=== PATIENT | female | born 1935 | race Caucasian/White ===

== ENCOUNTER → 2017-10-15 10:19 | Outpatient (CLI) | payer MEDICARE, SELFPAY | PROVIDERS: Family Provider Family Medicine; PCP Family Medicine; Visit Provider Family Medicine | DX: Z12.31 Encounter for screening mammogram for malignant neoplasm of breast (principal); Z78.0 Asymptomatic menopausal state | CPT/HCPCS: 77063; 77067 ==

== ENCOUNTER → 2017-10-21 09:37 | Outpatient (CLI) | payer MEDICARE, SELFPAY ==
--- NOTE | 2017-10-21 09:46 | BD_ITS ---
STUDY: DUAL ENERGY X-RAY ABSORPTIOMETRY / DXA REASON FOR EXAM: Female, 81 years old. The patient is postmenopausal. No loss of height. TECHNIQUE: Bone Mineral Density (BMD) measurements of lumbar spine and bilateral hips were obtained. COMPARISON: Comparison is made with prior study dated March 02, 2014. FINDINGS: Lumbar Spine (L1-L4): g/cm2 (1.169) / T-score (-0.1) / Z-score (1.8) Findings are suggestive of normal bone density with a low fracture risk. Left Femur Total: g/cm2 (1.052) / T-score (0.3) / Z-score (2.4) Left Femoral Neck: g/cm2 (0.891) / T-score (-1.1) / Z-score (1.2) Right Femur Total: g/cm2 (1.024) / T-score (0.1) / Z-score (2.2) Right Femoral Neck: g/cm2 (0.903) / T-score (-1.0) / Z-score (1.3) The T-Scores on the most recent prior examination were: Lumbar Spine (L1-L4): There has been improvement of bone density since the previous examination. Left Femur Total: which represents an improvement of 2.4%. Right Femur Total: which represents a worsening of 3.8%. BD/Dexa Bone Density Study IMPRESSION: The patient is considered osteopenic as outlined below according to World Jim Organization (WHO) criteria with a low fracture risk. There has been improvement of bone density since the previous examination. Reference Information: The T-score is the number of standard deviations above or below the standard which is normal for young adults at their peak bone mineral density. The World Health Organization (WHO) interprets the T-scores as follows: Above -1 Normal bone density Between -1 and -2.5 Osteopenia Equal to / or below -2.5 Osteoporosis As a practical clinical guideline, osteopenia may be graded as follows: Mild -1 through -1.5 Moderate -1.6 through -2.0 Severe -2.1 through -2.4 The Z-score is the number of standard deviations above or below age-matched controls. A Z-score of less than -1.5 would be considered abnormal. References: 1. NIH Osteoporosis and Related Bone Diseases http://www.osteo.org 2. International Society for Clinical Densitometry http://www.iscd.org 3. National Osteoporosis Foundation http://www.nof.org Electronically Signed: Alexsander Garcia MD at 13:52 EDT Tel [phone], Service support ,
== END ==
PROVIDERS: Family Provider Family Medicine; PCP Family Medicine; Visit Provider Family Medicine
DX: Z78.0 Asymptomatic menopausal state (principal); Z12.31 Encounter for screening mammogram for malignant neoplasm of breast
CPT/HCPCS: 77080

== ENCOUNTER → 2018-03-05 08:36 | Outpatient (CLI) | payer MEDICARE, SELFPAY ==
[2018-03-05 10:28] LABS: AST(SGOT) 24 U/L (15-37); Alanine Aminotransfer ALT/SGPT 27 U/L (13-56); Albumin, Serum 3.5 g/dL (3.2-5.0); Alkaline Phosphatase 126 U/L (45-117); Anion Gap 9 (5-15); BUN 13 mg/dL (7-18); BUN/Creat Ratio 14.6 RATIO (10-20); Bilirubin, Direct 0.26 mg/dL (0.00-0.30); Calcium,Total 8.6 mg/dL (8.5-10.1); Chloride 107 mmol/L (98-107); Cholesterol 179 mg/dL (200); Creatinine, Serum 0.89 mg/dL (0.55-1.02); EST Glomerular Filtration Rate 64 mL/min (>60); Est Glom Filt Rate - Afr Amer 78 mL/min (>60); Globulin 3.5 g/dL (2.2-4.2); Glucose 104 mg/dL (74-106); High Density Lipoprotein 35 mg/dL; Potassium 3.7 mmol/L (3.5-5.1); Sodium Level 143 mmol/L (136-145); Triglycerides 256 mg/dL; Very Low Density Lipoprotein 51 mg/dL (5-40)
== END ==
PROVIDERS: Family Provider Family Medicine; PCP Family Medicine; Referring Provider Family Medicine; Visit Provider Family Medicine
DX: I10 Essential (primary) hypertension (principal); R94.5 Abnormal results of liver function studies
CPT/HCPCS: 36415; 80048; 80061; 80076

== ENCOUNTER → 2019-07-11 11:01 | Outpatient (CLI) | payer MEDICARE, SELFPAY ==
[2019-07-11 13:09] LABS: Anion Gap 9 (5-15); BUN 14 mg/dL (7-18); BUN/Creat Ratio 14.8 RATIO (10-20); Calcium,Total 9.5 mg/dL (8.5-10.1); Chloride 103 mmol/L (98-107); Cholesterol 187 mg/dL (200); Creatinine, Serum 0.95 mg/dL (0.55-1.02); EST Glomerular Filtration Rate 60 mL/min (>60); Est Glom Filt Rate - Afr Amer 72 mL/min (>60); Glucose 91 mg/dL (74-106); High Density Lipoprotein 35 mg/dL; Potassium 3.7 mmol/L (3.5-5.1); Sodium Level 141 mmol/L (136-145); Triglycerides 332 mg/dL; Uric Acid 8.5 mg/dL (2.6-6.0); Very Low Density Lipoprotein 66 mg/dL (5-40)
== END ==
PROVIDERS: PCP Family Medicine; Referring Provider Family Medicine; Visit Provider Family Medicine
DX: I10 Essential (primary) hypertension (principal); M10.9 Gout, unspecified
CPT/HCPCS: 36415; 80048; 80061; 84550

== ENCOUNTER → 2019-12-07 08:15 | Outpatient (CLI) | payer MEDICARE, SELFPAY ==
--- NOTE | 2019-12-07 08:17 | BI_ITS ---
MAMMOGRAPHY - BILATERAL SCREENING REASON FOR EXAM: Female, 84 years old. Routine annual screening examination. PERTINENT HISTORY: Sister with breast cancer. Remote right excisional breast biopsy. TECHNIQUE: Digital bilateral breast ada (3D mammographic acquisition) in the CC and MLO projections. 2-D mediolateral oblique (MLO) and craniocaudad (CC) views of both breasts were obtained. CAD: Full Field Digital Mammography with Computer Added Detection was performed. COMPARISON: Comparison is made with prior study dated 10/15/2017 and 09/14/2015. FINDINGS: Breast Composition: There are scattered areas of fibroglandular density. There are no dominant masses or suspicious calcifications. Stable benign appearing bilateral axillary lymph nodes. No other significant abnormalities are identified. There has been no significant change since the prior study. BI/SCREEN MAMM (CAD) W/ADA BILAT IMPRESSION: Stable bilateral screening mammogram. Yearly follow-up mammogram recommended. (A) ASSESSMENT CATEGORY: BIRADS Category 2: Benign. A letter regarding these results will be sent to the patient by the facility within 30 days. Approximately 10% of breast cancers are not detected by mammography. A normal mammogram should not delay biopsy of a clinically suspicious abnormality. [id number] Electronically Signed: Alexsander Garcia, at 9:36 EDT , Service support ,
--- NOTE | 2019-12-07 08:47 | BD_ITS ---
STUDY: DUAL ENERGY X-RAY ABSORPTIOMETRY / DXA REASON FOR EXAM: Female, 84 years old. RESIDENT ATHLETIC TRAINER -- TAKES DIURETIC IN [facility] -- TAKES 1200MG CALCIUM AND MULTIVITAMIN -- DOES LITTLE EXERCISE -- HX OF ANKLE AND WRIST FX''S -- NO ALONDRA TECHNIQUE: Bone Mineral Density (BMD) measurements of lumbar spine and bilateral hips were obtained. COMPARISON: Comparison is made with prior study dated 10/21/2017 FINDINGS: Lumbar Spine (L1-L4): g/cm2 (1.164) / T-score (-0.1) / Z-score (1.8) Findings are suggestive of normal bone density with a low fracture risk. Left Femur Total: g/cm2 (1.004) / T-score (0.0) / Z-score (2.2) Left Femoral Neck: g/cm2 (0.800) / T-score (-1.7) / Z-score (0.6) Right Femur Total: g/cm2 (1.026) / T-score (0.1) / Z-score (2.4) Right Femoral Neck: g/cm2 (0.869) / T-score (-1.2) / Z-score (1.1) The T-Scores on the most recent prior examination were: Lumbar Spine (L1-L4): There has been worsening of bone density since the previous examination. Left Femur Total: which represents a worsening of 4.6%. Right Femur Total: which represents an improvement of 0.2%. BD/Dexa Bone Density Study IMPRESSION: The patient is considered osteopenic as outlined below according to World Jim Organization (WHO) criteria with a moderate fracture risk. There has been worsening of bone density since the previous examination. Reference Information: The T-score is the number of standard deviations above or below the standard which is normal for young adults at their peak bone mineral density. The World Health Organization (WHO) interprets the T-scores as follows: Above -1 Normal bone density Between -1 and -2.5 Osteopenia Equal to / or below -2.5 Osteoporosis As a practical clinical guideline, osteopenia may be graded as follows: Mild -1 through -1.5 Moderate -1.6 through -2.0 Severe -2.1 through -2.4 The Z-score is the number of standard deviations above or below age-matched controls. A Z-score of less than -1.5 would be considered abnormal. References: 1. NIH Osteoporosis and Related Bone Diseases www osteo.org 2. International Society for Clinical Densitometry www iscd.org 3. National Osteoporosis Foundation www nof.org Electronically Signed: Alexsander Garcia, at 15:29 EDT , Service support ,
== END ==
PROVIDERS: PCP Family Medicine; Referring Provider Family Medicine; Visit Provider Family Medicine
DX: Z13.820 Encounter for screening for osteoporosis (principal); Z78.0 Asymptomatic menopausal state; Z12.31 Encounter for screening mammogram for malignant neoplasm of breast; Z80.3 Family history of malignant neoplasm of breast
CPT/HCPCS: 77063; 77067; 77080

== ENCOUNTER → 2019-12-16 | Outpatient (CLI) | payer MEDICARE, SELFPAY | END | disposition home or self-care (01) | LOC: LABSPEC 12:10 | PROVIDERS: PCP Family Medicine; Referring Provider Family Medicine; Visit Provider Family Medicine | DX: U07.1 COVID-19 (principal) | CPT/HCPCS: 87635; U0003 ==

== ENCOUNTER 2019-12-20 15:58 | Inpatient (IN) | payer MEDICARE, SELFPAY ==
[2019-12-20] VITALS (16 sets, daily range): BP systolic 91–121; BP diastolic 52–92; PULSE 76–90; RESP 20–28; TEMP 35.6–37.3; O2SAT 85–93; BMI 36.1; BMI 35.2; BMI 35.3
--- NOTE | 2019-12-20 16:24 | EKG12_ITS ---
Test Reason : Blood Pressure : / mmHG Vent. Rate : 088 BPM Atrial Rate : 088 BPM P-R Int : 142 ms QRS Dur : 136 ms QT Int : 416 ms P-R-T Axes : 044 141 008 degrees QTc Int : 503 ms Normal sinus rhythm Right bundle branch block Abnormal ECG Confirmed by ENOC OLIVA, QUYNH ([id number]), state editor RAYSHAWN EMERY ([id number]) on 12/26/2019 12:59:21 PM Referred By: Zander Lares Confirmed By:EZEKIEL STUBBS MD
--- NOTE | 2019-12-20 16:24 | RAD_ITS ---
STUDY: X-RAY CHEST REASON FOR EXAM: Female, 84 years old. COVID 19 positive. Continued fatigue and shortness of breath. TECHNIQUE: Single AP portable view of the chest. COMPARISON: 08/24/2013 FINDINGS: There is diffuse interstitial and alveolar infiltrates throughout both lungs predominantly in a perihilar distribution. There is no demonstrated pleural abnormality. Normal size heart. Normal mediastinum and aubrie. Normal visualized pulmonary arteries. There is atherosclerotic calcification of the aortic arch with tortuosity. There are diffuse degenerative changes of the visualized thoracic spine. There is degenerative osteoarthritis of the bilateral shoulders. There is no demonstrated abnormality of the visualized soft tissue structures of the upper abdomen. RAD/Chest 1 View (Portable) IMPRESSION: Bilateral alveolar and interstitial infiltrates. Electronically Signed: Zana Pena DO at 17:11 EST Tel [phone], Service support ,
--- NOTE | 2019-12-20 16:30 | ED.VIS.GEN ---
History of Present Illness Chief Complaint: Shortness of Breath Informant: Patient Narrative: 84-year-old female with past medical history of hypertension presents with concern for shortness of breath and weakness. States that she was diagnosed with coronavirus 4 days ago. Has had symptoms for approximately 8 days. Called EMS today and was found to be hypoxic in the mid 60s. Patient states that she has had a persistent cough with intermittent fever. Denies any significant chest pain, nausea, vomiting, diarrhea, urinary symptoms. Past Medical History - Allergies and Home Meds Allergies/Adverse Reactions: Allergies No Known Allergies Allergy (Verified 12/20/19 16:05) Prior records reviewed: Yes Past Medical History: - - HTN Surgical History: cholecystectomy, hysterectomy Smoking Status: Never smoker - Family History Maternal Family History: Reports: - - History of stroke Review of Systems General: Reports: Malaise. Denies: Chills, Fever, Sweats Eyes: Denies: Visual changes - bilaterally, Diplopia ENT: Denies: Rhinorrhea, Sore throat Cardiovascular: Denies: Chest pain, Palpitations Respiratory: Reports: Dyspnea, Cough. Denies: Dyspnea on exertion Gastrointestinal: Denies: Abdominal pain, Nausea, Vomiting, Diarrhea, Melena, Hematochezia Genitourinary: Denies: Dysuria, Hematuria, Frequency Musculoskeletal: Denies: Back pain, Extremity Pain Skin: Denies: Rash, Wounds Neurological: Denies: Headache, Weakness, Numbness Physical Exam Vital Signs/Narrative: Vital Signs Temp Pulse Resp BP Pulse Ox 12/20/19 16:04 98.9 F 90 20 H 91/57 L 89 12/20/19 16:00 98.9 F 90 20 H 91/57 L 89 Inital Vital Signs reviewed: Yes General: Well nourished, Well developed, No Acute Distress Head: Normocephalic, Atraumatic Eyes: Perrl, EOMI ENT: Moist mucous membranes, No rhinorrhea Neck: Supple, Nontender Cardiovascular: Regular rate, Regular rhythm, No murmurs Respiratory: No distress, CTA bilaterally, Chest nontender Abdomen: Soft, Nontender, Nondistended, Normal bowel sounds Back: Nontender, Normal Inspection Extremities: Nontender, No edema Skin: Normal color, No rash Neurological: Alert, Oriented x3, Cranial nerves II-XII grossly intact, Normal Strength, Normal Sensation Psychological: Normal affect, Normal Mood Diagnostic/Tx/Re-eval Chest X-Ray - ED: 1 View, Read by ED Physician, - - Bilateral infiltrates. Clinical Impression(s) from Imaging Studies Chest X-Ray 12/20/19 16:24 IMPRESSION: Bilateral alveolar and interstitial infiltrates. Electronically Signed: Zana Pena DO at 17:11 EST Tel [phone], Service support , Chest CTA 12/20/19 17:20 IMPRESSION: 1. No evidence of pulmonary embolus. 2. No aortic dissection or aneurysm. 3. Prominent pulmonary arteries with diffuse perihilar infiltrate. Question pulmonary edema/CHF. 4. Atherosclerotic changes of the thoracic aorta and coronary arteries. Electronically Signed: Zana Pena DO at 18:43 EST Tel [phone], Service support , Laboratory Data 12/20/19 12/20/19 12/20/19 16:30 16:30 16:30 WBC 5.7 RBC 3.93 L Hgb 12.0 Hct 36.6 L MCV 93.1 MCH 30.5 MCHC 32.8 RDW Std Deviation 48.0 H RDW Coeff of Lukasz 13.9 Plt Count 153 MPV 11.8 Immature Gran % (Auto) 1.100 H Neut % (Auto) 85.0 H Lymph % (Auto) 7.4 L [place] % (Auto) 6.3 Eos % (Auto) 0.0 Baso % (Auto) 0.2 Absolute Neuts (auto) 4.9 Absolute Lymphs (auto) 0.42 L Nucleated RBC % 0 Differential Comment SCANNED D-Dimer Quant (PE/DVT) 0.91 H* Specimen Type Sample Site pH Bicarbonate Actual Total CO2 Base Excess O2 Saturation ABG pCO2 ABG pO2 O2 Delivery Device Liter Flow Sodium 140 Potassium 3.5 Chloride 106 Carbon Dioxide 27.0 Anion Gap 7 BUN 33 H Creatinine 1.23 H Estim Creat Clear Calc 24.46 Est GFR (MDRD) Af Amer 54 L Est GFR (MDRD) Non-Af 44 L BUN/Creatinine Ratio 26.8 H Glucose 102 Lactic Acid Calcium 8.5 Total Bilirubin 0.80 AST 38 H ALT 23 Alkaline Phosphatase 125 H Lactate Dehydrogenase 354 H Troponin I < 0.015 Total Protein 7.2 Albumin 2.8 L Globulin 4.4 H Albumin/Globulin Ratio 0.6 L 12/20/19 12/20/19 16:30 16:46 WBC RBC Hgb Hct MCV MCH MCHC RDW Std Deviation RDW Coeff of Lukasz Plt Count MPV Immature Gran % (Auto) Neut % (Auto) Lymph % (Auto) [place] % (Auto) Eos % (Auto) Baso % (Auto) Absolute Neuts (auto) Absolute Lymphs (auto) Nucleated RBC % Differential Comment D-Dimer Quant (PE/DVT) Specimen Type ART Sample Site L Radial pH 7.42 Bicarbonate Actual 23.1 Total CO2 24 Base Excess -1 O2 Saturation 95 ABG pCO2 35.5 ABG pO2 71 L O2 Delivery Device Cannula Liter Flow 10.0 Sodium Potassium Chloride Carbon Dioxide Anion Gap BUN Creatinine Estim Creat Clear Calc Est GFR (MDRD) Af Amer Est GFR (MDRD) Non-Af BUN/Creatinine Ratio Glucose Lactic Acid 1.3 Calcium Total Bilirubin AST ALT Alkaline Phosphatase Lactate Dehydrogenase Troponin I Total Protein Albumin Globulin Albumin/Globulin Ratio - Rhythm Strip Rhythm Strip: Sinus Rhythm Rate: 88 Ectopy: None - EKG Initial EKG Interpretation: Sinus Rhythm - Sinus rhythm at 88 bpm. OH interval of 142 ms. QTC of 503 ms. Right bundle branch block. - Medical Decision Making Patient hypoxic upon arrival. Placed on 6 L but remained at approximate 90%. Placed on high flow nasal cannula. Chest x-ray concerning for bilateral infiltrates. CTA done for elevated D-dimer which shows significant infiltrates without pulmonary embolism. Patient given 6 mg of Decadron. Troponin negative. EKG nonischemic. Patient will be admitted to Covid unit for further treatment and evaluation. Stable at time of admission. Impression: 1. COVID pneumonia 2. Hypoxemia ED Disposition - Plan for ED Patient: Disposition: Acute Care [facility]
[2019-12-20 16:51] LABS: Base Excess -1 mmol/L (-2 to +2); Bicarbonate 23.1 mmol/L (22-26); Blood Gas Specimen Type ART; O2 Delivery Device Cannula; PO2 71 mmHG (75-100); SITE L Radial; SO2 95 % (95-99); Total Carbon Dioxide 24 mmol/L; pCO2 35.5 mmHg (35-45); pH 7.42 (7.35-7.45)
[2019-12-20 16:55] LABS: Absolute Lymphocyte Count 0.42 X10^3/uL (0.83-4.51); Absolute Neutrophil Count 4.9 X10^3/uL (2.0-7.7); Basophil# 0.01 X10^3/uL; Basophil% 0.2 % (0-1); Hematocrit 36.6 % (37-47); Lymphocyte # 0.42 X10^3/ul (4.0); Lymphocyte % 7.4 % (19-41); Mean Corp Hgb Conc 32.8 g/dL (32-36); Mean Corpuscular Hgb 30.5 pg (27.0-32.0); Mean Corpuscular Volume 93.1 fL (81-99); Mean Platelet Vol. 11.8 fl (6.2-12.0); Monocyte# 0.36 X10^3/uL; Monocyte% 6.3 % (0-10); NRBC Flagged by Analyzer 0 % (0-5); Neutrophil # 4.85 X10^3/uL (2.7-7.7); POSITIVE DIFFERENTIAL YES; Platelet Count 153 K/mm3 (150-450); RBC Distribution Width CV 13.9 % (11.6-14.6); Red Blood Count 3.93 M/mm3 (4.2-5.4); White Blood Count 5.7 K/mm3 (4.4-11.0)
[2019-12-20] MEDS: dexAMETHasone 4 MG/ML Vial 6 MG IV (16:58)
[2019-12-20 17:02] LABS: ALB/GLOB Ratio 0.6 RATIO (0.9-2.4); AST(SGOT) 38 U/L (15-37); Alanine Aminotransfer ALT/SGPT 23 U/L (13-56); Albumin, Serum 2.8 g/dL (3.2-5.0); Alkaline Phosphatase 125 U/L (45-117); Anion Gap 7 (5-15); BUN 33 mg/dL (7-18); BUN/Creat Ratio 26.8 RATIO (10-20); Calcium,Total 8.5 mg/dL (8.5-10.1); Chloride 106 mmol/L (98-107); Creatinine, Serum 1.23 mg/dL (0.55-1.02); EST Glomerular Filtration Rate 44 mL/min (>60); Est Glom Filt Rate - Afr Amer 54 mL/min (>60); Estimated Creatinine Clearance 24.46 ml/min; Globulin 4.4 g/dL (2.2-4.2); Glucose 102 mg/dL (74-106); LDH 354 U/L (84-246); Potassium 3.5 mmol/L (3.5-5.1); Protein, Total 7.2 g/dL (6.4-8.2); Sodium Level 140 mmol/L (136-145)
[2019-12-20 17:11] LABS: Differential Indicated SCAN CRITERIA MET
--- NOTE | 2019-12-20 17:20 | CT_ITS ---
STUDY: CTA CHEST REASON FOR EXAM: Female, 84 years old. Dyspnea and fatigue. COVID 19 positive. Hypertension. RADIATION DOSAGE (If Supplied By Facility): CTDIvol = ( 14.93 ) mGy, DLP = ( 453.77 ) mGycm TECHNIQUE: The examination was performed with the intravenous administration of IV 100mL Isovue-370. Post-processing of the angiographic images was performed, with multiplanar reformation and 3D reconstruction. Individualized dose optimization techniques were used for this CT. COMPARISON: Chest, 12/20/2019. FINDINGS: Normal enhancement of the main pulmonary artery and right and left pulmonary arteries. Normal enhancement of the bilateral peripheral pulmonary arteries. There is no demonstrated pulmonary embolism. There is prominence of the main pulmonary arteries and peripheral pulmonary arteries, consistent with congestive heart failure (CHF). There is atherosclerotic tortuosity of the thoracic aorta without aneurysm. There is no demonstrated aortic dissection. The heart is normal in size. There are calcifications of the coronary arteries. Normal mediastinum. Normal hilar regions. Normal visualized trachea and bronchi. The lungs are well expanded. There is elevation right hemidiaphragm. There is patchy perihilar infiltrates throughout both lungs Normal pleura. Normal chest wall structures. There are degenerative changes of thoracic spine. Normal visualized upper abdomen. CT/CTA Chest W/WO Contrast IMPRESSION: 1. No evidence of pulmonary embolus. 2. No aortic dissection or aneurysm. 3. Prominent pulmonary arteries with diffuse perihilar infiltrate. Question pulmonary edema/CHF. 4. Atherosclerotic changes of the thoracic aorta and coronary arteries. Electronically Signed: Zana Pena DO at 18:43 EST Tel [phone], Service support ,
[2019-12-20 17:25] LABS: Lactic Acid 1.3 mmol/L (0.4-1.9)
[2019-12-20 17:26] LABS: D-Dimer Quantitative (DVT/PE) 0.91 FEU/ug/m (0.27-0.49)
[2019-12-20 17:28] LABS: Differential Comment SCANNED
--- NOTE | 2019-12-20 19:11 | HP.PCM_ITS ---
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 malaise. The patient is a 84 year old F presents with shortness of breath and weakness. Patient had been feeling listless at home and tested positive for COVID-19 several days prior. Patient has been feeling ill for about the past week. EMS was called and patient was noted to be hypoxic in the mid 60s. Patient was brought to the emergency room and put on high flow oxygen at 10 L and currently her sats are in the mid 90s. Chest x-ray showed bilateral infiltrates and the patient did receive 6 mg of dexamethasone in the emergency room. D-dimer was elevated and a CT angiogram of the chest was performed. Patient denies having had any fever chills. [] Past Medical History Past Medical History (Chronic Problems): Chronic Problems Obesity, Class II, BMI 35-39.9 (Chronic) Diverticulitis large intestine (Chronic) Dyslipidemia (Chronic) HTN (hypertension) (Chronic) Allergies No Known Allergies Allergy (Verified 12/20/19 16:05) Home Medications: Ambulatory Orders Medication Instructions Recorded Ascorbic Acid [Vitamin C] 500 mg PO DAILY@0800 02/06/13 Cranberry Fruit Extract [Cranberry] 84 mg PO DAILY 02/06/13 Lisinopril/Hydrochlorothiazide 0.5 tablet PO DAILY 02/06/13 [Zestoretic 20/25 Tablet] Multivitamins,Therapeutic 1 tablet PO DAILY 02/06/13 [Multivitamin] Verapamil HCl [Verapamil ER] 240 mg PO QHS 02/06/13 Calcium (Elemental) [Caltrate-600] 600 mg PO BID 02/10/13 Surgical History: cholecystectomy, hysterectomy 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 Denies: Anorexia, Fever, Night Sweats Eyes: Denies: Blurred vision, Double vision HEENT: Denies: Head Aches, Sinus Congestion, Sinus Drainage Cardiovascular: Denies: Chest Pain, Palpitations Respiratory: Reports: Cough, Shortness of Breath Gastrointestinal: Denies: Abdominal Pain, Nausea, Vomiting Genitourinary: Denies: Dysuria Musculoskeletal: Denies: Joint Pain, Joint Tenderness Skin: Denies: Rash, Wounds Neurological: Denies: Numbness, Tingling, Focal weakness Psychiatric: Denies: Anxiety, Depression Hematologic/ Lymphatic: Denies: Easy Bruising, Easy Bleeding, Hx of blood clot Comment: All review of systems were negative except as mentioned above in the history of present illness and the other review of systems. VTE Information - Inpt Only VTE Present on Admission: No VTE Mechan Device Prophylaxis: None VTE Pharm Prophylaxis ordered?: Yes - Physical Exam Vitals/I&O's: Vital Signs Temp Pulse Resp BP Pulse Ox 37.3 C 81 25 H 108/52 L 93 12/20/19 19:00 12/20/19 19:00 12/20/19 19:00 12/20/19 19:00 12/20/19 19:00 Oxygen Flow Rate (L/min) 3 Oxygen Delivery Method Nasal Cannula Weight: 83.915 kg Body Mass Index (BMI) 36.1 General: Alert, No apparent distress, Well developed, Well nourished HEENT: Atraumatic, Normocephalic Oral: Moist Mucosa, No Gingival or Mucosal Lesions/ Ulcerations Neck: No Nodes, Thyroid Normal Size and Texture Lungs: Clear to auscultation, Normal air movement, No rhonchi, No wheeze Cardiovascular: Regular rate, Regular Rhythm, Normal S1, Normal S2, No murmurs Abdomen: Bowel Sounds Present, Soft, Non Tender, Non-Distended, No Hepato- splenomegaly Extremities: No edema, No Calf Tenderness Skin: No rashes, No breakdown Neurological: Muscle tone normal, - - no clonus. Psych/Mental Status: Normal Affect, Appropriate Laboratory Results 12/20/19 16:30: WBC 5.7, RBC 3.93 L, Hgb 12.0, Hct 36.6 L, MCV 93.1, MCH 30.5, MCHC 32.8, RDW Std Deviation 48.0 H, RDW Coeff of Lukasz 13.9, Plt Count 153, MPV 11.8, Immature Gran % (Auto) 1.100 H, Neut % (Auto) 85.0 H, Lymph % (Auto) 7.4 L , [place] % (Auto) 6.3, Eos % (Auto) 0.0, Baso % (Auto) 0.2, Absolute Neuts (auto) 4.9, Absolute Lymphs (auto) 0.42 L, Nucleated RBC % 0, Differential Comment SCANNED 12/20/19 16:30: D-Dimer Quant (PE/DVT) 0.91 H* 12/20/19 16:30: Sodium 140, Potassium 3.5, Chloride 106, Carbon Dioxide 27.0, Anion Gap 7, BUN 33 H, Creatinine 1.23 H, Estim Creat Clear Calc 24.46, Est GFR (MDRD) Af Amer 54 L, Est GFR (MDRD) Non-Af 44 L, BUN/Creatinine Ratio 26.8 H, Glucose 102, Calcium 8.5, Total Bilirubin 0.80, AST 38 H, ALT 23, Alkaline Phosphatase 125 H, Lactate Dehydrogenase 354 H, Troponin I < 0.015, Total Protein 7.2, Albumin 2.8 L, Globulin 4.4 H, Albumin/Globulin Ratio 0.6 L 12/20/19 16:30: Lactic Acid 1.3 12/20/19 16:46: Specimen Type ART, Sample Site L Radial, pH 7.42, Bicarbonate Actual 23.1, Total CO2 24, Base Excess -1, O2 Saturation 95, ABG pCO2 35.5, ABG pO2 71 L, O2 Delivery Device Cannula, Liter Flow 10.0 EKG personally viewed and showed normal sinus rhythm with right bundle block, no prior EKGs available to compare to. Chest x-ray personally reviewed and showed bilateral patchy infiltrates CTA of the chest personally reviewed and showed bilateral diffuse patchy infiltrates. No pulmonary emboli noted. Assessment/Plan All Active Problems COVID-19 (Acute) Acute respiratory failure with hypoxia (Acute) Hypoxia (Acute) SIRS (systemic inflammatory response syndrome) (Ruled-out) Obesity (BMI 35.0-39.9 without comorbidity) (Acute) Bronchitis, acute (Ruled-out) 1. Acute COVID-19 pneumonia: Patient has gotten worse over the past several days. Patient received dexamethasone in the emergency room and will continue for 9 more doses on the floor or when the patient is discharged, which ever comes first. Consultation to infectious disease for recommendations on additional therapies, including remdesivir and convalescent plasma. I do not feel the patient has any other kind of bacterial pneumonia so we will not be initiating antibiotics at this time. CAT scan mention possibilities could be CHF. Clinically patient is not in CHF exacerbation 2. Acute hypoxic respiratory failure Secondary to above On 10 L of oxygen and appears to be comfortable at this time. Do not feel the patient requires stepdown or ICU at this time. 3. Hypertension Stable Continue with verapamil and lisinopril/HCTZ 4. VTE prophylaxis: Patient will be on enoxaparin 30 mg twice daily 5. Advanced care planning: Discussed with the patient. Patient wishes to be full CODE STATUS at this time. Inpatient E&M: 46983 Init Hosp L3
--- NOTE | 2019-12-20 21:04 | NURSING ---
PT UNSURE OF MED DOSAGES. JUST STATES SHE KNOWS HOW MANY PILLS SHE TAKES
[2019-12-20] MEDS: Calcium (Elemental) 500 MG Tablet PO (22:44)
[2019-12-20] MEDS: Verapamil SR 240 MG Tablet PO (22:44)
[2019-12-20] MEDS: Enoxaparin 30 MG/0.3 ML Syringe SC (22:47)
[2019-12-20] MEDS: 0.9% Saline Lock 10 ML Syringe IV (22:48)
[2019-12-21] VITALS (36 sets, daily range): BP systolic 82–109; BP diastolic 40–65; PULSE 58–75; RESP 12–26; TEMP 35.4–36.2; O2SAT 87–100
[2019-12-21] MEDS: 0.9% Saline Lock 10 ML Syringe IV ×2 (03:37→09:23)
[2019-12-21 06:13] LABS: Absolute Lymphocyte Count 0.33 X10^3/uL (0.83-4.51); Absolute Neutrophil Count 3.1 X10^3/uL (2.0-7.7); Basophil# 0.01 X10^3/uL; Basophil% 0.3 % (0-1); Hematocrit 36.3 % (37-47); Hemoglobin 11.9 g/dL (12.0-15.0); Lymphocyte # 0.33 X10^3/ul (4.0); Lymphocyte % 8.9 % (19-41); Mean Corp Hgb Conc 32.8 g/dL (32-36); Mean Corpuscular Volume 94.5 fL (81-99); Mean Platelet Vol. 11.8 fl (6.2-12.0); Monocyte# 0.25 X10^3/uL; Monocyte% 6.8 % (0-10); NRBC Flagged by Analyzer 0 % (0-5); Neutrophil # 3.05 X10^3/uL (2.7-7.7); Neutrophil % 82.4 % (47-70); POSITIVE DIFFERENTIAL YES; Platelet Count 147 K/mm3 (150-450); RBC Distribution Width CV 13.6 % (11.6-14.6); RBC Distribution Width SD 47.1 fl (35.1-43.9); Red Blood Count 3.84 M/mm3 (4.2-5.4); White Blood Count 3.7 K/mm3 (4.4-11.0)
[2019-12-21 06:28] LABS: Differential Indicated SCAN CRITERIA MET
[2019-12-21 06:44] LABS: Differential Comment SCANNED; Ovalocyte RARE
[2019-12-21 06:47] LABS: ALB/GLOB Ratio 0.6 RATIO (0.9-2.4); AST(SGOT) 36 U/L (15-37); Alanine Aminotransfer ALT/SGPT 20 U/L (13-56); Albumin, Serum 2.5 g/dL (3.2-5.0); Alkaline Phosphatase 112 U/L (45-117); Anion Gap 8 (5-15); BUN 37 mg/dL (7-18); BUN/Creat Ratio 32.2 RATIO (10-20); Calcium,Total 8.5 mg/dL (8.5-10.1); Chloride 107 mmol/L (98-107); Creatinine, Serum 1.15 mg/dL (0.55-1.02); EST Glomerular Filtration Rate 48 mL/min (>60); Est Glom Filt Rate - Afr Amer 58 mL/min (>60); Estimated Creatinine Clearance 26.16 ml/min; Globulin 4.2 g/dL (2.2-4.2); Glucose 152 mg/dL (74-106); Potassium 3.6 mmol/L (3.5-5.1); Protein, Total 6.7 g/dL (6.4-8.2); Sodium Level 140 mmol/L (136-145)
--- NOTE | 2019-12-21 07:22 | PCM.PN.HOSP ---
Patient Problems: Active and Suspected Problems COVID-19 (Acute) Acute respiratory failure with hypoxia (Acute) Hypoxia (Acute) Obesity (BMI 35.0-39.9 without comorbidity) (Acute) Subjective: Patient upon presentation with significantly worsening respiratory status with required up to 15 L with facemask eventually transitioned to BiPAP up to 80% upon evaluation this a.m. Patient denies any significant complaints but does feel short of breath somewhat when BiPAP is removed only momentarily with desaturations down to 68% with immediate need for replacement. Given patient presentation rediscussed CODE STATUS and again confirmed full code therefore discussed with biometric technician and elected to transition patient to the ICU. patient denies any nausea, emesis, abdominal pain, diarrhea, body aches but does states she is extremely fatigued. Objective: Physical Examination: General: awake, alert, oriented to self, place and recent events, remains currently cooperative, seated upright in the medical surgical bed with no obvious distress when she is on the BiPAP but when it is only momentarily removed she has become extremely hypoxic with increased work of breathing, tachypnea and obvious evidence of accessory muscle usage. Skin: normal color, turgor, no icterus, cyanosis. HEENT: AT/NC, EOMI, PERRLA, dry MM. Lungs: Reduced breath sounds throughout, greater bases, BiPAP initially in place, removed, desaturated quickly with increased respiratory rate, accessory muscle usage and evidence of respiratory distress. Heart: Regular rate and rhythm; no gallop, rub audible. Abdomen: soft, obese, NTTP, ND, normal BS. Extremities: no cyanosis, clubbing, or edema. Neurological: patient awake, alert, oriented as noted; cognitive function suspect near baseline intact; pupils equally reactive to light and accomodation; cranial nerves II-XII grossly normal, moving all 4 extremities, no focal deficits, strength severely global decrease secondary to acute presentation. Psychiatric: affect appears fatigued, does not give any significant complaints but very stoic, no acute evidence of depressive or anxiety feelings. Vitals/I&O's: Vital Signs Temp Pulse Resp BP Pulse Ox 95.9 F L 59 L 26 H 100/54 L 94 12/21/19 03:38 12/21/19 03:53 12/21/19 03:53 12/21/19 03:38 11/11/20 03:53 Oxygen Flow Rate (L/min) 18 Oxygen Delivery Method Bi-pap Weight: 180 lb 9 oz Body Mass Index (BMI) 35.2 Intake and Output for Last 24 Hours 12/19/19 12/20/19 12/21/19 23:59 23:59 23:59 Intake Total 2.5 / 102.5 442.75 / 442.75 Balance 2.5 / 102.5 442.75 / 442.75 Laboratory Results 12/20/19 16:30: WBC 5.7, RBC 3.93 L, Hgb 12.0, Hct 36.6 L, MCV 93.1, MCH 30.5, MCHC 32.8, RDW Std Deviation 48.0 H, RDW Coeff of Lukasz 13.9, Plt Count 153, MPV 11.8, Immature Gran % (Auto) 1.100 H, Neut % (Auto) 85.0 H, Lymph % (Auto) 7.4 L, [place] % (Auto) 6.3, Eos % (Auto) 0.0, Baso % (Auto) 0.2, Absolute Neuts (auto) 4.9, Absolute Lymphs (auto) 0.42 L, Nucleated RBC % 0, Differential Comment SCANNED 12/20/19 16:30: D-Dimer Quant (PE/DVT) 0.91 H* 12/20/19 16:30: Sodium 140, Potassium 3.5, Chloride 106, Carbon Dioxide 27.0, Anion Gap 7, BUN 33 H, Creatinine 1.23 H, Estim Creat Clear Calc 24.46, Est GFR (MDRD) Af Amer 54 L, Est GFR (MDRD) Non-Af 44 L, BUN/Creatinine Ratio 26.8 H, Glucose 102, Calcium 8.5, Total Bilirubin 0.80, AST 38 H, ALT 23, Alkaline Phosphatase 125 H, Lactate Dehydrogenase 354 H, Troponin I < 0.015, Total Protein 7.2, Albumin 2.8 L, Globulin 4.4 H, Albumin/Globulin Ratio 0.6 L 12/20/19 16:30: Lactic Acid 1.3 12/20/19 16:46: Specimen Type ART, Sample Site L Radial, pH 7.42, Bicarbonate Actual 23.1, Total CO2 24, Base Excess -1, O2 Saturation 95, ABG pCO2 35.5, ABG pO2 71 L, O2 Delivery Device Cannula, Liter Flow 10.0 12/21/19 05:14: WBC 3.7 L, RBC 3.84 L, Hgb 11.9 L, Hct 36.3 L, MCV 94.5, MCH 31.0, MCHC 32.8, RDW Std Deviation 47.1 H, RDW Coeff of Lukasz 13.6, Plt Count 147 L, MPV 11.8, Immature Gran % (Auto) 1.600 H, Neut % (Auto) 82.4 H, Lymph % (Auto) 8.9 L, [place] % (Auto) 6.8, Eos % (Auto) 0.0, Baso % (Auto) 0.3, Absolute Neuts (auto) 3.1, Absolute Lymphs (auto) 0.33 L, Nucleated RBC % 0, Differential Comment SCANNED, Diff Path Review May foll, Ovalocytes RARE 12/21/19 05:14: Sodium 140, Potassium 3.6, Chloride 107, Carbon Dioxide 25.0, Anion Gap 8, BUN 37 H, Creatinine 1.15 H, Estim Creat Clear Calc 26.16, Est GFR (MDRD) Af Amer 58 L, Est GFR (MDRD) Non-Af 48 L, BUN/Creatinine Ratio 32.2 H, Glucose 152 H, Calcium 8.5, Total Bilirubin 0.60, AST 36, ALT 20, Alkaline Phosphatase 112, Total Protein 6.7, Albumin 2.5 L, Globulin 4.2, Albumin/Globulin Ratio 0.6 L 12/21/19 05:14: Blood Type A POSITIVE Current Medications Acetaminophen (Acetaminophen 325 Mg Tablet) 650 mg PO Q6H PRN PRN PRN Reason: Pain Score 1-10/Temp > 100.7 F Ascorbic Acid (Ascorbic Acid 500 Mg Tablet) 500 mg PO DAILY [facility] Calcium Carbonate (Calcium (Elemental) 500 Mg Tablet) 500 mg PO BID [facility] Last Admin: 12/20/19 22:44 Dose: 500 mg Documented by: Dexamethasone Sodium Phosphate (Dexamethasone 10 Mg/Ml Vial) 6 mg IV DAILY [facility] Stop: 12/30/19 10:01 Enoxaparin Sodium (Enoxaparin 30 Mg/0.3 Ml Syringe) 30 mg SC BID [facility] Last Admin: 12/20/19 22:47 Dose: 30 mg Documented by: Hydrochlorothiazide (Hydrochlorothiazide 25 Mg Tablet) 25 mg PO DAILY [facility] Sodium Chloride () 250 mls @ 15 mls/hr IV .[id number] PRN PRN Reason: Saline Flush Last Infusion: 12/21/19 03:37 Dose: 0 mls/hr Documented by: Sodium Chloride () 250 mls @ 15 mls/hr IV .[id number] PRN PRN Reason: Additional IVPB Infusion Remdesivir 100 mg/ Sodium (Chloride) 250 mls @ 125 mls/hr IV DAILY [facility]; Protocol Stop: 12/24/19 11:59 Ibuprofen (Ibuprofen 400 Mg Tablet) 400 mg PO Q4H PRN PRN PRN Reason: Pain Score 1-10/Temp > 100.7 F Lisinopril (Lisinopril 20 Mg Tablet) 20 mg PO DAILY [facility] Multivitamins (Multivitamins,Therapeutic Tablet) 1 tablet PO DAILY [facility] Nutritional Formula (Lactose Free) (Ensure Enlive 120 Ml Liquid) 120 ml PO 4X/DAY [facility] Nystatin (Nystatin Powder 15gm Bottle) 1 applic TOPICAL BID [facility]; Protocol Ondansetron HCl (Ondansetron 4 Mg/2 Ml Vial) 4 mg IV Q8H PRN PRN PRN Reason: NAUSEA/VOMITING Sodium Chloride (0.9% Saline Lock 10 Ml Syringe) 10 - 40 ml IV UD PRN PRN Reason: SALINE FLUSH Last Admin: 12/21/19 03:37 Dose: 10 ml Documented by: Verapamil HCl (Verapamil Sr 240 Mg Tablet) 240 mg PO QHS [facility] Last Admin: 12/20/19 22:44 Dose: 240 mg Documented by: STROKE Vital Signs/Narrative: Vital Signs Temp Pulse Resp BP Pulse Ox 12/21/19 03:53 59 L 26 H 94 12/21/19 03:40 24 H 92 12/21/19 03:38 95.9 F L 58 L 24 H 100/54 L 92 Medical Necessity - Tobacco Use Smoking Status: Never smoker Assessment/Plan All Active Problems COVID-19 (Acute) Acute respiratory failure with hypoxia (Acute) Hypoxia (Acute) SIRS (systemic inflammatory response syndrome) (Ruled-out) Obesity (BMI 35.0-39.9 without comorbidity) (Acute) Bronchitis, acute (Ruled-out) The patient is an 84 y/o F w/ PMHx: HTN, HLD, Obesity otherwise healthy who presents to the [facility] ED on 12/20/19 with history of onset of fatigue, malaise, mild cough the Thursday prior with recent positive Covid testing the prior Thursday noting to have unfortunately contracted the illness from her son who his was positive and eventually tested positive whom she has been in close contact with and notes that her was also tested positive with worsening status, more shortness of breath prompting ED presentation with EMS noting 60% oxygenation at their initial evaluation. 1. Acute Hypoxic Respiratory Failure secondary to Bilateral Pneumonia secondary to Acute Viral Syndrome, COVID-19: Patient with clinically worsening status, initially admitted to medical surgical Covid unit however given worsening status with required significant oxygen supplementation eventually transition to BiPAP overnight will transition to the ICU, discussed with the biometric technician/pulmonary physician, CTPA with no evidence of pulmonary emboli, will continue IV Decadron therapy, defer any antibiotics as suspect likely secondary to Covid presentation, pending infectious disease evaluation for consideration remdesivir and convalescent plasma however timeline may preclude, will continue to trend Covid panel labs per worsening status Covid order set protocol, continue supportive care including q 2 hour turning including prone given no prone bed availability and judicious hydration, closely monitor for worsening status for ARDS and multiorgan failure. 2. Hyperglycemia: Initial glucose 102, repeat 152 but likely secondary to recent usage of steroids, continue to trend. 3. Transient LFT elevation: Initial AST/ALT 38/23, repeat 36/, alk phos 125 now 112, likely secondary to acute presentation, will continue to trend. 4. Hypertension: Patient with hypotension since presentation, 5. Chronic Kidney Disease Stage IV versus GAURI: Admission BUN/Cr 33/1.23 with creatinine clearance 24.46, unclear prior baseline, repeat 12/21/2019 BUN/creatinine 37/1.15, do suspect some underlying chronic kidney disease but given acute presentation may be acute, continue to trend. 6. DVT prophylaxis: SCDs, renally dosed Lovenox. 7. CODE status: Patient upon presentation made full CODE STATUS, discussed at length patient's current presentation and wishes in addition to concept of differences between FULL code, DNR-CCA and DNR-CC status. Following discussions about the differences in these status, requested continuation of Full Code status and is amenable to intubation and CPR measures. Advanced Care Planning Face to Face Time: 16 minutes. Inpatient E&M: [id number] [facility] L[id number] Min
[2019-12-21] MEDS: Enoxaparin 30 MG/0.3 ML Syringe SC ×2 (09:22→21:03)
[2019-12-21] MEDS: dexAMETHasone 10 MG/ML Vial 6 MG IV (09:22)
[2019-12-21] MEDS: Calcium (Elemental) 500 MG Tablet PO ×2 (09:23→21:03)
[2019-12-21] MEDS: hydroCHLOROthiazide 25 MG Tablet PO (09:23)
[2019-12-21] MEDS: Lisinopril 20 MG Tablet PO (09:24)
[2019-12-21] MEDS: Multivitamins,Therapeutic Tablet 1 TABLET PO (09:24)
[2019-12-21] MEDS: Ascorbic Acid 500 MG Tablet PO (09:24)
[2019-12-21] MEDS: Nystatin Powder 15gm Bottle 1 APPLIC TOPICAL ×2 (09:24→21:17)
[2019-12-21 12:55] LABS: Pathologist Review Reviewed
--- NOTE | 2019-12-21 15:55 | PCM.HP.ID ---
Problem List (1) COVID-19 Status: Acute Reason for Consult: covid Consulted by: Dr. Dempsey History of Present Illness: The patient is a 84 year old F presented with symptoms since 12/11/19, c/o headache, congestion, cough, chills, some diarrhea, fatigue. Had some dyspnea and confusion, taken to ED. Started on dex and remdesivir last night. Feeling a little better today, no n/v. Full ROS performed and neg except as noted above. 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 large intestine (Chronic) Dyslipidemia (Chronic) HTN (hypertension) (Chronic) Allergies/Adverse Reactions: Allergies No Known Allergies Allergy (Verified 12/20/19 16:05) Home Medications: Ambulatory Orders Medication Instructions Recorded Ascorbic Acid [Vitamin C] 500 mg PO DAILY@0800 02/06/13 Cranberry Fruit Extract [Cranberry] 84 mg PO DAILY 02/06/13 Lisinopril/Hydrochlorothiazide 0.5 tablet PO DAILY 02/06/13 [Zestoretic Tablet] Multivitamins,Therapeutic 1 tablet PO DAILY 02/06/13 [Multivitamin] Verapamil HCl [Verapamil ER] 240 mg PO QHS 02/06/13 Calcium (Elemental) [Caltrate-600] 600 mg PO BID 02/10/13 - Social History Tobacco Use: non-smoker Vital Signs Temp Pulse Resp BP Pulse Ox 97.1 F L 65 23 H 97/62 97 12/21/19 11:15 12/21/19 13:30 12/21/19 13:30 12/21/19 13:30 12/21/19 13:30 Oxygen Flow Rate (L/min) 18 Oxygen Delivery Method Bi-pap Weight: 81.9 kg Body Mass Index (BMI) 35.2 Laboratory Tests Past 24 Hrs 12/20/19 12/20/19 12/20/19 16:30 16:30 16:30 WBC 5.7 RBC 3.93 L Hgb 12.0 Hct 36.6 L MCV 93.1 MCH 30.5 MCHC 32.8 RDW Std Deviation 48.0 H RDW Coeff of Lukasz 13.9 Plt Count 153 MPV 11.8 Immature Gran % (Auto) 1.100 H Neut % (Auto) 85.0 H Lymph % (Auto) 7.4 L [place] % (Auto) 6.3 Eos % (Auto) 0.0 Baso % (Auto) 0.2 Absolute Neuts (auto) 4.9 Absolute Lymphs (auto) 0.42 L Nucleated RBC % 0 Differential Comment SCANNED Diff Path Review Ovalocytes D-Dimer Quant (PE/DVT) 0.91 H* Specimen Type Sample Site pH Bicarbonate Actual Total CO2 Base Excess O2 Saturation ABG pCO2 ABG pO2 O2 Delivery Device Liter Flow Sodium 140 Potassium 3.5 Chloride 106 Carbon Dioxide 27.0 Anion Gap 7 BUN 33 H Creatinine 1.23 H Estim Creat Clear Calc 24.46 Est GFR (MDRD) Af Amer 54 L Est GFR (MDRD) Non-Af 44 L BUN/Creatinine Ratio 26.8 H Glucose 102 Lactic Acid Calcium 8.5 Total Bilirubin 0.80 AST 38 H ALT 23 Alkaline Phosphatase 125 H Lactate Dehydrogenase 354 H Troponin I < 0.015 Total Protein 7.2 Albumin 2.8 L Globulin 4.4 H Albumin/Globulin Ratio 0.6 L Blood Type Antibody Screen 12/20/19 12/20/19 12/21/19 16:30 16:46 05:14 WBC 3.7 L RBC 3.84 L Hgb 11.9 L Hct 36.3 L MCV 94.5 MCH 31.0 MCHC 32.8 RDW Std Deviation 47.1 H RDW Coeff of Lukasz 13.6 Plt Count 147 L MPV 11.8 Immature Gran % (Auto) 1.600 H Neut % (Auto) 82.4 H Lymph % (Auto) 8.9 L [place] % (Auto) 6.8 Eos % (Auto) 0.0 Baso % (Auto) 0.3 Absolute Neuts (auto) 3.1 Absolute Lymphs (auto) 0.33 L Nucleated RBC % 0 Differential Comment SCANNED Diff Path Review Reviewed Ovalocytes RARE D-Dimer Quant (PE/DVT) Specimen Type ART Sample Site L Radial pH 7.42 Bicarbonate Actual 23.1 Total CO2 24 Base Excess -1 O2 Saturation 95 ABG pCO2 35.5 ABG pO2 71 L O2 Delivery Device Cannula Liter Flow 10.0 Sodium Potassium Chloride Carbon Dioxide Anion Gap BUN Creatinine Estim Creat Clear Calc Est GFR (MDRD) Af Amer Est GFR (MDRD) Non-Af BUN/Creatinine Ratio Glucose Lactic Acid 1.3 Calcium Total Bilirubin AST ALT Alkaline Phosphatase Lactate Dehydrogenase Troponin I Total Protein Albumin Globulin Albumin/Globulin Ratio Blood Type Antibody Screen 12/21/19 12/21/19 12/21/19 05:14 05:14 05:14 WBC RBC Hgb Hct MCV MCH MCHC RDW Std Deviation RDW Coeff of Lukasz Plt Count MPV Immature Gran % (Auto) Neut % (Auto) Lymph % (Auto) [place] % (Auto) Eos % (Auto) Baso % (Auto) Absolute Neuts (auto) Absolute Lymphs (auto) Nucleated RBC % Differential Comment Diff Path Review Ovalocytes D-Dimer Quant (PE/DVT) Specimen Type Sample Site pH Bicarbonate Actual Total CO2 Base Excess O2 Saturation ABG pCO2 ABG pO2 O2 Delivery Device Liter Flow Sodium 140 Potassium 3.6 Chloride 107 Carbon Dioxide 25.0 Anion Gap 8 BUN 37 H Creatinine 1.15 H Estim Creat Clear Calc 26.16 Est GFR (MDRD) Af Amer 58 L Est GFR (MDRD) Non-Af 48 L BUN/Creatinine Ratio 32.2 H Glucose 152 H Lactic Acid Calcium 8.5 Total Bilirubin 0.60 AST 36 ALT 20 Alkaline Phosphatase 112 Lactate Dehydrogenase Troponin I Total Protein 6.7 Albumin 2.5 L Globulin 4.2 Albumin/Globulin Ratio 0.6 L Blood Type Cancelled A POSITIVE Antibody Screen NEGATIVE - Other Studies Radiology: [] reviewed Other Studies: [] Route of nutrition/ use of supplements: [] Nutritional Intake: [] IV Site: [] White Catheter: [] - Physical Exam General: Alert, Oriented x3, Cooperative HEENT: Atraumatic, PERRLA, EOMI Neck: Supple, No Nodes Lungs: Diminished Cardiovascular: Regular rate, Regular Rhythm Abdomen: Soft, Non Tender, Non-Distended Extremities: No edema Skin: No rashes IV Site: Peripheral, without redness Musculoskeletal: No Tenderness to Palpation of Joints or Extremities Neurological: Cranial nerves II-XII grossly intact - Assessment/Plan Antibiotics: [] Assessment/Plan: [] Active and Suspected Problems COVID-19 (Acute) Acute respiratory failure with hypoxia (Acute) Hypoxia (Acute) Obesity (BMI 35.0-39.9 without comorbidity) (Acute) Hypoxic, covid. On dex, remdesivir. Reviewed EUA and discussed risks and benefits of convalescent plasma, pt consents to treatment, will order. CT showed no PE. On lovenoex 30mg bid. D-dimer 0.9. Will follow, thank you
--- NOTE | 2019-12-21 16:16 | CON.PCM_ITS ---
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 Patient reportedly was diagnosed with coronavirus 4 days prior to presentation, but had been reporting symptoms for approximately 8 to 10 days. Patient had called EMS on the day of presentation was noted to be in the mid 60s on room air by EMS. Patient has had a persistent cough and intermittent fever. Patient denied any bowel issues such as nausea, vomiting, diarrhea or hematochezia. Patient has never had complaints of chest pain or urinary symptoms. In the ER, patient was noted to be hypotensive at 91/57, but afebrile and saturating 89%. Chest x-ray showed bilateral infiltrates and CTA was followed up showing no PE, but prominent pulmonary arteries with groundglass opacities bilaterally. Laboratory work-up showed no leukocytosis, but a slightly elevated D-dimer at 0.91. Creatinine was slightly elevated at 1.23, but liver enzymes are okay. LDH is slightly elevated. Troponin was within normal limits and an ABG was obtained showing good ventilation with poor oxygenation. Patient was given Decadron and admitted to the Covid cohort unit. Over the course of the hospitalization, patient became progressively hypoxic requiring high flow nasal cannula. Patient eventually had to be transition to BiPAP therapy and transferred to the intensive care unit. On my evaluation, patient was comfortable on BiPAP, but requiring 70% FiO2 to maintain saturations. Patient reported that she was comfortable on BiPAP therapy and verified that she was a full code and would be intubated if necessary. Patient denies any respiratory history. 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 Patient denies any smoking or asthma history. Patient has never required supplemental oxygen previously. Review of systems otherwise negative from a constitutional, HEENT, respiratory, cardiovascular, GI, genitourinary, musculoskeletal, skin, neurologic, psychiatric and hematologic system unless stated above. Past Medical History Past Medical History (Chronic Problems): Chronic Problems Obesity, Class II, BMI 35-39.9 (Chronic) Diverticulitis large intestine (Chronic) Dyslipidemia (Chronic) HTN (hypertension) (Chronic) Allergies No Known Allergies Allergy (Verified 12/20/19 16:05) Home Medications: Ambulatory Orders Medication Instructions Recorded Ascorbic Acid [Vitamin C] 500 mg PO DAILY@0800 02/06/13 Cranberry Fruit Extract [Cranberry] 84 mg PO DAILY 02/06/13 Lisinopril/Hydrochlorothiazide 0.5 tablet PO DAILY 02/06/13 [Zestoretic Tablet] Multivitamins,Therapeutic 1 tablet PO DAILY 02/06/13 [Multivitamin] Verapamil HCl [Verapamil ER] 240 mg PO QHS 02/06/13 Calcium (Elemental) [Caltrate-600] 600 mg PO BID 02/10/13 Surgical History: cholecystectomy, hysterectomy [employer] History: No pertinent [employer] history Smoking Status: Never smoker - *Family History Maternal History Items: - - History of stroke Review of Systems Comment: See HPI Patient Problems: Active and Suspected Problems COVID-19 (Acute) Acute respiratory failure with hypoxia (Acute) Hypoxia (Acute) Obesity (BMI 35.0-39.9 without comorbidity) (Acute) Objective: All imaging was personally reviewed. Agree with formal interpretation. Patient has not had any recent echocardiogram or pulmonary function tests that are available for review. - Physical Exam Vitals/I&O's: Vital Signs Temp Pulse Resp BP Pulse Ox 36.2 C L 75 21 H 97/62 96 12/21/19 11:15 12/21/19 16:12 12/21/19 16:12 12/21/19 13:30 12/21/19 16:12 Oxygen Flow Rate (L/min) 18 Oxygen Delivery Method Bi-pap Weight: 81.9 kg Body Mass Index (BMI) 35.2 Intake and Output for Last 24 Hours 12/19/19 12/20/19 12/21/19 23:59 23:59 23:59 Intake Total 2.5 / 102.5 442.75 / 442.75 Balance 2.5 / 102.5 442.75 / 442.75 General: Alert, Oriented x3, Cooperative, No apparent distress - On BiPAP, - - Obese. HEENT: Atraumatic, PERRLA, EOMI, Normocephalic, - - No scleral icterus or injection noted Oral: Moist Mucosa, No Gingival or Mucosal Lesions/ Ulcerations Neck: Supple, No JVD, No Nodes, Trachea Midline Lungs: No rhonchi, No wheeze, No rales, Diminished, - - Symmetric expansion. Cardiovascular: Regular rate, Regular Rhythm, Normal S1, Normal S2, No murmurs, No rub noted, No Gallop Abdomen: Bowel Sounds Present, Soft, Non Tender, Non-Distended, Obese Extremities: No clubbing, No cyanosis, Edema - Trace lower extremity Skin: No rashes, No breakdown Musculoskeletal: No Tenderness to Palpation of Joints or Extremities Lymphatic: No Cervical, Supraclavicular, or Inguinal Adenopathy Neurological: Cranial nerves II-XII grossly intact, Neuro grossly intact, Motor Exam 5/5 strength throughout Psych/Mental Status: Alert and oriented to time, place, person, mood and affect Microbiology Past 72 Hours 12/21/19 13:18 Mucosa - Nose Respiratory Panel (PCR) - Final Laboratory Results 12/20/19 16:30: WBC 5.7, RBC 3.93 L, Hgb 12.0, Hct 36.6 L, MCV 93.1, MCH 30.5, MCHC 32.8, RDW Std Deviation 48.0 H, RDW Coeff of Lukasz 13.9, Plt Count 153, MPV 11.8, Immature Gran % (Auto) 1.100 H, Neut % (Auto) 85.0 H, Lymph % (Auto) 7.4 L , [place] % (Auto) 6.3, Eos % (Auto) 0.0, Baso % (Auto) 0.2, Absolute Neuts (auto) 4.9, Absolute Lymphs (auto) 0.42 L, Nucleated RBC % 0, Differential Comment SCANNED 12/20/19 16:30: D-Dimer Quant (PE/DVT) 0.91 H* 12/20/19 16:30: Sodium 140, Potassium 3.5, Chloride 106, Carbon Dioxide 27.0, Anion Gap 7, BUN 33 H, Creatinine 1.23 H, Estim Creat Clear Calc 24.46, Est GFR (MDRD) Af Amer 54 L, Est GFR (MDRD) Non-Af 44 L, BUN/Creatinine Ratio 26.8 H, Glucose 102, Calcium 8.5, Total Bilirubin 0.80, AST 38 H, ALT 23, Alkaline Phosphatase 125 H, Lactate Dehydrogenase 354 H, Troponin I < 0.015, Total Protein 7.2, Albumin 2.8 L, Globulin 4.4 H, Albumin/Globulin Ratio 0.6 L 12/20/19 16:30: Lactic Acid 1.3 12/20/19 16:46: Specimen Type ART, Sample Site L Radial, pH 7.42, Bicarbonate Actual 23.1, Total CO2 24, Base Excess -1, O2 Saturation 95, ABG pCO2 35.5, ABG pO2 71 L, O2 Delivery Device Cannula, Liter Flow 10.0 12/21/19 05:14: WBC 3.7 L, RBC 3.84 L, Hgb 11.9 L, Hct 36.3 L, MCV 94.5, MCH 31.0, MCHC 32.8, RDW Std Deviation 47.1 H, RDW Coeff of Lukasz 13.6, Plt Count 147 L, MPV 11.8, Immature Gran % (Auto) 1.600 H, Neut % (Auto) 82.4 H, Lymph % (Auto) 8.9 L, [place] % (Auto) 6.8, Eos % (Auto) 0.0, Baso % (Auto) 0.3, Absolute Neuts (auto) 3.1, Absolute Lymphs (auto) 0.33 L, Nucleated RBC % 0, Differential Comment SCANNED, Diff Path Review Reviewed, Ovalocytes RARE 12/21/19 05:14: Sodium 140, Potassium 3.6, Chloride 107, Carbon Dioxide 25.0, Anion Gap 8, BUN 37 H, Creatinine 1.15 H, Estim Creat Clear Calc 26.16, Est GFR (MDRD) Af Amer 58 L, Est GFR (MDRD) Non-Af 48 L, BUN/Creatinine Ratio 32.2 H, Glucose 152 H, Calcium 8.5, Total Bilirubin 0.60, AST 36, ALT 20, Alkaline Phosphatase 112, Total Protein 6.7, Albumin 2.5 L, Globulin 4.2, Albumin/Globulin Ratio 0.6 L 12/21/19 05:14: Blood Type Cancelled 12/21/19 05:14: Blood Type A POSITIVE, Antibody Screen NEGATIVE Current Medications Acetaminophen (Acetaminophen 325 Mg Tablet) 650 mg PO Q6H PRN PRN PRN Reason: Pain Score 1-10/Temp > 100.7 F Albuterol Sulfate (Albuterol Sulfate 8 Gm Inhaler (60 Puffs)) 4 - 8 puff INHALATION Q4H PRN PRN PRN Reason: Dyspnea, wheezing Ascorbic Acid (Ascorbic Acid 500 Mg Tablet) 500 mg PO DAILY [facility] Last Admin: 12/21/19 09:24 Dose: 500 mg Documented by: Calcium Carbonate (Calcium (Elemental) 500 Mg Tablet) 500 mg PO BID [facility] Last Admin: 12/21/19 09:23 Dose: 500 mg Documented by: Dexamethasone Sodium Phosphate (Dexamethasone 10 Mg/Ml Vial) 6 mg IV DAILY [facility] Stop: 12/30/19 10:01 Last Admin: 12/21/19 09:22 Dose: 6 mg Documented by: Enoxaparin Sodium (Enoxaparin 30 Mg/0.3 Ml Syringe) 30 mg SC BID [facility] Last Admin: 12/21/19 09:22 Dose: 30 mg Documented by: Hydralazine HCl (Hydralazine 20 Mg/Ml Vial) 10 mg IV Q4H PRN PRN PRN Reason: SBP > 160 Hydrochlorothiazide (Hydrochlorothiazide 25 Mg Tablet) 25 mg PO DAILY [facility] Last Admin: 12/21/19 09:23 Dose: 25 mg Documented by: Sodium Chloride () 250 mls @ 15 mls/hr IV .[id number] PRN PRN Reason: Saline Flush Last Infusion: 12/21/19 03:37 Dose: 0 mls/hr Documented by: Sodium Chloride () 250 mls @ 15 mls/hr IV .[id number] PRN PRN Reason: Additional IVPB Infusion Remdesivir 100 mg/ Sodium (Chloride) 250 mls @ 125 mls/hr IV DAILY@2200 [facility]; Protocol Stop: 12/24/19 23:59 Ibuprofen (Ibuprofen 400 Mg Tablet) 400 mg PO Q4H PRN PRN PRN Reason: Pain Score 1-10/Temp > 100.7 F Lisinopril (Lisinopril 20 Mg Tablet) 20 mg PO DAILY [facility] Last Admin: 12/21/19 09:24 Dose: 20 mg Documented by: Multivitamins (Multivitamins,Therapeutic Tablet) 1 tablet PO DAILY [facility] Last Admin: 12/21/19 09:24 Dose: 1 tablet Documented by: Nystatin (Nystatin Powder 15gm Bottle) 1 applic TOPICAL BID [facility]; Protocol Last Admin: 12/21/19 09:24 Dose: 1 applic Documented by: Ondansetron HCl (Ondansetron 4 Mg/2 Ml Vial) 4 mg IV Q8H PRN PRN PRN Reason: NAUSEA/VOMITING Sodium Chloride (0.9% Saline Lock 10 Ml Syringe) 10 - 40 ml IV UD PRN PRN Reason: SALINE FLUSH Last Admin: 12/21/19 09:23 Dose: 10 ml Documented by: Verapamil HCl (Verapamil Sr 240 Mg Tablet) 240 mg PO QHS [facility] Last Admin: 12/20/19 22:44 Dose: 240 mg Documented by: Clinical Impression(s) from Imaging Studies Chest X-Ray 12/20/19 16:24 IMPRESSION: Bilateral alveolar and interstitial infiltrates. Electronically Signed: Zana Pena DO at 17:11 EST Tel [phone], Service support , Chest CTA 12/20/19 17:20 IMPRESSION: 1. No evidence of pulmonary embolus. 2. No aortic dissection or aneurysm. 3. Prominent pulmonary arteries with diffuse perihilar infiltrate. Question pulmonary edema/CHF. 4. Atherosclerotic changes of the thoracic aorta and coronary arteries. Electronically Signed: Zana Pena DO at 18:43 EST Tel [phone], Service support , Assessment/Plan Active and Suspected Problems COVID-19 (Acute) Acute respiratory failure with hypoxia (Acute) Hypoxia (Acute) Obesity (BMI 35.0-39.9 without comorbidity) (Acute) RECOMMENDATIONS: 1. Continue BiPAP overnight 2. Initiate Decadron, convalescence plasma, remdesivir and anticoagulation 3. Monitor for hypoglycemia and other complications of Decadron 4. Wean oxygen as tolerated 5. ABG with decompensation IMPRESSIONS: 1. Acute hypoxic respiratory failure secondary to COVID-19 pneumonia Patient with typical findings on CTA of the chest. No pulmonary emboli were noted. Okay to use lower dose Lovenox from my perspective. Patient is already on Decadron, remdesivir and has been ordered convalescent serum. All of these appear to be appropriate. Did stress to the patient that she may continue to decompensate and she is open to intubation if necessary. Will obtain an ABG if patient starts to have decreased mental status, but appears to be stabilizing on BiPAP at this time. Anticipate trial of high flow nasal cannula tomorrow, but doubt patient will be able to tolerate this when sleeping. 2. Hyperglycemia Likely secondary to Decadron therapy. Continue to monitor. Patient may need initiation of long-acting insulin. 3. Transaminitis Patient was slightly elevated liver enzymes on presentation. Will need to watch closely given patient's Remdesivir order. Patient is aware of the risk and feels that it is appropriate to proceed. We will continue with daily labs as ordered. 4. Chronic kidney disease stage IV versus acute kidney injury Unclear baseline at this time. Patient appears to have some improvement with stabilization of cardiovascular status. We will continue to monitor closely. Cannot guarantee the patient will be able to receive a full course of remdesivir. TIME: 32 minutes critical care time spent addressing patient's acute hypoxic respiratory failure, hyperglycemia, acute kidney injury, review of all data and collaboration with care team (1 PM to 4 PM) [id number]: [id number] Critical care first hour
--- NOTE | 2019-12-21 19:13 | CPS ---
patient placed on 15 lpm hrfnc via nursing.
[2019-12-21] MEDS: Verapamil SR 240 MG Tablet PO (21:03)
[2019-12-22] VITALS (47 sets, daily range): BP systolic 85–112; BP diastolic 44–76; PULSE 58–83; RESP 12–27; TEMP 35.7–36.9; O2SAT 90–100
--- NOTE | 2019-12-22 02:26 | PCM.PN.BLA ---
Progress Note Patient with persistent hypertension. Stop all blood pressure medications at this time. Will give normal saline 500 mL bolus. STROKE Vital Signs/Narrative: Vital Signs Temp Pulse Resp BP BP Pulse Ox 12/22/19 02:15 58 L 22 H 85/50 L 100 12/22/19 02:00 62 22 H 90/44 L 100 12/22/19 01:45 96.2 F L 60 22 H 92/59 L 99 12/22/19 01:25 96.5 F L 62 25 H 92/59 L 100 12/22/19 01:00 63 20 H 99/50 L 97 12/22/19 00:38 96.8 F L 67 24 H 101/58 L 99 12/22/19 00:25 96.2 F L 68 21 H 85/58 L 99 12/22/19 00:10 96.4 F L 71 24 H 95/61 99 12/22/19 00:06 72 18 94 12/22/19 00:02 96.4 F L 61 20 H 93/57 L 100 12/22/19 00:00 96.4 F L 66 23 H 95/61 99 12/21/19 23:11 64 12/21/19 23:00 96.8 F L 70 22 H 95/63 99 12/21/19 22:29 69 20 H 94
[2019-12-22] MEDS: 0.9% Saline Lock 10 ML Syringe IV ×3 (02:48→23:44)
[2019-12-22 04:15] LABS: Absolute Lymphocyte Count 0.49 X10^3/uL (0.83-4.51); Absolute Neutrophil Count 4.8 X10^3/uL (2.0-7.7); Basophil# 0.01 X10^3/uL; Basophil% 0.2 % (0-1); Hemoglobin 11.1 g/dL (12.0-15.0); Lymphocyte # 0.49 X10^3/ul (4.0); Lymphocyte % 8.2 % (19-41); Mean Corp Hgb Conc 31.7 g/dL (32-36); Mean Corpuscular Hgb 29.9 pg (27.0-32.0); Mean Corpuscular Volume 94.3 fL (81-99); Mean Platelet Vol. 11.4 fl (6.2-12.0); Monocyte# 0.52 X10^3/uL; Monocyte% 8.7 % (0-10); NRBC Flagged by Analyzer 0 % (0-5); Neutrophil # 4.84 X10^3/uL (2.7-7.7); Neutrophil % 81.2 % (47-70); POSITIVE DIFFERENTIAL YES; Platelet Count 176 K/mm3 (150-450); RBC Distribution Width CV 13.5 % (11.6-14.6); RBC Distribution Width SD 46.9 fl (35.1-43.9); Red Blood Count 3.71 M/mm3 (4.2-5.4)
[2019-12-22 04:19] LABS: Differential Indicated SCAN CRITERIA MET
[2019-12-22 04:27] LABS: D-Dimer Quantitative (DVT/PE) 0.52 FEU/ug/m (0.27-0.49)
[2019-12-22 04:28] LABS: ALB/GLOB Ratio 0.6 RATIO (0.9-2.4); AST(SGOT) 36 U/L (15-37); Alanine Aminotransfer ALT/SGPT 21 U/L (13-56); Albumin, Serum 2.4 g/dL (3.2-5.0); Alkaline Phosphatase 99 U/L (45-117); Anion Gap 7 (5-15); BUN 51 mg/dL (7-18); BUN/Creat Ratio 45.5 RATIO (10-20); Calcium,Total 8.5 mg/dL (8.5-10.1); Chloride 108 mmol/L (98-107); Creatinine, Serum 1.12 mg/dL (0.55-1.02); EST Glomerular Filtration Rate 49 mL/min (>60); Est Glom Filt Rate - Afr Amer 60 mL/min (>60); Estimated Creatinine Clearance 26.86 ml/min; Ferritin 403 ng/mL (8-252); Globulin 4.2 g/dL (2.2-4.2); Glucose 126 mg/dL (74-106); Potassium 3.6 mmol/L (3.5-5.1); Protein, Total 6.6 g/dL (6.4-8.2); Sodium Level 142 mmol/L (136-145)
[2019-12-22 04:32] LABS: Procalcitonin 0.21 ng/mL (0.00-0.09)
[2019-12-22 04:52] LABS: Differential Comment SCANNED
--- NOTE | 2019-12-22 06:57 | PN_ITS ---
Patient Problems: Active and Suspected Problems COVID-19 (Acute) Acute respiratory failure with hypoxia (Acute) Hypoxia (Acute) Obesity (BMI 35.0-39.9 without comorbidity) (Acute) Subjective: Patient overnight with continued necessity for BiPAP although 12/22/2019 a.m. did decrease patient from 75% FiO2 to 65% FiO2. Patient with trial this a.m. to Airvo with noted necessity of significant FiO2 up to 93% to maintain appropriate saturations in the low 90s. Patient did receive oral medications with BiPAP to the side this a.m. and did maintain saturations in the low 90s but this was also blow-by. Patient notes feeling fatigued and weak but denies any significant dyspnea. Patient denies fevers, chills, nausea, emesis, abdominal pain, chest pain. Objective: Physical Examination: General: awake, alert, oriented x 3 and cooperative, he did upright in the ICU bed, BiPAP currently being transitioned to air Vo, improved appearance since day prior. Skin: normal color, turgor, no icterus, cyanosis. HEENT: AT/NC, EOMI, PERRLA, dry MM. Lungs: Diminished breath sounds throughout, greater bases, currently being transition BiPAP to air Vo, no obvious distress currently, no rales, ronchi or wheezing. Heart: Regular rate and rhythm; no gallop, rub audible. Abdomen: soft, NTTP, ND, normal BS, no HSM. Extremities: no cyanosis, clubbing, or edema. Neurological: patient awake, alert, oriented as noted, somewhat hard of hearing especially with BiPAP noise; cognitive function appears baseline intact; pupils equally reactive to light and accomodation; cranial nerves II-XII grossly normal, moving all 4 extremities, no focal deficits, strength severely global decrease secondary to acute presentation. Psychiatric: affect appears less fatigued than day prior, no acute evidence of depressive or anxiety feelings. Vitals/I&O's: Vital Signs Temp Pulse Resp BP Pulse Ox 98.4 F 60 19 H 99/57 L 99 12/22/19 06:00 12/22/19 06:00 12/22/19 06:00 12/22/19 06:00 12/22/19 06:00 Oxygen Flow Rate (L/min) 15 Oxygen Delivery Method Bi-pap Weight: 190 lb 14.725 oz Body Mass Index (BMI) 35.2 Intake and Output for Last 24 Hours 12/20/19 12/21/19 12/22/19 23:59 23:59 23:59 Intake Total 2.5 / 102.5 932.75 / 932.75 910 / 910 Balance 2.5 / 102.5 932.75 / 932.75 910 / 910 Microbiology Past 72 Hours 12/21/19 13:18 Mucosa - Nose Respiratory Panel (PCR) - Final Laboratory Results 12/21/19 05:14: Diff Path Review Reviewed 12/21/19 05:14: Blood Type Cancelled 12/21/19 05:14: Blood Type A POSITIVE, Antibody Screen NEGATIVE 12/22/19 04:00: WBC 6.0, RBC 3.71 L, Hgb 11.1 L, Hct 35.0 L, MCV 94.3, MCH 29.9, MCHC 31.7 L, RDW Std Deviation 46.9 H, RDW Coeff of Lukasz 13.5, Plt Count 176, MPV 11.4, Immature Gran % (Auto) 1.700 H, Neut % (Auto) 81.2 H, Lymph % (Auto) 8.2 L , [place] % (Auto) 8.7, Eos % (Auto) 0.0, Baso % (Auto) 0.2, Absolute Neuts (auto) 4.8, Absolute Lymphs (auto) 0.49 L, Nucleated RBC % 0, Differential Comment SCANNED 12/22/19 04:00: Sodium 142, Potassium 3.6, Chloride 108 H, Carbon Dioxide 27.0, Anion Gap 7, BUN 51 H, Creatinine 1.12 H, Estim Creat Clear Calc 26.86, Est GFR (MDRD) Af Amer 60, Est GFR (MDRD) Non-Af 49 L, BUN/Creatinine Ratio 45.5 H, Glucose 126 H, Calcium 8.5, Ferritin 403 H, Total Bilirubin 0.50, AST 36, ALT 21, Alkaline Phosphatase 99, C-React Prot Ext Range 111.00 H, Total Protein 6.6, Albumin 2.4 L, Globulin 4.2, Albumin/Globulin Ratio 0.6 L 12/22/19 04:00: D-Dimer Quant (PE/DVT) 0.52 H* 12/22/19 04:00: Procalcitonin 0.21 H Current Medications Acetaminophen (Acetaminophen 325 Mg Tablet) 650 mg PO Q6H PRN PRN PRN Reason: Pain Score 1-10/Temp > 100.7 F Albuterol Sulfate (Albuterol Sulfate 8 Gm Inhaler (60 Puffs)) 4 - 8 puff INHALATION Q4H PRN PRN PRN Reason: Dyspnea, wheezing Ascorbic Acid (Ascorbic Acid 500 Mg Tablet) 500 mg PO DAILY [facility] Last Admin: 12/21/19 09:24 Dose: 500 mg Documented by: Calcium Carbonate (Calcium (Elemental) 500 Mg Tablet) 500 mg PO BID [facility] Last Admin: 12/21/19 21:03 Dose: 500 mg Documented by: Dexamethasone Sodium Phosphate (Dexamethasone 10 Mg/Ml Vial) 6 mg IV DAILY [facility] Stop: 12/30/19 10:01 Last Admin: 12/21/19 09:22 Dose: 6 mg Documented by: Enoxaparin Sodium (Enoxaparin 30 Mg/0.3 Ml Syringe) 30 mg SC BID [facility] Last Admin: 12/21/19 21:03 Dose: 30 mg Documented by: Hydralazine HCl (Hydralazine 20 Mg/Ml Vial) 10 mg IV Q4H PRN PRN PRN Reason: SBP > 160 Sodium Chloride () 250 mls @ 15 mls/hr IV .[id number] PRN PRN Reason: Saline Flush Last Infusion: 12/21/19 03:37 Dose: 0 mls/hr Documented by: Sodium Chloride () 250 mls @ 15 mls/hr IV .[id number] PRN PRN Reason: Additional IVPB Infusion Remdesivir 100 mg/ Sodium (Chloride) 250 mls @ 125 mls/hr IV DAILY@2200 [facility]; Protocol Stop: 12/24/19 23:59 Last Infusion: 12/21/19 23:04 Dose: Infused Documented by: Ibuprofen (Ibuprofen 400 Mg Tablet) 400 mg PO Q4H PRN PRN PRN Reason: Pain Score 1-10/Temp > 100.7 F Multivitamins (Multivitamins,Therapeutic Tablet) 1 tablet PO DAILY [facility] Last Admin: 12/21/19 09:24 Dose: 1 tablet Documented by: Nystatin (Nystatin Powder 15gm Bottle) 1 applic TOPICAL BID [facility]; Protocol Last Admin: 12/21/19 21:17 Dose: 1 applic Documented by: Ondansetron HCl (Ondansetron 4 Mg/2 Ml Vial) 4 mg IV Q8H PRN PRN PRN Reason: NAUSEA/VOMITING Sodium Chloride (0.9% Saline Lock 10 Ml Syringe) 10 - 40 ml IV UD PRN PRN Reason: SALINE FLUSH Last Admin: 12/22/19 02:48 Dose: 10 ml Documented by: STROKE Vital Signs/Narrative: Vital Signs Temp Pulse Resp BP Pulse Ox 12/22/19 06:00 98.4 F 60 19 H 99/57 L 99 12/22/19 05:00 60 20 H 91/56 L 98 12/22/19 04:00 68 18 95/64 100 12/22/19 03:32 71 18 93 12/22/19 03:18 59 L 12/22/19 03:00 96.8 F L 59 L 18 87/56 L 99 Medical Necessity - Tobacco Use Smoking Status: Never smoker Assessment/Plan All Active Problems COVID-19 (Acute) Acute respiratory failure with hypoxia (Acute) Hypoxia (Acute) Obesity (BMI 35.0-39.9 without comorbidity) (Acute) Bronchitis, acute (Ruled-out) The patient is an 84 y/o F w/ PMHx: HTN, HLD, Obesity otherwise healthy who presents to the [facility] ED on 12/20/19 with history of onset of fatigue, malaise, mild cough the Thursday prior with recent positive Covid testing the prior Thursday noting to have unfortunately contracted the illness from her son who his was positive and eventually tested positive whom she has been in close contact with and notes that her was also tested positive with worsening status, more shortness of breath prompting ED presentation with EMS noting 60% oxygenation at their initial evaluation. 1. Acute Hypoxic Respiratory Failure secondary to Bilateral Pneumonia secondary to Acute Viral Syndrome, COVID-19: Patient with clinically worsening status, initially admitted to medical surgical Covid unit however worsened status with high flow transition to BiPAP 12/19 to 12/21/2019 p.m., 12/21/2019 transition to the ICU, continued on IV Decadron therapy in addition to remdesivir in addition to planned convalescent plasma, infectious disease and pulmonary medicine/ICU following, attempting BiPAP to air Vo today with oral intake attempt, likely will vacillate between BiPAP and airvo, will continue to trend Covid panel labs per worsening status Covid order set protocol, continue supportive care including q 2 hour turning including prone given no prone bed availability and judicious hydration, closely monitor for worsening status for ARDS and multiorgan failure. 2. Hyperglycemia: Initial glucose 102, repeat 152 but likely secondary to recent usage of steroids, continue to trend. 3. Transient LFT elevation: Initial AST/ALT 38/23, repeat , alk phos 125- >112, likely secondary to acute presentation, 12/22/19 AST/ALT 36/21. 4. Hypertension: Patient with hypotension since presentation, 5. Chronic Kidney Disease Stage IV versus GAURI: Admission BUN/Cr 33/1.23 with creatinine clearance 24.46, unclear prior baseline, repeat 12/22/2019 BUN/creatinine 51/1.12, do suspect some underlying chronic kidney disease but given acute presentation may be acute, continue to trend. 6. DVT prophylaxis: SCDs, Lovenox. 7. CODE status: Full Code. Inpatient E&M: 75983 Subs Hosp L3
--- NOTE | 2019-12-22 07:26 | PCM.PN.INT ---
Subjective: Patient did well overnight. Patient was able to tolerate BiPAP with little difficulty. Patient is reporting that she is hungry this morning and would like to try to eat if she can. Patient did receive convalescent serum overnight and tolerated this well. BiPAP was able to be weaned to 65% this morning. Blood pressures remain marginal and she did receive a 500 cc bolus overnight with good response. General: Alert, Oriented x3, Cooperative, No apparent distress - On BiPAP, - - Obese. HEENT: Atraumatic, PERRLA, EOMI, Normocephalic, - - No scleral icterus or injection noted Oral: No Gingival or Mucosal Lesions/ Ulcerations, Dry Mucosa Neck: Supple, No JVD, No Nodes, Trachea Midline Lungs: No rhonchi, No wheeze, No rales, Diminished, - - Symmetric expansion. No dullness to percussion Cardiovascular: Regular rate, Regular Rhythm, Normal S1, Normal S2, No murmurs, No rub noted, No Gallop Abdomen: Bowel Sounds Present, Soft, Non Tender, Non-Distended, Obese Extremities: No clubbing, No cyanosis, No edema Skin: No rashes, No breakdown Musculoskeletal: No Tenderness to Palpation of Joints or Extremities Lymphatic: No Cervical, Supraclavicular, or Inguinal Adenopathy Neurological: Cranial nerves II-XII grossly intact, Neuro grossly intact, Motor Exam 5/5 strength throughout Psych/Mental Status: Alert and oriented to time, place, person, mood and affect Vital Signs Temp Pulse Resp BP Pulse Ox 36.9 C 58 L 24 H 89/57 L 97 12/22/19 06:00 12/22/19 07:24 12/22/19 07:00 12/22/19 07:00 12/22/19 07:00 Oxygen Flow Rate (L/min) 15 Oxygen Delivery Method Bi-pap Weight: 86.6 kg Body Mass Index (BMI) 35.2 Intake and Output for Last 24 Hours 12/20/19 12/21/19 12/22/19 23:59 23:59 23:59 Intake Total 2.5 / 102.5 932.75 / 932.75 910 / 910 Balance 2.5 / 102.5 932.75 / 932.75 910 / 910 Labs (Last 48 Hours) 12/20/19 12/20/19 12/20/19 16:30 16:30 16:30 WBC 5.7 RBC 3.93 L Hgb 12.0 Hct 36.6 L MCV 93.1 MCH 30.5 MCHC 32.8 RDW Std Deviation 48.0 H RDW Coeff of Lukasz 13.9 Plt Count 153 MPV 11.8 Immature Gran % (Auto) 1.100 H Neut % (Auto) 85.0 H Lymph % (Auto) 7.4 L Sanders % (Auto) 6.3 Eos % (Auto) 0.0 Baso % (Auto) 0.2 Absolute Neuts (auto) 4.9 Absolute Lymphs (auto) 0.42 L Nucleated RBC % 0 Differential Comment SCANNED Diff Path Review Ovalocytes D-Dimer Quant (PE/DVT) 0.91 H* Specimen Type Sample Site pH Bicarbonate Actual Total CO2 Base Excess O2 Saturation ABG pCO2 ABG pO2 O2 Delivery Device Liter Flow Sodium 140 Potassium 3.5 Chloride 106 Carbon Dioxide 27.0 Anion Gap 7 BUN 33 H Creatinine 1.23 H Estim Creat Clear Calc 24.46 Est GFR (MDRD) Af Amer 54 L Est GFR (MDRD) Non-Af 44 L BUN/Creatinine Ratio 26.8 H Glucose 102 Lactic Acid Calcium 8.5 Ferritin Total Bilirubin 0.80 AST 38 H ALT 23 Alkaline Phosphatase 125 H Lactate Dehydrogenase 354 H Troponin I < 0.015 C-React Prot Ext Range Total Protein 7.2 Albumin 2.8 L Globulin 4.4 H Albumin/Globulin Ratio 0.6 L Procalcitonin Blood Type Antibody Screen 12/20/19 12/20/19 12/21/19 16:30 16:46 05:14 WBC 3.7 L RBC 3.84 L Hgb 11.9 L Hct 36.3 L MCV 94.5 MCH 31.0 MCHC 32.8 RDW Std Deviation 47.1 H RDW Coeff of Lukasz 13.6 Plt Count 147 L MPV 11.8 Immature Gran % (Auto) 1.600 H Neut % (Auto) 82.4 H Lymph % (Auto) 8.9 L Sanders % (Auto) 6.8 Eos % (Auto) 0.0 Baso % (Auto) 0.3 Absolute Neuts (auto) 3.1 Absolute Lymphs (auto) 0.33 L Nucleated RBC % 0 Differential Comment SCANNED Diff Path Review Reviewed Ovalocytes RARE D-Dimer Quant (PE/DVT) Specimen Type ART Sample Site L Radial pH 7.42 Bicarbonate Actual 23.1 Total CO2 24 Base Excess -1 O2 Saturation 95 ABG pCO2 35.5 ABG pO2 71 L O2 Delivery Device Cannula Liter Flow 10.0 Sodium Potassium Chloride Carbon Dioxide Anion Gap BUN Creatinine Estim Creat Clear Calc Est GFR (MDRD) Af Amer Est GFR (MDRD) Non-Af BUN/Creatinine Ratio Glucose Lactic Acid 1.3 Calcium Ferritin Total Bilirubin AST ALT Alkaline Phosphatase Lactate Dehydrogenase Troponin I C-React Prot Ext Range Total Protein Albumin Globulin Albumin/Globulin Ratio Procalcitonin Blood Type Antibody Screen 12/21/19 12/21/19 12/21/19 05:14 05:14 05:14 WBC RBC Hgb Hct MCV MCH MCHC RDW Std Deviation RDW Coeff of Lukasz Plt Count MPV Immature Gran % (Auto) Neut % (Auto) Lymph % (Auto) Sanders % (Auto) Eos % (Auto) Baso % (Auto) Absolute Neuts (auto) Absolute Lymphs (auto) Nucleated RBC % Differential Comment Diff Path Review Ovalocytes D-Dimer Quant (PE/DVT) Specimen Type Sample Site pH Bicarbonate Actual Total CO2 Base Excess O2 Saturation ABG pCO2 ABG pO2 O2 Delivery Device Liter Flow Sodium 140 Potassium 3.6 Chloride 107 Carbon Dioxide 25.0 Anion Gap 8 BUN 37 H Creatinine 1.15 H Estim Creat Clear Calc 26.16 Est GFR (MDRD) Af Amer 58 L Est GFR (MDRD) Non-Af 48 L BUN/Creatinine Ratio 32.2 H Glucose 152 H Lactic Acid Calcium 8.5 Ferritin Total Bilirubin 0.60 AST 36 ALT 20 Alkaline Phosphatase 112 Lactate Dehydrogenase Troponin I C-React Prot Ext Range Total Protein 6.7 Albumin 2.5 L Globulin 4.2 Albumin/Globulin Ratio 0.6 L Procalcitonin Blood Type Cancelled A POSITIVE Antibody Screen NEGATIVE 12/22/19 12/22/19 12/22/19 04:00 04:00 04:00 WBC 6.0 RBC 3.71 L Hgb 11.1 L Hct 35.0 L MCV 94.3 MCH 29.9 MCHC 31.7 L RDW Std Deviation 46.9 H RDW Coeff of Lukasz 13.5 Plt Count 176 MPV 11.4 Immature Gran % (Auto) 1.700 H Neut % (Auto) 81.2 H Lymph % (Auto) 8.2 L Sanders % (Auto) 8.7 Eos % (Auto) 0.0 Baso % (Auto) 0.2 Absolute Neuts (auto) 4.8 Absolute Lymphs (auto) 0.49 L Nucleated RBC % 0 Differential Comment SCANNED Diff Path Review Ovalocytes D-Dimer Quant (PE/DVT) 0.52 H* Specimen Type Sample Site pH Bicarbonate Actual Total CO2 Base Excess O2 Saturation ABG pCO2 ABG pO2 O2 Delivery Device Liter Flow Sodium 142 Potassium 3.6 Chloride 108 H Carbon Dioxide 27.0 Anion Gap 7 BUN 51 H Creatinine 1.12 H Estim Creat Clear Calc 26.86 Est GFR (MDRD) Af Amer 60 Est GFR (MDRD) Non-Af 49 L BUN/Creatinine Ratio 45.5 H Glucose 126 H Lactic Acid Calcium 8.5 Ferritin 403 H Total Bilirubin 0.50 AST 36 ALT 21 Alkaline Phosphatase 99 Lactate Dehydrogenase Troponin I C-React Prot Ext Range 111.00 H Total Protein 6.6 Albumin 2.4 L Globulin 4.2 Albumin/Globulin Ratio 0.6 L Procalcitonin Blood Type Antibody Screen 12/22/19 04:00 WBC RBC Hgb Hct MCV MCH MCHC RDW Std Deviation RDW Coeff of Lukasz Plt Count MPV Immature Gran % (Auto) Neut % (Auto) Lymph % (Auto) Sanders % (Auto) Eos % (Auto) Baso % (Auto) Absolute Neuts (auto) Absolute Lymphs (auto) Nucleated RBC % Differential Comment Diff Path Review Ovalocytes D-Dimer Quant (PE/DVT) Specimen Type Sample Site pH Bicarbonate Actual Total CO2 Base Excess O2 Saturation ABG pCO2 ABG pO2 O2 Delivery Device Liter Flow Sodium Potassium Chloride Carbon Dioxide Anion Gap BUN Creatinine Estim Creat Clear Calc Est GFR (MDRD) Af Amer Est GFR (MDRD) Non-Af BUN/Creatinine Ratio Glucose Lactic Acid Calcium Ferritin Total Bilirubin AST ALT Alkaline Phosphatase Lactate Dehydrogenase Troponin I C-React Prot Ext Range Total Protein Albumin Globulin Albumin/Globulin Ratio Procalcitonin 0.21 H Blood Type Antibody Screen Microbiology 12/21/19 13:18 Mucosa - Nose Respiratory Panel (PCR) - Final Medical Necessity - Tobacco Use Smoking Status: Never smoker Assessment/Plan All Active Problems COVID-19 (Acute) Acute respiratory failure with hypoxia (Acute) Hypoxia (Acute) Obesity (BMI 35.0-39.9 without comorbidity) (Acute) Bronchitis, acute (Ruled-out) RECOMMENDATIONS: 1. Possibly attempt Airvo with BiPAP rescue today 2. Continue Decadron, remdesivir and anticoagulation. Convalescent serum given 3. Monitor for hyperglycemia and other complications of Decadron 4. Wean oxygen as tolerated 5. ABG with decompensation 6. Hold home blood pressure medications IMPRESSIONS: 1. Acute hypoxic respiratory failure secondary to COVID-19 pneumonia Patient with typical findings on CTA of the chest. No pulmonary emboli were noted. Okay to use lower dose Lovenox from my perspective. Patient is already on Decadron, remdesivir and has received convalescent serum. All of these appear to be appropriate. Did stress to the patient that she may continue to decompensate and she is open to intubation if necessary. Will obtain an ABG if patient starts to have decreased mental status, but appears to be stabilizing on BiPAP at this time. Anticipate trial of high flow nasal cannula later today, but doubt patient will be able to tolerate this when sleeping. 2. Hyperglycemia Likely secondary to Decadron therapy. Continue to monitor. Patient may need initiation of long-acting insulin. We will hold for now as patient appears to be tolerating 3. Transaminitis Patient was slightly elevated liver enzymes on presentation. Will need to watch closely given patient's Remdesivir order. Patient is aware of the risk and feels that it is appropriate to proceed. We will continue with daily labs as ordered. 4. Chronic kidney disease stage IV versus acute kidney injury Unclear baseline at this time. Patient appears to have some improvement with stabilization of cardiovascular status. We will continue to monitor closely. Cannot guarantee the patient will be able to receive a full course of remdesivir. TIME: 34 minutes critical care time spent addressing patient's acute hypoxic respiratory failure, hyperglycemia, acute kidney injury, review of all data and collaboration with care team (6 AM to 7 AM) [phone]: [id number] Critical care first hour
[2019-12-22] MEDS: Enoxaparin 30 MG/0.3 ML Syringe SC ×2 (08:19→20:43)
[2019-12-22] MEDS: Calcium (Elemental) 500 MG Tablet PO ×2 (08:20→20:43)
[2019-12-22] MEDS: dexAMETHasone 10 MG/ML Vial 6 MG IV (08:20)
[2019-12-22] MEDS: Multivitamins,Therapeutic Tablet 1 TABLET PO (08:20)
[2019-12-22] MEDS: Ascorbic Acid 500 MG Tablet PO (08:20)
[2019-12-22] MEDS: Nystatin Powder 15gm Bottle 1 APPLIC TOPICAL ×2 (08:26→20:44)
--- NOTE | 2019-12-22 09:05 | CPS ---
Addendum entered by Cassandra Cantu 12/22/19 09:08: FiO2 increased to 93% Original Note: Changed patient to Airvo 60L and 85%
--- NOTE | 2019-12-22 11:10 | PN.ID_ITS ---
Patient Problems: Active and Suspected Problems COVID-19 (Acute) Acute respiratory failure with hypoxia (Acute) Hypoxia (Acute) Obesity (BMI 35.0-39.9 without comorbidity) (Acute) Subjective: Feeling better, no fever, still cough, dyspnea. No n/v/d. - Physical Exam Vitals/I&O's: Vital Signs Temp Pulse Resp BP Pulse Ox 97.2 F L 77 23 H 91/76 94 12/22/19 08:18 12/22/19 10:26 12/22/19 10:26 12/22/19 10:26 12/22/19 10:26 Oxygen Flow Rate (L/min) 15 Oxygen Delivery Method Airvo Weight: 86.6 kg Body Mass Index (BMI) 35.2 Intake and Output for Last 24 Hours 12/20/19 12/21/19 12/22/19 23:59 23:59 23:59 Intake Total 2.5 / 102.5 932.75 / 932.75 910 / 910 Balance 2.5 / 102.5 932.75 / 932.75 910 / 910 General: Alert, Cooperative, No apparent distress Lungs: Diminished Cardiovascular: Regular rate, Regular Rhythm Abdomen: Soft, Non Tender, Non-Distended Skin: No rashes Microbiology Past 72 Hours 12/21/19 13:18 Mucosa - Nose Respiratory Panel (PCR) - Final Laboratory Results 12/21/19 05:14: Diff Path Review Reviewed 12/21/19 05:14: Blood Type A POSITIVE, Antibody Screen NEGATIVE 12/22/19 04:00: WBC 6.0, RBC 3.71 L, Hgb 11.1 L, Hct 35.0 L, MCV 94.3, MCH 29.9, MCHC 31.7 L, RDW Std Deviation 46.9 H, RDW Coeff of Lukasz 13.5, Plt Count 176, MPV 11.4, Immature Gran % (Auto) 1.700 H, Neut % (Auto) 81.2 H, Lymph % (Auto) 8.2 L , Reeves % (Auto) 8.7, Eos % (Auto) 0.0, Baso % (Auto) 0.2, Absolute Neuts (auto) 4.8, Absolute Lymphs (auto) 0.49 L, Nucleated RBC % 0, Differential Comment SCANNED 12/22/19 04:00: Sodium 142, Potassium 3.6, Chloride 108 H, Carbon Dioxide 27.0, Anion Gap 7, BUN 51 H, Creatinine 1.12 H, Estim Creat Clear Calc 26.86, Est GFR (MDRD) Af Amer 60, Est GFR (MDRD) Non-Af 49 L, BUN/Creatinine Ratio 45.5 H, Glucose 126 H, Calcium 8.5, Ferritin 403 H, Total Bilirubin 0.50, AST 36, ALT 21, Alkaline Phosphatase 99, C-React Prot Ext Range 111.00 H, Total Protein 6.6, Albumin 2.4 L, Globulin 4.2, Albumin/Globulin Ratio 0.6 L 12/22/19 04:00: D-Dimer Quant (PE/DVT) 0.52 H* 12/22/19 04:00: Procalcitonin 0.21 H Current Medications Acetaminophen (Acetaminophen 325 Mg Tablet) 650 mg PO Q6H PRN PRN PRN Reason: Pain Score 1-10/Temp > 100.7 F Albuterol Sulfate (Albuterol Sulfate 8 Gm Inhaler (60 Puffs)) 4 - 8 puff INHALATION Q4H PRN PRN PRN Reason: Dyspnea, wheezing Ascorbic Acid (Ascorbic Acid 500 Mg Tablet) 500 mg PO DAILY [facility] Last Admin: 12/22/19 08:20 Dose: 500 mg Documented by: Calcium Carbonate (Calcium (Elemental) 500 Mg Tablet) 500 mg PO BID [facility] Last Admin: 12/22/19 08:20 Dose: 500 mg Documented by: Dexamethasone Sodium Phosphate (Dexamethasone 10 Mg/Ml Vial) 6 mg IV DAILY [facility] Stop: 12/30/19 10:01 Last Admin: 12/22/19 08:20 Dose: 6 mg Documented by: Enoxaparin Sodium (Enoxaparin 30 Mg/0.3 Ml Syringe) 30 mg SC BID [facility] Last Admin: 12/22/19 08:19 Dose: 30 mg Documented by: Hydralazine HCl (Hydralazine 20 Mg/Ml Vial) 10 mg IV Q4H PRN PRN PRN Reason: SBP > 160 Sodium Chloride () 250 mls @ 15 mls/hr IV .[id number] PRN PRN Reason: Saline Flush Last Infusion: 12/21/19 03:37 Dose: 0 mls/hr Documented by: Sodium Chloride () 250 mls @ 15 mls/hr IV .[id number] PRN PRN Reason: Additional IVPB Infusion Remdesivir 100 mg/ Sodium (Chloride) 250 mls @ 125 mls/hr IV DAILY@2200 [facility]; Protocol Stop: 12/24/19 23:59 Last Infusion: 12/21/19 23:04 Dose: Infused Documented by: Ibuprofen (Ibuprofen 400 Mg Tablet) 400 mg PO Q4H PRN PRN PRN Reason: Pain Score 1-10/Temp > 100.7 F Multivitamins (Multivitamins,Therapeutic Tablet) 1 tablet PO DAILY [facility] Last Admin: 12/22/19 08:20 Dose: 1 tablet Documented by: Nystatin (Nystatin Powder 15gm Bottle) 1 applic TOPICAL BID [facility]; Protocol Last Admin: 12/22/19 08:26 Dose: 1 applic Documented by: Ondansetron HCl (Ondansetron 4 Mg/2 Ml Vial) 4 mg IV Q8H PRN PRN PRN Reason: NAUSEA/VOMITING Sodium Chloride (0.9% Saline Lock 10 Ml Syringe) 10 - 40 ml IV UD PRN PRN Reason: SALINE FLUSH Last Admin: 12/22/19 08:21 Dose: 10 ml Documented by: Medical Necessity - Tobacco Use Smoking Status: Never smoker Route of nutrition/ use of supplements: [] Nutritional Intake: [] IV Site: [] White Catheter: [] - Assessment/Plan Antibiotics: [] Assessment/Plan: [] Active and Suspected Problems COVID-19 (Acute) Acute respiratory failure with hypoxia (Acute) Hypoxia (Acute) Obesity (BMI 35.0-39.9 without comorbidity) (Acute) Hypoxic, covid. On dex, remdesivir. Plasma given 12/21. On lovenoex 30mg bid. D-dimer 0.9. Feeling better. Will follow
--- NOTE | 2019-12-22 14:07 | CASEMGMT ---
RN CM Assessment Note Introduced role of CM to patient's via phone. Attemped to call patient's room x 2, no answer. The patient is on airvo currently. Demographics, PCP verified. The states the patient is independent at home, does not use ambulatory DME and no oxygen at home. CM will also speak with patient re: dc planning when pt is able. Diagnosis: COVID PCP: Dr. 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 Per , pt is independent with ADL's and IADL's. Tranportation: patient drives DME: none. Will disucss DME choices with patient when she is able. [facility] Goals: Home DC Plan: Home on discharge. Will need to evaluate for home oxygen. CM available for discharge planning coordination with patient once she is able to participate. Contact CM for any concerns/needs that may arise. Paulo ONOFREN RN ACM
--- NOTE | 2019-12-22 21:51 | CPS ---
changed water bottle for AirVo
[2019-12-23] VITALS (35 sets, daily range): BP systolic 83–128; BP diastolic 55–83; PULSE 55–94; RESP 12–28; TEMP 35.7–36.2; O2SAT 90–99
[2019-12-23 03:46] LABS: Absolute Lymphocyte Count 0.41 X10^3/uL (0.83-4.51); Absolute Neutrophil Count 6.9 X10^3/uL (2.0-7.7); Hematocrit 36.4 % (37-47); Hemoglobin 11.7 g/dL (12.0-15.0); Lymphocyte # 0.41 X10^3/ul (4.0); Lymphocyte % 5.1 % (19-41); Mean Corp Hgb Conc 32.1 g/dL (32-36); Mean Corpuscular Hgb 30.2 pg (27.0-32.0); Mean Corpuscular Volume 93.8 fL (81-99); Mean Platelet Vol. 11.1 fl (6.2-12.0); Monocyte# 0.62 X10^3/uL; Monocyte% 7.7 % (0-10); NRBC Flagged by Analyzer 0 % (0-5); Neutrophil # 6.93 X10^3/uL (2.7-7.7); Neutrophil % 86.1 % (47-70); POSITIVE DIFFERENTIAL YES; Platelet Count 195 K/mm3 (150-450); RBC Distribution Width CV 13.6 % (11.6-14.6); RBC Distribution Width SD 47.3 fl (35.1-43.9); Red Blood Count 3.88 M/mm3 (4.2-5.4); White Blood Count 8.1 K/mm3 (4.4-11.0)
[2019-12-23 03:51] LABS: Differential Indicated SCAN CRITERIA MET
[2019-12-23 04:01] LABS: ALB/GLOB Ratio 0.6 RATIO (0.9-2.4); AST(SGOT) 40 U/L (15-37); Alanine Aminotransfer ALT/SGPT 25 U/L (13-56); Albumin, Serum 2.7 g/dL (3.2-5.0); Alkaline Phosphatase 100 U/L (45-117); Anion Gap 6 (5-15); BUN 43 mg/dL (7-18); BUN/Creat Ratio 44.4 RATIO (10-20); Calcium,Total 8.9 mg/dL (8.5-10.1); Chloride 106 mmol/L (98-107); Creatinine, Serum 0.97 mg/dL (0.55-1.02); EST Glomerular Filtration Rate 58 mL/min (>60); Est Glom Filt Rate - Afr Amer 70 mL/min (>60); Estimated Creatinine Clearance 31.01 ml/min; Globulin 4.4 g/dL (2.2-4.2); Glucose 120 mg/dL (74-106); Potassium 3.9 mmol/L (3.5-5.1); Protein, Total 7.1 g/dL (6.4-8.2); Sodium Level 141 mmol/L (136-145)
[2019-12-23 04:24] LABS: Differential Comment SCANNED
--- NOTE | 2019-12-23 06:47 | PN_ITS ---
Patient Problems: Active and Suspected Problems COVID-19 (Acute) Acute respiratory failure with hypoxia (Acute) Hypoxia (Acute) Obesity (BMI 35.0-39.9 without comorbidity) (Acute) Subjective: Patient with no acute events overnight per self and per nursing report. Patient with improved energy level, eating, lessened dyspnea and no severe coughing. Patient with decrease on her air Vo requirements and also decrease BiPAP settings which she only transition to in the evening. Patient denies fevers, chills, nausea, emesis, abdominal pain, chest pain. Objective: Physical Examination: General: awake, alert, oriented x 3 and cooperative, seated upright in the ICU, currently on air Vo, improved, more talkative and alert. Skin: normal color, turgor, no icterus, cyanosis. HEENT: AT/NC, EOMI, PERRLA, improved MMM. Lungs: Diminished breath sounds throughout, greater bases, currently on air Vo, comfortable appearing, no rales, ronchi or wheezing. Heart: Regular rate and rhythm; no gallop, rub audible. Abdomen: soft, NTTP, ND, normal BS, no HSM. Extremities: no cyanosis, clubbing, or edema. Neurological: patient awake, alert, oriented as noted, somewhat hard of hearing especially with BiPAP noise; cognitive function appears baseline intact; pupils equally reactive to light and accomodation; cranial nerves II-XII grossly normal, moving all 4 extremities, no focal deficits, strength improving, moderately to severely global decrease secondary to acute presentation. Psychiatric: affect appears improved, more interactive, no acute evidence of depressive or anxiety feelings. Vitals/I&O's: Vital Signs Temp Pulse Resp BP Pulse Ox 96.8 F L 59 L 22 H 92/68 93 12/23/19 04:00 12/23/19 06:00 12/23/19 06:00 12/23/19 06:00 12/23/19 06:00 Oxygen Flow Rate (L/min) 60 Oxygen Delivery Method Bi-pap Weight: 190 lb 0.615 oz Body Mass Index (BMI) 35.2 Intake and Output for Last 24 Hours 12/21/19 12/22/19 12/23/19 23:59 23:59 23:59 Intake Total 932.75 / 932.75 1800 / 1800 120 / 120 Output Total 100 / 100 Balance 932.75 / 932.75 1800 / 1800 Microbiology Past 72 Hours 12/21/19 13:18 Mucosa - Nose Respiratory Panel (PCR) - Final Laboratory Results 12/23/19 03:40: WBC 8.1, RBC 3.88 L, Hgb 11.7 L, Hct 36.4 L, MCV 93.8, MCH 30.2, MCHC 32.1, RDW Std Deviation 47.3 H, RDW Coeff of Lukasz 13.6, Plt Count 195, MPV 11.1, Immature Gran % (Auto) 1.100 H, Neut % (Auto) 86.1 H, Lymph % (Auto) 5.1 L , [place] % (Auto) 7.7, Eos % (Auto) 0.0, Baso % (Auto) 0.0, Absolute Neuts (auto) 6.9, Absolute Lymphs (auto) 0.41 L, Nucleated RBC % 0, Differential Comment SCANNED 12/23/19 03:40: Sodium 141, Potassium 3.9, Chloride 106, Carbon Dioxide 29.0, Anion Gap 6, BUN 43 H, Creatinine 0.97, Estim Creat Clear Calc 31.01, Est GFR (MDRD) Af Amer 70, Est GFR (MDRD) Non-Af 58 L, BUN/Creatinine Ratio 44.4 H, Glucose 120 H, Calcium 8.9, Total Bilirubin 0.50, AST 40 H, ALT 25, Alkaline Phosphatase 100, Total Protein 7.1, Albumin 2.7 L, Globulin 4.4 H, Albumin/Globu rosa Ratio 0.6 L Current Medications Acetaminophen (Acetaminophen 325 Mg Tablet) 650 mg PO Q6H PRN PRN PRN Reason: Pain Score 1-10/Temp > 100.7 F Albuterol Sulfate (Albuterol Sulfate 8 Gm Inhaler (60 Puffs)) 4 - 8 puff INHALATION Q4H PRN PRN PRN Reason: Dyspnea, wheezing Ascorbic Acid (Ascorbic Acid 500 Mg Tablet) 500 mg PO DAILY [facility] Last Admin: 12/22/19 08:20 Dose: 500 mg Documented by: Calcium Carbonate (Calcium (Elemental) 500 Mg Tablet) 500 mg PO BID [facility] Last Admin: 12/22/19 20:43 Dose: 500 mg Documented by: Dexamethasone Sodium Phosphate (Dexamethasone 10 Mg/Ml Vial) 6 mg IV DAILY [facility] Stop: 12/30/19 10:01 Last Admin: 12/22/19 08:20 Dose: 6 mg Documented by: Enoxaparin Sodium (Enoxaparin 30 Mg/0.3 Ml Syringe) 30 mg SC BID [facility] Last Admin: 12/22/19 20:43 Dose: 30 mg Documented by: Hydralazine HCl (Hydralazine 20 Mg/Ml Vial) 10 mg IV Q4H PRN PRN PRN Reason: SBP > 160 Sodium Chloride () 250 mls @ 15 mls/hr IV .[id number] PRN PRN Reason: Saline Flush Last Infusion: 12/21/19 03:37 Dose: 0 mls/hr Documented by: Sodium Chloride () 250 mls @ 15 mls/hr IV .[id number] PRN PRN Reason: Additional IVPB Infusion Remdesivir 100 mg/ Sodium (Chloride) 250 mls @ 125 mls/hr IV DAILY@2200 [facility]; Protocol Stop: 12/24/19 23:59 Last Infusion: 12/22/19 22:50 Dose: Infused Documented by: Ibuprofen (Ibuprofen 400 Mg Tablet) 400 mg PO Q4H PRN PRN PRN Reason: Pain Score 1-10/Temp > 100.7 F Multivitamins (Multivitamins,Therapeutic Tablet) 1 tablet PO DAILY [facility] Last Admin: 12/22/19 08:20 Dose: 1 tablet Documented by: Nystatin (Nystatin Powder 15gm Bottle) 1 applic TOPICAL BID [facility]; Protocol Last Admin: 12/22/19 20:44 Dose: 1 applic Documented by: Ondansetron HCl (Ondansetron 4 Mg/2 Ml Vial) 4 mg IV Q8H PRN PRN PRN Reason: NAUSEA/VOMITING Sodium Chloride (0.9% Saline Lock 10 Ml Syringe) 10 - 40 ml IV UD PRN PRN Reason: SALINE FLUSH Last Admin: 12/22/19 23:44 Dose: 10 ml Documented by: STROKE Vital Signs/Narrative: Vital Signs Temp Pulse Resp BP Pulse Ox 12/23/19 06:00 59 L 22 H 92/68 93 12/23/19 05:00 59 L 20 H 92/60 92 12/23/19 04:30 56 L 22 H 99 12/23/19 04:00 96.8 F L 64 20 H 100/64 97 12/23/19 03:00 55 L 19 H 106/67 93 Medical Necessity - Tobacco Use Smoking Status: Never smoker Assessment/Plan All Active Problems COVID-19 (Acute) Acute respiratory failure with hypoxia (Acute) Hypoxia (Acute) Obesity (BMI 35.0-39.9 without comorbidity) (Acute) Bronchitis, acute (Ruled-out) The patient is an 84 y/o F w/ PMHx: HTN, HLD, Obesity otherwise healthy who presents to the [facility] ED on 12/20/19 with history of onset of fatigue, malaise, mild cough the Thursday prior with recent positive Covid testing the prior Thursday noting to have unfortunately contracted the illness from her son who his was positive and eventually tested positive whom she has been in close contact with and notes that her was also tested positive with worsening status, more shortness of breath prompting ED presentation with EMS noting 60% oxygenation at their initial evaluation. 1. Acute Hypoxic Respiratory Failure secondary to Bilateral Pneumonia secondary to Acute Viral Syndrome, COVID-19: Patient with clinically worsening status, initially admitted to medical surgical Covid unit however worsened status with high flow transition to BiPAP 12/19 to 12/21/2019 p.m., 12/21/2019 transition to the ICU, continued on IV Decadron therapy initially, 12/23/19 oral decadron transition in addition to remdesivir and 12/22/19 convalescent plasma, infectious disease and pulmonary medicine/ICU following, 12/22/19 during the day successful BiPAP to air Vo higher flow but return to BIPAP overnight, improving w/ decreased oxygen level needs with BIPAP 50% and decreasing airvo level needs, continue to trend Covid panel labs per worsening status Covid order set protocol, continue supportive care including q 2 hour turning including prone given no prone bed availability and judicious hydration, closely monitor for worsening status for ARDS and multiorgan failure. 2. Hyperglycemia: Initial glucose 102, repeat 152 but likely secondary to recent usage of steroids, continue to trend. 3. Transient LFT elevation: Initial AST/ALT 38/23, repeat 36/20, alk phos 125- >112, likely secondary to acute presentation, 12/23/19 AST/ALT 40/25. 4. Hypertension: Patient with hypotension since presentation, still low normal range, holding regimen. 5. Chronic Kidney Disease Stage IV versus GAURI: Admission BUN/Cr 33/1.23 with creatinine clearance 24.46, unclear prior baseline, repeat 12/23/2019 BUN/creatinine 43/0.97, do suspect some underlying chronic kidney disease but given acute presentation acute component with insufficiency. 6. DVT prophylaxis: SCDs, Lovenox. 7. CODE status: Full Code. Inpatient E&M: 90240 Subs Hosp L3
--- NOTE | 2019-12-23 07:03 | PN_ITS ---
Subjective: Patient did okay overnight. Patient did not have any fever and has been able to be weaned to 50% with BiPAP. Patient did desaturate with sleeping on high flow nasal cannula. Patient reports she is comfortable while on BiPAP. General: Alert, Oriented x3, Cooperative, No apparent distress - On BiPAP therapy HEENT: Atraumatic, PERRLA, EOMI, Normocephalic, - - Slight scleral injection without icterus Oral: Moist Mucosa, No Gingival or Mucosal Lesions/ Ulcerations Neck: Supple, No JVD, No Nodes, Trachea Midline Lungs: No rhonchi, No wheeze, No rales, Diminished Cardiovascular: Normal S1, Normal S2, No murmurs, Bradycardic, No rub noted, No Gallop Abdomen: Bowel Sounds Present, Soft, Non Tender, Non-Distended, Obese Extremities: No clubbing, No cyanosis, No edema, Capillary Refill Less than 3 Seconds Skin: No rashes, No breakdown Musculoskeletal: No Tenderness to Palpation of Joints or Extremities Lymphatic: No Cervical, Supraclavicular, or Inguinal Adenopathy Neurological: Cranial nerves II-XII grossly intact, Neuro grossly intact, Motor Exam 5/5 strength throughout Psych/Mental Status: Alert and oriented to time, place, person, mood and affect Vital Signs Temp Pulse Resp BP Pulse Ox 36.0 C L 65 23 H 102/67 93 12/23/19 04:00 12/23/19 07:00 12/23/19 07:00 12/23/19 07:00 12/23/19 07:00 Oxygen Flow Rate (L/min) 60 Oxygen Delivery Method Bi-pap Weight: 86.2 kg Body Mass Index (BMI) 35.2 Intake and Output for Last 24 Hours 12/21/19 12/22/19 12/23/19 23:59 23:59 23:59 Intake Total 932.75 / 932.75 1800 / 1800 120 / 120 Output Total 100 / 100 Balance 932.75 / 932.75 1800 / 1800 Labs (Last 48 Hours) 12/21/19 12/21/19 12/21/19 05:14 05:14 05:14 WBC RBC Hgb Hct MCV MCH MCHC RDW Std Deviation RDW Coeff of Lukasz Plt Count MPV Immature Gran % (Auto) Neut % (Auto) Lymph % (Auto) [place] % (Auto) Eos % (Auto) Baso % (Auto) Absolute Neuts (auto) Absolute Lymphs (auto) Nucleated RBC % Differential Comment Diff Path Review Reviewed D-Dimer Quant (PE/DVT) Sodium Potassium Chloride Carbon Dioxide Anion Gap BUN Creatinine Estim Creat Clear Calc Est GFR (MDRD) Af Amer Est GFR (MDRD) Non-Af BUN/Creatinine Ratio Glucose Calcium Ferritin Total Bilirubin AST ALT Alkaline Phosphatase C-React Prot Ext Range Total Protein Albumin Globulin Albumin/Globulin Ratio Procalcitonin Blood Type Cancelled A POSITIVE Antibody Screen NEGATIVE 12/22/19 12/22/19 12/22/19 04:00 04:00 04:00 WBC 6.0 RBC 3.71 L Hgb 11.1 L Hct 35.0 L MCV 94.3 MCH 29.9 MCHC 31.7 L RDW Std Deviation 46.9 H RDW Coeff of Lukasz 13.5 Plt Count 176 MPV 11.4 Immature Gran % (Auto) 1.700 H Neut % (Auto) 81.2 H Lymph % (Auto) 8.2 L [place] % (Auto) 8.7 Eos % (Auto) 0.0 Baso % (Auto) 0.2 Absolute Neuts (auto) 4.8 Absolute Lymphs (auto) 0.49 L Nucleated RBC % 0 Differential Comment SCANNED Diff Path Review D-Dimer Quant (PE/DVT) 0.52 H* Sodium 142 Potassium 3.6 Chloride 108 H Carbon Dioxide 27.0 Anion Gap 7 BUN 51 H Creatinine 1.12 H Estim Creat Clear Calc 26.86 Est GFR (MDRD) Af Amer 60 Est GFR (MDRD) Non-Af 49 L BUN/Creatinine Ratio 45.5 H Glucose 126 H Calcium 8.5 Ferritin 403 H Total Bilirubin 0.50 AST 36 ALT 21 Alkaline Phosphatase 99 C-React Prot Ext Range 111.00 H Total Protein 6.6 Albumin 2.4 L Globulin 4.2 Albumin/Globulin Ratio 0.6 L Procalcitonin Blood Type Antibody Screen 12/22/19 12/23/19 12/23/19 04:00 03:40 03:40 WBC 8.1 RBC 3.88 L Hgb 11.7 L Hct 36.4 L MCV 93.8 MCH 30.2 MCHC 32.1 RDW Std Deviation 47.3 H RDW Coeff of Lukasz 13.6 Plt Count 195 MPV 11.1 Immature Gran % (Auto) 1.100 H Neut % (Auto) 86.1 H Lymph % (Auto) 5.1 L [place] % (Auto) 7.7 Eos % (Auto) 0.0 Baso % (Auto) 0.0 Absolute Neuts (auto) 6.9 Absolute Lymphs (auto) 0.41 L Nucleated RBC % 0 Differential Comment SCANNED Diff Path Review D-Dimer Quant (PE/DVT) Sodium 141 Potassium 3.9 Chloride 106 Carbon Dioxide 29.0 Anion Gap 6 BUN 43 H Creatinine 0.97 Estim Creat Clear Calc 31.01 Est GFR (MDRD) Af Amer 70 Est GFR (MDRD) Non-Af 58 L BUN/Creatinine Ratio 44.4 H Glucose 120 H Calcium 8.9 Ferritin Total Bilirubin 0.50 AST 40 H ALT 25 Alkaline Phosphatase 100 C-React Prot Ext Range Total Protein 7.1 Albumin 2.7 L Globulin 4.4 H Albumin/Globulin Ratio 0.6 L Procalcitonin 0.21 H Blood Type Antibody Screen Microbiology 12/21/19 13:18 Mucosa - Nose Respiratory Panel (PCR) - Final Medical Necessity - Tobacco Use Smoking Status: Never smoker Assessment/Plan All Active Problems COVID-19 (Acute) Acute respiratory failure with hypoxia (Acute) Hypoxia (Acute) Obesity (BMI 35.0-39.9 without comorbidity) (Acute) Bronchitis, acute (Ruled-out) RECOMMENDATIONS: 1. Possibly attempt Airvo with BiPAP rescue with sleep 2. Continue Decadron, remdesivir and anticoagulation. Convalescent serum given 3. Monitor for hyperglycemia and other complications of Decadron 4. Wean oxygen as tolerated. Possible transfer to the floor if tolerating Airvo with reasonable FiO2 IMPRESSIONS: 1. Acute hypoxic respiratory failure secondary to COVID-19 pneumonia Patient with typical findings on CTA of the chest. No pulmonary emboli were noted. Okay to use lower dose Lovenox from my perspective. Patient is already on Decadron, remdesivir and has received convalescent serum. All of these appear to be appropriate. Will obtain an ABG if patient starts to have decreased mental status, but appears to be stabilizing on BiPAP at this time. Anticipate trial of high flow nasal cannula while awake, but doubt patient will be able to tolerate this when sleeping. 2. Hyperglycemia Likely secondary to Decadron therapy. Continue to monitor. Patient may need initiation of long-acting insulin. We will hold for now as patient appears to be tolerating 3. Transaminitis Patient was slightly elevated liver enzymes on presentation. Will need to watch closely given patient's Remdesivir order. Patient is aware of the risk and feels that it is appropriate to proceed. We will continue with daily labs as ordered. 4. Chronic kidney disease stage IV versus acute kidney injury Improving, suggestive of acute kidney injury on presentation. Patient appears to have some improvement with stabilization of cardiovascular status. We will continue to monitor closely. Inpatient E&M: [id number] Subs Hosp L3
[2019-12-23] MEDS: Multivitamins,Therapeutic Tablet 1 TABLET PO (08:28)
[2019-12-23] MEDS: Enoxaparin 30 MG/0.3 ML Syringe SC ×2 (08:28→21:39)
[2019-12-23] MEDS: dexAMETHasone 10 MG/ML Vial 6 MG IV (08:28)
[2019-12-23] MEDS: Ascorbic Acid 500 MG Tablet PO (08:29)
[2019-12-23] MEDS: Nystatin Powder 15gm Bottle 1 APPLIC TOPICAL ×2 (08:29→21:38)
[2019-12-23] MEDS: Calcium (Elemental) 500 MG Tablet PO ×2 (08:29→21:38)
--- NOTE | 2019-12-23 15:23 | PCM.PN.ID ---
Patient Problems: Active and Suspected Problems COVID-19 (Acute) Acute respiratory failure with hypoxia (Acute) Hypoxia (Acute) Obesity (BMI 35.0-39.9 without comorbidity) (Acute) Subjective: Feeling better, no fever, no n/v/d. - Physical Exam Vitals/I&O's: Vital Signs Temp Pulse Resp BP Pulse Ox 97 F L 72 23 H 97/69 98 12/23/19 12:00 12/23/19 14:00 12/23/19 14:00 12/23/19 14:00 12/23/19 14:00 Oxygen Flow Rate (L/min) 60 Oxygen Delivery Method Airvo Weight: 86.2 kg Body Mass Index (BMI) 35.2 Intake and Output for Last 24 Hours 12/21/19 12/22/19 12/23/19 23:59 23:59 23:59 Intake Total 932.75 / 932.75 1800 / 1800 360 / 360 Output Total 200 / 200 Balance 932.75 / 932.75 1800 / 1800 160 / 160 General: Alert, Cooperative, No apparent distress Lungs: Diminished Cardiovascular: Regular rate, Regular Rhythm Abdomen: Soft, Non Tender, Non-Distended Skin: No rashes Microbiology Past 72 Hours 12/20/19 16:32 Blood Culture (Wb) - Right Forearm Blood Culture - Preliminary No growth in 48 hours. 12/20/19 16:30 Blood Culture (Wb) - Anticubital Left Blood Culture - Preliminary No growth in 48 hours. 12/21/19 13:18 Mucosa - Nose Respiratory Panel (PCR) - Final Laboratory Results 12/23/19 03:40: WBC 8.1, RBC 3.88 L, Hgb 11.7 L, Hct 36.4 L, MCV 93.8, MCH 30.2, MCHC 32.1, RDW Std Deviation 47.3 H, RDW Coeff of Lukasz 13.6, Plt Count 195, MPV 11.1, Immature Gran % (Auto) 1.100 H, Neut % (Auto) 86.1 H, Lymph % (Auto) 5.1 L, [place] % (Auto) 7.7, Eos % (Auto) 0.0, Baso % (Auto) 0.0, Absolute Neuts (auto) 6.9, Absolute Lymphs (auto) 0.41 L, Nucleated RBC % 0, Differential Comment SCANNED 12/23/19 03:40: Sodium 141, Potassium 3.9, Chloride 106, Carbon Dioxide 29.0, Anion Gap 6, BUN 43 H, Creatinine 0.97, Estim Creat Clear Calc 31.01, Est GFR (MDRD) Af Amer 70, Est GFR (MDRD) Non-Af 58 L, BUN/Creatinine Ratio 44.4 H, Glucose 120 H, Calcium 8.9, Total Bilirubin 0.50, AST 40 H, ALT 25, Alkaline Phosphatase 100, Total Protein 7.1, Albumin 2.7 L, Globulin 4.4 H, Albumin/Globulin Ratio 0.6 L Current Medications Acetaminophen (Acetaminophen 325 Mg Tablet) 650 mg PO Q6H PRN PRN PRN Reason: Pain Score 1-10/Temp > 100.7 F Albuterol Sulfate (Albuterol Sulfate 8 Gm Inhaler (60 Puffs)) 4 - 8 puff INHALATION Q4H PRN PRN PRN Reason: Dyspnea, wheezing Ascorbic Acid (Ascorbic Acid 500 Mg Tablet) 500 mg PO DAILY [facility] Last Admin: 12/23/19 08:29 Dose: 500 mg Documented by: Calcium Carbonate (Calcium (Elemental) 500 Mg Tablet) 500 mg PO BID [facility] Last Admin: 12/23/19 08:29 Dose: 500 mg Documented by: Dexamethasone Sodium Phosphate (Dexamethasone 10 Mg/Ml Vial) 6 mg IV DAILY [facility] Stop: 12/30/19 10:01 Last Admin: 12/23/19 08:28 Dose: 6 mg Documented by: Enoxaparin Sodium (Enoxaparin 30 Mg/0.3 Ml Syringe) 30 mg SC BID [facility] Last Admin: 12/23/19 08:28 Dose: 30 mg Documented by: Hydralazine HCl (Hydralazine 20 Mg/Ml Vial) 10 mg IV Q4H PRN PRN PRN Reason: SBP > 160 Sodium Chloride () 250 mls @ 15 mls/hr IV .[id number] PRN PRN Reason: Saline Flush Last Infusion: 12/21/19 03:37 Dose: 0 mls/hr Documented by: Sodium Chloride () 250 mls @ 15 mls/hr IV .[id number] PRN PRN Reason: Additional IVPB Infusion Remdesivir 100 mg/ Sodium (Chloride) 250 mls @ 125 mls/hr IV DAILY@2200 [facility]; Protocol Stop: 12/24/19 23:59 Last Infusion: 12/22/19 22:50 Dose: Infused Documented by: Ibuprofen (Ibuprofen 400 Mg Tablet) 400 mg PO Q4H PRN PRN PRN Reason: Pain Score 1-10/Temp > 100.7 F Multivitamins (Multivitamins,Therapeutic Tablet) 1 tablet PO DAILY [facility] Last Admin: 12/23/19 08:28 Dose: 1 tablet Documented by: Nystatin (Nystatin Powder 15gm Bottle) 1 applic TOPICAL BID [facility]; Protocol Last Admin: 12/23/19 08:29 Dose: 1 applic Documented by: Ondansetron HCl (Ondansetron 4 Mg/2 Ml Vial) 4 mg IV Q8H PRN PRN PRN Reason: NAUSEA/VOMITING Sodium Chloride (0.9% Saline Lock 10 Ml Syringe) 10 - 40 ml IV UD PRN PRN Reason: SALINE FLUSH Last Admin: 12/22/19 23:44 Dose: 10 ml Documented by: Medical Necessity - Tobacco Use Smoking Status: Never smoker Route of nutrition/ use of supplements: [] Nutritional Intake: [] IV Site: [] White Catheter: [] - Assessment/Plan Antibiotics: [] Assessment/Plan: [] Active and Suspected Problems COVID-19 (Acute) Acute respiratory failure with hypoxia (Acute) Hypoxia (Acute) Obesity (BMI 35.0-39.9 without comorbidity) (Acute) Hypoxic, covid. On dex, remdesivir. Plasma given 12/21. On lovenoex 30mg bid. D-dimer 0.9. Feeling better. Changing dex to po. Will follow
[2019-12-23] MEDS: 0.9% Saline Lock 10 ML Syringe IV (21:38)
[2019-12-24] VITALS (37 sets, daily range): BP systolic 103–136; BP diastolic 60–98; PULSE 56–95; RESP 12–27; TEMP 35.9–37.1; O2SAT 80–97
[2019-12-24] MEDS: 0.9% Saline Lock 10 ML Syringe IV ×2 (05:16→21:52)
[2019-12-24 05:22] LABS: Absolute Lymphocyte Count 0.46 X10^3/uL (0.83-4.51); Absolute Neutrophil Count 5.5 X10^3/uL (2.0-7.7); Basophil# 0.01 X10^3/uL; Basophil% 0.1 % (0-1); Hematocrit 36.2 % (37-47); Hemoglobin 11.8 g/dL (12.0-15.0); Lymphocyte # 0.46 X10^3/ul (4.0); Lymphocyte % 6.9 % (19-41); Mean Corp Hgb Conc 32.6 g/dL (32-36); Mean Corpuscular Hgb 30.6 pg (27.0-32.0); Mean Platelet Vol. 11.1 fl (6.2-12.0); Monocyte# 0.57 X10^3/uL; Monocyte% 8.5 % (0-10); NRBC Flagged by Analyzer 0 % (0-5); Neutrophil # 5.51 X10^3/uL (2.7-7.7); Neutrophil % 82.1 % (47-70); POSITIVE DIFFERENTIAL YES; Platelet Count 184 K/mm3 (150-450); RBC Distribution Width CV 13.4 % (11.6-14.6); RBC Distribution Width SD 46.2 fl (35.1-43.9); Red Blood Count 3.85 M/mm3 (4.2-5.4); White Blood Count 6.7 K/mm3 (4.4-11.0)
[2019-12-24 05:26] LABS: Differential Indicated SCAN CRITERIA MET
[2019-12-24 05:36] LABS: Differential Comment SCANNED
[2019-12-24 05:38] LABS: ALB/GLOB Ratio 0.6 RATIO (0.9-2.4); AST(SGOT) 39 U/L (15-37); Alanine Aminotransfer ALT/SGPT 28 U/L (13-56); Albumin, Serum 2.5 g/dL (3.2-5.0); Alkaline Phosphatase 91 U/L (45-117); Anion Gap 5 (5-15); BUN 33 mg/dL (7-18); BUN/Creat Ratio 41.9 RATIO (10-20); Calcium,Total 8.7 mg/dL (8.5-10.1); Chloride 109 mmol/L (98-107); Creatinine, Serum 0.79 mg/dL (0.55-1.02); EST Glomerular Filtration Rate 74 mL/min (>60); Est Glom Filt Rate - Afr Amer 90 mL/min (>60); Estimated Creatinine Clearance 30.08 ml/min; Globulin 4.1 g/dL (2.2-4.2); Glucose 99 mg/dL (74-106); Potassium 3.8 mmol/L (3.5-5.1); Protein, Total 6.6 g/dL (6.4-8.2); Sodium Level 144 mmol/L (136-145)
--- NOTE | 2019-12-24 07:00 | PN_ITS ---
Patient Problems: Active and Suspected Problems COVID-19 (Acute) Acute respiratory failure with hypoxia (Acute) Hypoxia (Acute) Obesity (BMI 35.0-39.9 without comorbidity) (Acute) Subjective: Patient with no acute events overnight per self and per nursing report. Patient did continue to require BiPAP but decreased FiO2. Patient also able to tolerate air Vo the entire day prior with transition to BiPAP only in the evening and noted continued attempts to decrease the oxygen requirement. Patient reports being able to perform some activities including word searches and reading with less fatigue and malaise than previously. Patient still notes decreased appetite. Patient denies fevers, chills, nausea, emesis, abdominal pain, diarrhea, chest pain. Objective: Physical Examination: General: awake, alert, oriented x 3 and cooperative, seated upright in the ICU, currently on air Vo, watching TV, no acute distress. Skin: normal color, turgor, no icterus, cyanosis. HEENT: AT/NC, EOMI, PERRLA, MMM. Lungs: Diminished breath sounds throughout, greater bases, currently on air Vo, no rales, ronchi or wheezing. Heart: Regular rate and rhythm; no gallop, rub audible. Abdomen: soft, NTTP, ND, normal BS, no HSM. Extremities: no cyanosis, clubbing, or edema. Neurological: patient awake, alert, oriented as noted, somewhat hard of hearing especially with BiPAP noise; cognitive function appears baseline intact; pupils equally reactive to light and accomodation; cranial nerves II-XII grossly normal, moving all 4 extremities, no focal deficits, strength improving, moderately to severely global decrease secondary to acute presentation. Psychiatric: affect appears normal, no acute evidence of depressive or anxiety feelings. Vitals/I&O's: Vital Signs Temp Pulse Resp BP Pulse Ox 96.7 F L 63 21 H 104/60 93 12/24/19 05:00 12/24/19 06:00 12/24/19 06:00 12/24/19 06:00 12/24/19 06:00 Oxygen Flow Rate (L/min) 60 Oxygen Delivery Method Airvo Weight: 184 lb 11.958 oz Body Mass Index (BMI) 35.2 Intake and Output for Last 24 Hours 12/22/19 12/23/19 12/24/19 23:59 23:59 23:59 Intake Total 1800 / 1800 1135 / 1235 100 / 100 Output Total 775 / 775 150 / 150 Balance 1800 / 1800 360 / 460 -50 / -50 Microbiology Past 72 Hours 12/20/19 16:32 Blood Culture (Wb) - Right Forearm Blood Culture - Preliminary No growth in 48 hours. 12/20/19 16:30 Blood Culture (Wb) - Anticubital Left Blood Culture - Preliminary No growth in 48 hours. 12/21/19 13:18 Mucosa - Nose Respiratory Panel (PCR) - Final Laboratory Results 12/24/19 01:55: Sodium 144, Potassium 3.8, Chloride 109 H, Carbon Dioxide 30.0, Anion Gap 5, BUN 33 H, Creatinine 0.79, Estim Creat Clear Calc 30.08, Est GFR (MDRD) Af Amer 90, Est GFR (MDRD) Non-Af 74, BUN/Creatinine Ratio 41.9 H, Glucose 99, Calcium 8.7, Total Bilirubin 0.50, AST 39 H, ALT 28, Alkaline Phosphatase 91, Total Protein 6.6, Albumin 2.5 L, Globulin 4.1, Albumin/Globulin Ratio 0.6 L 12/24/19 05:05: WBC 6.7, RBC 3.85 L, Hgb 11.8 L, Hct 36.2 L, MCV 94.0, MCH 30.6, MCHC 32.6, RDW Std Deviation 46.2 H, RDW Coeff of Lukasz 13.4, Plt Count 184, MPV 11.1, Immature Gran % (Auto) 2.400 H, Neut % (Auto) 82.1 H, Lymph % (Auto) 6.9 L , [place] % (Auto) 8.5, Eos % (Auto) 0.0, Baso % (Auto) 0.1, Absolute Neuts (auto) 5.5, Absolute Lymphs (auto) 0.46 L, Nucleated RBC % 0, Differential Comment SCANNED Current Medications Acetaminophen (Acetaminophen 325 Mg Tablet) 650 mg PO Q6H PRN PRN PRN Reason: Pain Score 1-10/Temp > 100.7 F Albuterol Sulfate (Albuterol Sulfate 8 Gm Inhaler (60 Puffs)) 4 - 8 puff INH ALATION Q4H PRN PRN PRN Reason: Dyspnea, wheezing Ascorbic Acid (Ascorbic Acid 500 Mg Tablet) 500 mg PO DAILY [facility] Last Admin: 12/23/19 08:29 Dose: 500 mg Documented by: Calcium Carbonate (Calcium (Elemental) 500 Mg Tablet) 500 mg PO BID [facility] Last Admin: 12/23/19 21:38 Dose: 500 mg Documented by: Dexamethasone (Dexamethasone 4 Mg Tablet) 6 mg PO DAILY [facility] Stop: 12/30/19 10:01 Enoxaparin Sodium (Enoxaparin 30 Mg/0.3 Ml Syringe) 30 mg SC BID [facility] Last Admin: 12/23/19 21:39 Dose: 30 mg Documented by: Hydralazine HCl (Hydralazine 20 Mg/Ml Vial) 10 mg IV Q4H PRN PRN PRN Reason: SBP > 160 Sodium Chloride () 250 mls @ 15 mls/hr IV .[id number] PRN PRN Reason: Saline Flush Last Infusion: 12/21/19 03:37 Dose: 0 mls/hr Documented by: Sodium Chloride () 250 mls @ 15 mls/hr IV .[id number] PRN PRN Reason: Additional IVPB Infusion Remdesivir 100 mg/ Sodium (Chloride) 250 mls @ 125 mls/hr IV DAILY@2200 [facility]; Protocol Stop: 12/24/19 23:59 Last Infusion: 12/23/19 23:35 Dose: Infused Documented by: Ibuprofen (Ibuprofen 400 Mg Tablet) 400 mg PO Q4H PRN PRN PRN Reason: Pain Score 1-10/Temp > 100.7 F Multivitamins (Multivitamins,Therapeutic Tablet) 1 tablet PO DAILY [facility] Last Admin: 12/23/19 08:28 Dose: 1 tablet Documented by: Nystatin (Nystatin Powder 15gm Bottle) 1 applic TOPICAL BID [facility]; Protocol Last Admin: 12/23/19 21:38 Dose: 1 applic Documented by: Ondansetron HCl (Ondansetron 4 Mg/2 Ml Vial) 4 mg IV Q8H PRN PRN PRN Reason: NAUSEA/VOMITING Sodium Chloride (0.9% Saline Lock 10 Ml Syringe) 10 - 40 ml IV UD PRN PRN Reason: SALINE FLUSH Last Admin: 12/24/19 05:16 Dose: 20 ml Documented by: STROKE Vital Signs/Narrative: Vital Signs Temp Pulse Resp BP Pulse Ox 12/24/19 06:00 63 21 H 104/60 93 12/24/19 05:25 74 21 H 94 11/14/20 05:00 96.7 F L 74 23 H 103/66 97 12/24/19 04:00 62 21 H 104/60 91 Medical Necessity - Tobacco Use Smoking Status: Never smoker Assessment/Plan All Active Problems COVID-19 (Acute) Acute respiratory failure with hypoxia (Acute) Hypoxia (Acute) Obesity (BMI 35.0-39.9 without comorbidity) (Acute) Bronchitis, acute (Ruled-out) The patient is an 84 y/o F w/ PMHx: HTN, HLD, Obesity otherwise healthy who presents to the [facility] ED on 12/20/19 with history of onset of fatigue, malaise, mild cough the Thursday prior with recent positive Covid testing the prior Thursday noting to have unfortunately contracted the illness from her son who his was positive and eventually tested positive whom she has been in close contact with and notes that her was also tested positive with worsening status, more shortness of breath prompting ED presentation with EMS noting 60% oxygenation at their initial evaluation. 1. Acute Hypoxic Respiratory Failure secondary to Bilateral Pneumonia secondary to Acute Viral Syndrome, COVID-19: Patient with clinically worsening status, initially admitted to medical surgical Covid unit however worsened status with high flow transition to BiPAP 12/19 to 12/21/2019 p.m., 12/21/2019 transition to the ICU, continued on IV Decadron therapy initially, 12/23/19 oral decadron transition in addition to remdesivir and 12/22/19 convalescent plasma, infectious disease and pulmonary medicine/ICU following, 12/22/19 during the day successful BiPAP to air Vo higher flow but return to BIPAP overnight, improving w/ decreased oxygen level needs with BIPAP 40% and decreasing airvo level needs, continue to trend Covid panel labs per worsening status Covid order set protocol, continue supportive care including q 2 hour turning including prone given no prone bed availability and judicious hydration, closely monitor for worsening status for ARDS and multiorgan failure. 2. Hyperglycemia: Initial glucose 102, repeat 152 but likely secondary to recent usage of steroids, continue to trend. 3. Transient LFT elevation: Initial AST/ALT 38/23, repeat 36/20, alk phos 125- >112, likely secondary to acute presentation, 12/24/19 AST/ALT 39/28. 4. Hypertension: Patient with hypotension since presentation, still low normal range, holding regimen. 5. Chronic Kidney Disease Stage IV versus GAURI: Admission BUN/Cr 33/1.23 with creatinine clearance 24.46, unclear prior baseline, repeat 12/24/2019 BUN/creat inine 33/0.79, do suspect some underlying chronic kidney disease but given acute presentation acute component with insufficiency. 6. DVT prophylaxis: SCDs, Lovenox. 7. CODE status: Full Code. Inpatient E&M: [id number] Subs Hosp L2
--- NOTE | 2019-12-24 07:24 | PN_ITS ---
Subjective: Patient did okay overnight. Patient continues to require BiPAP rescue with sleep no acute side effects reported by nursing with Remdesivir administration. No bleeding has been reported. General: Alert, Oriented x3, Cooperative, No apparent distress - On BiPAP, - - Obese. HEENT: Atraumatic, PERRLA, EOMI, Normocephalic, - - No scleral icterus or injection noted Oral: No Gingival or Mucosal Lesions/ Ulcerations, Dry Mucosa Neck: Supple, No JVD, No Nodes, Trachea Midline Lungs: No rhonchi, No wheeze, No rales, Diminished, - - Symmetric expansion. No dullness to percussion. Cardiovascular: Regular rate, Regular Rhythm, Normal S1, Normal S2, No murmurs, No rub noted, No Gallop Abdomen: Bowel Sounds Present, Soft, Non Tender, Non-Distended, Obese Extremities: No clubbing, No cyanosis, No edema, Capillary Refill Less than 3 Seconds Skin: No rashes, No breakdown Musculoskeletal: No Tenderness to Palpation of Joints or Extremities Lymphatic: No Cervical, Supraclavicular, or Inguinal Adenopathy Neurological: Cranial nerves II-XII grossly intact, Neuro grossly intact, Motor Exam 5/5 strength throughout Psych/Mental Status: Alert and oriented to time, place, person, mood and affect Vital Signs Temp Pulse Resp BP Pulse Ox 35.9 C L 72 22 H 118/71 87 12/24/19 05:00 12/24/19 07:00 12/24/19 07:00 12/24/19 07:00 12/24/19 07:00 Oxygen Flow Rate (L/min) 60 Oxygen Delivery Method Airvo Weight: 83.8 kg Body Mass Index (BMI) 35.2 Intake and Output for Last 24 Hours 12/22/19 12/23/19 12/24/19 23:59 23:59 23:59 Intake Total 1800 / 1800 1135 / 1235 100 / 100 Output Total 775 / 775 150 / 150 Balance 1800 / 1800 360 / 460 -50 / -50 Labs (Last 48 Hours) 12/23/19 12/23/19 12/24/19 03:40 03:40 01:55 WBC 8.1 RBC 3.88 L Hgb 11.7 L Hct 36.4 L MCV 93.8 MCH 30.2 MCHC 32.1 RDW Std Deviation 47.3 H RDW Coeff of Lukasz 13.6 Plt Count 195 MPV 11.1 Immature Gran % (Auto) 1.100 H Neut % (Auto) 86.1 H Lymph % (Auto) 5.1 L Wilson % (Auto) 7.7 Eos % (Auto) 0.0 Baso % (Auto) 0.0 Absolute Neuts (auto) 6.9 Absolute Lymphs (auto) 0.41 L Nucleated RBC % 0 Differential Comment SCANNED Sodium 141 144 Potassium 3.9 3.8 Chloride 106 109 H Carbon Dioxide 29.0 30.0 Anion Gap 6 5 BUN 43 H 33 H Creatinine 0.97 0.79 Estim Creat Clear Calc 31.01 30.08 Est GFR (MDRD) Af Amer 70 90 Est GFR (MDRD) Non-Af 58 L 74 BUN/Creatinine Ratio 44.4 H 41.9 H Glucose 120 H 99 Calcium 8.9 8.7 Total Bilirubin 0.50 0.50 AST 40 H 39 H ALT 25 28 Alkaline Phosphatase 100 91 Total Protein 7.1 6.6 Albumin 2.7 L 2.5 L Globulin 4.4 H 4.1 Albumin/Globulin Ratio 0.6 L 0.6 L 12/24/19 05:05 WBC 6.7 RBC 3.85 L Hgb 11.8 L Hct 36.2 L MCV 94.0 MCH 30.6 MCHC 32.6 RDW Std Deviation 46.2 H RDW Coeff of Lukasz 13.4 Plt Count 184 MPV 11.1 Immature Gran % (Auto) 2.400 H Neut % (Auto) 82.1 H Lymph % (Auto) 6.9 L Wilson % (Auto) 8.5 Eos % (Auto) 0.0 Baso % (Auto) 0.1 Absolute Neuts (auto) 5.5 Absolute Lymphs (auto) 0.46 L Nucleated RBC % 0 Differential Comment SCANNED Sodium Potassium Chloride Carbon Dioxide Anion Gap BUN Creatinine Estim Creat Clear Calc Est GFR (MDRD) Af Amer Est GFR (MDRD) Non-Af BUN/Creatinine Ratio Glucose Calcium Total Bilirubin AST ALT Alkaline Phosphatase Total Protein Albumin Globulin Albumin/Globulin Ratio Microbiology 12/20/19 16:32 Blood Culture (Wb) - Right Forearm Blood Culture - Preliminary No growth in 48 hours. 12/20/19 16:30 Blood Culture (Wb) - Anticubital Left Blood Culture - Preliminary No growth in 48 hours. Medical Necessity - Tobacco Use Smoking Status: Never smoker Assessment/Plan All Active Problems COVID-19 (Acute) Acute respiratory failure with hypoxia (Acute) Hypoxia (Acute) Obesity (BMI 35.0-39.9 without comorbidity) (Acute) Bronchitis, acute (Ruled-out) RECOMMENDATIONS: 1. Possibly attempt Airvo during day with BiPAP rescue with sleep 2. Continue Decadron (04/18), remdesivir (04/13) and anticoagulation. Convalescent serum given 3. Monitor for hyperglycemia and other complications of Decadron 4. Wean oxygen as tolerated. 5. Possibly add diuretic therapy tomorrow IMPRESSIONS: 1. Acute hypoxic respiratory failure secondary to COVID-19 pneumonia Patient with typical findings on CTA of the chest. No pulmonary emboli were noted. Okay to use lower dose Lovenox from my perspective. Patient is already on Decadron, remdesivir and has received convalescent serum. All of these appear to be appropriate. Patient appears to be stabilizing from a respiratory standpoint. Continue with high flow nasal cannula oxygen and BiPAP rescue. On Remdesivir, Decadron and anticoagulation. 2. Hyperglycemia Likely secondary to Decadron therapy. Continue to monitor. Patient may need initiation of long-acting insulin. We will hold for now as patient appears to be tolerating 3. Transaminitis Patient was slightly elevated liver enzymes on presentation. Will need to watch closely given patient's Remdesivir order. Patient is aware of the risk and feels that it is appropriate to proceed. We will continue with daily labs as ordered. 4. Chronic kidney disease stage IV versus acute kidney injury Improving, suggestive of acute kidney injury on presentation. Patient appears to have some improvement with stabilization of cardiovascular status. We will continue to monitor closely. Inpatient E&M: [id number] [facility] Hosp L3
[2019-12-24] MEDS: Enoxaparin 30 MG/0.3 ML Syringe SC ×2 (08:37→21:51)
[2019-12-24] MEDS: Ascorbic Acid 500 MG Tablet PO (08:37)
[2019-12-24] MEDS: Calcium (Elemental) 500 MG Tablet PO ×2 (08:37→21:52)
[2019-12-24] MEDS: dexAMETHasone 4 MG Tablet 6 MG PO (08:37)
[2019-12-24] MEDS: Multivitamins,Therapeutic Tablet 1 TABLET PO (08:38)
[2019-12-24] MEDS: Nystatin Powder 15gm Bottle 1 APPLIC TOPICAL ×2 (08:38→21:52)
--- NOTE | 2019-12-24 11:58 | CM.UR ---
Participating in interdisciplinary rounds this am. remains ICU level of care. PT to evaluate today. Care management will continue to follow for discharge planning. Mitchel Farris RN, CCM.
[2019-12-25] VITALS (20 sets, daily range): BP systolic 109–143; BP diastolic 43–82; PULSE 67–100; RESP 12–30; TEMP 36–36.5; O2SAT 88–95
[2019-12-25 04:57] LABS: Absolute Lymphocyte Count 0.66 X10^3/uL (0.83-4.51); Absolute Neutrophil Count 5.9 X10^3/uL (2.0-7.7); Basophil# 0.02 X10^3/uL; Basophil% 0.3 % (0-1); Hematocrit 37.5 % (37-47); Hemoglobin 11.9 g/dL (12.0-15.0); Lymphocyte # 0.66 X10^3/ul (4.0); Lymphocyte % 8.9 % (19-41); Mean Corp Hgb Conc 31.7 g/dL (32-36); Mean Corpuscular Hgb 29.7 pg (27.0-32.0); Mean Corpuscular Volume 93.5 fL (81-99); Mean Platelet Vol. 10.7 fl (6.2-12.0); Monocyte# 0.48 X10^3/uL; Monocyte% 6.5 % (0-10); NRBC Flagged by Analyzer 0 % (0-5); Neutrophil # 5.94 X10^3/uL (2.7-7.7); Neutrophil % 79.7 % (47-70); Platelet Count 187 K/mm3 (150-450); RBC Distribution Width CV 13.2 % (11.6-14.6); RBC Distribution Width SD 45.7 fl (35.1-43.9); Red Blood Count 4.01 M/mm3 (4.2-5.4); White Blood Count 7.4 K/mm3 (4.4-11.0)
[2019-12-25 05:13] LABS: ALB/GLOB Ratio 0.6 RATIO (0.9-2.4); AST(SGOT) 44 U/L (15-37); Alanine Aminotransfer ALT/SGPT 37 U/L (13-56); Albumin, Serum 2.5 g/dL (3.2-5.0); Alkaline Phosphatase 94 U/L (45-117); Anion Gap 5 (5-15); BUN 28 mg/dL (7-18); BUN/Creat Ratio 34.4 RATIO (10-20); Calcium,Total 8.9 mg/dL (8.5-10.1); Chloride 108 mmol/L (98-107); Creatinine, Serum 0.82 mg/dL (0.55-1.02); EST Glomerular Filtration Rate 71 mL/min (>60); Est Glom Filt Rate - Afr Amer 86 mL/min (>60); Estimated Creatinine Clearance 36.68 ml/min; Glucose 96 mg/dL (74-106); Potassium 3.6 mmol/L (3.5-5.1); Protein, Total 6.5 g/dL (6.4-8.2); Sodium Level 145 mmol/L (136-145)
--- NOTE | 2019-12-25 07:01 | PN_ITS ---
Patient Problems: Active and Suspected Problems COVID-19 (Acute) Acute respiratory failure with hypoxia (Acute) Hypoxia (Acute) Obesity (BMI 35.0-39.9 without comorbidity) (Acute) Subjective: The patient is an 84 y/o F w/ PMHx: HTN, HLD, Obesity otherwise healthy who presents to the [facility] ED on 12/20/19 with history of onset of fatigue, malaise, mild cough the Thursday prior with recent positive Covid testing the prior Thursday noting to have unfortunately contracted the illness from her son who his was positive and eventually tested positive whom she has been in close contact with and notes that her was also tested positive with worsening status, more shortness of breath prompting ED presentation with EMS noting 60% oxygenation at their initial evaluation. Patient with clinically worsening status, initially admitted to medical surgical Covid unit however worsened status with high flow transition to BiPAP 12/19 to 12/21/2019 pm, 12/21/2019 transition to the ICU, continued on IV Decadron therapy initially, 12/23/19 oral decadron transition with planed 10 day course in addition to remdesivir and 12/22/19 convalescent plasma, infectious disease and pulmonary medicine/ICU following, 12/22/19 during the day successful BiPAP to air Vo higher flow during the day with BIPAP ongoing needs at night but clinically each day lessening oxygen needs on both BIPAP and Airvo. 12/25/19 changed to PCU status. Patient overnight with no acute events per self and per nursing report. Patient oxygenation continues to slowly improve with air Vo needs 60 L at 74% with appropriate saturations and overnight with BiPAP 14/10 at 35% while sleeping therefore considerably improved since even day prior. Discussed with ICU physician and given clinical improvement transitioning patient to PCU status. Patient notes feeling improved, denies any worsening dyspnea. Patient continues to have some activity during the day and does note desaturation with work with therapies but quickly recovers. Patient denies fevers, chills, nausea, emesis, abdominal pain, chest pain, diarrhea. Objective: Physical Examination: General: awake, alert, oriented x 3 and cooperative, seated upright in the ICU, currently on air Vo, fatigued, but no complaints. Skin: normal color, turgor, no icterus, cyanosis. HEENT: AT/NC, EOMI, PERRLA, MMM. Lungs: Diminished breath sounds throughout, greater bases, currently on air Vo, no rales, ronchi or wheezing. Heart: Regular rate and rhythm; no gallop, rub audible. Abdomen: soft, NTTP, ND, normal BS. Extremities: no cyanosis, clubbing, or edema. Neurological: patient awake, alert, oriented as noted, hard of hearing; cognitive function baseline intact; pupils equally reactive to light and accomodation; cranial nerves II-XII grossly normal, moving all 4 extremities, no focal deficits, strength improving, moderately to severely global decrease secondary to acute presentation. Psychiatric: affect appears fatigued this AM otherwise normal, no acute evidence of depressive or anxiety feelings. Vitals/I&O's: Vital Signs Temp Pulse Resp BP Pulse Ox 97.2 F L 77 20 H 143/76 H 93 12/25/19 04:00 12/25/19 05:46 12/25/19 05:46 12/25/19 05:00 12/25/19 05:46 Oxygen Flow Rate (L/min) 60 Oxygen Delivery Method Airvo Weight: 186 lb 15.232 oz Body Mass Index (BMI) 35.2 Intake and Output for Last 24 Hours 12/23/19 12/24/19 12/25/19 23:59 23:59 23:59 Intake Total 1135 / 1235 470 / 470 100 / 100 Output Total 775 / 775 750 / 750 100 / 100 Balance 360 / 460 -280 / -280 0 / 0 Microbiology Past 72 Hours 12/20/19 16:32 Blood Culture (Wb) - Right Forearm Blood Culture - Preliminary No growth in 48 hours. 12/20/19 16:30 Blood Culture (Wb) - Anticubital Left Blood Culture - Preliminary No growth in 48 hours. Laboratory Results 12/25/19 04:40: WBC 7.4, RBC 4.01 L, Hgb 11.9 L, Hct 37.5, MCV 93.5, MCH 29.7, MCHC 31.7 L, RDW Std Deviation 45.7 H, RDW Coeff of Lukasz 13.2, Plt Count 187, MPV 10.7, Immature Gran % (Auto) 4.600 H, Neut % (Auto) 79.7 H, Lymph % (Auto) 8.9 L , Baker % (Auto) 6.5, Eos % (Auto) 0.0, Baso % (Auto) 0.3, Absolute Neuts (auto) 5.9, Absolute Lymphs (auto) 0.66 L, Nucleated RBC % 0 12/25/19 04:40: Sodium 145, Potassium 3.6, Chloride 108 H, Carbon Dioxide 32.0, Anion Gap 5, BUN 28 H, Creatinine 0.82, Estim Creat Clear Calc 36.68, Est GFR (MDRD) Af Amer 86, Est GFR (MDRD) Non-Af 71, BUN/Creatinine Ratio 34.4 H, Glucose 96, Calcium 8.9, Total Bilirubin 0.70, AST 44 H, ALT 37, Alkaline Phosphatase 94, Total Protein 6.5, Albumin 2.5 L, Globulin 4.0, Albumin/Globulin Ratio 0.6 L Current Medications Acetaminophen (Acetaminophen 325 Mg Tablet) 650 mg PO Q6H PRN PRN PRN Reason: Pain Score 1-10/Temp > 100.7 F Albuterol Sulfate (Albuterol Sulfate 8 Gm Inhaler (60 Puffs)) 4 - 8 puff INHALATION Q4H PRN PRN PRN Reason: Dyspnea, wheezing Ascorbic Acid (Ascorbic Acid 500 Mg Tablet) 500 mg PO DAILY [facility] Last Admin: 12/24/19 08:37 Dose: 500 mg Documented by: Calcium Carbonate (Calcium (Elemental) 500 Mg Tablet) 500 mg PO BID [facility] Last Admin: 12/24/19 21:52 Dose: 500 mg Documented by: Dexamethasone (Dexamethasone 4 Mg Tablet) 6 mg PO DAILY [facility] Stop: 12/30/19 10:01 Last Admin: 12/24/19 08:37 Dose: 6 mg Documented by: Enoxaparin Sodium (Enoxaparin 30 Mg/0.3 Ml Syringe) 30 mg SC BID [facility] Last Admin: 12/24/19 21:51 Dose: 30 mg Documented by: Hydralazine HCl (Hydralazine 20 Mg/Ml Vial) 10 mg IV Q4H PRN PRN PRN Reason: SBP > 160 Sodium Chloride () 250 mls @ 15 mls/hr IV .[id number] PRN PRN Reason: Saline Flush Last Infusion: 12/24/19 22:56 Dose: Infused Documented by: Sodium Chloride () 250 mls @ 15 mls/hr IV .[id number] PRN PRN Reason: Additional IVPB Infusion Ibuprofen (Ibuprofen 400 Mg Tablet) 400 mg PO Q4H PRN PRN PRN Reason: Pain Score 1-10/Temp > 100.7 F Multivitamins (Multivitamins,Therapeutic Tablet) 1 tablet PO DAILY [facility] Last Admin: 12/24/19 08:38 Dose: 1 tablet Documented by: Nystatin (Nystatin Powder 15gm Bottle) 1 applic TOPICAL BID KINGA; Protocol Last Admin: 12/24/19 21:52 Dose: 1 applic Documented by: Ondansetron HCl (Ondansetron 4 Mg/2 Ml Vial) 4 mg IV Q8H PRN PRN PRN Reason: NAUSEA/VOMITING Sodium Chloride (0.9% Saline Lock 10 Ml Syringe) 10 - 40 ml IV UD PRN PRN Reason: SALINE FLUSH Last Admin: 12/24/19 21:52 Dose: 10 ml Documented by: STROKE Vital Signs/Narrative: Vital Signs Temp Pulse Resp BP Pulse Ox 12/25/19 05:46 77 20 H 93 12/25/19 05:00 74 22 H 143/76 H 93 12/25/19 04:00 97.2 F L 71 22 H 136/58 H 92 Medical Necessity - Tobacco Use Smoking Status: Never smoker Assessment/Plan All Active Problems COVID-19 (Acute) Acute respiratory failure with hypoxia (Acute) Hypoxia (Acute) Obesity (BMI 35.0-39.9 without comorbidity) (Acute) Bronchitis, acute (Ruled-out) The patient is an 84 y/o F w/ PMHx: HTN, HLD, Obesity otherwise healthy who presents to the [facility] ED on 12/20/19 with history of onset of fatigue, malaise, mild cough the Thursday prior with recent positive Covid testing the prior Thursday noting to have unfortunately contracted the illness from her son who his was positive and eventually tested positive whom she has been in close contact with and notes that her was also tested positive with worsening status, more shortness of breath prompting ED presentation with EMS noting 60% oxygenation at their initial evaluation. 1. Acute Hypoxic Respiratory Failure secondary to Bilateral Pneumonia secondary to Acute Viral Syndrome, COVID-19: Patient with clinically worsening status, initially admitted to medical surgical Covid unit however worsened status with high flow transition to BiPAP 12/19 to 12/21/2019 pm, 12/21/2019 transition to the ICU, continued on IV Decadron therapy initially, 12/23/19 oral decadron transition with planed 10 day course in addition to remdesivir and 12/22/19 convalescent plasma, infectious disease and pulmonary medicine/ICU following, 12/22/19 during the day successful BiPAP to air Vo higher flow during the day w ith BIPAP ongoing needs at night but clinically each day lessening oxygen needs on both BIPAP and Airvo. 12/25/19 given ongoing stability and improvement planned PCU status transition. Will continue to trend Covid panel labs per order set protocol, continue supportive care including q 2 hour turning including prone given no prone bed availability and judicious hydration, closely monitor for worsening status for ARDS and multiorgan failure. 2. Hyperglycemia: Initial glucose 102, repeat 152 but likely secondary to recent usage of steroids, improved, continue to trend. 3. Transient LFT elevation: Initial AST/ALT 38/23, repeat , alk phos 125- >112, likely secondary to acute presentation, 12/25/19 AST/ALT 44/37. 4. Hypertension: Patient with hypotension since presentation, still low normal range, holding regimen. 5. Chronic Kidney Disease Stage III with renal insufficiency: Admission BUN/Cr 33/1.23 with creatinine clearance 24.46, unclear prior baseline, repeat 12/25/2019 BUN/creatinine 28/0.82 with CrCl improving also, 36.68, suspect likely CKD stage III given this improvement with renal insufficiency associated with her acute presentation. 6. DVT prophylaxis: SCDs, Lovenox. 7. CODE status: Full Code. Inpatient E&M: [id number] Subs Hosp L2
--- NOTE | 2019-12-25 07:30 | PN_ITS ---
Subjective: Patient did okay overnight. Patient is still requiring high oxygen requirements on Airvo with brief BiPAP rescue. Patient continues to report she is doing well subjectively. General: Alert, Oriented x3, Cooperative, No apparent distress - On Airvo, - HEENT: Atraumatic, PERRLA, EOMI, Normocephalic, - - No breakdown at the interface site noted Oral: No Gingival or Mucosal Lesions/ Ulcerations, Dry Mucosa Neck: Supple, No JVD, No Nodes, Trachea Midline Lungs: No rhonchi, No wheeze, No rales, Diminished, - - Symmetric expansion. Cardiovascular: Regular rate, Regular Rhythm, Normal S1, Normal S2, No murmurs, No rub noted, No Gallop Abdomen: Bowel Sounds Present, Soft, Non Tender, Non-Distended, Obese Extremities: No clubbing, No cyanosis, No edema, Capillary Refill Less than 3 Seconds Skin: - - No change from previous Musculoskeletal: No Tenderness to Palpation of Joints or Extremities Lymphatic: No Cervical, Supraclavicular, or Inguinal Adenopathy Neurological: Cranial nerves II-XII grossly intact, Neuro grossly intact, Motor Exam 5/5 strength throughout Psych/Mental Status: Alert and oriented to time, place, person, mood and affect Vital Signs Temp Pulse Resp BP Pulse Ox 36.2 C L 77 20 H 143/76 H 93 12/25/19 04:00 12/25/19 05:46 12/25/19 05:46 12/25/19 05:00 12/25/19 05:46 Oxygen Flow Rate (L/min) 60 Oxygen Delivery Method Airvo Weight: 84.8 kg Body Mass Index (BMI) 35.2 Intake and Output for Last 24 Hours 12/23/19 12/24/19 12/25/19 23:59 23:59 23:59 Intake Total 1135 / 1235 470 / 470 100 / 100 Output Total 775 / 775 750 / 750 100 / 100 Balance 360 / 460 -280 / -280 0 / 0 Labs (Last 48 Hours) 12/24/19 12/24/19 12/25/19 01:55 05:05 04:40 WBC 6.7 7.4 RBC 3.85 L 4.01 L Hgb 11.8 L 11.9 L Hct 36.2 L 37.5 MCV 94.0 93.5 MCH 30.6 29.7 MCHC 32.6 31.7 L RDW Std Deviation 46.2 H 45.7 H RDW Coeff of Lukasz 13.4 13.2 Plt Count 184 187 MPV 11.1 10.7 Immature Gran % (Auto) 2.400 H 4.600 H Neut % (Auto) 82.1 H 79.7 H Lymph % (Auto) 6.9 L 8.9 L Estill % (Auto) 8.5 6.5 Eos % (Auto) 0.0 0.0 Baso % (Auto) 0.1 0.3 Absolute Neuts (auto) 5.5 5.9 Absolute Lymphs (auto) 0.46 L 0.66 L Nucleated RBC % 0 0 Differential Comment SCANNED Sodium 144 Potassium 3.8 Chloride 109 H Carbon Dioxide 30.0 Anion Gap 5 BUN 33 H Creatinine 0.79 Estim Creat Clear Calc 30.08 Est GFR (MDRD) Af Amer 90 Est GFR (MDRD) Non-Af 74 BUN/Creatinine Ratio 41.9 H Glucose 99 Calcium 8.7 Total Bilirubin 0.50 AST 39 H ALT 28 Alkaline Phosphatase 91 Total Protein 6.6 Albumin 2.5 L Globulin 4.1 Albumin/Globulin Ratio 0.6 L 12/25/19 04:40 WBC RBC Hgb Hct MCV MCH MCHC RDW Std Deviation RDW Coeff of Lukasz Plt Count MPV Immature Gran % (Auto) Neut % (Auto) Lymph % (Auto) Estill % (Auto) Eos % (Auto) Baso % (Auto) Absolute Neuts (auto) Absolute Lymphs (auto) Nucleated RBC % Differential Comment Sodium 145 Potassium 3.6 Chloride 108 H Carbon Dioxide 32.0 Anion Gap 5 BUN 28 H Creatinine 0.82 Estim Creat Clear Calc 36.68 Est GFR (MDRD) Af Amer 86 Est GFR (MDRD) Non-Af 71 BUN/Creatinine Ratio 34.4 H Glucose 96 Calcium 8.9 Total Bilirubin 0.70 AST 44 H ALT 37 Alkaline Phosphatase 94 Total Protein 6.5 Albumin 2.5 L Globulin 4.0 Albumin/Globulin Ratio 0.6 L Microbiology 12/20/19 16:32 Blood Culture (Wb) - Right Forearm Blood Culture - Preliminary No growth in 48 hours. 12/20/19 16:30 Blood Culture (Wb) - Anticubital Left Blood Culture - Preliminary No growth in 48 hours. Medical Necessity - Tobacco Use Smoking Status: Never smoker Assessment/Plan All Active Problems COVID-19 (Acute) Acute respiratory failure with hypoxia (Acute) Hypoxia (Acute) Obesity (BMI 35.0-39.9 without comorbidity) (Acute) Bronchitis, acute (Ruled-out) RECOMMENDATIONS: 1. Possibly attempt Airvo during day with BiPAP rescue with sleep 2. Continue Decadron (05/19), remdesivir (05/14) and anticoagulation. Convalescent serum given 3. Monitor for hyperglycemia and other complications of Decadron 4. Wean oxygen as tolerated. 5. Diuretic challenge IMPRESSIONS: 1. Acute hypoxic respiratory failure secondary to COVID-19 pneumonia Patient with typical findings on CTA of the chest. No pulmonary emboli were noted. Okay to use lower dose Lovenox from my perspective. Patient is already on Decadron, remdesivir and has received convalescent serum. All of these appear to be appropriate. Patient appears to be stabilizing from a respiratory standpoint. Continue with high flow nasal cannula oxygen and BiPAP rescue. On Remdesivir, Decadron and anticoagulation. Patient's weight is slightly up from admission. I and O are inaccurate. Patient will be given a diuretic challenge today. 2. Hyperglycemia Likely secondary to Decadron therapy. Continue to monitor. Patient may need initiation of long-acting insulin. We will hold for now as patient appears to be tolerating 3. Transaminitis Patient was slightly elevated liver enzymes on presentation. Will need to watch closely given patient's Remdesivir order. Patient is aware of the risk and feels that it is appropriate to proceed. We will continue with daily labs as ordered. 4. Chronic kidney disease stage IV versus acute kidney injury Improving, suggestive of acute kidney injury on presentation. Patient appears to have some improvement with stabilization of cardiovascular status. We will continue to monitor closely. Inpatient E&M: [id number] [facility] Hosp L3
[2019-12-25] MEDS: Multivitamins,Therapeutic Tablet 1 TABLET PO (08:12)
[2019-12-25] MEDS: Furosemide 20 MG/2 ML VIAL IV (08:12)
[2019-12-25] MEDS: Calcium (Elemental) 500 MG Tablet PO ×2 (08:12→20:19)
[2019-12-25] MEDS: Enoxaparin 30 MG/0.3 ML Syringe SC ×2 (08:12→20:19)
[2019-12-25] MEDS: dexAMETHasone 4 MG Tablet 6 MG PO (08:12)
[2019-12-25] MEDS: Ascorbic Acid 500 MG Tablet PO (08:12)
[2019-12-25] MEDS: Nystatin Powder 15gm Bottle 1 APPLIC TOPICAL ×2 (08:13→20:19)
[2019-12-26] VITALS (29 sets, daily range): BP systolic 91–128; BP diastolic 45–87; PULSE 65–108; RESP 12–30; TEMP 35.8–36.8; O2SAT 88–95
[2019-12-26 03:28] LABS: Absolute Lymphocyte Count 0.81 X10^3/uL (0.83-4.51); Absolute Neutrophil Count 6.4 X10^3/uL (2.0-7.7); Basophil# 0.04 X10^3/uL; Basophil% 0.5 % (0-1); Eosinophil# 0.02 X10^3/uL; Eosinophils% 0.2 % (0-5); Hemoglobin 12.8 g/dL (12.0-15.0); Lymphocyte # 0.81 X10^3/ul (4.0); Lymphocyte % 9.9 % (19-41); Mean Corpuscular Hgb 29.6 pg (27.0-32.0); Mean Corpuscular Volume 92.4 fL (81-99); Monocyte# 0.54 X10^3/uL; Monocyte% 6.6 % (0-10); NRBC Flagged by Analyzer 0 % (0-5); Neutrophil # 6.37 X10^3/uL (2.7-7.7); Neutrophil % 77.8 % (47-70); Platelet Count 200 K/mm3 (150-450); RBC Distribution Width CV 13.2 % (11.6-14.6); RBC Distribution Width SD 45.1 fl (35.1-43.9); Red Blood Count 4.33 M/mm3 (4.2-5.4); White Blood Count 8.2 K/mm3 (4.4-11.0)
[2019-12-26 03:44] LABS: ALB/GLOB Ratio 0.6 RATIO (0.9-2.4); AST(SGOT) 31 U/L (15-37); Alanine Aminotransfer ALT/SGPT 34 U/L (13-56); Albumin, Serum 2.6 g/dL (3.2-5.0); Alkaline Phosphatase 96 U/L (45-117); Anion Gap 4 (5-15); BUN 30 mg/dL (7-18); BUN/Creat Ratio 39.7 RATIO (10-20); Chloride 105 mmol/L (98-107); Creatinine, Serum 0.76 mg/dL (0.55-1.02); EST Glomerular Filtration Rate 78 mL/min (>60); Est Glom Filt Rate - Afr Amer 94 mL/min (>60); Estimated Creatinine Clearance 30.08 ml/min; Glucose 102 mg/dL (74-106); Potassium 3.7 mmol/L (3.5-5.1); Protein, Total 6.6 g/dL (6.4-8.2); Sodium Level 142 mmol/L (136-145)
--- NOTE | 2019-12-26 04:25 | CPS ---
O2 INCREASED TO 40% BY NURSE
--- NOTE | 2019-12-26 06:01 | PCM.PN.INT ---
Subjective: The patient was seen and examined at the bedside this morning. Events from the last 24 hours have been reviewed. The patient is currently afebrile, hemodynamically stable and maintaining appropriate oxygen saturations on BiPAP with an FiO2 requirement of 40%. The patient denies any significant shortness of breath or cough this morning. She is requesting to be transition from BiPAP over to Airvo heated high flow oxygen. The patient has already received convalescent plasma and completed her treatment course of remdesivir. She remains on scheduled Decadron. She is currently scheduled to be approximately 1.6 L positive for the hospital admission. Objective: The patient's most recent lab work, culture data and imaging studies have all been personally reviewed. Coronavirus PCR was positive on December 15. Respiratory viral panel was negative. Blood cultures have shown no growth to date. General: Alert, Cooperative, No apparent distress HEENT: Atraumatic, PERRLA, Normocephalic Oral: No Gingival or Mucosal Lesions/ Ulcerations Neck: Supple, No Nodes, Trachea Midline Lungs: No rhonchi, No wheeze, No rales, Diminished Cardiovascular: Regular rate, Regular Rhythm Abdomen: Bowel Sounds Present, Soft, Non Tender, Obese Extremities: No clubbing, No cyanosis, No edema Skin: No breakdown Musculoskeletal: No Tenderness to Palpation of Joints or Extremities Lymphatic: No Cervical, Supraclavicular, or Inguinal Adenopathy Neurological: Cranial nerves II-XII grossly intact, Neuro grossly intact Psych/Mental Status: Normal Affect, Appropriate Vital Signs Temp Pulse Resp BP Pulse Ox 96.8 F L 72 21 H 97/65 93 12/26/19 04:00 12/26/19 05:00 12/26/19 05:00 12/26/19 05:00 12/26/19 05:00 Oxygen Flow Rate (L/min) 40 Oxygen Delivery Method Bi-pap Weight: 184 lb 15.485 oz Body Mass Index (BMI) 35.2 Intake and Output for Last 24 Hours 12/24/19 12/25/19 12/26/19 23:59 23:59 23:59 Intake Total 470 / 470 340 / 340 Output Total 750 / 750 1500 / 1500 Balance -280 / -280 -1160 / -1160 Labs (Last 48 Hours) 12/25/19 12/25/19 12/26/19 04:40 04:40 03:20 WBC 7.4 8.2 RBC 4.01 L 4.33 Hgb 11.9 L 12.8 Hct 37.5 40.0 MCV 93.5 92.4 MCH 29.7 29.6 MCHC 31.7 L 32.0 RDW Std Deviation 45.7 H 45.1 H RDW Coeff of Lukasz 13.2 13.2 Plt Count 187 200 MPV 10.7 11.0 Immature Gran % (Auto) 4.600 H 5.000 H Neut % (Auto) 79.7 H 77.8 H Lymph % (Auto) 8.9 L 9.9 L [place] % (Auto) 6.5 6.6 Eos % (Auto) 0.0 0.2 Baso % (Auto) 0.3 0.5 Absolute Neuts (auto) 5.9 6.4 Absolute Lymphs (auto) 0.66 L 0.81 L Nucleated RBC % 0 0 Sodium 145 Potassium 3.6 Chloride 108 H Carbon Dioxide 32.0 Anion Gap 5 BUN 28 H Creatinine 0.82 Estim Creat Clear Calc 36.68 Est GFR (MDRD) Af Amer 86 Est GFR (MDRD) Non-Af 71 BUN/Creatinine Ratio 34.4 H Glucose 96 Calcium 8.9 Total Bilirubin 0.70 AST 44 H ALT 37 Alkaline Phosphatase 94 Total Protein 6.5 Albumin 2.5 L Globulin 4.0 Albumin/Globulin Ratio 0.6 L 12/26/19 03:20 WBC RBC Hgb Hct MCV MCH MCHC RDW Std Deviation RDW Coeff of Lukasz Plt Count MPV Immature Gran % (Auto) Neut % (Auto) Lymph % (Auto) [place] % (Auto) Eos % (Auto) Baso % (Auto) Absolute Neuts (auto) Absolute Lymphs (auto) Nucleated RBC % Sodium 142 Potassium 3.7 Chloride 105 Carbon Dioxide 33.0 H Anion Gap 4 L BUN 30 H Creatinine 0.76 Estim Creat Clear Calc 30.08 Est GFR (MDRD) Af Amer 94 Est GFR (MDRD) Non-Af 78 BUN/Creatinine Ratio 39.7 H Glucose 102 Calcium 9.0 Total Bilirubin 0.80 AST 31 ALT 34 Alkaline Phosphatase 96 Total Protein 6.6 Albumin 2.6 L Globulin 4.0 Albumin/Globulin Ratio 0.6 L Clinical Impression(s) from Imaging Studies Chest X-Ray 12/20/19 16:24 IMPRESSION: Bilateral alveolar and interstitial infiltrates. Electronically Signed: Zana Pena DO at 17:11 EST Tel [phone], Service support , Chest CTA 12/20/19 17:20 IMPRESSION: 1. No evidence of pulmonary embolus. 2. No aortic dissection or aneurysm. 3. Prominent pulmonary arteries with diffuse perihilar infiltrate. Question pulmonary edema/CHF. 4. Atherosclerotic changes of the thoracic aorta and coronary arteries. Electronically Signed: Zana Pena DO at 18:43 EST Tel [phone], Service support , Medical Necessity - Tobacco Use Smoking Status: Never smoker Assessment/Plan All Active Problems COVID-19 (Acute) Acute respiratory failure with hypoxia (Acute) Hypoxia (Acute) Obesity (BMI 35.0-39.9 without comorbidity) (Acute) Bronchitis, acute (Ruled-out) RECOMMENDATIONS: 1. Continue BiPAP/Airvo heated high flow and wean FiO2 to maintain oxygen saturations at or above 90%. 2. Continue Decadron to complete 10-day treatment course. 3. Continue attempts at gentle diuresis as tolerated by hemodynamics and renal function. 4. Encourage incentive spirometer use and mobilize patient as tolerated. IMPRESSIONS: 1. Acute hypoxic respiratory failure secondary to COVID-19 pneumonia The patient presented to the hospital with Covid-like symptoms and was subsequently treated with convalescent plasma along with a treatment course of remdesivir. She remains on scheduled Decadron, with plans to complete a 10-day treatment course. CTA showed no evidence for pulmonary embolism. Plan to continue a combination of BIPAP and Airvo heated high flow to maintain oxygen saturations at or above 90%. Gentle diuresis will be continued as tolerated by hemodynamics and renal function. 2. Hypertension/advanced age Complicates care, management, recovery and prognosis. Continue home medications as indicated. This note was generated with [employer] software. It may contain incorrect words, spelling, and punctuation that were not noted in checking the note before signing. Inpatient E&M: [id number] [facility] L3
--- NOTE | 2019-12-26 07:45 | PCM.PN.HOSP ---
Patient Problems: Active and Suspected Problems COVID-19 (Acute) Acute respiratory failure with hypoxia (Acute) Hypoxia (Acute) Obesity (BMI 35.0-39.9 without comorbidity) (Acute) Reason for Visit: acute hypoxic respiratory failure secondary to acute COVID-19 pneumonia Subjective: Patient is an 84-year-old gentleman admitted with progressive generalized weakness with associated shortness of breath and assessment of acute hypoxic respiratory failure secondary to acute COVID-19 pneumonia made admitted to the intensive care unit for further management Objective: GENERAL: cooperative HEENT: Atraumatic; EYES; Anicteric, Normal Conjunctiva NECK; supple, normal thyroid, RESPIRATORY: Diminished to auscultation CARDIOVASCULAR: Regular S1 S2, GI: soft, normoactive bowel sounds, : No Renal angle tenderness; EXTREMITIES: No edema, no clubbing, MUSCULOSKELETAL: no muscle waisting NEURO: Awake; no lateralizing signs. SKIN: No Rash PSYCH; Flat affect Vitals/I&O's: Vital Signs Temp Pulse Resp BP Pulse Ox 96.8 F L 75 22 H 104/73 94 12/26/19 04:00 12/26/19 07:00 12/26/19 07:00 12/26/19 07:00 12/26/19 07:00 Oxygen Flow Rate (L/min) 40 Oxygen Delivery Method Bi-pap Weight: 83.9 kg Body Mass Index (BMI) 35.2 Intake and Output for Last 24 Hours 12/24/19 12/25/19 12/26/19 23:59 23:59 23:59 Intake Total 470 / 470 340 / 340 Output Total 750 / 750 1500 / 1500 75 / 75 Balance -280 / -280 -1160 / -1160 -75 / -75 Microbiology Past 72 Hours 12/20/19 16:32 Blood Culture (Wb) - Right Forearm Blood Culture - Preliminary No growth in 48 hours. 12/20/19 16:30 Blood Culture (Wb) - Anticubital Left Blood Culture - Preliminary No growth in 48 hours. Laboratory Results 12/26/19 03:20: WBC 8.2, RBC 4.33, Hgb 12.8, Hct 40.0, MCV 92.4, MCH 29.6, MCHC 32.0, RDW Std Deviation 45.1 H, RDW Coeff of Lukasz 13.2, Plt Count 200, MPV 11.0, Immature Gran % (Auto) 5.000 H, Neut % (Auto) 77.8 H, Lymph % (Auto) 9.9 L, [place] % (Auto) 6.6, Eos % (Auto) 0.2, Baso % (Auto) 0.5, Absolute Neuts (auto) 6.4, Absolute Lymphs (auto) 0.81 L, Nucleated RBC % 0 12/26/19 03:20: Sodium 142, Potassium 3.7, Chloride 105, Carbon Dioxide 33.0 H, Anion Gap 4 L, BUN 30 H, Creatinine 0.76, Estim Creat Clear Calc 30.08, Est GFR (MDRD) Af Amer 94, Est GFR (MDRD) Non-Af 78, BUN/Creatinine Ratio 39.7 H, Glucose 102, Calcium 9.0, Total Bilirubin 0.80, AST 31, ALT 34, Alkaline Phosphatase 96, Total Protein 6.6, Albumin 2.6 L, Globulin 4.0, Albumin/Globulin Ratio 0.6 L Current Medications Acetaminophen (Acetaminophen 325 Mg Tablet) 650 mg PO Q6H PRN PRN PRN Reason: Pain Score 1-10/Temp > 100.7 F Albuterol Sulfate (Albuterol Sulfate 8 Gm Inhaler (60 Puffs)) 4 - 8 puff INHALATION Q4H PRN PRN PRN Reason: Dyspnea, wheezing Ascorbic Acid (Ascorbic Acid 500 Mg Tablet) 500 mg PO DAILY [facility] Last Admin: 12/25/19 08:12 Dose: 500 mg Documented by: Calcium Carbonate (Calcium (Elemental) 500 Mg Tablet) 500 mg PO BID [facility] Last Admin: 12/25/19 20:19 Dose: 500 mg Documented by: Dexamethasone (Dexamethasone 4 Mg Tablet) 6 mg PO DAILY [facility] Stop: 12/30/19 10:01 Last Admin: 12/25/19 08:12 Dose: 6 mg Documented by: Enoxaparin Sodium (Enoxaparin 30 Mg/0.3 Ml Syringe) 30 mg SC BID [facility] Last Admin: 12/25/19 20:19 Dose: 30 mg Documented by: Hydralazine HCl (Hydralazine 20 Mg/Ml Vial) 10 mg IV Q4H PRN PRN PRN Reason: SBP > 160 Sodium Chloride () 250 mls @ 15 mls/hr IV .[id number] PRN PRN Reason: Saline Flush Last Infusion: 12/24/19 22:56 Dose: Infused Documented by: Sodium Chloride () 250 mls @ 15 mls/hr IV .[id number] PRN PRN Reason: Additional IVPB Infusion Ibuprofen (Ibuprofen 400 Mg Tablet) 400 mg PO Q4H PRN PRN PRN Reason: Pain Score 1-10/Temp > 100.7 F Multivitamins (Multivitamins,Therapeutic Tablet) 1 tablet PO DAILY [facility] Last Admin: 12/25/19 08:12 Dose: 1 tablet Documented by: Nystatin (Nystatin Powder 15gm Bottle) 1 applic TOPICAL BID [facility]; Protocol Last Admin: 12/25/19 20:19 Dose: 1 applic Documented by: Ondansetron HCl (Ondansetron 4 Mg/2 Ml Vial) 4 mg IV Q8H PRN PRN PRN Reason: NAUSEA/VOMITING Sodium Chloride (0.9% Saline Lock 10 Ml Syringe) 10 - 40 ml IV UD PRN PRN Reason: SALINE FLUSH Last Admin: 12/24/19 21:52 Dose: 10 ml Documented by: STROKE Vital Signs/Narrative: Vital Signs Temp Pulse Resp BP BP Pulse Ox 12/26/19 07:00 75 22 H 104/73 94 12/26/19 06:00 76 22 H 107/78 94 12/26/19 05:00 72 21 H 97/65 93 12/26/19 04:00 96.8 F L 75 24 H 128/87 H 91 Medical Necessity - Tobacco Use Smoking Status: Never smoker Assessment/Plan All Active Problems COVID-19 (Acute) Acute respiratory failure with hypoxia (Acute) Hypoxia (Acute) Obesity (BMI 35.0-39.9 without comorbidity) (Acute) Bronchitis, acute (Ruled-out) Patient is an 84-year-old gentleman admitted with progressive generalized weakness with associated shortness of breath and assessment of acute hypoxic respiratory failure secondary to acute COVID-19 pneumonia made admitted to the intensive care unit for further management 1. Acute hypoxic respiratory failure secondary to COVID-19 pneumonia Patient received convalescent plasma and remdesivir, currently on Decadron.. Patient also managed with noninvasive ventilation and has since been transitioned from BiPAP over to Airvo heated high flow oxygen 2. Transient transaminitis ?Secondary to patient COVID-19 infection monitoring 3. Hypertension - Blood pressure controlled, patient is on HCTZ/lisinopril and verapamil held on admission 4. Acute kidney injury ?Improved following admission. Creatinine on admission was 1.23, 0.76 as of 12/26/2019 5. DVT prophylaxis ?Lovenox 30 mg SC twice daily 6. Physical deconditioning - Requested for PT OT eval and director social welfare to assist with discharge planning Inpatient E&M: [id number] Subs Hosp L2
--- NOTE | 2019-12-26 09:00 | CASEMGMT ---
Medical POA form with LW provision initialed has been scanned into the summary tab of the echart. MILO Stern
[2019-12-26] MEDS: Calcium (Elemental) 500 MG Tablet PO ×2 (11:01→21:37)
[2019-12-26] MEDS: dexAMETHasone 4 MG Tablet 6 MG PO (11:02)
[2019-12-26] MEDS: Enoxaparin 30 MG/0.3 ML Syringe SC ×2 (11:02→21:37)
[2019-12-26] MEDS: Multivitamins,Therapeutic Tablet 1 TABLET PO (11:02)
[2019-12-26] MEDS: 0.9% Saline Lock 10 ML Syringe IV (11:03)
[2019-12-26] MEDS: Nystatin Powder 15gm Bottle 1 APPLIC TOPICAL ×2 (11:03→21:37)
[2019-12-26] MEDS: Ascorbic Acid 500 MG Tablet PO (11:06)
--- NOTE | 2019-12-26 12:55 | PN.ID_ITS ---
Patient Problems: Active and Suspected Problems COVID-19 (Acute) Acute respiratory failure with hypoxia (Acute) Hypoxia (Acute) Obesity (BMI 35.0-39.9 without comorbidity) (Acute) Subjective: Feeling better, breathing improved, no fever, no n/v/d - Physical Exam Vitals/I&O's: Vital Signs Temp Pulse Resp BP Pulse Ox 97.8 F 104 H 25 H 92/59 L 91 12/26/19 12:00 12/26/19 12:00 12/26/19 12:00 12/26/19 12:00 12/26/19 12:00 Oxygen Flow Rate (L/min) 40 Oxygen Delivery Method Airvo Weight: 83.9 kg Body Mass Index (BMI) 35.2 Intake and Output for Last 24 Hours 12/24/19 12/25/19 12/26/19 23:59 23:59 23:59 Intake Total 470 / 470 340 / 340 Output Total 750 / 750 1500 / 1500 75 / 75 Balance -280 / -280 -1160 / -1160 -75 / -75 General: Alert, Cooperative, No apparent distress Lungs: Clear to auscultation, Diminished Cardiovascular: Regular rate, Regular Rhythm Abdomen: Soft, Non Tender, Non-Distended Skin: No rashes Microbiology Past 72 Hours 12/20/19 16:32 Blood Culture (Wb) - Right Forearm Blood Culture - Final No growth in 5 days. 12/20/19 16:30 Blood Culture (Wb) - Anticubital Left Blood Culture - Final No growth in 5 days. Laboratory Results 12/26/19 03:20: WBC 8.2, RBC 4.33, Hgb 12.8, Hct 40.0, MCV 92.4, MCH 29.6, MCHC 32.0, RDW Std Deviation 45.1 H, RDW Coeff of Lukasz 13.2, Plt Count 200, MPV 11.0, Immature Gran % (Auto) 5.000 H, Neut % (Auto) 77.8 H, Lymph % (Auto) 9.9 L, [place] % (Auto) 6.6, Eos % (Auto) 0.2, Baso % (Auto) 0.5, Absolute Neuts (auto) 6.4, Absolute Lymphs (auto) 0.81 L, Nucleated RBC % 0 12/26/19 03:20: Sodium 142, Potassium 3.7, Chloride 105, Carbon Dioxide 33.0 H, Anion Gap 4 L, BUN 30 H, Creatinine 0.76, Estim Creat Clear Calc 30.08, Est GFR (MDRD) Af Amer 94, Est GFR (MDRD) Non-Af 78, BUN/Creatinine Ratio 39.7 H, Glucose 102, Calcium 9.0, Total Bilirubin 0.80, AST 31, ALT 34, Alkaline Phosphatase 96, Total Protein 6.6, Albumin 2.6 L, Globulin 4.0, Albumin/Globulin Ratio 0.6 L Current Medications Acetaminophen (Acetaminophen 325 Mg Tablet) 650 mg PO Q6H PRN PRN PRN Reason: Pain Score 1-10/Temp > 100.7 F Albuterol Sulfate (Albuterol Sulfate 8 Gm Inhaler (60 Puffs)) 4 - 8 puff INHALATION Q4H PRN PRN PRN Reason: Dyspnea, wheezing Ascorbic Acid (Ascorbic Acid 500 Mg Tablet) 500 mg PO DAILY [facility] Last Admin: 12/26/19 11:06 Dose: 500 mg Documented by: Calcium Carbonate (Calcium (Elemental) 500 Mg Tablet) 500 mg PO BID [facility] Last Admin: 12/26/19 11:01 Dose: 500 mg Documented by: Dexamethasone (Dexamethasone 4 Mg Tablet) 6 mg PO DAILY [facility] Stop: 12/30/19 10:01 Last Admin: 12/26/19 11:02 Dose: 6 mg Documented by: Enoxaparin Sodium (Enoxaparin 30 Mg/0.3 Ml Syringe) 30 mg SC BID [facility] Last Admin: 12/26/19 11:02 Dose: 30 mg Documented by: Hydralazine HCl (Hydralazine 20 Mg/Ml Vial) 10 mg IV Q4H PRN PRN PRN Reason: SBP > 160 Sodium Chloride () 250 mls @ 15 mls/hr IV .[id number] PRN PRN Reason: Saline Flush Last Infusion: 12/24/19 22:56 Dose: Infused Documented by: Sodium Chloride () 250 mls @ 15 mls/hr IV .[id number] PRN PRN Reason: Additional IVPB Infusion Ibuprofen (Ibuprofen 400 Mg Tablet) 400 mg PO Q4H PRN PRN PRN Reason: Pain Score 1-10/Temp > 100.7 F Multivitamins (Multivitamins,Therapeutic Tablet) 1 tablet PO DAILY [facility] Last Admin: 12/26/19 11:02 Dose: 1 tablet Documented by: Nystatin (Nystatin Powder 15gm Bottle) 1 applic TOPICAL BID [facility]; Protocol Last Admin: 12/26/19 11:03 Dose: 1 applic Documented by: Ondansetron HCl (Ondansetron 4 Mg/2 Ml Vial) 4 mg IV Q8H PRN PRN PRN Reason: NAUSEA/VOMITING Sodium Chloride (0.9% Saline Lock 10 Ml Syringe) 10 - 40 ml IV UD PRN PRN Reason: SALINE FLUSH Last Admin: 12/26/19 11:03 Dose: 10 ml Documented by: Medical Necessity - Tobacco Use Smoking Status: Never smoker Route of nutrition/ use of supplements: [] Nutritional Intake: [] IV Site: [] White Catheter: [] - Assessment/Plan Antibiotics: [] Assessment/Plan: [] Active and Suspected Problems COVID-19 (Acute) Acute respiratory failure with hypoxia (Acute) Hypoxia (Acute) Obesity (BMI 35.0-39.9 without comorbidity) (Acute) Hypoxic, covid. On dex, completed remdesivir. Plasma given 12/21. On lovenoex 30mg bid. D-dimer 0.9. Feeling better. O2 much improved. Will follow
[2019-12-27] VITALS (18 sets, daily range): BP systolic 112–134; BP diastolic 56–75; PULSE 60–96; RESP 18–24; TEMP 36.7–37.2; O2SAT 89–96
[2019-12-27 06:47] LABS: Absolute Lymphocyte Count 0.78 X10^3/uL (0.83-4.51); Absolute Neutrophil Count 5.8 X10^3/uL (2.0-7.7); Basophil# 0.05 X10^3/uL; Basophil% 0.7 % (0-1); Eosinophil# 0.18 X10^3/uL; Eosinophils% 2.3 % (0-5); Hematocrit 42.1 % (37-47); Hemoglobin 12.6 g/dL (12.0-15.0); Lymphocyte # 0.78 X10^3/ul (4.0); Lymphocyte % 10.2 % (19-41); Mean Corp Hgb Conc 29.9 g/dL (32-36); Mean Corpuscular Hgb 29.7 pg (27.0-32.0); Mean Corpuscular Volume 99.3 fL (81-99); Monocyte# 0.55 X10^3/uL; Monocyte% 7.2 % (0-10); NRBC Flagged by Analyzer 0 % (0-5); Neutrophil # 5.76 X10^3/uL (2.7-7.7); Neutrophil % 74.9 % (47-70); Platelet Count 207 K/mm3 (150-450); RBC Distribution Width CV 13.3 % (11.6-14.6); RBC Distribution Width SD 48.9 fl (35.1-43.9); Red Blood Count 4.24 M/mm3 (4.2-5.4); White Blood Count 7.7 K/mm3 (4.4-11.0)
[2019-12-27 07:22] LABS: ALB/GLOB Ratio 0.8 RATIO (0.9-2.4); AST(SGOT) 27 U/L (15-37); Alanine Aminotransfer ALT/SGPT 34 U/L (13-56); Albumin, Serum 2.5 g/dL (3.2-5.0); Alkaline Phosphatase 89 U/L (45-117); Anion Gap 5 (5-15); BUN 28 mg/dL (7-18); BUN/Creat Ratio 35.4 RATIO (10-20); Calcium,Total 8.6 mg/dL (8.5-10.1); Chloride 106 mmol/L (98-107); Creatinine, Serum 0.79 mg/dL (0.55-1.02); EST Glomerular Filtration Rate 74 mL/min (>60); Est Glom Filt Rate - Afr Amer 89 mL/min (>60); Estimated Creatinine Clearance 30.08 ml/min; Globulin 3.3 g/dL (2.2-4.2); Glucose 84 mg/dL (74-106); Magnesium 2.2 mg/dL (1.6-2.6); Potassium 4.1 mmol/L (3.5-5.1); Protein, Total 5.8 g/dL (6.4-8.2); Sodium Level 144 mmol/L (136-145)
--- NOTE | 2019-12-27 07:31 | PCM.PN.HOSP ---
Patient Problems: Active and Suspected Problems COVID-19 (Acute) Acute respiratory failure with hypoxia (Acute) Hypoxia (Acute) Obesity (BMI 35.0-39.9 without comorbidity) (Acute) Reason for Visit: acute hypoxic respiratory failure secondary to acute COVID-19 pneumonia Subjective: Patient is an 84-year-old gentleman admitted with progressive generalized weakness with associated shortness of breath and assessment of acute hypoxic respiratory failure secondary to acute COVID-19 pneumonia made admitted to the intensive care unit for further management 12/27/2019: Patient was transferred from ICU to the progressive care unit. Still remains on high flow oxygen Objective: GENERAL: cooperative HEENT: Atraumatic; EYES; Anicteric, Normal Conjunctiva NECK; supple, normal thyroid, RESPIRATORY: Diminished to auscultation CARDIOVASCULAR: Regular S1 S2, GI: soft, normoactive bowel sounds, : No Renal angle tenderness; EXTREMITIES: No edema, no clubbing, MUSCULOSKELETAL: no muscle waisting NEURO: Awake; no lateralizing signs. SKIN: No Rash PSYCH; Flat affect Vitals/I&O's: Vital Signs Temp Pulse Resp BP Pulse Ox 98.4 F 73 22 H 112/62 89 12/27/19 04:50 12/27/19 05:19 12/27/19 05:19 12/27/19 04:50 12/27/19 05:19 Oxygen Flow Rate (L/min) 40 Oxygen Delivery Method Airvo Weight: 83.9 kg Body Mass Index (BMI) 35.2 Intake and Output for Last 24 Hours 12/25/19 12/26/19 12/27/19 23:59 23:59 23:59 Intake Total 340 / 340 60 / 60 0 / 0 Output Total 1500 / 1500 275 / 275 0 / 0 Balance -1160 / -1160 -215 / -215 0 / 0 Microbiology Past 72 Hours 12/20/19 16:32 Blood Culture (Wb) - Right Forearm Blood Culture - Final No growth in 5 days. 12/20/19 16:30 Blood Culture (Wb) - Anticubital Left Blood Culture - Final No growth in 5 days. Laboratory Results 12/27/19 06:28: WBC 7.7, RBC 4.24, Hgb 12.6, Hct 42.1, MCV 99.3 H D, MCH 29.7, MCHC 29.9 L D, RDW Std Deviation 48.9 H, RDW Coeff of Lukasz 13.3, Plt Count 207, MPV 11.0, Immature Gran % (Auto) 4.700 H, Neut % (Auto) 74.9 H, Lymph % (Auto) 10.2 L, [place] % (Auto) 7.2, Eos % (Auto) 2.3, Baso % (Auto) 0.7, Absolute Neuts (auto) 5.8, Absolute Lymphs (auto) 0.78 L, Nucleated RBC % 0 12/27/19 06:28: Sodium 144, Potassium 4.1, Chloride 106, Carbon Dioxide 33.0 H, Anion Gap 5, BUN 28 H, Creatinine 0.79, Estim Creat Clear Calc 30.08, Est GFR (MDRD) Af Amer 89, Est GFR (MDRD) Non-Af 74, BUN/Creatinine Ratio 35.4 H, Glucose 84, Calcium 8.6, Magnesium 2.2, Total Bilirubin 0.70, AST 27, ALT 34, Alkaline Phosphatase 89, Total Protein 5.8 L, Albumin 2.5 L, Globulin 3.3, Albumin/Globulin Ratio 0.8 L Current Medications Acetaminophen (Acetaminophen 325 Mg Tablet) 650 mg PO Q6H PRN PRN PRN Reason: Pain Score 1-10/Temp > 100.7 F Albuterol Sulfate (Albuterol Sulfate 8 Gm Inhaler (60 Puffs)) 4 - 8 puff INHALATION Q4H PRN PRN PRN Reason: Dyspnea, wheezing Ascorbic Acid (Ascorbic Acid 500 Mg Tablet) 500 mg PO DAILY [facility] Last Admin: 12/26/19 11:06 Dose: 500 mg Documented by: Calcium Carbonate (Calcium (Elemental) 500 Mg Tablet) 500 mg PO BID [facility] Last Admin: 12/26/19 21:37 Dose: 500 mg Documented by: Dexamethasone (Dexamethasone 4 Mg Tablet) 6 mg PO DAILY [facility] Stop: 12/30/19 10:01 Last Admin: 12/26/19 11:02 Dose: 6 mg Documented by: Enoxaparin Sodium (Enoxaparin 30 Mg/0.3 Ml Syringe) 30 mg SC BID [facility] Last Admin: 12/26/19 21:37 Dose: 30 mg Documented by: Hydralazine HCl (Hydralazine 20 Mg/Ml Vial) 10 mg IV Q4H PRN PRN PRN Reason: SBP > 160 Sodium Chloride () 250 mls @ 15 mls/hr IV .[id number] PRN PRN Reason: Saline Flush Last Infusion: 12/24/19 22:56 Dose: Infused Documented by: Sodium Chloride () 250 mls @ 15 mls/hr IV .[id number] PRN PRN Reason: Additional IVPB Infusion Ibuprofen (Ibuprofen 400 Mg Tablet) 400 mg PO Q4H PRN PRN PRN Reason: Pain Score 1-10/Temp > 100.7 F Multivitamins (Multivitamins,Therapeutic Tablet) 1 tablet PO DAILY [facility] Last Admin: 12/26/19 11:02 Dose: 1 tablet Documented by: Nystatin (Nystatin Powder 15gm Bottle) 1 applic TOPICAL BID [facility]; Protocol Last Admin: 12/26/19 21:37 Dose: 1 applic Documented by: Ondansetron HCl (Ondansetron 4 Mg/2 Ml Vial) 4 mg IV Q8H PRN PRN PRN Reason: NAUSEA/VOMITING Sodium Chloride (0.9% Saline Lock 10 Ml Syringe) 10 - 40 ml IV UD PRN PRN Reason: SALINE FLUSH Last Admin: 12/26/19 11:03 Dose: 10 ml Documented by: STROKE Vital Signs/Narrative: Vital Signs Temp Pulse Resp BP Pulse Ox 12/27/19 05:19 73 22 H 89 12/27/19 04:51 95 12/27/19 04:50 98.4 F 83 20 H 112/62 94 Medical Necessity - Tobacco Use Smoking Status: Never smoker Assessment/Plan All Active Problems COVID-19 (Acute) Acute respiratory failure with hypoxia (Acute) Hypoxia (Acute) Obesity (BMI 35.0-39.9 without comorbidity) (Acute) Bronchitis, acute (Ruled-out) Patient is an 84-year-old gentleman admitted with progressive generalized weakness with associated shortness of breath and assessment of acute hypoxic respiratory failure secondary to acute COVID-19 pneumonia made admitted to the intensive care unit for further management 1. Acute hypoxic respiratory failure secondary to COVID-19 pneumonia Patient received convalescent plasma and remdesivir, currently on Decadron.. Patient also managed with noninvasive ventilation and has since been transitioned from BiPAP over to Airvo heated high flow oxygen - 12/27/2019: Patient was transferred from ICU to the progressive care unit. Still remains on high flow oxygen 2. Transient transaminitis ?Secondary to patient COVID-19 infection monitoring 3. Hypertension - Blood pressure controlled, patient is on HCTZ/lisinopril and verapamil held on admission 4. Acute kidney injury ?Improved following admission. Creatinine on admission was 1.23, 0.76 as of 12/26/2019 5. DVT prophylaxis ?Lovenox 30 mg SC twice daily 6. Physical deconditioning - Requested for PT OT eval and high school social studies teacher to assist with discharge planning Inpatient E&M: [id number] Subs Hosp L2
[2019-12-27] MEDS: Ascorbic Acid 500 MG Tablet PO (09:24)
[2019-12-27] MEDS: dexAMETHasone 4 MG Tablet 6 MG PO (09:24)
[2019-12-27] MEDS: Calcium (Elemental) 500 MG Tablet PO ×2 (09:24→20:02)
[2019-12-27] MEDS: Multivitamins,Therapeutic Tablet 1 TABLET PO (09:24)
[2019-12-27] MEDS: Enoxaparin 30 MG/0.3 ML Syringe SC ×2 (09:25→20:02)
[2019-12-27] MEDS: 0.9% Saline Lock 10 ML Syringe IV (09:25)
[2019-12-27] MEDS: Nystatin Powder 15gm Bottle 1 APPLIC TOPICAL ×2 (09:25→20:02)
--- NOTE | 2019-12-27 13:11 | PCM.PN.PUL ---
Patient Problems: Active and Suspected Problems COVID-19 (Acute) Acute respiratory failure with hypoxia (Acute) Hypoxia (Acute) Obesity (BMI 35.0-39.9 without comorbidity) (Acute) Subjective: The patient was seen and examined at the bedside this morning. Events from the last 24 hours have been reviewed. The patient is currently afebrile, hemodynamically stable and maintaining appropriate oxygen saturations on Airvo with an FiO2 requirement of 65% and flow rate of 40 L/min. The patient has already received convalescent plasma and completed her treatment course of remdesivir. She remains on scheduled Decadron. Objective: The patient's most recent lab work, culture data and imaging studies have all been personally reviewed. Coronavirus PCR was positive on December 15. Respiratory viral panel was negative. Blood cultures have shown no growth to date. - Physical Exam Vitals/I&O's: Vital Signs Temp Pulse Resp BP Pulse Ox 98.1 F 89 18 134/56 H 94 12/27/19 09:24 12/27/19 09:24 12/27/19 09:24 12/27/19 09:24 12/27/19 09:30 Oxygen Flow Rate (L/min) 40 Oxygen Delivery Method Airvo Weight: 184 lb 15.485 oz Body Mass Index (BMI) 35.2 Intake and Output for Last 24 Hours 12/25/19 12/26/19 12/27/19 23:59 23:59 23:59 Intake Total 340 / 340 60 / 60 0 / 0 Output Total 1500 / 1500 275 / 275 200 / 200 Balance -1160 / -1160 -215 / -215 -200 / -200 General: Alert, No apparent distress HEENT: Atraumatic, Normocephalic Oral: Moist Mucosa Neck: Supple Lungs: No rhonchi, No wheeze, No rales, Diminished Cardiovascular: Regular rate, Regular Rhythm Abdomen: Bowel Sounds Present, Soft, Non Tender, Obese Extremities: No clubbing, No cyanosis, No edema Skin: No breakdown Musculoskeletal: No Tenderness to Palpation of Joints or Extremities Lymphatic: No Cervical, Supraclavicular, or Inguinal Adenopathy Neurological: Cranial nerves II-XII grossly intact, Neuro grossly intact Psych/Mental Status: Alert and oriented to time, place, person, mood and affect Labs (Last 48 Hours) 12/26/19 12/26/19 12/27/19 03:20 03:20 06:28 WBC 8.2 7.7 RBC 4.33 4.24 Hgb 12.8 12.6 Hct 40.0 42.1 MCV 92.4 99.3 H D MCH 29.6 29.7 MCHC 32.0 29.9 L D RDW Std Deviation 45.1 H 48.9 H RDW Coeff of Lukasz 13.2 13.3 Plt Count 200 207 MPV 11.0 11.0 Immature Gran % (Auto) 5.000 H 4.700 H Neut % (Auto) 77.8 H 74.9 H Lymph % (Auto) 9.9 L 10.2 L [place] % (Auto) 6.6 7.2 Eos % (Auto) 0.2 2.3 Baso % (Auto) 0.5 0.7 Absolute Neuts (auto) 6.4 5.8 Absolute Lymphs (auto) 0.81 L 0.78 L Nucleated RBC % 0 0 Sodium 142 Potassium 3.7 Chloride 105 Carbon Dioxide 33.0 H Anion Gap 4 L BUN 30 H Creatinine 0.76 Estim Creat Clear Calc 30.08 Est GFR (MDRD) Af Amer 94 Est GFR (MDRD) Non-Af 78 BUN/Creatinine Ratio 39.7 H Glucose 102 Calcium 9.0 Magnesium Total Bilirubin 0.80 AST 31 ALT 34 Alkaline Phosphatase 96 Total Protein 6.6 Albumin 2.6 L Globulin 4.0 Albumin/Globulin Ratio 0.6 L 12/27/19 06:28 WBC RBC Hgb Hct MCV MCH MCHC RDW Std Deviation RDW Coeff of Lukasz Plt Count MPV Immature Gran % (Auto) Neut % (Auto) Lymph % (Auto) [place] % (Auto) Eos % (Auto) Baso % (Auto) Absolute Neuts (auto) Absolute Lymphs (auto) Nucleated RBC % Sodium 144 Potassium 4.1 Chloride 106 Carbon Dioxide 33.0 H Anion Gap 5 BUN 28 H Creatinine 0.79 Estim Creat Clear Calc 30.08 Est GFR (MDRD) Af Amer 89 Est GFR (MDRD) Non-Af 74 BUN/Creatinine Ratio 35.4 H Glucose 84 Calcium 8.6 Magnesium 2.2 Total Bilirubin 0.70 AST 27 ALT 34 Alkaline Phosphatase 89 Total Protein 5.8 L Albumin 2.5 L Globulin 3.3 Albumin/Globulin Ratio 0.8 L Microbiology 12/20/19 16:32 Blood Culture (Wb) - Right Forearm Blood Culture - Final No growth in 5 days. 12/20/19 16:30 Blood Culture (Wb) - Anticubital Left Blood Culture - Final No growth in 5 days. Clinical Impression(s) from Imaging Studies Chest X-Ray 12/20/19 16:24 IMPRESSION: Bilateral alveolar and interstitial infiltrates. Electronically Signed: Zana Pena DO at 17:11 EST Tel [phone], Service support , Chest CTA 12/20/19 17:20 IMPRESSION: 1. No evidence of pulmonary embolus. 2. No aortic dissection or aneurysm. 3. Prominent pulmonary arteries with diffuse perihilar infiltrate. Question pulmonary edema/CHF. 4. Atherosclerotic changes of the thoracic aorta and coronary arteries. Electronically Signed: Zana Pena DO at 18:43 EST Tel [phone], Service support , Current Medications Acetaminophen (Acetaminophen 325 Mg Tablet) 650 mg PO Q6H PRN PRN PRN Reason: Pain Score 1-10/Temp > 100.7 F Albuterol Sulfate (Albuterol Sulfate 8 Gm Inhaler (60 Puffs)) 4 - 8 puff INHALATION Q4H PRN PRN PRN Reason: Dyspnea, wheezing Ascorbic Acid (Ascorbic Acid 500 Mg Tablet) 500 mg PO DAILY [facility] Last Admin: 12/27/19 09:24 Dose: 500 mg Documented by: Calcium Carbonate (Calcium (Elemental) 500 Mg Tablet) 500 mg PO BID [facility] Last Admin: 12/27/19 09:24 Dose: 500 mg Documented by: Dexamethasone (Dexamethasone 4 Mg Tablet) 6 mg PO DAILY [facility] Stop: 12/30/19 10:01 Last Admin: 12/27/19 09:24 Dose: 6 mg Documented by: Enoxaparin Sodium (Enoxaparin 30 Mg/0.3 Ml Syringe) 30 mg SC BID [facility] Last Admin: 12/27/19 09:25 Dose: 30 mg Documented by: Hydralazine HCl (Hydralazine 20 Mg/Ml Vial) 10 mg IV Q4H PRN PRN PRN Reason: SBP > 160 Sodium Chloride () 250 mls @ 15 mls/hr IV .[id number] PRN PRN Reason: Saline Flush Last Infusion: 12/24/19 22:56 Dose: Infused Documented by: Sodium Chloride () 250 mls @ 15 mls/hr IV .[id number] PRN PRN Reason: Additional IVPB Infusion Ibuprofen (Ibuprofen 400 Mg Tablet) 400 mg PO Q4H PRN PRN PRN Reason: Pain Score 1-10/Temp > 100.7 F Multivitamins (Multivitamins,Therapeutic Tablet) 1 tablet PO DAILY [facility] Last Admin: 12/27/19 09:24 Dose: 1 tablet Documented by: Nystatin (Nystatin Powder 15gm Bottle) 1 applic TOPICAL BID [facility]; Protocol Last Admin: 12/27/19 09:25 Dose: 1 applic Documented by: Ondansetron HCl (Ondansetron 4 Mg/2 Ml Vial) 4 mg IV Q8H PRN PRN PRN Reason: NAUSEA/VOMITING Sodium Chloride (0.9% Saline Lock 10 Ml Syringe) 10 - 40 ml IV UD PRN PRN Reason: SALINE FLUSH Last Admin: 12/27/19 09:25 Dose: 10 ml Documented by: Medical Necessity - Tobacco Use Smoking Status: Never smoker Assessment/Plan All Active Problems COVID-19 (Acute) Acute respiratory failure with hypoxia (Acute) Hypoxia (Acute) Obesity (BMI 35.0-39.9 without comorbidity) (Acute) Bronchitis, acute (Ruled-out) RECOMMENDATIONS: 1. Continue BiPAP/Airvo heated high flow and wean FiO2 to maintain oxygen saturations at or above 90%. 2. Continue Decadron to complete 10-day treatment course. 3. Continue attempts at gentle diuresis as tolerated by hemodynamics and renal function. 4. Encourage incentive spirometer use and mobilize patient as tolerated. IMPRESSIONS: 1. Acute hypoxic respiratory failure secondary to COVID-19 pneumonia The patient presented to the hospital with Covid-like symptoms and was subsequently treated with convalescent plasma along with a treatment course of remdesivir. She remains on scheduled Decadron, with plans to complete a 10-day treatment course. CTA showed no evidence for pulmonary embolism. Plan to continue a combination of BIPAP and Airvo heated high flow to maintain oxygen saturations at or above 90%. Gentle diuresis will be continued as tolerated by hemodynamics and renal function. 2. Hypertension/advanced age Complicates care, management, recovery and prognosis. Continue home medications as indicated. This note was generated with [employer] dictation software. It may contain incorrect words, spelling, and punctuation that were not noted in checking the note before signing. Inpatient E&M: [id number] Subs Hosp L2
[2019-12-28] VITALS (14 sets, daily range): BP systolic 103–129; BP diastolic 54–75; PULSE 60–86; RESP 16–20; TEMP 36.6–36.7; O2SAT 93–96
[2019-12-28 07:21] LABS: Absolute Neutrophil Count 6.3 X10^3/uL (2.0-7.7); Basophil# 0.02 X10^3/uL; Basophil% 0.2 % (0-1); Eosinophil# 0.16 X10^3/uL; Lymphocyte % 8.5 % (19-41); Mean Corp Hgb Conc 30.8 g/dL (32-36); Mean Corpuscular Hgb 29.3 pg (27.0-32.0); Mean Corpuscular Volume 95.4 fL (81-99); Mean Platelet Vol. 11.4 fl (6.2-12.0); Monocyte# 0.61 X10^3/uL; Monocyte% 7.4 % (0-10); NRBC Flagged by Analyzer 0 % (0-5); Neutrophil # 6.32 X10^3/uL (2.7-7.7); Neutrophil % 77.3 % (47-70); Platelet Count 219 K/mm3 (150-450); RBC Distribution Width CV 13.4 % (11.6-14.6); RBC Distribution Width SD 47.5 fl (35.1-43.9); Red Blood Count 4.09 M/mm3 (4.2-5.4); White Blood Count 8.2 K/mm3 (4.4-11.0)
[2019-12-28 07:52] LABS: ALB/GLOB Ratio 0.7 RATIO (0.9-2.4); AST(SGOT) 29 U/L (15-37); Alanine Aminotransfer ALT/SGPT 35 U/L (13-56); Albumin, Serum 2.5 g/dL (3.2-5.0); Alkaline Phosphatase 81 U/L (45-117); Anion Gap 5 (5-15); BUN 27 mg/dL (7-18); BUN/Creat Ratio 39.6 RATIO (10-20); Calcium,Total 9.1 mg/dL (8.5-10.1); Chloride 109 mmol/L (98-107); Creatinine, Serum 0.68 mg/dL (0.55-1.02); EST Glomerular Filtration Rate 87 mL/min (>60); Est Glom Filt Rate - Afr Amer 106 mL/min (>60); Estimated Creatinine Clearance 30.08 ml/min; Globulin 3.8 g/dL (2.2-4.2); Glucose 84 mg/dL (74-106); Potassium 4.3 mmol/L (3.5-5.1); Protein, Total 6.3 g/dL (6.4-8.2); Sodium Level 145 mmol/L (136-145)
[2019-12-28] MEDS: Calcium (Elemental) 500 MG Tablet PO ×2 (08:46→20:30)
[2019-12-28] MEDS: Multivitamins,Therapeutic Tablet 1 TABLET PO (08:46)
[2019-12-28] MEDS: Enoxaparin 30 MG/0.3 ML Syringe SC ×2 (08:47→20:30)
[2019-12-28] MEDS: dexAMETHasone 4 MG Tablet 6 MG PO (08:47)
[2019-12-28] MEDS: Nystatin Powder 15gm Bottle 1 APPLIC TOPICAL ×2 (08:48→20:30)
[2019-12-28] MEDS: Ascorbic Acid 500 MG Tablet PO (10:10)
--- NOTE | 2019-12-28 11:34 | PN_ITS ---
Patient Problems: Active and Suspected Problems COVID-19 (Acute) Acute respiratory failure with hypoxia (Acute) Hypoxia (Acute) Obesity (BMI 35.0-39.9 without comorbidity) (Acute) Reason for Visit: Acute hypoxic respiratory failure secondary to acute COVID-19 pneumonia Subjective: Patient seen remains on high flow oxygen Airvo, plan is to transition to nasal cannula. Did discuss with patient regarding her condition and the fact that she is not ready for discharge. Patient may need to be assessed for home oxygen when ready for discharge Objective: GENERAL: cooperative HEENT: Atraumatic; EYES; Anicteric, Normal Conjunctiva NECK; supple, normal thyroid, RESPIRATORY: Diminished to auscultation CARDIOVASCULAR: Regular S1 S2, GI: soft, normoactive bowel sounds, : No Renal angle tenderness; EXTREMITIES: No edema, no clubbing, MUSCULOSKELETAL: no muscle waisting NEURO: Awake; no lateralizing signs. SKIN: No Rash PSYCH; Flat affect Vitals/I&O's: Vital Signs Temp Pulse Resp BP Pulse Ox 98.0 F 86 18 129/55 H 93 12/28/19 08:33 12/28/19 08:33 12/28/19 08:33 12/28/19 08:33 12/28/19 10:42 Oxygen Flow Rate (L/min) 8 Oxygen Delivery Method Airvo Weight: 83.7 kg Body Mass Index (BMI) 35.2 Intake and Output for Last 24 Hours 12/26/19 12/27/19 12/28/19 23:59 23:59 23:59 Intake Total 60 / 60 120 / 360 240 / 240 Output Total 275 / 275 200 / 300 150 / 150 Balance -215 / -215 -80 / 60 90 / 90 Microbiology Past 72 Hours 12/20/19 16:32 Blood Culture (Wb) - Right Forearm Blood Culture - Final No growth in 5 days. 12/20/19 16:30 Blood Culture (Wb) - Anticubital Left Blood Culture - Final No growth in 5 days. Laboratory Results 12/28/19 06:20: WBC 8.2, RBC 4.09 L, Hgb 12.0, Hct 39.0, MCV 95.4, MCH 29.3, MCHC 30.8 L, RDW Std Deviation 47.5 H, RDW Coeff of Lukasz 13.4, Plt Count 219, MPV 11.4, Immature Gran % (Auto) 4.600 H, Neut % (Auto) 77.3 H, Lymph % (Auto) 8.5 L , [place] % (Auto) 7.4, Eos % (Auto) 2.0, Baso % (Auto) 0.2, Absolute Neuts (auto) 6.3, Absolute Lymphs (auto) 0.70 L, Nucleated RBC % 0 12/28/19 06:20: Sodium 145, Potassium 4.3, Chloride 109 H, Carbon Dioxide 31.0, Anion Gap 5, BUN 27 H, Creatinine 0.68, Estim Creat Clear Calc 30.08, Est GFR (MDRD) Af Amer 106, Est GFR (MDRD) Non-Af 87, BUN/Creatinine Ratio 39.6 H, Glucose 84, Calcium 9.1, Total Bilirubin 0.60, AST 29, ALT 35, Alkaline Phosphatase 81, Total Protein 6.3 L, Albumin 2.5 L, Globulin 3.8, Albumin/Globulin Ratio 0.7 L Current Medications Acetaminophen (Acetaminophen 325 Mg Tablet) 650 mg PO Q6H PRN PRN PRN Reason: Pain Score 1-10/Temp > 100.7 F Albuterol Sulfate (Albuterol Sulfate 8 Gm Inhaler (60 Puffs)) 4 - 8 puff INHALATION Q4H PRN PRN PRN Reason: Dyspnea, wheezing Ascorbic Acid (Ascorbic Acid 500 Mg Tablet) 500 mg PO DAILY [facility] Last Admin: 12/28/19 10:10 Dose: 500 mg Documented by: Calcium Carbonate (Calcium (Elemental) 500 Mg Tablet) 500 mg PO BID [facility] Last Admin: 12/28/19 08:46 Dose: 500 mg Documented by: Dexamethasone (Dexamethasone 4 Mg Tablet) 6 mg PO DAILY [facility] Stop: 12/30/19 10:01 Last Admin: 12/28/19 08:47 Dose: 6 mg Documented by: Enoxaparin Sodium (Enoxaparin 30 Mg/0.3 Ml Syringe) 30 mg SC BID [facility] Last Admin: 12/28/19 08:47 Dose: 30 mg Documented by: Hydralazine HCl (Hydralazine 20 Mg/Ml Vial) 10 mg IV Q4H PRN PRN PRN Reason: SBP > 160 Sodium Chloride () 250 mls @ 15 mls/hr IV .[id number] PRN PRN Reason: Saline Flush Last Infusion: 12/24/19 22:56 Dose: Infused Documented by: Sodium Chloride () 250 mls @ 15 mls/hr IV .[id number] PRN PRN Reason: Additional IVPB Infusion Ibuprofen (Ibuprofen 400 Mg Tablet) 400 mg PO Q4H PRN PRN PRN Reason: Pain Score 1-10/Temp > 100.7 F Multivitamins (Multivitamins,Therapeutic Tablet) 1 tablet PO DAILY [facility] Last Admin: 12/28/19 08:46 Dose: 1 tablet Documented by: Nystatin (Nystatin Powder 15gm Bottle) 1 applic TOPICAL BID [facility]; Protocol Last Admin: 12/28/19 08:48 Dose: 1 applic Documented by: Ondansetron HCl (Ondansetron 4 Mg/2 Ml Vial) 4 mg IV Q8H PRN PRN PRN Reason: NAUSEA/VOMITING Sodium Chloride (0.9% Saline Lock 10 Ml Syringe) 10 - 40 ml IV UD PRN PRN Reason: SALINE FLUSH Last Admin: 12/27/19 09:25 Dose: 10 ml Documented by: STROKE Vital Signs/Narrative: Vital Signs Temp Pulse Resp BP Pulse Ox 12/28/19 10:42 93 12/28/19 08:33 98.0 F 86 18 129/55 H 93 12/28/19 07:51 81 18 95 Medical Necessity - Tobacco Use Smoking Status: Never smoker Assessment/Plan All Active Problems COVID-19 (Acute) Acute respiratory failure with hypoxia (Acute) Hypoxia (Acute) Obesity (BMI 35.0-39.9 without comorbidity) (Acute) Bronchitis, acute (Ruled-out) Patient is an 84-year-old gentleman admitted with progressive generalized weakness with associated shortness of breath and assessment of acute hypoxic re spiratory failure secondary to acute COVID-19 pneumonia made admitted to the intensive care unit for further management 1. Acute hypoxic respiratory failure secondary to COVID-19 pneumonia Patient received convalescent plasma and remdesivir, currently on Decadron.. Patient also managed with noninvasive ventilation and has since been transitioned from BiPAP over to Airvo heated high flow oxygen - 12/27/2019: Patient was transferred from ICU to the progressive care unit. Still remains on high flow oxygen -12/28/2019 ; Patient seen remains on high flow oxygen Airvo, plan is to transition to nasal cannula with oxygen titrated to keep sats greater than 90 2. Transient transaminitis ?Secondary to patient COVID-19 infection monitoring 3. Hypertension - Blood pressure controlled, patient is on HCTZ/lisinopril and verapamil held on admission 4. Acute kidney injury ?Improved following admission. Creatinine on admission was 1.23, 0.76 as of 12/26/2019 5. DVT prophylaxis ?Lovenox 30 mg SC twice daily 6. Physical deconditioning - Requested for PT OT eval and social service liaison to assist with discharge planning Inpatient E&M: [id number] Subs Hosp L2
--- NOTE | 2019-12-28 15:30 | PN.ID_ITS ---
Patient Problems: Active and Suspected Problems COVID-19 (Acute) Acute respiratory failure with hypoxia (Acute) Hypoxia (Acute) Obesity (BMI 35.0-39.9 without comorbidity) (Acute) Subjective: Feeling much better, no fever, no n/v/d. - Physical Exam Vitals/I&O's: Vital Signs Temp Pulse Resp BP Pulse Ox 98.1 F 82 18 103/75 94 12/28/19 14:23 12/28/19 14:23 12/28/19 14:23 12/28/19 14:23 12/28/19 14:23 Oxygen Flow Rate (L/min) 8 Oxygen Delivery Method Nasal Cannula Weight: 83.7 kg Body Mass Index (BMI) 35.2 Intake and Output for Last 24 Hours 12/26/19 12/27/19 12/28/19 23:59 23:59 23:59 Intake Total 60 / 60 120 / 360 480 / 480 Output Total 275 / 275 200 / 300 250 / 250 Balance -215 / -215 -80 / 60 230 / 230 General: Alert, Cooperative, No apparent distress Lungs: Clear to auscultation, Diminished Cardiovascular: Regular rate, Regular Rhythm Abdomen: Soft, Non Tender, Non-Distended Skin: No rashes Microbiology Past 72 Hours 12/20/19 16:32 Blood Culture (Wb) - Right Forearm Blood Culture - Final No growth in 5 days. 12/20/19 16:30 Blood Culture (Wb) - Anticubital Left Blood Culture - Final No growth in 5 days. Laboratory Results 12/28/19 06:20: WBC 8.2, RBC 4.09 L, Hgb 12.0, Hct 39.0, MCV 95.4, MCH 29.3, MCHC 30.8 L, RDW Std Deviation 47.5 H, RDW Coeff of Lukasz 13.4, Plt Count 219, MPV 11.4, Immature Gran % (Auto) 4.600 H, Neut % (Auto) 77.3 H, Lymph % (Auto) 8.5 L , [place] % (Auto) 7.4, Eos % (Auto) 2.0, Baso % (Auto) 0.2, Absolute Neuts (auto) 6.3, Absolute Lymphs (auto) 0.70 L, Nucleated RBC % 0 12/28/19 06:20: Sodium 145, Potassium 4.3, Chloride 109 H, Carbon Dioxide 31.0, Anion Gap 5, BUN 27 H, Creatinine 0.68, Estim Creat Clear Calc 30.08, Est GFR (MDRD) Af Amer 106, Est GFR (MDRD) Non-Af 87, BUN/Creatinine Ratio 39.6 H, Glucose 84, Calcium 9.1, Total Bilirubin 0.60, AST 29, ALT 35, Alkaline Phosphatase 81, Total Protein 6.3 L, Albumin 2.5 L, Globulin 3.8, Albumin/Globulin Ratio 0.7 L Current Medications Acetaminophen (Acetaminophen 325 Mg Tablet) 650 mg PO Q6H PRN PRN PRN Reason: Pain Score 1-10/Temp > 100.7 F Albuterol Sulfate (Albuterol Sulfate 8 Gm Inhaler (60 Puffs)) 4 - 8 puff INHALATION Q4H PRN PRN PRN Reason: Dyspnea, wheezing Ascorbic Acid (Ascorbic Acid 500 Mg Tablet) 500 mg PO DAILY [facility] Last Admin: 12/28/19 10:10 Dose: 500 mg Documented by: Calcium Carbonate (Calcium (Elemental) 500 Mg Tablet) 500 mg PO BID [facility] Last Admin: 12/28/19 08:46 Dose: 500 mg Documented by: Dexamethasone (Dexamethasone 4 Mg Tablet) 6 mg PO DAILY [facility] Stop: 12/30/19 10:01 Last Admin: 12/28/19 08:47 Dose: 6 mg Documented by: Enoxaparin Sodium (Enoxaparin 30 Mg/0.3 Ml Syringe) 30 mg SC BID [facility] Last Admin: 12/28/19 08:47 Dose: 30 mg Documented by: Hydralazine HCl (Hydralazine 20 Mg/Ml Vial) 10 mg IV Q4H PRN PRN PRN Reason: SBP > 160 Sodium Chloride () 250 mls @ 15 mls/hr IV .[id number] PRN PRN Reason: Saline Flush Last Infusion: 12/24/19 22:56 Dose: Infused Documented by: Sodium Chloride () 250 mls @ 15 mls/hr IV .[id number] PRN PRN Reason: Additional IVPB Infusion Ibuprofen (Ibuprofen 400 Mg Tablet) 400 mg PO Q4H PRN PRN PRN Reason: Pain Score 1-10/Temp > 100.7 F Multivitamins (Multivitamins,Therapeutic Tablet) 1 tablet PO DAILY [facility] Last Admin: 12/28/19 08:46 Dose: 1 tablet Documented by: Nystatin (Nystatin Powder 15gm Bottle) 1 applic TOPICAL BID [facility]; Protocol Last Admin: 12/28/19 08:48 Dose: 1 applic Documented by: Ondansetron HCl (Ondansetron 4 Mg/2 Ml Vial) 4 mg IV Q8H PRN PRN PRN Reason: NAUSEA/VOMITING Sodium Chloride (0.9% Saline Lock 10 Ml Syringe) 10 - 40 ml IV UD PRN PRN Reason: SALINE FLUSH Last Admin: 12/27/19 09:25 Dose: 10 ml Documented by: Medical Necessity - Tobacco Use Smoking Status: Never smoker Route of nutrition/ use of supplements: [] Nutritional Intake: [] IV Site: [] White Catheter: [] - Assessment/Plan Antibiotics: [] Assessment/Plan: [] Active and Suspected Problems COVID-19 (Acute) Acute respiratory failure with hypoxia (Acute) Hypoxia (Acute) Obesity (BMI 35.0-39.9 without comorbidity) (Acute) Hypoxic, covid. On dex, completed remdesivir. Plasma given 12/21. On lovenoex 30mg bid. D-dimer 0.9. Feeling better. O2 much improved, now on nasal cannula. Ok for discharge once O2 is stable to complete 10 days total of dex. Will follow
[2019-12-28 16:00] LABS: Magnesium 2.2 mg/dL (1.6-2.6)
[2019-12-28] MEDS: 0.9% Saline Lock 10 ML Syringe IV (20:30)
[2019-12-29] VITALS (15 sets, daily range): BP systolic 116–145; BP diastolic 43–61; PULSE 56–114; RESP 18–25; TEMP 36.6–36.9; O2SAT 91–95
[2019-12-29 06:52] LABS: Absolute Lymphocyte Count 0.91 X10^3/uL (0.83-4.51); Absolute Neutrophil Count 6.3 X10^3/uL (2.0-7.7); Basophil# 0.02 X10^3/uL; Basophil% 0.2 % (0-1); Eosinophil# 0.14 X10^3/uL; Eosinophils% 1.6 % (0-5); Hematocrit 37.6 % (37-47); Hemoglobin 11.8 g/dL (12.0-15.0); Lymphocyte # 0.91 X10^3/ul (4.0); Lymphocyte % 10.7 % (19-41); Mean Corp Hgb Conc 31.4 g/dL (32-36); Mean Corpuscular Hgb 29.7 pg (27.0-32.0); Mean Corpuscular Volume 94.7 fL (81-99); Mean Platelet Vol. 11.3 fl (6.2-12.0); Monocyte# 0.76 X10^3/uL; Monocyte% 8.9 % (0-10); NRBC Flagged by Analyzer 0 % (0-5); Neutrophil # 6.33 X10^3/uL (2.7-7.7); Neutrophil % 74.4 % (47-70); Platelet Count 199 K/mm3 (150-450); RBC Distribution Width CV 13.2 % (11.6-14.6); Red Blood Count 3.97 M/mm3 (4.2-5.4); White Blood Count 8.5 K/mm3 (4.4-11.0)
[2019-12-29 07:19] LABS: ALB/GLOB Ratio 0.7 RATIO (0.9-2.4); AST(SGOT) 28 U/L (15-37); Alanine Aminotransfer ALT/SGPT 41 U/L (13-56); Albumin, Serum 2.5 g/dL (3.2-5.0); Alkaline Phosphatase 79 U/L (45-117); Anion Gap 2 (5-15); BUN 23 mg/dL (7-18); BUN/Creat Ratio 31.6 RATIO (10-20); Chloride 106 mmol/L (98-107); Creatinine, Serum 0.73 mg/dL (0.55-1.02); EST Glomerular Filtration Rate 81 mL/min (>60); Est Glom Filt Rate - Afr Amer 98 mL/min (>60); Estimated Creatinine Clearance 30.08 ml/min; Globulin 3.8 g/dL (2.2-4.2); Glucose 79 mg/dL (74-106); Potassium 4.3 mmol/L (3.5-5.1); Protein, Total 6.3 g/dL (6.4-8.2); Sodium Level 142 mmol/L (136-145)
--- NOTE | 2019-12-29 08:06 | PN_ITS ---
Patient Problems: Active and Suspected Problems COVID-19 (Acute) Acute respiratory failure with hypoxia (Acute) Hypoxia (Acute) Obesity (BMI 35.0-39.9 without comorbidity) (Acute) Reason for Visit: Acute COVID-19 pneumonia Subjective: Patient was weaned from high flow oxygen Airvo to oxygen via nasal cannula the day prior. Plan is to continue to titrate down oxygen and discharge patient when she is able to maintain adequate saturation on 4 L or less of nasal cannula Objective: GENERAL: cooperative HEENT: Atraumatic; EYES; Anicteric, Normal Conjunctiva NECK; supple, normal thyroid, RESPIRATORY: Diminished to auscultation CARDIOVASCULAR: Regular S1 S2, GI: soft, normoactive bowel sounds, : No Renal angle tenderness; EXTREMITIES: No edema, no clubbing, MUSCULOSKELETAL: no muscle waisting NEURO: Awake; no lateralizing signs. SKIN: No Rash PSYCH; Flat affect Vitals/I&O's: Vital Signs Temp Pulse Resp BP Pulse Ox 98.1 F 56 L 18 126/50 H 95 12/29/19 02:03 12/29/19 03:00 12/29/19 02:03 12/29/19 02:03 12/29/19 07:52 Oxygen Flow Rate (L/min) 8 Oxygen Delivery Method Nasal Cannula Weight: 84 kg Body Mass Index (BMI) 35.2 Intake and Output for Last 24 Hours 12/27/19 12/28/19 12/29/19 23:59 23:59 23:59 Intake Total 120 / 360 480 / 480 1200 / 1200 Output Total 200 / 300 650 / 650 400 / 400 Balance -80 / 60 -170 / -170 800 / 800 Microbiology Past 72 Hours 12/20/19 16:32 Blood Culture (Wb) - Right Forearm Blood Culture - Final No growth in 5 days. 12/20/19 16:30 Blood Culture (Wb) - Anticubital Left Blood Culture - Final No growth in 5 days. Laboratory Results 12/28/19 06:20: Magnesium 2.2 12/29/19 06:30: WBC 8.5, RBC 3.97 L, Hgb 11.8 L, Hct 37.6, MCV 94.7, MCH 29.7, MCHC 31.4 L, RDW Std Deviation 46.0 H, RDW Coeff of Lukasz 13.2, Plt Count 199, MPV 11.3, Immature Gran % (Auto) 4.200 H, Neut % (Auto) 74.4 H, Lymph % (Auto) 10.7 L, [place] % (Auto) 8.9, Eos % (Auto) 1.6, Baso % (Auto) 0.2, Absolute Neuts (auto) 6.3, Absolute Lymphs (auto) 0.91, Nucleated RBC % 0 12/29/19 06:30: Sodium 142, Potassium 4.3, Chloride 106, Carbon Dioxide 34.0 H, Anion Gap 2 L, BUN 23 H, Creatinine 0.73, Estim Creat Clear Calc 30.08, Est GFR (MDRD) Af Amer 98, Est GFR (MDRD) Non-Af 81, BUN/Creatinine Ratio 31.6 H, Glucose 79, Calcium 9.0, Total Bilirubin 0.70, AST 28, ALT 41, Alkaline Phosphatase 79, Total Protein 6.3 L, Albumin 2.5 L, Globulin 3.8, Albumin/Globulin Ratio 0.7 L Current Medications Acetaminophen (Acetaminophen 325 Mg Tablet) 650 mg PO Q6H PRN PRN PRN Reason: Pain Score 1-10/Temp > 100.7 F Albuterol Sulfate (Albuterol Sulfate 8 Gm Inhaler (60 Puffs)) 4 - 8 puff INHALATION Q4H PRN PRN PRN Reason: Dyspnea, wheezing Ascorbic Acid (Ascorbic Acid 500 Mg Tablet) 500 mg PO DAILY [facility] Last Admin: 12/28/19 10:10 Dose: 500 mg Documented by: Calcium Carbonate (Calcium (Elemental) 500 Mg Tablet) 500 mg PO BID [facility] Last Admin: 12/28/19 20:30 Dose: 500 mg Documented by: Dexamethasone (Dexamethasone 4 Mg Tablet) 6 mg PO DAILY [facility] Stop: 12/30/19 10:01 Last Admin: 12/28/19 08:47 Dose: 6 mg Documented by: Enoxaparin Sodium (Enoxaparin 30 Mg/0.3 Ml Syringe) 30 mg SC BID [facility] Last Admin: 12/28/19 20:30 Dose: 30 mg Documented by: Hydralazine HCl (Hydralazine 20 Mg/Ml Vial) 10 mg IV Q4H PRN PRN PRN Reason: SBP > 160 Sodium Chloride () 250 mls @ 15 mls/hr IV .[id number] PRN PRN Reason: Saline Flush Last Infusion: 12/24/19 22:56 Dose: Infused Documented by: Sodium Chloride () 250 mls @ 15 mls/hr IV .[id number] PRN PRN Reason: Additional IVPB Infusion Ibuprofen (Ibuprofen 400 Mg Tablet) 400 mg PO Q4H PRN PRN PRN Reason: Pain Score 1-10/Temp > 100.7 F Multivitamins (Multivitamins,Therapeutic Tablet) 1 tablet PO DAILY [facility] Last Admin: 12/28/19 08:46 Dose: 1 tablet Documented by: Nystatin (Nystatin Powder 15gm Bottle) 1 applic TOPICAL BID [facility]; Protocol Last Admin: 12/28/19 20:30 Dose: 1 applic Documented by: Ondansetron HCl (Ondansetron 4 Mg/2 Ml Vial) 4 mg IV Q8H PRN PRN PRN Reason: NAUSEA/VOMITING Sodium Chloride (0.9% Saline Lock 10 Ml Syringe) 10 - 40 ml IV UD PRN PRN Reason: SALINE FLUSH Last Admin: 12/28/19 20:30 Dose: 10 ml Documented by: STROKE Vital Signs/Narrative: Vital Signs Pulse Ox 12/29/19 07:52 95 Medical Necessity - Tobacco Use Smoking Status: Never smoker Assessment/Plan All Active Problems COVID-19 (Acute) Acute respiratory failure with hypoxia (Acute) Hypoxia (Acute) Obesity (BMI 35.0-39.9 without comorbidity) (Acute) Bronchitis, acute (Ruled-out) Patient is an 84-year-old gentleman admitted with progressive generalized weakness with associated shortness of breath and assessment of acute hypoxic respiratory failure secondary to acute COVID-19 pneumonia made admitted to the intensive care unit for further management 1. Acute hypoxic respiratory failure secondary to COVID-19 pneumonia Patient received convalescent plasma and remdesivir, currently on Decadron.. Patient also managed with noninvasive ventilation and has since been transitioned from BiPAP over to Airvo heated high flow oxygen - 12/27/2019: Patient was transferred from ICU to the progressive care unit. Still remains on high flow oxygen -12/28/2019 ; Patient seen remains on high flow oxygen Airvo, plan is to transition to nasal cannula with oxygen titrated to keep sats greater than 90 2. Transient transaminitis ?Secondary to patient COVID-19 infection monitoring 3. Hypertension - Blood pressure controlled, patient is on HCTZ/lisinopril and verapamil held on admission 4. Acute kidney injury ?Improved following admission. Creatinine on admission was 1.23, 0.76 as of 12/26/2019 5. DVT prophylaxis ?Lovenox 30 mg SC twice daily 6. Physical deconditioning - Requested for PT OT eval and medical social worker to assist with discharge planning Inpatient E&M: [id number] Subs Hosp L2
[2019-12-29] MEDS: Enoxaparin 30 MG/0.3 ML Syringe SC ×2 (09:01→21:53)
[2019-12-29] MEDS: dexAMETHasone 4 MG Tablet 6 MG PO (09:01)
[2019-12-29] MEDS: Nystatin Powder 15gm Bottle 1 APPLIC TOPICAL ×2 (09:02→21:53)
[2019-12-29] MEDS: Multivitamins,Therapeutic Tablet 1 TABLET PO (09:02)
[2019-12-29] MEDS: Ascorbic Acid 500 MG Tablet PO (09:02)
[2019-12-29] MEDS: Calcium (Elemental) 500 MG Tablet PO ×2 (09:02→21:53)
--- NOTE | 2019-12-29 13:38 | PCM.PN.PUL ---
Patient Problems: Active and Suspected Problems COVID-19 (Acute) Acute respiratory failure with hypoxia (Acute) Hypoxia (Acute) Obesity (BMI 35.0-39.9 without comorbidity) (Acute) Subjective: The patient was seen and examined at the bedside this morning. Events from the last 24 hours have been reviewed. The patient is currently afebrile, hemodynamically stable and maintaining appropriate oxygen saturations on 6 L/min via nasal cannula. The patient has already received convalescent plasma and completed her treatment course of remdesivir. She remains on scheduled Decadron. Oxygenation status continues to improve. Objective: The patient's most recent lab work, culture data and imaging studies have all been personally reviewed. Coronavirus PCR was positive on December 15. Respiratory viral panel was negative. Blood cultures have shown no growth to date. - Physical Exam Vitals/I&O's: Vital Signs Temp Pulse Resp BP Pulse Ox 98.0 F 72 18 145/43 H 91 12/29/19 08:16 12/29/19 08:16 12/29/19 08:16 12/29/19 08:16 12/29/19 12:14 Oxygen Flow Rate (L/min) 6 Oxygen Delivery Method Nasal Cannula Weight: 185 lb 3.013 oz Body Mass Index (BMI) 35.2 Intake and Output for Last 24 Hours 12/27/19 12/28/19 12/29/19 23:59 23:59 23:59 Intake Total 120 / 360 480 / 480 1440 / 1440 Output Total 200 / 300 650 / 650 700 / 700 Balance -80 / 60 -170 / -170 740 / 740 General: Alert, Cooperative, No apparent distress HEENT: Atraumatic, Normocephalic Oral: Moist Mucosa Neck: Supple Lungs: No rhonchi, No wheeze, No rales, Diminished Cardiovascular: Regular rate, Regular Rhythm Abdomen: Bowel Sounds Present, Soft, Non Tender, Obese Extremities: No clubbing, No cyanosis, No edema Skin: No breakdown Musculoskeletal: No Tenderness to Palpation of Joints or Extremities Lymphatic: No Cervical, Supraclavicular, or Inguinal Adenopathy Neurological: Cranial nerves II-XII grossly intact, Neuro grossly intact Psych/Mental Status: Normal Affect, Appropriate Labs (Last 48 Hours) 12/28/19 12/28/19 12/28/19 06:20 06:20 06:20 WBC 8.2 RBC 4.09 L Hgb 12.0 Hct 39.0 MCV 95.4 MCH 29.3 MCHC 30.8 L RDW Std Deviation 47.5 H RDW Coeff of Ulkasz 13.4 Plt Count 219 MPV 11.4 Immature Gran % (Auto) 4.600 H Neut % (Auto) 77.3 H Lymph % (Auto) 8.5 L [place] % (Auto) 7.4 Eos % (Auto) 2.0 Baso % (Auto) 0.2 Absolute Neuts (auto) 6.3 Absolute Lymphs (auto) 0.70 L Nucleated RBC % 0 Sodium 145 Potassium 4.3 Chloride 109 H Carbon Dioxide 31.0 Anion Gap 5 BUN 27 H Creatinine 0.68 Estim Creat Clear Calc 30.08 Est GFR (MDRD) Af Amer 106 Est GFR (MDRD) Non-Af 87 BUN/Creatinine Ratio 39.6 H Glucose 84 Calcium 9.1 Magnesium 2.2 Total Bilirubin 0.60 AST 29 ALT 35 Alkaline Phosphatase 81 Total Protein 6.3 L Albumin 2.5 L Globulin 3.8 Albumin/Globulin Ratio 0.7 L 12/29/19 12/29/19 06:30 06:30 WBC 8.5 RBC 3.97 L Hgb 11.8 L Hct 37.6 MCV 94.7 MCH 29.7 MCHC 31.4 L RDW Std Deviation 46.0 H RDW Coeff of Lukasz 13.2 Plt Count 199 MPV 11.3 Immature Gran % (Auto) 4.200 H Neut % (Auto) 74.4 H Lymph % (Auto) 10.7 L [place] % (Auto) 8.9 Eos % (Auto) 1.6 Baso % (Auto) 0.2 Absolute Neuts (auto) 6.3 Absolute Lymphs (auto) 0.91 Nucleated RBC % 0 Sodium 142 Potassium 4.3 Chloride 106 Carbon Dioxide 34.0 H Anion Gap 2 L BUN 23 H Creatinine 0.73 Estim Creat Clear Calc 30.08 Est GFR (MDRD) Af Amer 98 Est GFR (MDRD) Non-Af 81 BUN/Creatinine Ratio 31.6 H Glucose 79 Calcium 9.0 Magnesium Total Bilirubin 0.70 AST 28 ALT 41 Alkaline Phosphatase 79 Total Protein 6.3 L Albumin 2.5 L Globulin 3.8 Albumin/Globulin Ratio 0.7 L Clinical Impression(s) from Imaging Studies Chest X-Ray 12/20/19 16:24 IMPRESSION: Bilateral alveolar and interstitial infiltrates. Electronically Signed: Zana Pena DO at 17:11 EST Tel [phone], Service support , Chest CTA 12/20/19 17:20 IMPRESSION: 1. No evidence of pulmonary embolus. 2. No aortic dissection or aneurysm. 3. Prominent pulmonary arteries with diffuse perihilar infiltrate. Question pulmonary edema/CHF. 4. Atherosclerotic changes of the thoracic aorta and coronary arteries. Electronically Signed: Zana Pena at 18:43 EST Tel [phone], Service support , Current Medications Acetaminophen (Acetaminophen 325 Mg Tablet) 650 mg PO Q6H PRN PRN PRN Reason: Pain Score 1-10/Temp > 100.7 F Albuterol Sulfate (Albuterol Sulfate 8 Gm Inhaler (60 Puffs)) 4 - 8 puff INHALATION Q4H PRN PRN PRN Reason: Dyspnea, wheezing Ascorbic Acid (Ascorbic Acid 500 Mg Tablet) 500 mg PO DAILY [facility] Last Admin: 12/29/19 09:02 Dose: 500 mg Documented by: Calcium Carbonate (Calcium (Elemental) 500 Mg Tablet) 500 mg PO BID [facility] Last Admin: 12/29/19 09:02 Dose: 500 mg Documented by: Dexamethasone (Dexamethasone 4 Mg Tablet) 6 mg PO DAILY [facility] Stop: 12/30/19 10:01 Last Admin: 12/29/19 09:01 Dose: 6 mg Documented by: Enoxaparin Sodium (Enoxaparin 30 Mg/0.3 Ml Syringe) 30 mg SC BID [facility] Last Admin: 12/29/19 09:01 Dose: 30 mg Documented by: Hydralazine HCl (Hydralazine 20 Mg/Ml Vial) 10 mg IV Q4H PRN PRN PRN Reason: SBP > 160 Sodium Chloride () 250 mls @ 15 mls/hr IV .[id number] PRN PRN Reason: Saline Flush Last Infusion: 12/24/19 22:56 Dose: Infused Documented by: Sodium Chloride () 250 mls @ 15 mls/hr IV .[id number] PRN PRN Reason: Additional IVPB Infusion Ibuprofen (Ibuprofen 400 Mg Tablet) 400 mg PO Q4H PRN PRN PRN Reason: Pain Score 1-10/Temp > 100.7 F Multivitamins (Multivitamins,Therapeutic Tablet) 1 tablet PO DAILY [facility] Last Admin: 12/29/19 09:02 Dose: 1 tablet Documented by: Nystatin (Nystatin Powder 15gm Bottle) 1 applic TOPICAL BID KINGA; Protocol Last Admin: 12/29/19 09:02 Dose: 1 applic Documented by: Ondansetron HCl (Ondansetron 4 Mg/2 Ml Vial) 4 mg IV Q8H PRN PRN PRN Reason: NAUSEA/VOMITING Sodium Chloride (0.9% Saline Lock 10 Ml Syringe) 10 - 40 ml IV UD PRN PRN Reason: SALINE FLUSH Last Admin: 12/28/19 20:30 Dose: 10 ml Documented by: Medical Necessity - Tobacco Use Smoking Status: Never smoker Assessment/Plan All Active Problems COVID-19 (Acute) Acute respiratory failure with hypoxia (Acute) Hypoxia (Acute) Obesity (BMI 35.0-39.9 without comorbidity) (Acute) Bronchitis, acute (Ruled-out) RECOMMENDATIONS: 1. Continue to wean supplemental oxygen to maintain oxygen saturations at or above 90%. 2. Continue Decadron to complete 10-day treatment course. 3. Continue attempts at gentle diuresis as tolerated by hemodynamics and renal function. 4. Encourage incentive spirometer use and mobilize patient as tolerated. IMPRESSIONS: 1. Acute hypoxic respiratory failure secondary to COVID-19 pneumonia The patient presented to the hospital with Covid-like symptoms and was subsequently treated with convalescent plasma along with a treatment course of remdesivir. She remains on scheduled Decadron, with plans to complete a 10-day treatment course. CTA showed no evidence for pulmonary embolism. Plan to continue a combination of BIPAP and Airvo heated high flow to maintain oxygen saturations at or above 90%. Gentle diuresis will be continued as tolerated by hemodynamics and renal function. 2. Hypertension/advanced age Complicates care, management, recovery and prognosis. Continue home medications as indicated. This note was generated with [employer] software. It may contain incorrect words, spelling, and punctuation that were not noted in checking the note before signing. Inpatient E&M: 27141 [facility] Hosp L2
[2019-12-30] VITALS (7 sets, daily range): BP systolic 124–133; BP diastolic 49–72; PULSE 69–98; RESP 18–20; TEMP 36.7–36.9; O2SAT 86–95
[2019-12-30] MEDS: dexAMETHasone 4 MG Tablet 6 MG PO (09:48)
[2019-12-30] MEDS: Enoxaparin 30 MG/0.3 ML Syringe SC (09:48)
[2019-12-30] MEDS: Ascorbic Acid 500 MG Tablet PO (09:49)
[2019-12-30] MEDS: Multivitamins,Therapeutic Tablet 1 TABLET PO (09:49)
[2019-12-30] MEDS: Nystatin Powder 15gm Bottle 1 APPLIC TOPICAL (09:49)
[2019-12-30] MEDS: Calcium (Elemental) 500 MG Tablet PO (09:49)
--- NOTE | 2019-12-30 11:35 | NURSING ---
On RA patient's 02 got down to 86% at rest. With ambulation on her 4L 02 patient dropped to 87%. 02 was increased to 5L and patient was between 89-91% with activity.
--- NOTE | 2019-12-30 12:15 | CASEMGMT ---
AMY BOCANEGRA updated that patient will need home oxygen at discharge. Script received and referral sent to [facility] [place]. AMY BOCANEGRA arranged for delivery of portable oxygen to patient's room prior to discharge and arranged for concentrator to be delivered to patient's home prior to discharge. CM will continue to follow this patient and plan for a safe discharge.
--- NOTE | 2019-12-30 12:35 | DCINST_ITS ---
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) Obesity (BMI 35.0-39.9 without comorbidity) (Acute) Diverticulitis large intestine (Chronic) Dyslipidemia (Chronic) HTN (hypertension) (Chronic) You will use the following diet at home:: Regular Your food should be the consistency of: Regular Your liquids should be the consistency of: Regular/Thin Discharge Activity: Return to Normal Activity Call your doctor if you observe: Fever of 101 or Higher, Shortness of breath, Dizziness, Fainting spells, Swelling in the ankles, Chest pain, Increased palpitations (irregular heartbeat) Allergies/Adverse Reactions: Allergies No Known Allergies Allergy (Verified 12/20/19 16:05) Medications to take at Discharge Ascorbic Acid [Vitamin C] 500 mg PO DAILY@0800 02/06/13 Cranberry Fruit Extract [Cranberry] 84 mg PO DAILY 02/06/13 Multivitamins,Therapeutic [Multivitamin] 1 tablet PO DAILY 02/06/13 Calcium (Elemental) [Caltrate-600] 600 mg PO BID 02/10/13 Lisinopril/Hydrochlorothiazide [Zestoretic 20/25 Tablet] 0.5 tablet PO DAILY #0 12/30/19 Verapamil HCl [Verapamil ER] 240 mg PO QHS #0 12/30/19 Primary Care Physician: Ranulfo Howell MD [Primary Care Provider] - Please follow up with your Primary Care Physician in: 3-5 days Test Results: Test results from this visit will be discussed in further detail at your follow- up appointment, if applicable. Please Follow Up With: Rodney Jolley MD When: 2-4 weeks
--- NOTE | 2019-12-30 17:54 | PCM.DC.SUM ---
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 Electronically Signed: Zana Pena DO at 17:11 EST Tel [phone], Service support , Chest CTA 12/20/19 17:20 IMPRESSION: 1. No evidence of pulmonary embolus. 2. No aortic dissection or aneurysm. 3. Prominent pulmonary arteries with diffuse perihilar infiltrate. Question pulmonary edema/CHF. 4. Atherosclerotic changes of the thoracic aorta and coronary arteries. Electronically Signed: Zana Pena DO at 18:43 EST Tel [phone], Service support , Consults: ID Pulmonology Operations: None Procedures: None Summary of Care Provided: Per HPI: The patient is a 84 year old F presents with shortness of breath and weakness. Patient had been feeling listless at home and tested positive for COVID-19 several days prior. Patient has been feeling ill for about the past week. EMS was called and patient was noted to be hypoxic in the mid 60s. Patient was brought to the emergency room and put on high flow oxygen at 10 L and currently her sats are in the mid 90s. Chest x-ray showed bilateral infiltrates and the patient did receive 6 mg of dexamethasone in the emergency room. D-dimer was elevated and a CT angiogram of the chest was performed. Patient denies having had any fever chills. Hospital Course: 1. Acute hypoxic respiratory failure secondary COVID-19 pneumonia/transient transaminitis/[id number]-old female presented to the hospital from home after she was visited by her son who was displaying symptoms whose was positive for Covid. She presented to the hospital hypoxic initially needing 10 L of oxygen. She received convalescent plasma, remdesivir and completed her course of Decadron all while in the hospital. She decreased her oxygen requirement to about 4 L at rest on the day of discharge. Ambulatory pulse ox demonstrated need to climb up to 6 L. Her transaminitis resolved by the time she was discharged home. And it may have been a reaction to the remdesivir and/or Covid. Creatinine was also normal on the day of discharge she has desired to go home and therefore she was discharged home on oxygen. I discussed the plan of discharge with her and she expressed understand the risk and benefits of going home. D-dimer was elevated though not when age-adjusted. 2. Hypertension is her only chronic medical condition and her blood pressures here in the hospital have been stable without her medications therefore I recommend that she hold her blood pressure medication until she follow-up with her primary care physician has her blood pressure rechecked as an outpatient. Patient Problems: Active and Suspected Problems COVID-19 (Acute) Acute respiratory failure with hypoxia (Acute) Hypoxia (Acute) Obesity (BMI 35.0-39.9 without comorbidity) (Acute) - Physical Exam Vitals/I&O's: Vital Signs Temp Pulse Resp BP Pulse Ox 98.1 F 93 18 124/49 H 94 12/30/19 14:02 12/30/19 14:02 12/30/19 14:02 12/30/19 14:02 12/30/19 14:02 Oxygen Flow Rate (L/min) [ 5 AMBULATION with Oxygen] Oxygen Flow Rate (L/min) 5 Oxygen Delivery Method Nasal Cannula Weight: 183 lb 3.266 oz Body Mass Index (BMI) 35.2 Intake and Output for Last 24 Hours 12/28/19 12/29/19 12/30/19 23:59 23:59 23:59 Intake Total 480 / 480 1720 / 1720 400 / 400 Output Total 650 / 650 700 / 700 Balance -170 / -170 1020 / 1020 400 / 400 General: Alert, Oriented x3, Cooperative, No apparent distress HEENT: Atraumatic, PERRLA, EOMI, Normocephalic Oral: Moist Mucosa Neck: Supple, No JVD Lungs: Normal air movement, No rhonchi, No wheeze, No rales, Diminished Cardiovascular: Regular rate, Regular Rhythm, Normal S1, Normal S2, No murmurs Abdomen: Soft, Non Tender, Non-Distended, No Hepato-splenomegaly Extremities: No edema, Capillary Refill Less than 3 Seconds Skin: No rashes, No breakdown Neurological: Neuro grossly intact, Sensory exam intact to light touch and pain Psych/Mental Status: Normal Affect, Appropriate Discharge Activity: Return to Normal Activity Call your doctor if you observe: Fever of 101 or Higher, Shortness of breath, Dizziness, Fainting spells, Swelling in the ankles, Chest pain, Increased palpitations (irregular heartbeat) Home Medications: Medications to take at Discharge Ascorbic Acid [Vitamin C] 500 mg PO DAILY@0800 02/06/13 Cranberry Fruit Extract [Cranberry] 84 mg PO DAILY 02/06/13 Multivitamins,Therapeutic [Multivitamin] 1 tablet PO DAILY 02/06/13 Calcium (Elemental) [Caltrate-600] 600 mg PO BID 02/10/13 Lisinopril/Hydrochlorothiazide [Zestoretic 20/25 Tablet] 0.5 tab PO DAILY #0 12/30/19 Verapamil HCl [Verapamil ER] 240 mg PO QHS #0 12/30/19 Primary Care Physician: Ranulfo Howell MD [Primary Care Provider] - Please follow up with your Primary Care Physician in: 3-5 days Please Follow Up With: Rodney Jolley MD When: 2-4 weeks Please Follow Up With: Ranulfo Howell MD Disposition: Home Minutes spent on discharge:: 35 Patient Condition:: Stable Medical Necessity - Tobacco Use Smoking Status: Never smoker Meaningful Use Info Meaningful Use Diagnoses (Choose all that apply): None applicable Inpatient E&M: 16185 Disch Hosp
--- NOTE | 2020-01-03 13:12 | CASEMGMT ---
AMY BOCANEGRA DC PHONE CALL DC DATE: 12.30.19 DC DISPOSITION: Home with oxygen DC DIAGNOSIS: COVID 19 LACE/STRATA: 13/3 F/U APPTS MADE PRIOR TO DC: no PRESCRIPTIONS ACQUIRED BY PT: No Intro role of CM to patient via phone. Patient states he is doing well and is managing her oxygen. Her pulse ox is staying above 92% on 5l. Patient states she spoke with her PCP and has a follow up appointment the first week of January. No further questions, and no care improvement suggestions were given. Paulo ONOFREN RN ACM
== END 2019-12-30 14:25 | disposition home or self-care (01) | DRG 177 ==
LOC: ED 16:23 → MS2 19:19 → ICU 12-21 11:12 → PCU 12-26 15:42
PROVIDERS: Family Medicine; Internal Medicine; Emergency Provider Emergency Medicine; PCP Family Medicine; Visit Provider Family Medicine
DX: U07.1 COVID-19 (principal); J12.89 Other viral pneumonia; J96.01 Acute respiratory failure with hypoxia; N17.9 Acute kidney failure, unspecified; I10 Essential (primary) hypertension; E78.5 Hyperlipidemia, unspecified; E66.9 Obesity, unspecified; Z68.36 Body mass index [BMI] 36.0-36.9, adult; R74.01 Elevation of levels of liver transaminase levels; R73.9 Hyperglycemia, unspecified; T38.0X5A Adverse effect of glucocorticoids and synthetic analogues, initial encounter
CPT/HCPCS: 36415; 36600; 71045; 71275; 80053; 82728; 82803; 83605; 83615; 83735; 84145; 84484; 85025; 85379; 86140; 86850; 86900; 86901; 87040; 87633; 93005; 94002; 94003; 94660; 97110; 97116; 97162; 97166; 97530; 97535; 99285; J7040; J7050; Q9967; A4216; J1940

== ENCOUNTER → 2020-03-06 11:01 | Outpatient (CLI) | payer MEDICARE, SELFPAY ==
[2020-01-24 07:59] VITALS: BMI 34.9
[2020-03-06 11:15] VITALS: PULSE 107; PULSE 108; PULSE 111; PULSE 112; PULSE 114; PULSE 86; PULSE 95; PULSE 99; O2SAT 90; O2SAT 91; O2SAT 92; O2SAT 94; O2SAT 95
--- NOTE | 2020-03-07 10:17 | WT_ITS ---
PSN 6 Minute Walk Test - 6 Minute Walk Test 6 Minute Walk Test: 6 Minute Walk Test PSN:6-Minute Walk Test Start: 03/06/20 11:35 Freq: Status: Active Protocol: [id number] Document 03/06/20 11:15 [facility] (Rec: 03/06/20 11:40 [facility] [id number]) 6 Minute Walk Test Date Performed 03/06/20 Time Performed 11:15 Height 5 ft 2 in Weight: 182 lb Weight in Pounds 182.[address]: Mejia Assistive device used: None Pre-test Oxygen Delivery Method Room Air Pulse Ox (%) 94 Pulse Rate (60-100 beats/min) 86 Dyspnea Hui Scale (0-10) 0 Exertion Hui Scale (6-20) 6 1st minute Oxygen Delivery Method Room Air Pulse Ox (%) 92 Pulse Rate (60-100 beats/min) 99 2nd minute Oxygen Delivery Method Room Air Pulse Ox (%) 91 Pulse Rate (60-100 beats/min) 107 H 3rd minute Oxygen Delivery Method Room Air Pulse Ox (%) 90 Pulse Rate (60-100 beats/min) 108 H 4th minute Oxygen Delivery Method Room Air Pulse Ox (%) 91 Pulse Rate (60-100 beats/min) 112 H 5th minute Oxygen Delivery Method Room Air Pulse Ox (%) 90 Pulse Rate (60-100 beats/min) 114 H 6th minute Oxygen Delivery Method Room Air Pulse Ox (%) 91 Pulse Rate (60-100 beats/min) 111 H Dyspnea Hui Scale (0-10) 1 Exertion Uhi Scale (6-20) 12 Post-test Oxygen Delivery Method Room Air Pulse Ox (%) 95 Pulse Rate (60-100 beats/min) 95 Full Laps Walked 16 Partial Lap, Number of Tiles Walked 38 Total Distance Walked (ft) 982 - Interpretation Interpretation: The patient ambulated 982 feet over the course of 6 minutes beginning on room air without assistive devices or breaks. Pretesting oxygen saturation was noted to be 94% on room air. With ambulation, the vania oxygen saturation was 90%. There was no significant exertional oxygen desaturation. - Recommendations Recommendations: There is no indication for the use of supplemental oxygen at this time.
== END ==
PROVIDERS: PCP Family Medicine; Referring Provider Nurse Practitioner Acute Care; Visit Provider Nurse Practitioner Acute Care
DX: J96.01 Acute respiratory failure with hypoxia (principal)
CPT/HCPCS: 94618

== ENCOUNTER → 2020-03-14 11:21 | Outpatient (CLI) | payer MEDICARE, SELFPAY ==
[2020-01-24 07:59] VITALS: BMI 34.9
[2020-03-14 12:33] LABS: Hematocrit 39.9 % (37-47); Mean Corp Hgb Conc 32.6 g/dL (32-36); Mean Corpuscular Hgb 30.4 pg (27.0-32.0); Mean Corpuscular Volume 93.2 fL (81-99); Platelet Count 235 K/mm3 (150-450); RBC Distribution Width CV 13.5 % (11.6-14.6); RBC Distribution Width SD 46.5 fl (35.1-43.9); Red Blood Count 4.28 M/mm3 (4.2-5.4); White Blood Count 8.5 K/mm3 (4.4-11.0)
[2020-03-14 13:02] LABS: Vitamin B12 543 pg/mL (211-911); Vitamin D,25 Hydroxy 36.3 ng/mL
[2020-03-14 13:32] LABS: Anion Gap 6 (5-15); BUN 15 mg/dL (7-18); BUN/Creat Ratio 18.2 RATIO (10-20); Calcium,Total 9.9 mg/dL (8.5-10.1); Chloride 106 mmol/L (98-107); Creatinine, Serum 0.82 mg/dL (0.55-1.02); EST Glomerular Filtration Rate 70 mL/min (>60); Est Glom Filt Rate - Afr Amer 85 mL/min (>60); Ferritin 49 ng/mL (8-252); Glucose 92 mg/dL (74-106); Iron 80 ug/dL (50-170); Potassium 3.8 mmol/L (3.5-5.1); Sodium Level 139 mmol/L (136-145); Thyroid Stim Hormone (TSH) 1.27 uIU/mL (0.358-3.74)
[2020-03-23 12:36] LABS: Vitamin B1, Thiamine 210.7 nmol/L (66.5-200.0)
== END ==
PROVIDERS: PCP Family Medicine; Referring Provider Family Medicine; Visit Provider Family Medicine
DX: L65.9 Nonscarring hair loss, unspecified (principal)
CPT/HCPCS: 36415; 80048; 82306; 82607; 82728; 83540; 84425; 84443; 84630; 85027

== ENCOUNTER → 2020-07-17 10:58 | Outpatient (CLI) | payer MEDICARE, SELFPAY ==
[2020-04-06 11:13] VITALS: BMI 32.9
--- NOTE | 2020-07-17 11:03 | RAD_ITS ---
STUDY: X-RAY - RIGHT ANKLE REASON FOR EXAM: Female, 84 years old. Ankle sprain. Pain. TECHNIQUE: 3 view(s) of the ankle. COMPARISON: 02/24/2017 FINDINGS: Generalized osteopenia. Mild arthrosis of the tibiotalar joint. Inferior calcaneal spur. Mild arthrosis of the midfoot. Vascular calcification. RAD/Ankle min 3 Views IMPRESSION: Osteopenia with osteoarthritic changes as described. No acute finding. Electronically Signed: Jl Arguelles MD at 11:42 EDT , Service support ,
== END ==
PROVIDERS: PCP Family Medicine; Referring Provider Family Medicine; Visit Provider Family Medicine
DX: S93.409A Sprain of unspecified ligament of unspecified ankle, initial encounter (principal)
CPT/HCPCS: 73610

== ENCOUNTER 2021-03-25 11:19 | Outpatient (CLI) | payer MEDICARE, SELFPAY ==
[2021-03-25 15:39] LABS: Absolute Neutrophil Count 5.7 X10^3/uL (2.0-7.7); Basophil# 0.05 X10^3/uL; Basophil% 0.6 % (0-1); Eosinophil# 0.16 X10^3/uL; Hematocrit 40.7 % (37-47); Hemoglobin 13.1 g/dL (12.0-15.0); Lymphocyte % 15.3 % (19-41); Mean Corp Hgb Conc 32.2 g/dL (32-36); Mean Corpuscular Hgb 29.9 pg (27.0-32.0); Mean Corpuscular Volume 92.9 fL (81-99); Mean Platelet Vol. 12.8 fl (6.2-12.0); Monocyte# 0.68 X10^3/uL; Monocyte% 8.7 % (0-10); NRBC Flagged by Analyzer 0 % (0-5); Neutrophil # 5.71 X10^3/uL (2.7-7.7); Neutrophil % 72.9 % (47-70); Platelet Count 187 K/mm3 (150-450); RBC Distribution Width CV 13.5 % (11.6-14.6); RBC Distribution Width SD 46.2 fl (35.1-43.9); Red Blood Count 4.38 M/mm3 (4.2-5.4); Vitamin D,25 Hydroxy 35.9 ng/mL; White Blood Count 7.8 K/mm3 (4.4-11.0)
[2021-03-25 15:48] LABS: Anion Gap 8 (5-15); BUN 13 mg/dL (7-18); BUN/Creat Ratio 15.6 RATIO (10-20); Calcium,Total 9.5 mg/dL (8.5-10.1); Chloride 106 mmol/L (98-107); Cholesterol 176 mg/dL (200); Creatinine, Serum 0.83 mg/dL (0.55-1.02); EST Glomerular Filtration Rate 69 mL/min (>60); Est Glom Filt Rate - Afr Amer 84 mL/min (>60); Glucose 92 mg/dL (74-106); High Density Lipoprotein 37 mg/dL; Potassium 3.7 mmol/L (3.5-5.1); Sodium Level 143 mmol/L (136-145); Triglycerides 273 mg/dL; Very Low Density Lipoprotein 55 mg/dL (5-40)
== END 2021-03-25 23:59 | disposition home or self-care (01) ==
LOC: MTLAB 11:22
PROVIDERS: PCP Family Medicine; Referring Provider Family Medicine; Visit Provider Family Medicine
DX: I10 Essential (primary) hypertension (principal); E78.5 Hyperlipidemia, unspecified; E55.9 Vitamin D deficiency, unspecified
CPT/HCPCS: 36415; 80048; 80061; 82306; 85025

== ENCOUNTER 2021-04-11 08:43 | Outpatient (CLI) | payer MEDICARE, SELFPAY ==
--- NOTE | 2021-04-11 08:53 | ECHOD_ITS ---
Reason For Study: MURMUR Procedure This was a 2D Doppler, Color Flow transthoracic echocardiogram. Exam performed in department. Left Ventricle Normal LV size. Left ventricular systolic function is normal. The estimated ejection fraction is 65 %. Stage 1 diastolic dysfunction. No regional wall motion abnormalities noted. Right Ventricle Normal RV size. Normal systolic function. Atria Normal left atrium. Normal right atrium. Mitral Valve There is mild to moderate mitral annular calcification. Tricuspid Valve Normal tricuspid valve. Aortic Valve Trisinus/trileaflet aortic valve. Mild focal aortic valve calcification. Peak aortic valve gradient 60 mmHg. Mean aortic valve gradient 36 mmHg. Severe aortic stenosis. Calculated aortic valve area (continuity equation) is 0.75 cm2. Pulmonic Valve Normal pulmonic valve. Great Vessels Normal aortic root. The pulmonary artery is normal size. Normal inferior vena cava. Pericardium/Pleural No pericardial effusion. MMode/2D Measurements & Calculations LVIDd: 4.1 cm IVSd: 1.1 cm LVOT diam: 2.0 cm LVIDs: 2.5 cm LVPWd: 0.95 cm LVOT area: 3.2 cm2 RVDd: 3.1 cm FS: 38.3 % Ao root diam: 3.0 cm LAV(MOD-bp): 65.7 ml LVAd ap4: 21.9 cm2 LAV(MOD-bp) Indexed: 36.1 ml/m2 LVLd ap4: 6.7 cm LAV(MOD-sp2): 63.9 ml EDV(MOD-sp4): 59.8 ml LAV(MOD-sp4): 59.6 ml EDV(sp4-el): 60.9 ml LVAs ap4: 10.7 cm2 LVLs ap4: 5.8 cm ESV(MOD-sp4): 16.8 ml ESV(sp4-el): 16.7 ml EF(MOD-sp4): 71.9 % EF(sp4-el): 72.6 % SV(MOD-sp4): 43.0 ml SV(sp4-el): 44.2 ml LA A4 area: 21.2 cm2 LA dimension(2D): 4.7 cm RA A4 area: 14.1 cm2 Time Measurements MV dec time: 0.40 sec Doppler Measurements & Calculations MV E max duglas: 164.0 cm/sec Lat Peak E' Duglas: 4.4 cm/sec Med Peak E' Duglas: 6.0 cm/sec MV A max duglas: 191.0 cm/sec E/E' lat: 37.1 E/E' med: 27.2 MV E/A: 0.86 MV V2 max: 221.9 cm/sec MV P1/2t max duglas: 194.2 cm/sec Ao V2 max: 385.5 cm/sec MV max P.7 mmHg MV P1/2t: 125.9 msec Ao max P.5 mmHg MV V2 mean: 159.7 cm/sec Ao V2 mean: 284.5 cm/sec MV mean P.8 mmHg MV dec slope: 452.0 cm/sec2 Ao mean P.9 mmHg MV V2 VTI: 60.0 cm MVA(P1/2t): 1.7 cm2 Ao V2 VTI: 98.4 cm MVA(VTI): 1.3 cm2 EDWIN(I,D): 0.81 cm2 EDWIN(V,D): 0.73 cm2 LV V1 max: 87.3 cm/sec SV(LVOT): 79.6 ml PA V2 max: 103.8 cm/sec LV V1 max P.0 mmHg LV V1 mean P.8 mmHg LV V1 mean: 63.1 cm/sec LV V1 VTI: 24.5 cm MV P1/2t-pr_phl: 117.4 msec ECHO/Echo Complete Interpretation Summary Normal LV size. Left ventricular systolic function is normal. The estimated ejection fraction is 65 %. Stage 1 diastolic dysfunction. Mean aortic valve gradient 36 mmHg. Severe aortic stenosis. Calculated aortic valve area (continuity equation) is 0.75 cm2. Compared to the previous the aortic stenosis is worse. Ordering Physician: Ranulfo Howell Referring Physician: Ranulfo Howell Performed By: Sowmya Brown RDCS
== END 2021-04-11 23:59 | disposition home or self-care (01) ==
PROVIDERS: PCP Family Medicine; Referring Provider Family Medicine; Visit Provider Family Medicine
DX: R01.1 Cardiac murmur, unspecified (principal)
CPT/HCPCS: 93306

== ENCOUNTER 2021-05-20 16:08 | Outpatient (CLI) | payer MEDICARE, SELFPAY ==
--- NOTE | 2021-05-20 16:15 | RAD_ITS ---
STUDY: XR Chest 2 Views 05/20/2021 5:17 PM REASON FOR EXAM: Female, 85 years old. CHEST PAIN cad/as COMPARISON: None TECHNIQUE: XR Chest 2 Views FINDINGS: There is no demonstrated pleural abnormality. Normal heart size. Normal mediastinum. Normal aubrie. Prominent appearing increased interstitial lung markings. Normal visualized pulmonary arteries. There is atherosclerotic calcification of the aortic arch with tortuosity. There are diffuse degenerative changes of the visualized thoracic spine. There is degenerative osteoarthritis of the bilateral shoulders. There is no demonstrated abnormality of the visualized soft tissue structures of the upper abdomen. RAD/Chest PA and Lateral IMPRESSION: There are no acute findings. Electronically Signed: Nimesh Adan MD at 21:00 EDT ,
[2021-05-20 17:10] LABS: Absolute Lymphocyte Count 1.67 X10^3/uL (0.83-4.51); Absolute Neutrophil Count 7.9 X10^3/uL (2.0-7.7); Basophil# 0.08 X10^3/uL; Basophil% 0.7 % (0-1); Eosinophil# 0.16 X10^3/uL; Eosinophils% 1.5 % (0-5); Hematocrit 39.4 % (37-47); Hemoglobin 13.1 g/dL (12.0-15.0); Lymphocyte # 1.67 X10^3/ul (0.83-4.51); Lymphocyte % 15.4 % (19-41); Mean Corp Hgb Conc 33.2 g/dL (32-36); Mean Corpuscular Hgb 30.6 pg (27.0-32.0); Mean Corpuscular Volume 92.1 fL (81-99); Monocyte# 0.91 X10^3/uL; Monocyte% 8.4 % (0-10); NRBC Flagged by Analyzer 0 % (0-5); Neutrophil # 7.94 X10^3/uL (2.7-7.7); Neutrophil % 73.4 % (47-70); Platelet Count 234 K/mm3 (150-450); RBC Distribution Width CV 13.3 % (11.6-14.6); RBC Distribution Width SD 44.9 fl (35.1-43.9); Red Blood Count 4.28 M/mm3 (4.2-5.4); White Blood Count 10.8 K/mm3 (4.4-11.0)
[2021-05-20 17:17] LABS: Anion Gap 3 (5-15); BUN 14 mg/dL (7-18); BUN/Creat Ratio 13.2 RATIO (10-20); Calcium,Total 9.8 mg/dL (8.5-10.1); Chloride 106 mmol/L (98-107); Creatinine, Serum 1.06 mg/dL (0.55-1.02); EST Glomerular Filtration Rate 52 mL/min (>60); Est Glom Filt Rate - Afr Amer 63 mL/min (>60); Glucose 109 mg/dL (74-106); Potassium 3.8 mmol/L (3.5-5.1); Sodium Level 140 mmol/L (136-145)
== END 2021-05-20 23:59 | disposition home or self-care (01) ==
PROVIDERS: PCP Family Medicine; Visit Provider Internal Medicine Cardiovascular Disease
DX: I35.0 Nonrheumatic aortic (valve) stenosis (principal); I10 Essential (primary) hypertension; E66.9 Obesity, unspecified
CPT/HCPCS: 36415; 71046; 80048; 85025

== ENCOUNTER 2021-06-10 07:33 | Day surgery (SDC) | payer MEDICARE, SELFPAY ==
[2021-06-07 07:07] VITALS: BMI 33.8
--- NOTE | 2021-06-10 10:10 | CL.D_ITS ---
Patient Name: HAIRKA BRASHER Study Date: 06/10/2021 Performing: Deejay Harden MD Ht: 61.81 inches 157 cm : 1935 Wt: 185.19 lbs 84 kg Age: 85 Gender: female BSA: 1.85 PROCEDURE(S) PERFORMED [id number])LHC/COR/LV CLINICAL PROFILE AND INDICATIONS Indications: Valvular Disease Heart Failure: None Stress/Imaging Date: 03/13/21 CAD Presentations: No Sxs, no angina. CONCLUSIONS Non obstructive coronary arteries Severe aortic stenosis by echocardiographic criteria and peak to peak gradient of at least 30 mmHg. RECOMMENDATIONS Consider TAVR DESCRIPTION OF PROCEDURE The patient arrived to the procedure lab. The risks and benefits of the procedure as well as a full d escription of our services here and current unavailability of surgical backup were fully explained to the patient and/or their significant other prior to the catheterization. The Timeout was completed, verifying the correct patient and procedure. The patient's procedural site was prepped and draped in the usual fashion. Local anesthetic was given subcutaneously to right radial region with Lidocaine 2% , per Dr. Freire.. Local anesthetic was given subcutaneously to right groin region with Lidocaine 2%. Using a modified Seldinger technique, arterial access was obtained via the right radial artery, a 6Fr sheath was inserted per Dr. Freire., arterial access was obtained via the right femoral arter y, a 5Fr sheath was inserted. Left Coronary Artery selective angiography was performed in multiple v iews using a 5 Fr. JL4 catheter. Right Coronary Artery selective angiography was then performed in multiple views using a 5 Fr. 3DRC (Hardeep) catheter. Left Ventriculography was perform ed in HATFIELD projection using a 5 Fr. Pigtail catheter. LV to AO pullback pressures were then recorded.T he arterial sheath was pulled and a Mynx closure device was deployed for hemostasis. The arterial she ath was pulled and a TR Band was applied for hemostasis per RT. Durga CORONARY ANGIOGRAPHY DOMINANCE: Right Dominant LEFT HEART ASSESSMENT Left Ventricular Ejection Fraction: by LV Gram 60 % Normal LV wall motion Normal Left Ventricular systolic function LEFT MAIN: Mild calcification, Angiographically normal LEFT ANTERIOR DESCENDING ARTERY: Moderate luminal irregularities up to 50% CIRCUMFLEX ARTERY: No significant disease noted RAMUS: Moderate luminal irregularities up to 50% RIGHT CORONARY ARTERY: Mild luminal irregularities less than 30% PROX RCA: Mild luminal irregularities less than 30% VALVE FINDINGS: Aortic Valve Stenosis - severe COMPLICATIONS No Complications PROCEDURE MEDICATIONS Versed 1 mg IV Fentanyl 50 mcg IV Oxygen: 2 L/min via nasal cannula Heparin given IA per Dr. Freire 06/10/2021 09:29:36 Verapamil 2.5mg, Ntg 100mcgs, 3000 units of Heparin given IA per Dr. Freire 06/10/2021 09:29:36 IV Bolus: .9 NaCl 200 ml total 06/10/2021 10:02:18 SUMMARY OF HEMODYNAMIC DATA Time AIR REST ECG 08:01:29 ECG 09:12:44 AO 125/51 (78) SA 09:44:26 LV 151/15, 21 09:53:18 LV 150/16, 21 09:53:26 LV 147/16, 22 09:54:13 LVp 142/18, 28 09:54:21 AOp 114/54 (80) 09:54:28 Signed By Deejay Harden MD On 06/10/2021 10:09:10 Deejay Harden MD
== END 2021-06-10 13:16 | disposition home or self-care (01) ==
LOC: CLSP 07:36
PROVIDERS: PCP Family Medicine; Referring Provider Internal Medicine Cardiovascular Disease; Visit Provider Internal Medicine Cardiovascular Disease
DX: I35.0 Nonrheumatic aortic (valve) stenosis (principal); I45.10 Unspecified right bundle-branch block; I10 Essential (primary) hypertension; E78.5 Hyperlipidemia, unspecified; E66.9 Obesity, unspecified; R09.89 Other specified symptoms and signs involving the circulatory and respiratory systems; R01.1 Cardiac murmur, unspecified; Z68.33 Body mass index [BMI] 33.0-33.9, adult; Z79.899 Other long term (current) drug therapy; Z86.16 Personal history of COVID-19
CPT/HCPCS: 93458; 99152; 99153; C1760; J7040; C1769; C1894

== ENCOUNTER → 2021-07-04 | Outpatient (CLI) | payer MEDICARE, SELFPAY ==
--- NOTE | 2021-07-04 15:33 | PFTCOMP_ITS ---
COMPLETE PULMONARY FUNCTION TEST INTERPRETATION Brief HPI: Patient is an 85-year-old female, currently under the care of Sahara Morin, who presents to [facility] for complete pulmonary function tests secondary to diagnosis of dyspnea. Respiratory therapist reports good effort, but inability to use proper technique and achieved greater than 1 second of exhalation. Interpretation: Forced expiration spirometry shows no large airways obstructive ventilatory defect with an FEV1 of 112% predicted. There is no significant bronchodilator response by strict ATS criteria. Spirograms are of poor quality and do not plateau, likely underestimating FVC. The respiratory flow volume loop shows a normal pattern. Lung volumes by body plethysmography show an elevated total lung capacity at 5.09 L, 124% predicted. FRC and RV are elevated out of proportion. Lung volume measurements are consistent with hyperinflation and air-trapping. Diffusion capacity by carbon monoxide maneuver was unable to be completed. The airway resistance is normal. No previous pulmonary function tests were available for review. Impression: These pulmonary function tests are relatively normal given the limitations mentioned above
== END | disposition home or self-care (01) ==
PROVIDERS: PCP Family Medicine
DX: R06.00 Dyspnea, unspecified (principal)
CPT/HCPCS: 94060; 94726

== ENCOUNTER → 2021-08-01 | Outpatient (CLI) | payer MEDICARE, SELFPAY ==
--- NOTE | 2021-08-01 09:41 | CDU_ITS ---
Reason For Study: Bruit Rt. Velocities/BP Lt. Velocities/BP Prox CCA 104.7/13.4 cm/sec. Prox CCA 112/18.8 cm/sec. Mid CCA 85.2/17.3 cm/sec. Mid CCA 75.4/13.3 cm/sec. Dist CCA 68.2/14.7 cm/sec. Dist CCA 91.9/18.8 cm/sec. Prox ICA 68.2/13.4 cm/sec. Prox ICA 51.5/11.8 cm/sec. Mid ICA 87.8/26.5 cm/sec. Mid ICA 72.3/18.5 cm/sec. Dist ICA 81.2/21.3 cm/sec. Dist ICA 115.6/31.6 cm/sec. Rt. ICA/CCA = 1.03. Lt. ICA/CCA = 1.26. Prox ECA 65.6/8.2 cm/sec. Prox ECA 77.3/11.5 cm/sec. Rt. Vert. 47.3/14.7 cm/sec. Lt. Vert. 42.1/12.6 cm/sec. Right Extracranial There is homogeneous, smooth atherosclerotic plaque noted in the right common carotid artery. There is homogeneous, smooth atherosclerotic plaque noted in the right internal carotid artery. There is intimal thickening but no significant atherosclerotic plaque noted in the right external carotid artery. Antegrade flow is noted in the right vertebral artery. Left Extracranial There is homogeneous, smooth atherosclerotic plaque noted in the left common carotid artery. There is intimal thickening but no significant atherosclerotic plaque noted in the left internal carotid artery. The left internal carotid artery is very tortuous. There is intimal thickening but no significant atherosclerotic plaque noted in the left external carotid artery. Antegrade flow is noted in the left vertebral artery. Procedure Carotid Duplex [id number]. This is a Carotid Duplex examination using B-mode, color flow and specral Doppler. Exam performed in department. VL/Carotid Duplex Ultrasound Interpretation Summary Smooth plaque of the proximal right internal carotid artery with less than 50% stenosis. Less than 50% stenosis right external carotid artery Intimal thickening of the left internal carotid artery with less than 50% steno sis and tortuosity of the left internal carotid artery noted Less than 50% stenosis left external carotid artery Patent and antegrade vertebral arteries bilaterally Ordering Physician: Deejay Harden Referring Physician: Jeremy Howell MD Performed By: Mirian Chin RVT
== END | disposition home or self-care (01) ==
LOC: CVS 09:38
PROVIDERS: PCP Family Medicine; Referring Provider Internal Medicine Cardiovascular Disease; Visit Provider Internal Medicine Cardiovascular Disease
DX: R09.89 Other specified symptoms and signs involving the circulatory and respiratory systems (principal)
CPT/HCPCS: 93880

== ENCOUNTER → 2021-09-17 | Outpatient (CLI) | payer MEDICARE, SELFPAY ==
[2021-09-17 10:37] LABS: Hematocrit 39.4 % (37-47); Hemoglobin 13.2 g/dL (12.0-15.0); Mean Corp Hgb Conc 33.5 g/dL (32-36); Mean Corpuscular Hgb 30.9 pg (27.0-32.0); Mean Corpuscular Volume 92.3 fL (81-99); Mean Platelet Vol. 11.5 fl (6.2-12.0); Platelet Count 194 K/mm3 (150-450); RBC Distribution Width CV 13.3 % (11.6-14.6); Red Blood Count 4.27 M/mm3 (4.2-5.4)
[2021-09-17 11:09] LABS: Anion Gap 3 (5-15); BUN 16 mg/dL (7-18); Calcium,Total 9.6 mg/dL (8.5-10.1); Chloride 108 mmol/L (98-107); Creatinine, Serum 0.94 mg/dL (0.55-1.02); EST Glomerular Filtration Rate 60 mL/min (>60); Est Glom Filt Rate - Afr Amer 73 mL/min (>60); Glucose 124 mg/dL (74-106); Potassium 3.8 mmol/L (3.5-5.1); Sodium Level 142 mmol/L (136-145)
== END | disposition home or self-care (01) ==
LOC: LAB 10:20
PROVIDERS: PCP Family Medicine; Referring Provider Internal Medicine Cardiovascular Disease; Visit Provider Internal Medicine Cardiovascular Disease
DX: Z95.2 Presence of prosthetic heart valve (principal)
CPT/HCPCS: 36415; 80048; 85027

== ENCOUNTER → 2021-09-25 | Outpatient (CLI) | payer MEDICARE, SELFPAY ==
--- NOTE | 2021-09-25 10:00 | ECHOD_ITS ---
Version 2 Reason For Study: TAVR Procedure This was a 2D Doppler, Color Flow transthoracic echocardiogram. Exam performed in department. Left Ventricle Normal LV size. Left ventricular systolic function is normal. The estimated ejection fraction is 65 %. Stage 1 diastolic dysfunction. No regional wall motion abnormalities noted. Right Ventricle Normal RV size. Normal systolic function. Atria The left atrium is mildly enlarged. Normal right atrium. Tricuspid Valve Normal tricuspid valve. Aortic Valve Peak aortic valve gradient 24 mmHg. Mean aortic valve gradient 14 mmHg. These gradients are identical to the immediate postop gradients. Bioprosthetic aortic valve. DANITZA #23 valve noted. Pulmonic Valve Normal pulmonic valve. Great Vessels Normal aortic root. The pulmonary artery is normal size. Normal inferior vena cava. Pericardium/Pleural No pericardial effusion. MMode/2D Measurements & Calculations LVIDd: 4.3 cm IVSd: 1.0 cm LVOT diam: 1.9 cm LVIDs: 3.0 cm LVPWd: 1.1 cm LVOT area: 2.7 cm2 RVDd: 3.0 cm FS: 29.7 % Ao root diam: 3.0 cm LAV(MOD-bp): 88.2 ml LA A4 area: 26.4 cm2 LAV(MOD-bp) Indexed: 47.2 ml/m2 LAV(MOD-sp2): 78.0 ml LAV(MOD-sp4): 95.2 ml LA dimension(2D): 4.1 cm Time Measurements MV dec time: 0.45 sec Doppler Measurements & Calculations MV E max duglas: 127.3 cm/sec Lat Peak E' Duglas: 4.5 cm/sec Med Peak E' Duglas: 5.4 cm/sec MV A max duglas: 197.2 cm/sec E/E' lat: 28.3 E/E' med: 23.5 MV E/A: 0.65 MV V2 max: 210.8 cm/sec Ao V2 max: 244.9 cm/sec LV V1 max: 104.0 cm/sec MV max P.8 mmHg Ao max P.0 mmHg LV V1 max P.3 mmHg MV V2 mean: 126.4 cm/sec Ao V2 mean: 182.1 cm/sec LV V1 mean P.5 mmHg MV mean P.3 mmHg Ao mean P.4 mmHg LV V1 mean: 75.3 cm/sec MV V2 VTI: 46.1 cm Ao V2 VTI: 46.7 cm LV V1 VTI: 24.5 cm MVA(VTI): 1.4 cm2 EDWIN(I,D): 1.4 cm2 EDWIN(V,D): 1.2 cm2 SV(LVOT): 66.5 ml PA V2 max: 106.9 cm/sec ECHO/Echo Complete Interpretation Summary Normal LV size. Left ventricular systolic function is normal. The estimated ejection fraction is 65 %. Stage 1 diastolic dysfunction. Mean aortic valve gradient 14 mmHg. Bioprosthetic aortic valve. DANITZA #23 valve noted These gradients are identical to the immediate postop gradients. Ordering Physician: Deejay Harden Referring Physician: Jeremy Howell Performed By: Eduarda Altamirano, EDUARDO, RVT
== END | disposition home or self-care (01) ==
PROVIDERS: PCP Family Medicine; Visit Provider Internal Medicine Cardiovascular Disease
DX: I25.10 Atherosclerotic heart disease of native coronary artery without angina pectoris (principal); Z95.2 Presence of prosthetic heart valve
CPT/HCPCS: 93306

== ENCOUNTER 2022-07-12 15:46 | Inpatient (IN) | payer MEDICARE, SELFPAY ==
[2022-07-12] VITALS (23 sets, daily range): BP systolic 77–126; BP diastolic 38–61; PULSE 85–122; RESP 16–32; TEMP 36.6–37.1; O2SAT 3–99; BMI 34.9; BMI 34.0
--- NOTE | 2022-07-12 16:15 | EKG12_ITS ---
Test Reason : Blood Pressure : / mmHG Vent. Rate : 112 BPM Atrial Rate : 112 BPM P-R Int : 146 ms QRS Dur : 128 ms QT Int : 350 ms P-R-T Axes : 040 175 010 degrees QTc Int : 477 ms Sinus tachycardia Possible Left atrial enlargement Right bundle branch block Abnormal ECG Confirmed by KARIN OLIVA, LISS ([id number]), editor greeting card ANGEL CRUZ ([id number]) on 07/15/2022 8:37:37 AM Referred By: Confirmed By:LISS FRAZIER MD
--- NOTE | 2022-07-12 16:19 | EX.ED.DYSGE1 ---
HPI History of Present Illness Chief Complaint: General Illness Informant: patient and spouse/S.O. Onset/Context/Timing Onset: Days Context: Gradual Onset Timing: Continuous Current Severity: Severe Maximum Severity: Severe Narrative Narrative: 86-year-old female history of valve replacement with a porcine valve. Also history of diverticular colitis in the past. Known coronary disease but no stents. No blood thinners. Noticed 2 to 3 days ago left axillary abscess. Today went to an urgent care started on 1 dose of Bactrim. She got more ill later today. Started having nausea vomiting decreased mental status called the squad and she was brought in. Reportedly her blood pressure when squad saw her was 77/55 with a pulse ox of 80% on room air. She denies any headache, chest pain, shortness of breath, or abdominal pain. She had nausea vomiting. She subjectively had chills. No dysuria. She denies any known antibiotic allergies. He denies any rash or itching. Prior similar symptoms: No Recent Illness/Hospitalization: No PFSH PFSH Medical History Diverticulitis large intestine Essential hypertension Gout History of 2019 novel coronavirus disease (COVID-19) (12/16/19) History of transcatheter aortic valve replacement (TAVR) (07/15/21) Hyperlipidemia Left adrenal mass Nonobstructive atherosclerosis of coronary artery Nonrheumatic aortic (valve) stenosis Right bundle branch block (RBBB) Transient complete heart block Home Medications lisinopril 20 mg-hydrochlorothiazide 25 mg tablet 0.5 tab PO DAILY ##0 12/30/19 [Rx Last Taken 06/10/21] sulfamethoxazole 800 mg-trimethoprim 160 mg tablet (Bactrim DS) 1 tab PO Q12H #14 tabs 07/12/22 [Rx Last Taken Unknown] Allergy/AdvReac Type Severity Reaction Status Date / Time No Known Allergies Allergy Verified 07/12/22 09:15 Surgical History History of cataract surgery History of cholecystectomy History of colectomy History of left heart catheterization (06/10/21) History of total abdominal hysterectomy Social History Smoking Status: Never smoker alcohol intake: never substance use type: does not use ROS ROS ED ROS Narrative Chills. Review of Systems ROS Unobtainable: Denies due to encephalopathy Constitutional Constitutional ED: Reports chills; Denies fever(s) or subjective Eyes Eyes: Denies blurry vision ENT ENT ED: Denies ear pain Cardiovascular Cardiovascular: Denies chest pain Respiratory/Chest Respiratory/Chest: Denies cough or dyspnea Gastrointestinal Gastrointestinal: Reports nausea and vomiting; Denies abdominal pain, constipation, diarrhea or melena Genitourinary Genitourinary ED: Denies dysuria or hematuria Musculoskeletal Musculoskeletal: Denies arthralgias Integumentary Reports abscess Neurologic Neurologic: Denies headache(s) Psychiatric Psychiatric: Denies anxiety Endocrine Endocrinology: Denies cold intolerance Hematologic/Lymphatic Hematologic/Lymphatic: Reports none Allergic/Immunologic Allergic/Immunologic ED: Denies mouth swelling, tongue swelling or urticaria EXAM Physical Exam Narrative Exam Narrative: 86-year-old female clinically looks ill. Initial blood pressure is 7755. Heart rate of 122 which is a sinus tachycardia. Pulse ox is only 88% on room air consistent with hypoxia. Her temperature is 98.3. Patient may be septic. She may be dehydrated. H EENT exam mildly dry mucous membranes. Pupils round reactive light. She is awake alert. at bedside. Neck nontender no lymphadenopathy. Lungs clear to auscultation bilaterally. Heart tachycardic rate 120 no murmur. Chest wall nontender. Abdomen soft nontender. No peritoneal signs. Moving all 4 extremities. Her left axilla she has about a 50 cent piece-sized abscess that is fluctuant which will need drained. There is no surrounding cellulitis. This does not look like necrotizing fasciitis. There is no necrotic tissue. There is no crepitance. No foul smell. No discharge. She is awake and alert. Answering questions following commands. Skin other than the abscess no cellulitis. No rashes. Back nontender. Const Vital Signs: 07/12/22 15:47 07/12/22 15:51 07/12/22 15:51 Temperature 98.3 F 98.3 F Temperature Source Oral Oral Pulse Rate 122 H 122 H 121 H Respiratory Rate 20 H 21 H 21 H Respiratory Effort Blood Pressure 77/55 L 77/55 L Blood Pressure Mean 62 62 Pulse Ox 88 93 93 Oxygen Delivery Method Room Air Nasal Cannula Nasal Cannula Oxygen Flow Rate (L/min) 2 2 07/12/22 15:54 07/12/22 16:01 07/12/22 16:25 Temperature 98.3 F Temperature Source Oral Pulse Rate 120 H Respiratory Rate 32 H Respiratory Effort Labored Blood Pressure 82/51 L Blood Pressure Mean 61 Pulse Ox 92 96 Oxygen Delivery Method Nasal Cannula Nasal Cannula Oxygen Flow Rate (L/min) 3 3 07/12/22 16:49 07/12/22 17:00 07/12/22 17:47 Temperature 98.3 F 98.8 F Temperature Source Oral Oral Pulse Rate 115 H 119 H 115 H Respiratory Rate 26 H 26 H 26 H Respiratory Effort Blood Pressure 126/61 H 114/50 L 114/50 L Blood Pressure Mean 82 71 71 Pulse Ox 96 95 95 Oxygen Delivery Method Nasal Cannula Nasal Cannula Nasal Cannula Oxygen Flow Rate (L/min) 3 3 3 Positive well nourished and well developed; Negative for cachectic, contractures or unkempt General Appearance ED: well developed and NAD; Negative for unkempt, cachectic, contractures, cyanotic, diaphoretic or pallor Nutritional Appearance: Negative for cachectic HEENT Reports moist mucous membranes; Denies TM's clear or dry mucous membranes Negative for trauma or tenderness Tympanic Membrane ED: Negative for TM's clear Mouth ED: No dry mucous membranes Mouth: No dry mucous membranes Eyes PERRL and EOMs intact bilaterally Neck no lymphadenopathy, supple and no JVD General: Negative for tenderness Lymph Lymphatic: Negative for other Chest Wall inspection of chest normal and palpation of chest normal Chest: Negative for other Resp normal respiratory effort and clear to auscultation bilaterally Effort and Inspection: Negative for retractions Auscultation: Negative for rales, rhonchi or wheezes Cardio regular rhythm, S1 normal heart sound, S2 normal heart sound and no murmurs; Negative for regular rate Palpation: Negative for palpable S3 Rate: tachycardic; Negative for bradycardia Rhythm: Negative for abnormal rhythm GI normal to inspection, nondistended, normoactive bowel sounds, non-tender, non-distended and no masses Inspection: Negative for abdominal distention Auscultation: normoactive bowel sounds Palpation: soft; Negative for tender, guarding, mass or rebound tenderness present Back/Spine no CVA tenderness Cervical Spine: Negative for cervical spine tenderness Thoracic Spine / Upper Back: Negative for thoracic spinal tenderness Lumbar Spine / Lower Back: Negative for lumbar spinal tenderness Extremity normal to inspection Extremity Narrative: Left axillary abscess. No cellulitis. No crepitus. No necrotic tissue. General Extremety ED: Negative for edema General Extremity: Negative for edema Neuro oriented x3 and CN's II-XII intact bilaterally Psych mental status grossly normal Appearance: Negative for unkempt Attitude: No agitated Mood & Affect: Negative for depressed, anxious or tearful Skin no rashes or lesions noted and no wounds General Skin Exam: Negative for jaundice or pallor Lesions: No lesion noted Rashes: No rashes noted Trauma: Negative for abrasion Wounds: Negative for wounds noted Sepsis Attestation Sepsis Alert: Yes Date exam was performed: 07/12/22 Time exam was performed: 15:50 Possible Source of Sepsis: Genitourinary and Skin/soft tissue Sepsis Organ Dysfunction Criteria Present: SBP < 90 mmHg or MAP < 65 mmHg, Lactic Acid > 2 mmol/L and New/Unexplained change in mental status MDM MDM MDM Narrative Medical decision making narrative: 86-year-old female hypotensive, tachycardia ptotic and hypoxic. Clinically appears to be septic. She does have a left axillary abscess which theoretically could be the problem but typically these do not cause fever or becomes septic. I do not think this is a drug reaction showing took 1 dose of Bactrim it was earlier today. She has no rash or itching. Should be treated IV fluids. IV antibiotics Zosyn and put through a septic protocol. She will need to be admitted. Eventually I will I&D this abscess. Repeat exam patient is responding well to IV fluids. Her blood pressure is 114/50. She is doing well at 5:30 PM. A we will going I&D the left axillary abscess. Her labs, hypotension and elevated lactic acid are consistent with sepsis. I will speak to the hospitalist about admission. Patient clinically looks much improved. Procedure note: Left axillary abscess incision and drainage. Approximately 1-1/2 to 2 inches in diameter. Local anesthetized with let and subcu lidocaine. Made about a 1 inch incision. Drained 3 to 5 cc of fish pus. Probed the wound. Placed packing gauze. Patient tolerated procedure well. I did do aerobic and anaerobic cultures. Patient also has a urinary tract infection. The hospitalist and I discussed her history, presentation and exam. We will add Ancef to the Zosyn. She will be [facility] now that she is hemodynamically stable. I did do wound cultures and he wanted MRSA screen also. History & Record Review Discussion w/independent historian: EMS personnel, Patient and Family Additional record(s) reviewed:: Prior inpatient record, Prior outpatient record, Prior ED visit and Prior labs Lab Data Attestation: I reviewed the patient's lab results. Lab results narrative: CBC shows white count 10.9. H&H of 13.5 and 39. Platelets 169. PT, INR and PTT are normal. Electrolytes show potassium 3.3. Gap of 8. BUN and creatinine 18 and 1.1. Glucose 107. Liver enzymes unremarkable. Lactic acid is elevated 3.2. Chest x-ray was negative. Urine is also infected with positive nitrites, 50-100 white cells and 3+ bacteria. Urine culture will be sent. She will be started also on Ancef to cover both skin juli and potentially a UTI. Labs: Laboratory Results - last 24 hr 07/12/22 07/12/22 07/12/22 15:55 15:55 15:55 WBC 11.9 H RBC 4.28 Hgb 13.5 Hct 39.8 MCV 93.0 MCH 31.5 MCHC 33.9 RDW Std Deviation 45.2 H RDW Coeff of Lukasz 13.4 Plt Count 169 MPV 12.1 H Immature Gran % (Auto) 1.400 H Neut % (Auto) 96.8 H Lymph % (Auto) 0.8 L [place] % (Auto) 0.6 Eos % (Auto) 0.2 Baso % (Auto) 0.2 Absolute Neuts (auto) 11.5 H Absolute Lymphs (auto) 0.09 L Nucleated RBC % 0 Differential Comment SCANNED PT 14.2 INR 1.1 APTT 26.2 Sodium 143 Potassium 3.3 L Chloride 107 Carbon Dioxide 28.0 Anion Gap 8 BUN 18 Creatinine 1.17 H Estim Creat Clear Calc 26.04 Est GFR (MDRD) Af Amer 56 L Est GFR (MDRD) Non-Af 47 L BUN/Creatinine Ratio 15.4 Glucose 107 H Lactic Acid Calcium 10.0 Total Bilirubin 1.50 H AST 168 H ALT 56 Alkaline Phosphatase 284 H Total Protein 6.7 Albumin 3.2 Globulin 3.5 Albumin/Globulin Ratio 0.9 Urine Color Urine Clarity Urine pH Ur Specific [place] Urine Protein Urine Glucose (UA) Urine Ketones Urine Occult Blood Urine Nitrite Urine Bilirubin Urine Urobilinogen Ur Leukocyte Esterase Urine RBC Urine WBC Ur Squamous Epith Cells Urine Bacteria Urine Mucus 07/12/22 07/12/22 15:55 17:25 WBC RBC Hgb Hct MCV MCH MCHC RDW Std Deviation RDW Coeff of Lukasz Plt Count MPV Immature Gran % (Auto) Neut % (Auto) Lymph % (Auto) [place] % (Auto) Eos % (Auto) Baso % (Auto) Absolute Neuts (auto) Absolute Lymphs (auto) Nucleated RBC % Differential Comment PT INR APTT Sodium Potassium Chloride Carbon Dioxide Anion Gap BUN Creatinine Estim Creat Clear Calc Est GFR (MDRD) Af Amer Est GFR (MDRD) Non-Af BUN/Creatinine Ratio Glucose Lactic Acid 3.2 H* Calcium Total Bilirubin AST ALT Alkaline Phosphatase Total Protein Albumin Globulin Albumin/Globulin Ratio Urine Color Yellow Urine Clarity Cloudy Urine pH 6.0 Ur Specific [place] 1.010 Urine Protein 30 H Urine Glucose (UA) Normal Urine Ketones Negative Urine Occult Blood 50 H Urine Nitrite Positive H Urine Bilirubin 1 H Urine Urobilinogen Normal Ur Leukocyte Esterase 500 H Urine RBC 0 SEEN Urine WBC 50-100 SEEN Ur Squamous Epith Cells 0-5 SEEN Urine Bacteria 3+ Urine Mucus 0 SEEN Radiography Chest X-Ray - ED: 1 View, Read by ED Physician, Read by Radiologist, Heart, Lungs, Mediastinum, Bony Structures, No Acute Disease and Chronic Changes Diagnostic Testing: Clinical Impression(s) from Imaging Studies Chest X-Ray 07/12/22 16:42 IMPRESSION: No definite acute or significant abnormality seen. Electronically Signed: Asad Hurtado MD at 17:03 EDT , Chest pain, portable, single view interpreted both by myself and the radiologist shows chronic changes but no acute pneumonia or infiltrate. Rhythm Strip Rhythm Strip: Sinus Tach Rate: 112 Ectopy: None EKG Initial EKG: Attestation: I personally reviewed and interpreted this EKG as follows: Interpretation: Sinus Tachycardia Comments: Sinus tachycardia rate of 112 no acute signs of OK or ischemia. Right bundle branch block. Procedures Other Procedures Procedure(s): Left axillary abscess. Incision and drainage. Let applied. Local anesthetic with lidocaine. Made a 1 inch vertical incision. Drain 3 to 5 cc of foul purulent material. Probed the wound. Placed several inches of iodinated gauze. Dressed. Both aerobic and anaerobic cultures were sent. Critical Care Time Critical Care Time: Yes Critical care time (excluding procedures): 30-74 minutes, Including time spent:, Discussing w/Patient &/or Family/Warp Trucker, Discussing w/Consultants, Arranging Admission or Transfer, Performing Direct Patient Care at Bedside and - (35 minutes.) Discharge Plan Dx/Rx/DC Orders Clinical Impression: Sepsis, Acute hypotension, Leukocytosis, Acute lactic acidosis, Acute UTI Disposition [facility]
[2022-07-12] MEDS: Lidocaine 1% (20 ml mdv) 20 ML Vial 10 ML INFILT (16:24)
[2022-07-12] MEDS: 0.9% Normal Saline 1,000 ML 999 ML IV (16:24)
[2022-07-12 16:26] LABS: Absolute Lymphocyte Count 0.09 X10^3/uL (0.83-4.51); Absolute Neutrophil Count 11.5 X10^3/uL (2.0-7.7); Basophil# 0.02 X10^3/uL; Basophil% 0.2 % (0-1); Eosinophil# 0.02 X10^3/uL; Eosinophils% 0.2 % (0-5); Hematocrit 39.8 % (37-47); Hemoglobin 13.5 g/dL (12.0-15.0); Lymphocyte # 0.09 X10^3/ul (0.83-4.51); Lymphocyte % 0.8 % (19-41); Mean Corp Hgb Conc 33.9 g/dL (32-36); Mean Corpuscular Hgb 31.5 pg (27.0-32.0); Mean Platelet Vol. 12.1 fl (6.2-12.0); Monocyte# 0.07 X10^3/uL; Monocyte% 0.6 % (0-10); NRBC Flagged by Analyzer 0 % (0-5); Neutrophil % 96.8 % (47-70); POSITIVE DIFFERENTIAL YES; Platelet Count 169 K/mm3 (150-450); RBC Distribution Width CV 13.4 % (11.6-14.6); RBC Distribution Width SD 45.2 fl (35.1-43.9); Red Blood Count 4.28 M/mm3 (4.2-5.4); White Blood Count 11.9 K/mm3 (4.4-11.0)
[2022-07-12 16:36] LABS: Differential Indicated SCAN CRITERIA MET
--- NOTE | 2022-07-12 16:42 | RAD_ITS ---
STUDY: X-RAY CHEST REASON FOR EXAM: Female, 86 years old. hypotension TECHNIQUE: Single AP portable view of the chest. COMPARISON: 05/20/2021. FINDINGS: The lungs are clear and expanded. Elevated right hemidiaphragm. There is no demonstrated pleural abnormality. Normal size heart. Since prior study patient has had placement of an aortic valve stent graft. Normal mediastinum and aubrie. Normal visualized pulmonary arteries. Normal visualized aortic arch and descending thoracic aorta. Normal visualized thoracic spine. Normal visualized ribs, clavicles, and shoulders. There is no demonstrated abnormality of the visualized soft tissue structures of the upper abdomen. RAD/Chest 1 View (Portable) IMPRESSION: No definite acute or significant abnormality seen. Electronically Signed: Asad Hurtado MD at 17:03 EDT ,
[2022-07-12 16:49] LABS: ALB/GLOB Ratio 0.9 RATIO (0.9-2.4); AST(SGOT) 168 U/L (15-37); Alanine Aminotransfer ALT/SGPT 56 U/L (13-56); Albumin, Serum 3.2 g/dL (3.2-5.0); Alkaline Phosphatase 284 U/L (45-117); Anion Gap 8 (5-15); BUN 18 mg/dL (7-18); BUN/Creat Ratio 15.4 RATIO (10-20); Chloride 107 mmol/L (98-107); Creatinine, Serum 1.17 mg/dL (0.55-1.02); EST Glomerular Filtration Rate 47 mL/min (>60); Est Glom Filt Rate - Afr Amer 56 mL/min (>60); Estimated Creatinine Clearance 26.04 ml/min; Globulin 3.5 g/dL (2.2-4.2); Glucose 107 mg/dL (74-106); Potassium 3.3 mmol/L (3.5-5.1); Protein, Total 6.7 g/dL (6.4-8.2); Sodium Level 143 mmol/L (136-145)
[2022-07-12 16:52] LABS: International Normalized Ratio 1.1; Partial Thromboplast Time 26.2 Seconds (24.1-36.2); Prothrombin Time (Protime)PT. 14.2 SECONDS (11.7-14.9)
[2022-07-12 16:57] LABS: Lactic Acid 3.2 mmol/L (0.4-1.9)
[2022-07-12] MEDS: Lidocaine/Epi/Tetracaine 50 ML 1 APPLIC TOPICAL (16:59)
[2022-07-12 17:08] LABS: Differential Comment SCANNED
[2022-07-12 17:29] LABS: Mucous, Urine 0 SEEN /hpf (<or=2+); Red Blood Cells-Urine 0 SEEN /hpf (0-5)
[2022-07-12 17:32] LABS: Color, Urine Yellow (Yellow); Glucose, Dipstick Normal (Normal); Ketone-Dipstick Negative (Negative); Leukocyte Esterase-Dipstick 500 /ul (Negative); Nitrite-Dipstick Positive (Negative); Occult Blood-Urine 50 /ul (Negative); Protein-Dipstick 30 mg/dl (Negative); Urine Clarity Cloudy (Clear); Urine Urobilinogen Normal (Normal)
[2022-07-12 17:40] LABS: Urine Bilirubin Dipstick 1 mg/dL (Negative)
[2022-07-12 17:41] LABS: Bacteria 3+ /hpf (None Seen); Squamous Epithelial Cells - UA 0-5 SEEN /hpf (5-10); White Blood Cells 50-100 SEEN /hpf (0-5)
[2022-07-12] MEDS: Cefazolin 2 GM in 0.9% Normal Saline 100 ML IV (18:28)
--- NOTE | 2022-07-12 18:56 | HP.PCM.HOS_ITS ---
HPI - General General Date of Admission: 07/12/22 HPI Narrative HARIKA BRASHER, is a 86 F who presents to the hospital with weakness and an axillary abscess in the left. She says that this started about a week ago but really started getting painful around . Her granddaughter is a nurse practitioner and recommended that she go to the urgent care to be evaluated today. She was given a dose of Bactrim and sent home. Per report she took a dose of the Bactrim and started feeling worse and became weaker so her brought her here to the ER. In the ER she was found to have a 2 cm axillary abscess that was drained and sent for culture. She also appears to be septic and was hypotensive requiring fluid resuscitation. Her systolics were in the 70s and did recover to the 100s. She is feeling better during my evaluation. She was found to be hypokalemic with a slight increase in her creatinine, her baseline is around 0.7 and on admission is 1.17. Also her lactic acid was elevated at 3.2. Chest x-ray was unremarkable but a UA also showed a significant UTI. She was given a dose of Zosyn and then transition to Ancef to cover both the abscess and the UTI. [facility] Medical History Diverticulitis large intestine Essential hypertension Gout History of 2019 novel coronavirus disease (COVID-19) (12/16/19) History of transcatheter aortic valve replacement (TAVR) (07/15/21) Hyperlipidemia Left adrenal mass Nonobstructive atherosclerosis of coronary artery Nonrheumatic aortic (valve) stenosis Right bundle branch block (RBBB) Transient complete heart block Home Medications lisinopril 20 mg-hydrochlorothiazide 25 mg tablet 0.5 tab PO DAILY ##0 12/30/19 [Rx Last Taken 06/10/21] sulfamethoxazole 800 mg-trimethoprim 160 mg tablet (Bactrim DS) 1 tab PO Q12H #14 tabs 07/12/22 [Rx Last Taken Unknown] Allergy/AdvReac Type Severity Reaction Status Date / Time No Known Allergies Allergy Verified 07/12/22 09:15 Surgical History History of cataract surgery History of cholecystectomy History of colectomy History of left heart catheterization (06/10/21) History of total abdominal hysterectomy Social History Smoking Status: Never smoker alcohol intake: never substance use type: does not use ROS Constitutional Constitutional: Reports weakness; Denies chills, fatigue, fever(s) or malaise Eyes Eyes: Denies blurry vision ENT HEENT: Denies headache(s) or nasal discharge Cardiovascular Cardiovascular: Denies chest pain, dyspnea on exertion or syncope Respiratory/Chest Respiratory/Chest: Denies cough, shortness of breath at rest or shortness of breath with exertion Gastrointestinal Gastrointestinal: Denies constipation, diarrhea, nausea or vomiting Genitourinary Genitourinary: Denies dysuria Integumentary Integumentary: Reports furuncle Neurologic Neurologic: Denies focal weakness, numbness or tremor(s) Psychiatric Psychiatric: Denies anxiety or depression Vital Signs Vital Signs Vital Signs: 07/12/22 15:47 07/12/22 15:51 07/12/22 15:51 Temperature 98.3 F 98.3 F Temperature Source Oral Oral Pulse Rate 122 H 122 H 121 H Respiratory Rate 20 H 21 H 21 H Respiratory Effort Blood Pressure 77/55 L 77/55 L Blood Pressure Mean 62 62 Pulse Ox 88 93 93 Oxygen Delivery Method Room Air Nasal Cannula Nasal Cannula Oxygen Flow Rate (L/min) 2 2 07/12/22 15:54 07/12/22 16:01 07/12/22 16:25 Temperature 98.3 F Temperature Source Oral Pulse Rate 120 H Respiratory Rate 32 H Respiratory Effort Labored Blood Pressure 82/51 L Blood Pressure Mean 61 Pulse Ox 92 96 Oxygen Delivery Method Nasal Cannula Nasal Cannula Oxygen Flow Rate (L/min) 3 3 07/12/22 16:49 07/12/22 17:00 07/12/22 17:47 Temperature 98.3 F 98.8 F Temperature Source Oral Oral Pulse Rate 115 H 119 H 115 H Respiratory Rate 26 H 26 H 26 H Respiratory Effort Blood Pressure 126/61 H 114/50 L 114/50 L Blood Pressure Mean 82 71 71 Pulse Ox 96 95 95 Oxygen Delivery Method Nasal Cannula Nasal Cannula Nasal Cannula Oxygen Flow Rate (L/min) 3 3 3 07/12/22 18:23 Temperature 98.8 F Temperature Source Oral Pulse Rate 113 H Respiratory Rate 28 H Respiratory Effort Blood Pressure 106/38 L Blood Pressure Mean 60 Pulse Ox 95 Oxygen Delivery Method Nasal Cannula Oxygen Flow Rate (L/min) 3 Weight Weight: 184 lb 11.958 oz Body Mass Index (BMI) 34.9 Physical Exam Narrative General: Alert, Oriented x3, Cooperative, No apparent distress HEENT: Atraumatic, PERRLA, EOMI, Normocephalic, hard of hearing Oral: Dry mucosa Neck: Supple, No JVD Lungs: Diminished, Normal air movement, No rhonchi, No wheeze, No rales Cardiovascular: Tachycardic, Regular Rhythm, Normal S1, Normal S2, No murmurs, valve click Abdomen: Soft, Non Tender, Non-Distended, No Hepato-splenomegaly Extremities: No edema, Capillary Refill Less than 3 Seconds Skin: Left axillary abscess bandage with some serosanguineous drainage Musculoskeletal: No Tenderness to Palpation of Joints or Extremities Neurological: Motor Exam 5/5 strength throughout, Sensory exam intact to light touch and pain Psych/Mental Status: Normal Affect, Appropriate Results Lab / Micro Data Result Diagrams: 07/12/22 15:55 07/12/22 15:55 Labs: Laboratory Results - last 24 hr 07/12/22 15:55: WBC 11.9 H, RBC 4.28, Hgb 13.5, Hct 39.8, MCV 93.0, MCH 31.5, MCHC 33.9, RDW Std Deviation 45.2 H, RDW Coeff of Lukasz 13.4, Plt Count 169, MPV 12.1 H, Immature Gran % (Auto) 1.400 H, Neut % (Auto) 96.8 H, Lymph % (Auto) 0.8 L, [place] % (Auto) 0.6, Eos % (Auto) 0.2, Baso % (Auto) 0.2, Absolute Neuts (auto) 11.5 H, Absolute Lymphs (auto) 0.09 L, Nucleated RBC % 0, Differential Comment SCANNED 07/12/22 15:55: PT 14.2, INR 1.1, APTT 26.2 07/12/22 15:55: Sodium 143, Potassium 3.3 L, Chloride 107, Carbon Dioxide 28.0, Anion Gap 8, BUN 18, Creatinine 1.17 H, Estim Creat Clear Calc 26.04, Est GFR (MDRD) Af Amer 56 L, Est GFR (MDRD) Non-Af 47 L, BUN/Creatinine Ratio 15.4, Glucose 107 H, Calcium 10.0, Total Bilirubin 1.50 H, AST 168 H, ALT 56, Alkaline Phosphatase 284 H, Total Protein 6.7, Albumin 3.2, Globulin 3.5, Albumin/Globulin Ratio 0.9 07/12/22 15:55: Lactic Acid 3.2 H* 07/12/22 17:25: Urine Color Yellow, Urine Clarity Cloudy, Urine pH 6.0, Ur Specific [place] 1.010, Urine Protein 30 H, Urine Glucose (UA) Normal, Urine Ketones Negative, Urine Occult Blood 50 H, Urine Nitrite Positive H, Urine Bilirubin 1 H, Urine Urobilinogen Normal, Ur Leukocyte Esterase 500 H, Urine RBC 0 SEEN, Urine WBC 50-100 SEEN, Ur Squamous Epith Cells 0-5 SEEN, Urine Bacteria 3+, Urine Mucus 0 SEEN Rhythm Strip Rhythm Strip: Sinus Tach Rate: 112 Ectopy: None Radiology Impression Chest X-Ray 07/12/22 16:42 IMPRESSION: No definite acute or significant abnormality seen. Electronically Signed: Asad Hurtado MD at 17:03 EDT , Assessment & Plan Assessment/Plan (1) Sepsis: (2) Acute UTI: (3) Abscess: PLAN: Plan 1. Sepsis secondary to UTI and left axillary abscess ? The abscess has been going on for about a week but there is no obvious symptoms according to the patient about a UTI. ? UA is fairly significant we will start her on Ancef to cover both her skin abscess that has been drained as well as her urine culture ? We will get a MRSA screen if positive may need to add vancomycin ? Wound cultures and urine cultures are pending as well as blood cultures ? We will place her on IV fluids, though her creatinine does not meet criteria for an GAURI, it is elevated to 1.17 with a baseline around 0.7-0.8 2. HTN/aortic stenosis status post TAVR ? Given her hypotension in the ER on admission we will hold her blood pressure medication and can restart when stable DVT: Lovenox 75 minutes was spent on direct patient care as well as chart review and collaboration with colleagues Sepsis Attestation Sepsis Attestation: Agree w/Sepsis Possible Source of Sepsis: Genitourinary and Skin/soft tissue Sepsis Organ Dysfunction Criteria Present: SBP < 90 mmHg or MAP < 65 mmHg and Lactic Acid > 2 mmol/L Fluid Resuscitation Fluid resuscitation indicated?: Yes Fluid Resuscitation ordered: 30 ml/kg fluid bolus ordered Charges/Coding Visit Charges Inpatient E&M: 58539 Init Hosp L3
[2022-07-12] MEDS: 0.9% Normal Saline 1,000 ML 100 ML IV (19:55)
[2022-07-12] MEDS: Potassium Chloride Oral Tablet 20 MEQ 40 MEQ PO (19:55)
[2022-07-12 20:23] LABS: Reflex Lactate? Y
[2022-07-12 21:56] LABS: Lactic Acid 3.4 mmol/L (0.4-1.9)
[2022-07-12 21:58] LABS: M R Staph aureus DNA By PCR Negative (Negative); Probe Check PASS; Specimen Processing Control PASS; Staph aureus DNA By PCR NEGATIVE (Negative)
[2022-07-12] MEDS: 0.9% Normal Saline 1,000 ML 150 ML IV (23:00)
[2022-07-13] VITALS (24 sets, daily range): BP systolic 76–132; BP diastolic 36–73; PULSE 60–94; RESP 14–18; TEMP 36.5–36.9; O2SAT 86–98
[2022-07-13] MEDS: 0.9% Normal Saline 1,000 ML 999 ML IV ×2 (01:28→03:22)
[2022-07-13] MEDS: 0.9% Normal Saline 1,000 ML 150 ML IV ×3 (02:38→17:54)
--- NOTE | 2022-07-13 03:42 | PCM.HOSP.N ---
Hospitalist Note Developed hypotension overnight requiring additional boluses. Abscess in left axilla shows improved erythema. Patient otherwise feels well and is currently stable. MRSA and staph screens are negative. This does not rule out staph causing an infection. But will continue with the cefazolin for the left axillary abscess. But given the patient's sepsis and tenuous blood pressure, will add levofloxacin until cultures are back.
--- NOTE | 2022-07-13 03:48 | NURSING ---
Dr Lares rounded to assess pt. evaluated left axilla wound and stated he would review antibiotics. BP is improving with bolus at this time will continue to monitor
[2022-07-13] MEDS: levoFLOXacin IV 750 MG/150 ML BAG 100 MG IV (04:41)
[2022-07-13 06:56] LABS: Absolute Lymphocyte Count 0.06 X10^3/uL (0.83-4.51); Basophil# 0.02 X10^3/uL; Basophil% 0.2 % (0-1); Differential Indicated SCAN CRITERIA MET; Eosinophil# 0.01 X10^3/uL; Eosinophils% 0.1 % (0-5); Hemoglobin 10.4 g/dL (12.0-15.0); Lymphocyte # 0.06 X10^3/ul (0.83-4.51); Lymphocyte % 0.6 % (19-41); Mean Corp Hgb Conc 31.5 g/dL (32-36); Mean Corpuscular Hgb 30.1 pg (27.0-32.0); Mean Corpuscular Volume 95.7 fL (81-99); Mean Platelet Vol. 12.2 fl (6.2-12.0); Monocyte# 0.44 X10^3/uL; Monocyte% 4.1 % (0-10); NRBC Flagged by Analyzer 0 % (0-5); Neutrophil # 10.03 X10^3/uL (2.7-7.7); Neutrophil % 94.5 % (47-70); POSITIVE DIFFERENTIAL YES; Platelet Count 111 K/mm3 (150-450); RBC Distribution Width CV 13.6 % (11.6-14.6); RBC Distribution Width SD 48.2 fl (35.1-43.9); Red Blood Count 3.45 M/mm3 (4.2-5.4); White Blood Count 10.6 K/mm3 (4.4-11.0)
[2022-07-13 07:13] LABS: Differential Comment SCANNED
[2022-07-13 07:16] LABS: Anion Gap 4 (5-15); BUN 20 mg/dL (7-18); BUN/Creat Ratio 17.2 RATIO (10-20); Calcium,Total 7.7 mg/dL (8.5-10.1); Chloride 115 mmol/L (98-107); Creatinine, Serum 1.16 mg/dL (0.55-1.02); EST Glomerular Filtration Rate 47 mL/min (>60); Est Glom Filt Rate - Afr Amer 57 mL/min (>60); Estimated Creatinine Clearance 26.27 ml/min; Glucose 146 mg/dL (74-106); Potassium 4.4 mmol/L (3.5-5.1); Sodium Level 144 mmol/L (136-145)
--- NOTE | 2022-07-13 07:44 | PN.HOSP_ITS ---
Reason for Visit Reason for Visit: Diagnoses Sepsis, unspecified organism (07/12/22) Cutaneous abscess, unspecified (07/12/22) Urinary tract infection, site not specified (07/12/22) Subjective Subjective Follow-up for sepsis most likely due to left axillary abscess with concern of UTI Objective Data Objective Data Vital Signs: Vital Signs Temp Pulse Resp BP Pulse Ox O2 Del Method O2 Flow Rate 97.9 F 73 18 97/59 L 95 Nasal Cannula 2 07/13/22 07:00 07/13/22 07:00 07/13/22 07:00 07/13/22 07:00 07/13/22 07:42 07/13/22 07:42 07/13/22 07:42 Oxygen Flow Rate (L/min) 2 Oxygen Delivery Method Nasal Cannula Weight: 180 lb 5.41 oz Body Mass Index (BMI) 34.0 Intake & Output: Intake and Output for Last 24 Hours 07/11/22 07/12/22 07/13/22 23:59 23:59 23:59 Intake Total 1835 / 1835 2900 / 2900 Output Total 500 / 500 Balance 1835 / 1835 2400 / 2400 Lab / Micro Data Result Diagrams: 07/13/22 06:03 07/13/22 06:03 Labs: Laboratory Results - last 24 hr 07/12/22 15:55: WBC 11.9 H, RBC 4.28, Hgb 13.5, Hct 39.8, MCV 93.0, MCH 31.5, MCHC 33.9, RDW Std Deviation 45.2 H, RDW Coeff of Lukasz 13.4, Plt Count 169, MPV 12.1 H, Immature Gran % (Auto) 1.400 H, Neut % (Auto) 96.8 H, Lymph % (Auto) 0.8 L, [place] % (Auto) 0.6, Eos % (Auto) 0.2, Baso % (Auto) 0.2, Absolute Neuts (auto) 11.5 H, Absolute Lymphs (auto) 0.09 L, Nucleated RBC % 0, Differential Comment SCANNED 07/12/22 15:55: PT 14.2, INR 1.1, APTT 26.2 07/12/22 15:55: Sodium 143, Potassium 3.3 L, Chloride 107, Carbon Dioxide 28.0, Anion Gap 8, BUN 18, Creatinine 1.17 H, Estim Creat Clear Calc 26.04, Est GFR (MDRD) Af Amer 56 L, Est GFR (MDRD) Non-Af 47 L, BUN/Creatinine Ratio 15.4, Glucose 107 H, Calcium 10.0, Total Bilirubin 1.50 H, AST 168 H, ALT 56, Alkaline Phosphatase 284 H, Total Protein 6.7, Albumin 3.2, Globulin 3.5, Albumin/Globulin Ratio 0.9 07/12/22 15:55: Lactic Acid 3.2 H* 07/12/22 17:25: Urine Color Yellow, Urine Clarity Cloudy, Urine pH 6.0, Ur Specific [place] 1.010, Urine Protein 30 H, Urine Glucose (UA) Normal, Urine Ketones Negative, Urine Occult Blood 50 H, Urine Nitrite Positive H, Urine Bilirubin 1 H, Urine Urobilinogen Normal, Ur Leukocyte Esterase 500 H, Urine RBC 0 SEEN, Urine WBC 50-100 SEEN, Ur Squamous Epith Cells 0-5 SEEN, Urine Bacteria 3+, Urine Mucus 0 SEEN 07/12/22 18:15: S.aureus Protein A PCR NEGATIVE, MRSA (PCR) Negative 07/12/22 21:20: Lactic Acid 3.4 H* 07/13/22 06:03: WBC 10.6, RBC 3.45 L, Hgb 10.4 L, Hct 33.0 L, MCV 95.7, MCH 30.1, MCHC 31.5 L D, RDW Std Deviation 48.2 H, RDW Coeff of Lukasz 13.6, Plt Count 111 L, MPV 12.2 H, Immature Gran % (Auto) 0.500, Neut % (Auto) 94.5 H, Lymph % (Auto) 0.6 L, [place] % (Auto) 4.1, Eos % (Auto) 0.1, Baso % (Auto) 0.2, Absolute Neuts (auto) 10.0 H, Absolute Lymphs (auto) 0.06 L, Nucleated RBC % 0, Differential Comment SCANNED 07/13/22 06:03: Sodium 144, Potassium 4.4, Chloride 115 H, Carbon Dioxide 25.0, Anion Gap 4 L, BUN 20 H, Creatinine 1.16 H, Estim Creat Clear Calc 26.27, Est GFR (MDRD) Af Amer 57 L, Est GFR (MDRD) Non-Af 47 L, BUN/Creatinine Ratio 17.2, Glucose 146 H, Calcium 7.7 L Micro: Microbiology 07/12/22 18:15 Wound Abcess - Axilla, Left Wound Culture - Preliminary 07/12/22 17:25 Urine, Clean Catch Urine Culture - Preliminary GNR lactose drop wire hanger Radiography Diagnostic Testing: Radiology Impression Chest X-Ray 07/12/22 16:42 IMPRESSION: No definite acute or significant abnormality seen. Electronically Signed: Asad Hurtado MD at 17:03 EDT , Rhythm Strip Rhythm Strip: Sinus Tach Rate: 112 Ectopy: None Physical Exam Narrative Seen and examined. Patient not sure about how she developed abscess probably from boil and does not have history of chronic abscess, sinuses, fistulae or hidradenitis suppurativa. General: Alert, Oriented x3, Cooperative, No apparent distress. Moderate obe sity grade 2, BMI 34.1 kg/m?. HEENT: Bilateral moderate to profound hearing impairment. Atraumatic, PERRLA, EOMI, Normocephalic Oral: Oral mucosa moist. No oropharyngeal acute lesion seen. Neck: Supple, No JVD Lungs: Air entry bilateral equal. No crepitation/rhonchi. Cardiovascular: Sinus regular rhythm, Normal S1, Normal S2, No murmurs, aortic valve click Abdomen: Soft, Non Tender, Non-Distended, No Hepato-splenomegaly Extremities: No edema, Capillary Refill Less than 3 Seconds Skin: Left axillary abscess status post incision and drainage. No expressible purulent discharge. Small wick present. No major left palpable axillary lymphadenitis. No previous eschar of hidradenitis suppurativa in both axillae. Right axilla normal. Musculoskeletal: No Tenderness to Palpation of Joints or Extremities. ROM intact. Neurological: Motor Exam 4+/5 at major joints of lower extremities. DTR 2+. No acute neurological deficit. Psych/Mental Status: Flat affect. Assessment & Plan Assessment/Plan (1) Sepsis: (2) Acute UTI: (3) Abscess: PLAN: Plan 86-year-old female was admitted to PCU for left axillary abscess for 1 week started on Bactrim by urgent care but took only 1 dose before coming to ER for worsening of symptoms.She was feverish, nauseous, started vomiting, decreased mental responsiveness. In the squad recorded BP 77/55 pulse ox 80% on room air. No chest pain or blood pressure. 1. Sepsis secondary to left axillary abscess with concern of UTI: The patient presented with sepsis with clinical indicators of tachycardia, hypoxia, mild leukocytosis due to left axillary abscess with concern of possible UTI with acute sepsis-related organ dysfunction as evidenced by lactic acidosis and fluid responsive hypotension. ? The abscess has been going on for about a week but there is no obvious symptoms according to the patient about a UTI. ? UA positive nitrite, LE and pyuria. Denies dysuria. Patient was started on IV Ancef But overnight she developed hypotension and therefore additional IV fluid boluses were given and antibiotic broadened to include Levaquin. MRSA screen negative. MRSA PCR from wound negative. Prelim wound culture shows gram-positive organism 1+. Urine culture prelim GNR, lactose drop wire hanger more than 100,000 colonies. Blood culture pending. Discussed with Dr. Townsend surgery, consult requested for evaluation. 2. CKD stage IIIb: Patient baseline creatinine around 0.7-0.94 with baseline creatinine clearance about 31 mL/min. Patient came with creatinine 1.17 which is not 0.3 more than her baseline. She does not meet criteria for GAURI. Repeat creatinine 1.16 probably worsening of her baseline chronic kidney disease. We will place her on IV fluids, though her creatinine does not meet criteria for an GAURI, it is elevated to 1.17 with a baseline around 0.7-0.8 3.. HTN/aortic stenosis status post TAVR ? Antihypertensive medications are held because of hypotension. She had TAVR about a year ago and follows Dr. Harden. She has appointment coming on Thursday. Total time of the visit including total time spent in counseling or coordination of care, (more than 50% of the total time, spent in obtaining medical information from nurses and other ancillary care providers,explaining to the patient about labs, imaging, diagnosis and management of active complex medical conditions), discussion with economic consultant, management of sepsis, review of labs and imaging is 45 minutes. DVT: Lovenox Microbiology Past 72 Hours 07/12/22 18:15 Wound Abcess - Axilla, Left Wound Culture - Preliminary 07/12/22 17:25 Urine, Clean Catch Urine Culture - Preliminary GNR lactose drop wire hanger Charges/Coding Visit Charges Inpatient E&M: 82251 Subs Hosp L3
[2022-07-13] MEDS: Cefazolin 2 GM in 0.9% Normal Saline 100 ML IV ×2 (08:46→21:22)
[2022-07-13] MEDS: Enoxaparin 30 MG/0.3 ML Syringe SC (08:46)
--- NOTE | 2022-07-13 11:26 | CON.PCM.SX_ITS ---
Assessment & Plan Assessment/Plan (1) Cutaneous abscess of left axilla: PLAN: This is an 86-year-old female currently admitted to the hospitalist service with signs and symptoms on intake of sepsis secondary to concurrent UTI and left axillary abscess. The latter was drained at bedside by emergency medicine yesterday. In my exam, this area appears to be adequately drained with no further signs of fluctuance and what appears to be resolving erythema. For her part, patient admits that the area feels better. Cultures are currently pending but suggest growth of gram-positive cocci. MRSA PCR reportedly negative. Therefore, patient is kept on cefazolin for MSSA coverage. Recommend: ? We will plan to remove packing tomorrow, 07/14/2022 at bedside to reevaluate wound ? Continue to monitor wound culture. If signs of MRSA, would recommend transition to vancomycin ? Follow-up lactic acid as ordered to trend previous values which showed slight increase ? Manger of care per hospitalist service, but agree with antibiotic coverage as ordered HPI Consult Data Date of Consult: 07/13/22 HPI Narrative Reason for Consultation: Axillary abscess status post incision and drainage HPI Narrative: HARIKA BRASHER, is a 86 F who was admitted to [facility] via the emergency department on 07/12/2022 with complaints of left axillary abscess and generalized weakness. Abscess was drained by emergency medicine and further work-up revealed concern for possible urinary tract infection. Given some altered mental status and hypotension patient was diagnosed with probable sepsis and broad-spectrum antibiotics were begun for both coverage of her axillary pro cess as well as her probable UTI. Surgery has now been asked to evaluate patient for management of patient's axillary abscess. Patient's is at bedside and assists with much of the history. He estimates that his first began with a sore under her left armpit on or about 07/09/2022. Mrs. Brasher denies any history of prior abscesses and denies any regular shaving of her underarms. Her stated that he suspected this represented a insect bite as his does lots of mowing throughout the week. She estimates that she is outside with this activity at least 8 hours a week. Her shares that the area had become reddened with a white head to its center. He initially took her to [facility] on 07/12/2022 where she was prescribed Bactrim. However, she quickly became less responsive and this prompted him to call the squad for evaluation in the emergency department. Patient's intake leukocytosis appears to be resolving. Cultures from I&D procedure of left axilla are currently in the preliminary state but show signs of gram-positive cocci organism. Urine sample showing gram-negative uzair lactose property insurance claims examiner. Patient is currently on cefazolin and Levaquin after MRSA PCR returned negative. [facility] Medical History Diverticulitis large intestine Essential hypertension Gout History of 2019 novel coronavirus disease (COVID-19) (12/16/19) History of transcatheter aortic valve replacement (TAVR) (07/15/21) Hyperlipidemia Left adrenal mass Nonobstructive atherosclerosis of coronary artery Nonrheumatic aortic (valve) stenosis Right bundle branch block (RBBB) Transient complete heart block Home Medications lisinopril 20 mg-hydrochlorothiazide 25 mg tablet 0.5 tab PO DAILY ##0 12/30/19 [Rx Last Taken 06/10/21] sulfamethoxazole 800 mg-trimethoprim 160 mg tablet (Bactrim DS) 1 tab PO Q12H #14 tabs 07/12/22 [Rx Last Taken Unknown] Allergy/AdvReac Type Severity Reaction Status Date / Time No Known Allergies Allergy Verified 07/12/22 09:15 Family History (Updated 07/12/22 @ 19:34 by Sofia Donohue) Sister Multiple myeloma Surgical History History of cataract surgery History of cholecystectomy History of colectomy History of left heart catheterization (06/10/21) History of total abdominal hysterectomy Social History (Updated 07/12/22 @ 19:35 by Sofia Donohue) household members: spouse number of children: 2 current occupational status: employed current occupation: self employed Smoking Status: Never smoker alcohol intake: never substance use type: does not use ROS Constitutional Constitutional: Denies chills or fever(s) Neurologic Neurologic: Reports behavior changes and weakness Physical Exam Const alert, oriented x3 and no apparent distress Constitutional Narrative: Somewhat hard of hearing General Appearance: cooperative Resp normal respiratory effort Extremity Extremity Narrative: Patient with 4 x 4 gauze over left axilla. There is a scant amount of serosanguineous drainage now dried to this overlying gauze. When the gauze is removed this exposes a small I&D site still containing quarter inch packing strip. This too contains dried serosanguineous drainage. There is mild amount of induration in this area, but I do not feel any further fluctuance. There is also minimal erythema. Patient has some tenderness with exam. Patient's contralateral axilla is also examined and there are no remarkable findings. Lab / Micro Data Result Diagrams: 07/13/22 06:03 07/13/22 06:03 Labs: Laboratory Results - last 24 hr 07/12/22 15:55: WBC 11.9 H, RBC 4.28, Hgb 13.5, Hct 39.8, MCV 93.0, MCH 31.5, MCHC 33.9, RDW Std Deviation 45.2 H, RDW Coeff of Lukasz 13.4, Plt Count 169, MPV 12.1 H, Immature Gran % (Auto) 1.400 H, Neut % (Auto) 96.8 H, Lymph % (Auto) 0.8 L, [place] % (Auto) 0.6, Eos % (Auto) 0.2, Baso % (Auto) 0.2, Absolute Neuts (auto) 11.5 H, Absolute Lymphs (auto) 0.09 L, Nucleated RBC % 0, Differential Comment SCANNED 07/12/22 15:55: PT 14.2, INR 1.1, APTT 26.2 07/12/22 15:55: Sodium 143, Potassium 3.3 L, Chloride 107, Carbon Dioxide 28.0, Anion Gap 8, BUN 18, Creatinine 1.17 H, Estim Creat Clear Calc 26.04, Est GFR (MDRD) Af Amer 56 L, Est GFR (MDRD) Non-Af 47 L, BUN/Creatinine Ratio 15.4, Glucose 107 H, Calcium 10.0, Total Bilirubin 1.50 H, AST 168 H, ALT 56, Alkaline Phosphatase 284 H, Total Protein 6.7, Albumin 3.2, Globulin 3.5, Albumin/Globulin Ratio 0.9 07/12/22 15:55: Lactic Acid 3.2 H* 07/12/22 17:25: Urine Color Yellow, Urine Clarity Cloudy, Urine pH 6.0, Ur Specific [place] 1.010, Urine Protein 30 H, Urine Glucose (UA) Normal, Urine Ketones Negative, Urine Occult Blood 50 H, Urine Nitrite Positive H, Urine Bilirubin 1 H, Urine Urobilinogen Normal, Ur Leukocyte Esterase 500 H, Urine RBC 0 SEEN, Urine WBC 50-100 SEEN, Ur Squamous Epith Cells 0-5 SEEN, Urine Bacteria 3+, Urine Mucus 0 SEEN 07/12/22 18:15: S.aureus Protein A PCR NEGATIVE, MRSA (PCR) Negative 07/12/22 21:20: Lactic Acid 3.4 H* 07/13/22 06:03: WBC 10.6, RBC 3.45 L, Hgb 10.4 L, Hct 33.0 L, MCV 95.7, MCH 30.1, MCHC 31.5 L D, RDW Std Deviation 48.2 H, RDW Coeff of Lukasz 13.6, Plt Count 111 L, MPV 12.2 H, Immature Gran % (Auto) 0.500, Neut % (Auto) 94.5 H, Lymph % (Auto) 0.6 L, [place] % (Auto) 4.1, Eos % (Auto) 0.1, Baso % (Auto) 0.2, Absolute Neuts (auto) 10.0 H, Absolute Lymphs (auto) 0.06 L, Nucleated RBC % 0, Differential Comment SCANNED 07/13/22 06:03: Sodium 144, Potassium 4.4, Chloride 115 H, Carbon Dioxide 25.0, Anion Gap 4 L, BUN 20 H, Creatinine 1.16 H, Estim Creat Clear Calc 26.27, Est GFR (MDRD) Af Amer 57 L, Est GFR (MDRD) Non-Af 47 L, BUN/Creatinine Ratio 17.2, Glucose 146 H, Calcium 7.7 L Micro: Microbiology 07/12/22 18:15 Wound Abcess - Axilla, Left Gram Stain - Final 07/12/22 18:15 Wound Abcess - Axilla, Left Wound Culture - Preliminary Gram positive organism 07/12/22 17:25 Urine, Clean Catch Urine Culture - Preliminary GNR lactose property insurance claims examiner Rhythm Strip Rhythm Strip: Sinus Tach Rate: 112 Ectopy: None Radiology Impression Chest X-Ray 07/12/22 16:42 IMPRESSION: No definite acute or significant abnormality seen. Electronically Signed: Asad Hurtado MD at 17:03 EDT , Charges/Coding Visit Charges Inpatient E&M: 65786 Init Hosp L2
--- NOTE | 2022-07-13 11:34 | SEPSISATNOTE ---
Sepsis Attestation Sepsis Alert: Yes Sepsis Attestation: Agree w/Sepsis Date exam was performed: 07/13/22 Time exam was performed: 07:55 Possible Source of Sepsis: Genitourinary and Skin/soft tissue Sepsis Organ Dysfunction Criteria Present: SBP < 90 mmHg or MAP < 65 mmHg and Lactic Acid > 2 mmol/L Fluid Resuscitation Fluid resuscitation indicated?: Yes Fluid Resuscitation ordered: 30 ml/kg fluid bolus ordered (More than 5000 L given.) Sepsis Note Date exam was performed: 07/13/22 Time exam was performed: 11:00 Sepsis Attestation: Sepsis re-evaluation was performed Response to fluids: Fluid responsive hypotension
[2022-07-13 11:40] LABS: Lactic Acid 0.9 mmol/L (0.4-1.9)
[2022-07-14] VITALS (11 sets, daily range): BP systolic 112–137; BP diastolic 47–82; PULSE 76–100; RESP 16–24; TEMP 36.4–37.3; O2SAT 88–98
[2022-07-14] MEDS: 0.9% Normal Saline 1,000 ML 150 ML IV (00:46)
--- NOTE | 2022-07-14 03:02 | PCM.HOSP.N ---
Hospitalist Note Fluid helds and duoneb given for wheezing.
[2022-07-14] MEDS: Ipratropium/Albuterol Sulfate 3 ML AMPUL.NEB INHALATION (03:21)
[2022-07-14 06:09] LABS: Absolute Lymphocyte Count 0.28 X10^3/uL (0.83-4.51); Basophil# 0.02 X10^3/uL; Basophil% 0.3 % (0-1); Eosinophil# 0.05 X10^3/uL; Eosinophils% 0.6 % (0-5); Hemoglobin 11.1 g/dL (12.0-15.0); Lymphocyte # 0.28 X10^3/ul (0.83-4.51); Lymphocyte % 3.6 % (19-41); Mean Corp Hgb Conc 31.7 g/dL (32-36); Mean Corpuscular Hgb 30.8 pg (27.0-32.0); Mean Corpuscular Volume 97.2 fL (81-99); Mean Platelet Vol. 12.9 fl (6.2-12.0); Monocyte# 0.39 X10^3/uL; NRBC Flagged by Analyzer 0 % (0-5); Neutrophil # 6.96 X10^3/uL (2.7-7.7); Neutrophil % 89.6 % (47-70); POSITIVE COUNT YES; POSITIVE DIFFERENTIAL YES; Platelet Count 99 K/mm3 (150-450); RBC Distribution Width CV 13.6 % (11.6-14.6); RBC Distribution Width SD 48.9 fl (35.1-43.9); White Blood Count 7.8 K/mm3 (4.4-11.0)
[2022-07-14 06:11] LABS: Differential Indicated SCAN CRITERIA MET
[2022-07-14 06:37] LABS: Anion Gap 7 (5-15); BUN 16 mg/dL (7-18); BUN/Creat Ratio 17.5 RATIO (10-20); Chloride 115 mmol/L (98-107); Creatinine, Serum 0.92 mg/dL (0.55-1.02); EST Glomerular Filtration Rate 62 mL/min (>60); Est Glom Filt Rate - Afr Amer 75 mL/min (>60); Estimated Creatinine Clearance 33.12 ml/min; Glucose 110 mg/dL (74-106); Potassium 3.6 mmol/L (3.5-5.1); Sodium Level 144 mmol/L (136-145)
[2022-07-14 07:01] LABS: Platelet Estimate MOD DEC (ADEQ)
[2022-07-14 07:03] LABS: Differential Comment SCANNED
[2022-07-14] MEDS: Enoxaparin 30 MG/0.3 ML Syringe SC (08:56)
[2022-07-14] MEDS: Cefazolin 2 GM in 0.9% Normal Saline 100 ML IV ×2 (09:09→21:17)
--- NOTE | 2022-07-14 11:10 | PN.SURG_ITS ---
Subjective Subjective Patient seen and examined during AM rounds. She is found sitting out of bed in a chair eating her breakfast. She denies any acute distress. She remarks that her left armpit is not causing her much discomfort. She states that she has been coughing, but denies any shortness of breath. Objective Data Objective Data Vital Signs: Vital Signs Temp Pulse Resp BP Pulse Ox O2 Del Method O2 Flow Rate 99.2 F H 91 18 120/56 L 96 Nasal Cannula 4 07/14/22 08:49 07/14/22 08:49 07/14/22 08:49 07/14/22 08:49 07/14/22 08:50 07/14/22 08:50 07/14/22 08:50 Oxygen Flow Rate (L/min) 4 Oxygen Delivery Method Nasal Cannula Weight: 180 lb 5.41 oz Body Mass Index (BMI) 34.0 Intake & Output: Intake and Output for Last 24 Hours 07/12/22 07/13/22 07/14/22 23:59 23:59 23:59 Intake Total 1835 / 1835 5567.5 / 5567.5 932.5 / 932.5 Output Total 700 / 700 300 / 300 Balance 1835 / 1835 4867.5 / 4867.5 632.5 / 632.5 Lab / Micro Data Result Diagrams: 07/14/22 04:48 07/14/22 04:48 Labs: Laboratory Results - last 24 hr 07/13/22 11:04: Lactic Acid 0.9 07/14/22 04:48: WBC 7.8, RBC 3.60 L, Hgb 11.1 L, Hct 35.0 L, MCV 97.2, MCH 30.8, MCHC 31.7 L, RDW Std Deviation 48.9 H, RDW Coeff of Lukasz 13.6, Plt Count 99 L, MPV 12.9 H, Immature Gran % (Auto) 0.900, Neut % (Auto) 89.6 H, Lymph % (Auto) 3.6 L, [place] % (Auto) 5.0, Eos % (Auto) 0.6, Baso % (Auto) 0.3, Absolute Neuts (auto) 7.0, Absolute Lymphs (auto) 0.28 L, Nucleated RBC % 0, Differential Comment SCANNED, Platelet Estimate MOD DEC 07/14/22 04:48: Sodium 144, Potassium 3.6, Chloride 115 H, Carbon Dioxide 22.0, Anion Gap 7, BUN 16, Creatinine 0.92, Estim Creat Clear Calc 33.12, Est GFR (MDRD) Af Amer 75, Est GFR (MDRD) Non-Af 62, BUN/Creatinine Ratio 17.5, Glucose 110 H, Calcium 8.0 L Micro: Microbiology 07/12/22 18:15 Wound Abcess - Axilla, Left Gram Stain - Final 07/12/22 18:15 Wound Abcess - Axilla, Left Wound Culture - Preliminary Staphylococcus species 07/12/22 18:15 Wound Abcess - Axilla, Left Anaerobic Culture - Preliminary Checking for anaerobes, further studies to follow. 07/12/22 17:25 Urine, Clean Catch Urine Culture - Final Escherichia coli Rhythm Strip Rhythm Strip: Sinus Tach Rate: 112 Ectopy: None Physical Exam Const oriented x3 and no apparent distress Resp Resp Narrative: Mildly tachypneic Extremity Extremity Narrative: Left axillary I&D site is examined and there is fish purulence clinging to the packing strip within the wound. A thin margin of erythema and induration remains. I do not appreciate any undrained loculations. Assessment & Plan Assessment/Plan (1) Cutaneous abscess of left axilla: PLAN: This is an 86-year-old female currently admitted to the hospitalist service with signs and symptoms on intake of sepsis secondary to concurrent UTI and left axillary abscess. The latter was drained at bedside by emergency medicine yesterday. Today patient's I&D site exhibits signs of ongoing purulent drainage. Therefore I repacked the wound with a corner of a sterile gauze and then placed a second gauze atop this for ongoing drainage collection. Advised patient that she would be free to shower today and could dress her wound prior to doing so then plan to redress afterwards. This would permit irrigation of the wound which should be helpful to promote further drainage. Wound cultures are reviewed and now returning consistent with Staphylococcus for axillary site and E coli for urine. We will continue to monitor closely for any signs of methicillin resistance, but site appears to be adequately drained and patient's CBC is demonstrated further improvements. Recommend: ? Wound repacked. Recommend daily packing and wound changing unless patient has showering. I would recommend undressing the wound, showering to allow irrigation of the wound cavity, then redressing. ? Continue to monitor wound culture. If signs of MRSA, would recommend transition to vancomycin versus p.o. coverage for MRSA ? Manger of care per hospitalist service, but agree with antibiotic coverage as ordered Charges/Coding Visit Charges Inpatient E&M: 34761 Subs Hosp L2
--- NOTE | 2022-07-14 11:15 | CASEMGMT ---
RN CM Face to Face with patient for initial transition planning/care coordination assessment. RN CM introduced self and role at [facility]. Patient sitting in chair, alert and oriented. Patient willing to participate in assessment and is able to answer all questions appropriately. Care providers, pharmacy, and demographics verified. Patient wishes to discharge home, denies need for home health at this time. Patient states she has no further needs or concerns at this time. CM to follow for discharge planning needs that may arise. PCP: Dante Specialists: Dereck transfer knitter Preferred Pharmacy: [facility] Insurance: [employer] [facility] Prescription Benefit: yes Living Will/HPOA: yes, Jovanni MARK: , granddaughter Living Arrangements: Patient lives with in a single story home with 2 steps and railing to enter the home. Patient is independent at home. Transportation: self, DME/HHC: Patient has cane at home. No previous HHC or SNF. Will monitor for home oxygen Disposition Plan: Patient to discharge home with family support and follow-up plans in place. Mirian ACOSTA, RN, CM
--- NOTE | 2022-07-14 12:14 | CASEMGMT ---
Sw presented to pt room and met with pt and . Sw introduced self and explained sw role. Sw asked if pt has POA/ LW. Patient and both indicated that pt does have POA/ LW. Documents are at home. Sw encouraged pt and to bring documents in to have scanned into chart so they are on file and accessible if needed. Pt and expressed understanding and denied any other needs at this time. Connor Capone, [employer] SOLUTION ARCHITECT, SOUND TECHNICIAN
--- NOTE | 2022-07-14 15:04 | CHAPLAIN ---
Type of Pastoral Visit _x__ Initial Visit ___ Follow-up Visit ___ On-call Visit ___ General Patient Visit ___ Spiritual Assessment ___ Family Conference ___ Bereavement ___ Rapid Response ___ Code Blue ___ Other (describe below) Pastoral Care Referral From _x__ Patient ___ Family ___ Nurse ___ Physician ___ Senior Clinician ___ Physical Science Aide ___ Other (describe below) Sacrament/Intervention ___ Active listening ___ Anointing ___ Sabianism ___ Bereavement ___ Communion ___ Gayla exploration ___ ___ Life review _x__ Prayer ___ Reconciliation ___ Sacrament of Sick _x__ Supportive presence ___ Wedding ___ Other (describe below) Pastoral Comments patient had several visitors and states that my pastors haven't even been here yet as she welcomes spiritual care support; pt would like to have prayer for her need; other visitors came into room and this visit ended due to that; pt otherwise had no other needs
--- NOTE | 2022-07-14 16:42 | PN_ITS ---
Subjective Subjective Patient seen and examined. She had no complaints and was sitting comfortably in her chair. She had no active complaints. She denies shortness of breath, chest pain, palpitations, dizziness, nausea or vomiting. She is wheezing a bit slow and is on 4 L of oxygen. She does not wear any oxygen at home. Review of systems otherwise negative. Objective Data Objective Data Vital Signs: Vital Signs Temp Pulse Resp BP Pulse Ox O2 Del Method O2 Flow Rate 99.1 F 86 18 137/61 H 95 Nasal Cannula 3 07/14/22 14:19 07/14/22 14:19 07/14/22 14:19 07/14/22 14:19 07/14/22 14:07/14/22 14:30 07/14/22 14:30 Oxygen Flow Rate (L/min) 3 Oxygen Delivery Method Nasal Cannula Weight: 180 lb 5.41 oz Body Mass Index (BMI) 34.0 Intake & Output: Intake and Output for Last 24 Hours 07/12/22 07/13/22 07/14/22 23:59 23:59 23:59 Intake Total 1835 / 1835 5567.5 / 5567.5 1542.5 / 1542.5 Output Total 700 / 700 600 / 600 Balance 1835 / 1835 4867.5 / 4867.5 942.5 / 942.5 Lab / Micro Data Result Diagrams: 07/14/22 04:48 07/14/22 04:48 Labs: Laboratory Results - last 24 hr 07/14/22 04:48: WBC 7.8, RBC 3.60 L, Hgb 11.1 L, Hct 35.0 L, MCV 97.2, MCH 30.8, MCHC 31.7 L, RDW Std Deviation 48.9 H, RDW Coeff of Lukasz 13.6, Plt Count 99 L, MPV 12.9 H, Immature Gran % (Auto) 0.900, Neut % (Auto) 89.6 H, Lymph % (Auto) 3.6 L, [place] % (Auto) 5.0, Eos % (Auto) 0.6, Baso % (Auto) 0.3, Absolute Neuts (auto) 7.0, Absolute Lymphs (auto) 0.28 L, Nucleated RBC % 0, Differential Comment SCANNED, Platelet Estimate MOD DEC 07/14/22 04:48: Sodium 144, Potassium 3.6, Chloride 115 H, Carbon Dioxide 22.0, Anion Gap 7, BUN 16, Creatinine 0.92, Estim Creat Clear Calc 33.12, Est GFR (MDRD) Af Amer 75, Est GFR (MDRD) Non-Af 62, BUN/Creatinine Ratio 17.5, Glucose 110 H, Calcium 8.0 L Micro: Microbiology 07/12/22 18:15 Wound Abcess - Axilla, Left Gram Stain - Final 07/12/22 18:15 Wound Abcess - Axilla, Left Wound Culture - Preliminary Staphylococcus species 07/12/22 18:15 Wound Abcess - Axilla, Left Anaerobic Culture - Preliminary Checking for anaerobes, further studies to follow. 07/12/22 17:25 Urine, Clean Catch Urine Culture - Final Escherichia coli Rhythm Strip Rhythm Strip: Sinus Tach Rate: 112 Ectopy: None Physical Exam Const alert, oriented x3 and no apparent distress General Appearance: cooperative HEENT normocephalic, head/scalp atraumatic and moist oral mucous membranes Eyes PERRL and EOMs intact bilaterally Neck no lymphadenopathy and supple Lymph Lymphatic: no lymphadenopathy noted Resp Resp Narrative: moderately diminished breath sounds bibasally, no wheezes or crackles. on 4L of oxygen by nasal canula. Cardio regular rate, regular rhythm, S1 normal heart sound, S2 normal heart sound and no murmurs GI normal to inspection, nondistended, normoactive bowel sounds, soft to palpation and non-tender Extremity normal capillary refill, no clubbing, cyanosis or edema and no calf tenderness Skin General Skin Exam: no breakdown, turgor normal and dry skin Neuro CN's II-XII intact bilaterally, no focal motor deficits, no sensory deficits noted and deep tendon reflexes 2+ bilaterally Motor Exam: strength 5/5 throughout Psych thought process normal, cooperative and affect normal Appearance: appropriate Assessment & Plan Assessment/Plan (1) Acute UTI: (2) Abscess: PLAN: Plan #Left axillary abscess * Was admitted with tachycardia and leukocytosis. Found to have a left axillary abscess and had I&D done. She was also hypotensive, which resolved. * on IV ancef and levaquin * MRSA screen pending * Wound culture showed gram-negative organism. * * #Hypoxia: * Patient has been on 4 L of oxygen. She denies having any history of COPD or wheezing. Chest x-ray today showed no acute cardiopulmonary process. * We will check BNP and give a dose of Lasix. Also give some IV steroids. #UTI: Urine was positive for nitrites and leukocyte esterase as well as pyuria. She is on IV Ancef and also on Levaquin now. #CKD stage IIIb: Creatinine was mildly elevated. He was hydrated with IV fluids. Trended down to her baseline. Will monitor. #Aortic stenosis s/p TAVR: Had TAVR a year ago. Follows with Dr. Harden DVT prophylaxis: lovenox Charges/Coding Visit Charges Inpatient E&M: 91304 Subs Hosp L2
[2022-07-14 17:55] LABS: BNP,B-Type NATRIURETIC PEPTIDE 331.9 pg/mL (0-100)
[2022-07-14] MEDS: Furosemide 40 MG/4 ML Vial IV (18:48)
[2022-07-14] MEDS: 0.9% Saline Lock 10 ML Syringe IV (21:18)
[2022-07-15] VITALS (8 sets, daily range): BP systolic 105–136; BP diastolic 55–66; PULSE 64–78; RESP 16–18; TEMP 36.1–36.7; O2SAT 94–96
[2022-07-15 05:16] LABS: Absolute Lymphocyte Count 0.28 X10^3/uL (0.83-4.51); Absolute Neutrophil Count 4.6 X10^3/uL (2.0-7.7); Basophil# 0.01 X10^3/uL; Basophil% 0.2 % (0-1); Hematocrit 33.7 % (37-47); Hemoglobin 10.8 g/dL (12.0-15.0); Lymphocyte # 0.28 X10^3/ul (0.83-4.51); Lymphocyte % 5.6 % (19-41); Mean Corpuscular Hgb 30.6 pg (27.0-32.0); Mean Corpuscular Volume 95.5 fL (81-99); Mean Platelet Vol. 12.6 fl (6.2-12.0); Monocyte# 0.12 X10^3/uL; Monocyte% 2.4 % (0-10); NRBC Flagged by Analyzer 0 % (0-5); Neutrophil # 4.58 X10^3/uL (2.7-7.7); Neutrophil % 91.2 % (47-70); POSITIVE DIFFERENTIAL YES; Platelet Count 104 K/mm3 (150-450); RBC Distribution Width CV 13.6 % (11.6-14.6); Red Blood Count 3.53 M/mm3 (4.2-5.4)
[2022-07-15] MEDS: 0.9% Saline Lock 10 ML Syringe IV (05:28)
[2022-07-15 05:37] LABS: Differential Indicated SCAN CRITERIA MET
[2022-07-15 05:41] LABS: Anion Gap 3 (5-15); BUN 20 mg/dL (7-18); BUN/Creat Ratio 22.8 RATIO (10-20); Calcium,Total 8.4 mg/dL (8.5-10.1); Chloride 113 mmol/L (98-107); Creatinine, Serum 0.88 mg/dL (0.55-1.02); EST Glomerular Filtration Rate 65 mL/min (>60); Est Glom Filt Rate - Afr Amer 79 mL/min (>60); Estimated Creatinine Clearance 34.63 ml/min; Glucose 163 mg/dL (74-106); Potassium 3.6 mmol/L (3.5-5.1); Sodium Level 142 mmol/L (136-145)
[2022-07-15 06:20] LABS: Differential Comment SCANNED
[2022-07-15] MEDS: Enoxaparin 40 MG/0.4 ML Syringe SC (08:35)
[2022-07-15] MEDS: Benzonatate 100 MG Capsule PO (08:41)
[2022-07-15] MEDS: Cefazolin 2 GM in 0.9% Normal Saline 100 ML IV ×3 (09:35→21:15)
--- NOTE | 2022-07-15 11:02 | PCM.PN.SRG ---
Subjective Subjective Seen and examined during AM rounds. She is found resting in bed. She denies any discomfort from her left armpit. Objective Data Objective Data Vital Signs: Vital Signs Temp Pulse Resp BP Pulse Ox O2 Del Method O2 Flow Rate 98.1 F 78 18 125/66 H 96 Nasal Cannula 3 07/15/22 08:26 07/15/22 08:26 07/15/22 08:26 07/15/22 08:26 07/15/22 08:26 07/15/22 08:45 07/15/22 08:45 Oxygen Flow Rate (L/min) 3 Oxygen Delivery Method Nasal Cannula Weight: 180 lb 5.41 oz Body Mass Index (BMI) 34.0 Intake & Output: Intake and Output for Last 24 Hours 07/13/22 07/14/22 07/15/22 23:59 23:59 23:59 Intake Total 5567.5 / 5567.5 2172.5 / 2172.5 Output Total 700 / 700 600 / 1400 1100 / 1100 Balance 4867.5 / 4867.5 1572.5 / 772.5 -1100 / -1100 Lab / Micro Data Result Diagrams: 07/15/22 04:07 07/15/22 04:07 Labs: Laboratory Results - last 24 hr 07/14/22 04:48: B-Natriuretic Peptide 331.9 H 07/15/22 04:07: WBC 5.0, RBC 3.53 L, Hgb 10.8 L, Hct 33.7 L, MCV 95.5, MCH 30.6, MCHC 32.0, RDW Std Deviation 48.0 H, RDW Coeff of Lukasz 13.6, Plt Count 104 L, MPV 12.6 H, Immature Gran % (Auto) 0.600, Neut % (Auto) 91.2 H, Lymph % (Auto) 5.6 L, [place] % (Auto) 2.4, Eos % (Auto) 0.0, Baso % (Auto) 0.2, Absolute Neuts (auto) 4.6, Absolute Lymphs (auto) 0.28 L, Nucleated RBC % 0, Differential Comment SCANNED 07/15/22 04:07: Sodium 142, Potassium 3.6, Chloride 113 H, Carbon Dioxide 26.0, Anion Gap 3 L, BUN 20 H, Creatinine 0.88, Estim Creat Clear Calc 34.63, Est GFR (MDRD) Af Amer 79, Est GFR (MDRD) Non-Af 65, BUN/Creatinine Ratio 22.8 H, Glucose 163 H, Calcium 8.4 L Micro: Microbiology 07/12/22 18:15 Wound Abcess - Axilla, Left Gram Stain - Final 07/12/22 18:15 Wound Abcess - Axilla, Left Wound Culture - Final Staphylococcus epidermidis 07/12/22 18:15 Wound Abcess - Axilla, Left Anaerobic Culture - Preliminary Checking for anaerobes, further studies to follow. 07/12/22 17:25 Urine, Clean Catch Urine Culture - Final Escherichia coli Rhythm Strip Rhythm Strip: Sinus Tach Rate: 112 Ectopy: None Physical Exam Const oriented x3 and no apparent distress Resp Resp Narrative: Still mildly tachypneic Extremity Extremity Narrative: Left axilla appears roughly the same as yesterday with some mild erythema/induration directly about her incision and drainage site. There is persistent purulent drainage on packing material. Patient has some reactive erythema to overlying adhesive Assessment & Plan Assessment/Plan (1) Cutaneous abscess of left axilla: PLAN: This is an 86-year-old female currently admitted to the hospitalist service with signs and symptoms on intake of sepsis secondary to concurrent UTI and left axillary abscess. The latter was drained at bedside by emergency medicine yesterday. Once again patient's I&D site exhibits signs of ongoing purulent drainage. This may be slightly decreased in volume from yesterday's exam. Patient did not shower yesterday and nursing reports that there is a water temperature issue with the shower so I therefore irrigated the wound with a sterile flush and repacked it with packing strip. Wound cultures are reviewed and now returning consistent with Staphylococcus epidermidis for axillary site and E coli for urine. Recommend: ? Wound repacked. Recommend daily packing and wound changing unless patient has showering. I would recommend undressing the wound, showering to allow irrigation of the wound cavity, then redressing. ?Remainder of care per hospitalist service, but agree with antibiotic coverage as ordered ? Should patient discharged today, would recommend follow-up in the next 1 to 2 weeks as an outpatient for wound check and instructed on wound care prior to discharge Charges/Coding Visit Charges Inpatient E&M: 89849 Subs Hosp L2
--- NOTE | 2022-07-15 11:19 | PN_ITS ---
Subjective Subjective Patient seen and examined. She had an uneventful night and has no complaints. He feels her breathing is improving and she denies any chest pain, palpitations, dizziness, nausea vomiting or diarrhea. Review of systems is otherwise negative. Objective Data Objective Data Vital Signs: Vital Signs Temp Pulse Resp BP Pulse Ox O2 Del Method O2 Flow Rate 98.1 F 78 18 125/66 H 95 Nasal Cannula 3 07/15/22 08:26 07/15/22 08:26 07/15/22 08:26 07/15/22 08:26 07/15/22 11:04 07/15/22 11:04 07/15/22 11:04 Oxygen Flow Rate (L/min) 3 Oxygen Delivery Method Nasal Cannula Weight: 180 lb 5.41 oz Body Mass Index (BMI) 34.0 Intake & Output: Intake and Output for Last 24 Hours 07/13/22 07/14/22 07/15/22 23:59 23:59 23:59 Intake Total 5567.5 / 5567.5 2172.5 / 2172.5 Output Total 700 / 700 600 / 1400 1100 / 1100 Balance 4867.5 / 4867.5 1572.5 / 772.5 -1100 / -1100 Lab / Micro Data Result Diagrams: 07/15/22 04:07 07/15/22 04:07 Labs: Laboratory Results - last 24 hr 07/14/22 04:48: B-Natriuretic Peptide 331.9 H 07/15/22 04:07: WBC 5.0, RBC 3.53 L, Hgb 10.8 L, Hct 33.7 L, MCV 95.5, MCH 30.6, MCHC 32.0, RDW Std Deviation 48.0 H, RDW Coeff of Lukasz 13.6, Plt Count 104 L, MPV 12.6 H, Immature Gran % (Auto) 0.600, Neut % (Auto) 91.2 H, Lymph % (Auto) 5.6 L , Callaway % (Auto) 2.4, Eos % (Auto) 0.0, Baso % (Auto) 0.2, Absolute Neuts (auto) 4.6, Absolute Lymphs (auto) 0.28 L, Nucleated RBC % 0, Differential Comment SCANNED 07/15/22 04:07: Sodium 142, Potassium 3.6, Chloride 113 H, Carbon Dioxide 26.0, Anion Gap 3 L, BUN 20 H, Creatinine 0.88, Estim Creat Clear Calc 34.63, Est GFR (MDRD) Af Amer 79, Est GFR (MDRD) Non-Af 65, BUN/Creatinine Ratio 22.8 H, Glucose 163 H, Calcium 8.4 L Micro: Microbiology 07/12/22 18:15 Wound Abcess - Axilla, Left Gram Stain - Final 07/12/22 18:15 Wound Abcess - Axilla, Left Wound Culture - Final Staphylococcus epidermidis 07/12/22 18:15 Wound Abcess - Axilla, Left Anaerobic Culture - Preliminary Checking for anaerobes, further studies to follow. 07/12/22 17:25 Urine, Clean Catch Urine Culture - Final Escherichia coli Rhythm Strip Rhythm Strip: Sinus Tach Rate: 112 Ectopy: None Physical Exam Const alert, oriented x3 and no apparent distress General Appearance: cooperative HEENT normocephalic, head/scalp atraumatic and moist oral mucous membranes Eyes PERRL and EOMs intact bilaterally Neck no lymphadenopathy and supple Lymph Lymphatic: no lymphadenopathy noted Resp Resp Narrative: moderately diminished breath sounds bibasally, no wheezes or crackles. on 3L of oxygen by nasal canula. Cardio regular rate, regular rhythm, S1 normal heart sound, S2 normal heart sound and no murmurs GI normal to inspection, nondistended, normoactive bowel sounds, soft to palpation and non-tender Extremity normal capillary refill, no clubbing, cyanosis or edema and no calf tenderness Skin General Skin Exam: no breakdown, turgor normal and dry skin Neuro CN's II-XII intact bilaterally, no focal motor deficits, no sensory deficits noted and deep tendon reflexes 2+ bilaterally Motor Exam: strength 5/5 throughout Psych thought process normal, cooperative and affect normal Appearance: appropriate Assessment & Plan Assessment/Plan (1) Acute UTI: (2) Abscess: PLAN: Plan #Left axillary abscess * Was admitted with tachycardia and leukocytosis. Found to have a left axillary abscess and had I&D done. She was also hypotensive, which resolved. * on IV ancef and levaquin * MRSA screen pending * Wound culture showed gram-negative organism. * #Hypoxia: * Patient has been on 4 L of oxygen. She denies having any history of COPD or wheezing. Chest x-ray today showed no acute cardiopulmonary process. * BNP was 331.9 * will diurese with IV lasix * get 2D echo * #UTI: Urine was positive for nitrites and leukocyte esterase as well as pyuria. She is on IV Ancef and also on Levaquin now. #CKD stage IIIb:stable. Cr at baseline. #Aortic stenosis s/p TAVR: Had TAVR a year ago. Follows with Dr. Harden DVT prophylaxis: lovenox Charges/Coding Visit Charges Inpatient E&M: 45717 Subs Hosp L2
--- NOTE | 2022-07-15 11:26 | ECHOD_ITS ---
Reason For Study: Dyspnea/SOB Procedure This was a 2D Doppler, Color Flow transthoracic echocardiogram. Exam performed portable in patient room. Left Ventricle Normal LV size. Left ventricular systolic function is normal. The estimated ejection fraction is 60 %. Stage 1 diastolic dysfunction. No regional wall motion abnormalities noted. Right Ventricle Normal RV size. Normal systolic function. Atria The left atrium is moderately enlarged. Normal right atrium. Mitral Valve There is mild mitral annular calcification. Tricuspid Valve Normal tricuspid valve. Mild (1+) tricuspid valve insufficiency. Pulmonary artery systolic pressure is 40 mmHg. Aortic Valve Peak aortic valve gradient 38 mmHg. Mean aortic valve gradient 24 mmHg. Mild aortic stenosis. Bioprosthetic aortic valve. Pulmonic Valve Normal pulmonic valve. Great Vessels Normal aortic root. Mild pulmonary artery dilation. right pulm artery dilation measuring 3.7. Normal inferior vena cava. Pericardium/Pleural No pericardial effusion. MMode/2D Measurements & Calculations LVIDd: 4.5 cm IVSd: 1.0 cm LVOT diam: 1.8 cm LVIDs: 2.5 cm LVPWd: 1.1 cm LVOT area: 2.6 cm2 RVDd: 3.4 cm FS: 44.5 % Ao root diam: 2.9 cm LAV(MOD-bp): 83.0 ml LVAd ap4: 21.1 cm2 LAV(MOD-bp) Indexed: 46.0 ml/m2 LVLd ap4: 7.0 cm LAV(MOD-sp2): 69.8 ml EDV(MOD-sp4): 51.9 ml LAV(MOD-sp4): 82.9 ml EDV(sp4-el): 53.4 ml LVAs ap4: 10.3 cm2 LVLs ap4: 5.7 cm ESV(MOD-sp4): 15.4 ml ESV(sp4-el): 15.9 ml EF(MOD-sp4): 70.2 % EF(sp4-el): 70.2 % SV(MOD-sp4): 36.5 ml SV(sp4-el): 37.5 ml LA A4 area: 25.7 cm2 LA dimension(2D): 4.4 cm RA A4 area: 9.2 cm2 Time Measurements MV dec time: 0.44 sec Doppler Measurements & Calculations MV E max duglas: 179.6 cm/sec Lat Peak E' Duglas: 6.0 cm/sec Med Peak E' Duglas: 4.4 cm/sec MV A max dugals: 182.9 cm/sec E/E' lat: 29.9 E/E' med: 40.9 MV E/A: 0.98 MV V2 max: 232.3 cm/sec Ao V2 max: 307.5 cm/sec MV max P.6 mmHg MV dec slope: 404.2 cm/sec2 Ao max P.8 mmHg MV V2 mean: 164.5 cm/sec Ao V2 mean: 236.7 cm/sec MV mean P.7 mmHg Ao mean P.0 mmHg MV V2 VTI: 75.2 cm Ao V2 VTI: 73.5 cm AV (velocity ratio): 0.55 MVA(VTI): 1.4 cm2 EDWIN(I,D): 1.5 cm2 EDWIN(V,D): 1.4 cm2 LV V1 max: 168.3 cm/sec SV(LVOT): 106.5 ml PA V2 max: 98.7 cm/sec LV V1 max P.3 mmHg LV V1 mean P.8 mmHg LV V1 mean: 134.6 cm/sec LV V1 VTI: 40.5 cm PI end-d duglas: 138.6 cm/sec TR max duglas: 306.6 cm/sec TR max P.6 mmHg ECHO/Echo Complete Interpretation Summary Normal LV size. Left ventricular systolic function is normal. The estimated ejection fraction is 60 %. Stage 1 diastolic dysfunction. The left atrium is moderately enlarged. Mild pulmonary artery dilation. right pulm artery dilation measuring 3.7 Ordering Physician: Shelly Maguire Referring Physician: Jeremy Howell Performed By: Lupe Polk, RUDDYCS, RVT
[2022-07-15] MEDS: Furosemide 40 MG/4 ML Vial IV (11:58)
[2022-07-15] MEDS: levoFLOXacin IV 750 MG/150 ML BAG 100 MG IV (12:03)
[2022-07-16 02:54] VITALS: BP 131/68; PULSE 70; RESP 18; TEMP 36.7; O2SAT 92
[2022-07-16] MEDS: Cefazolin 2 GM in 0.9% Normal Saline 100 ML IV ×2 (05:45→13:53)
[2022-07-16 07:12] VITALS: O2SAT 96
[2022-07-16] MEDS: Enoxaparin 40 MG/0.4 ML Syringe SC (08:23)
[2022-07-16 08:49] VITALS: BP 134/65; PULSE 75; RESP 16; TEMP 36.1; O2SAT 94
--- NOTE | 2022-07-16 10:24 | PN.SURG_ITS ---
Subjective Subjective Patient seen and examined during AM rounds. She is reportedly under droplet precautions for rule out COVID, but nurses aide states this was negative. Patient denies any acute events overnight. She denies any difficulty with discomfort from her left armpit. She denies taking a shower yesterday. Objective Data Objective Data Vital Signs: Vital Signs Temp Pulse Resp BP Pulse Ox O2 Del Method O2 Flow Rate 97.0 F L 75 16 134/65 H 94 Nasal Cannula 2 07/16/22 08:49 07/16/22 08:49 07/16/22 08:49 07/16/22 08:49 07/16/22 08:49 07/16/22 09:19 07/16/22 09:19 Oxygen Flow Rate (L/min) 2 Oxygen Delivery Method Nasal Cannula Weight: 180 lb 5.41 oz Body Mass Index (BMI) 34.0 Intake & Output: Intake and Output for Last 24 Hours 07/14/22 07/15/22 07/16/22 23:59 23:59 23:59 Intake Total 2172.5 / 2172.5 1480 / 1720 400 / 400 Output Total 600 / 1400 2200 / 2200 Balance 1572.5 / 772.5 -720 / -480 400 / 400 Lab / Micro Data Result Diagrams: 07/15/22 04:07 07/15/22 04:07 Micro: Microbiology 07/15/22 12:50 Mucosa - Nasopharyngeal Respiratory Panel (PCR) - Final Rhinovirus 07/12/22 16:40 Blood Culture (Wb) - Anticubital Right Blood Culture - Preliminary No growth in 48 hours. 07/12/22 15:55 Blood Culture (Wb) - Anticubital Left Blood Culture - Preliminary No growth in 48 hours. 07/15/22 11:45 Nasal Secretion SARS-CoV-2 Antigen (Rapid) - Final 07/12/22 18:15 Wound Abcess - Axilla, Left Gram Stain - Final 07/12/22 18:15 Wound Abcess - Axilla, Left Wound Culture - Final Staphylococcus epidermidis 07/12/22 18:15 Wound Abcess - Axilla, Left Anaerobic Culture - Preliminary Checking for anaerobes, further studies to follow. 07/12/22 17:25 Urine, Clean Catch Urine Culture - Final Escherichia coli Rhythm Strip Rhythm Strip: Sinus Tach Rate: 112 Ectopy: None Physical Exam Const oriented x3 and no apparent distress Resp Resp Narrative: More relaxed respiratory effort Extremity Extremity Narrative: Left axilla appears markedly improved with no erythema and no purulent drainage. Once again the cavity was irrigated and repacked/redressed. Assessment & Plan Assessment/Plan (1) Cutaneous abscess of left axilla: PLAN: This is an 86-year-old female currently admitted to the hospitalist service with signs and symptoms on intake of sepsis secondary to concurrent UTI and left axillary abscess. The latter was drained at bedside by emergency medicine yesterday. Today patient's I&D site exhibits marked improvements with no further erythema, decreased induration, and no further purulent drainage. Wound cultures were reviewed and now returning consistent with Staphylococcus epidermidis for axillary site and E coli for urine. Recommend: ? Wound repacked. Recommend daily application of an outer dressing. At this point patient does not require packing based on wound appearance today. It should drain spontaneously and then be allowed to heal. Would allow wound to get wet with shower water, purge the wound of any remaining water following shower and then cover. ? Remainder of care per hospitalist service, but agree with antibiotic coverage as ordered ? Should patient discharged today, would recommend follow-up in the next 1 to 2 weeks as an outpatient for wound check and instructed on wound care prior to discharge Charges/Coding Visit Charges Inpatient E&M: 75876 [facility] L1
[2022-07-16 10:26] VITALS: O2SAT 92; O2SAT 93
--- NOTE | 2022-07-16 11:23 | PCM.DC.SUM ---
Providers Date of Admission: 07/12/22 Date of Discharge: 07/16/22 Primary Care Physician: Dr. Ranulfo Howell MD Consultations 07/13/22 10:38 Consult: General Surgery Routine Consulting Provider: Mikel Townsend Reason for Consult: left axillary abscess EMERGENT Consult: No MD Notified: Yes Date Notified: 07/13/22 Time Notified: 10:38 Method of Notification: Verbal Reason For Visit: SEPSIS UTI AND ABSCESS Diagnosis Discharge Diagnosis (1) Cutaneous abscess of left axilla: Status: Acute Code(s): L02.412 - Cutaneous abscess of left axilla Plan #Left axillary abscess Was admitted with tachycardia and leukocytosis. Found to have a left axillary abscess and had I&D done. She was also hypotensive, which resolved. on IV ancef and levaquin MRSA screen pending Wound culture showed gram-negative organism. #Hypoxia: Patient has been on 4 L of oxygen. She denies having any history of COPD or wheezing. Chest x-ray today showed no acute cardiopulmonary process. BNP was 331.9 will diurese with IV lasix get 2D echo #UTI: Urine was positive for nitrites and leukocyte esterase as well as pyuria. She is on IV Ancef and also on Levaquin now. #CKD stage IIIb:stable. Cr at baseline. #Aortic stenosis s/p TAVR: Had TAVR a year ago. Follows with Dr. Harden DVT prophylaxis: lovenox Medications at Discharge Home Medications lisinopril 20 mg-hydrochlorothiazide 25 mg tablet 0.5 tab PO DAILY ##0 12/30/19 cephalexin 500 mg capsule 500 mg PO Q6H #20 caps 07/16/22 furosemide 40 mg tablet 40 mg PO DAILY #30 tabs 07/16/22 potassium chloride 10 mEq capsule,extended release 10 meq PO DAILY #30 caps 07/16/22 Hospital Course Operations None Procedures 2-D Echocardiogram Summary of Care Provided Minutes Spent on Discharge: 45 Hospital Course: Patient is an 86-year-old female with a past medical history as outlined was admitted through the ED on 07/12/2022 with a complaint of weakness and an axillary abscess and the left axilla which have been going on for about a week but said it gradually got painful. She went to the urgent care on the day of admission and was given a dose of Bactrim and sent home. She took the Bactrim and is however feeling worse so she decided to come into the ED. In the ED she was hypotensive and short of breath with her systolic BP down in the 70s. She responded to IVF. Lactic acid was also elevated at 3.2. CXR was unremarkable and urinalysis showed evidence of UTI. She was admitted and managed for UTI and left axillary abscess. General surgery was consulted. She was started on IV zosyn and subsequently transitioned to IV ancef. MRSA screen was negative. Patient became hypoxic and required up to 4L of oxygen; she didnt have any history of heart failure, COPD or asthma. CXR showed no acute cardiopulmonary process. BNP was moderately elevated in the 300s. She was diuresed with IV lasix. 2D echo ordered showed normal left ventricular size and systolic function with EF of 60% and stage I diastolic dysfunction with no regional wall motion abnormality shown. Pulmonary artery systolic pressure was 40 mmHg and she had mild aortic stenosis with a bioprosthetic aortic valve present as well as mildly dilated pulmonary artery. Left atrium was moderately enlarged. Due to relatively new finding of elevated pulmonary artery systolic pressure, she did have a CTA which was negative for any evidence of PE. Wound cultures grew Staph epidermidis and anerobic cocci. Respiratory panel was positive for rhinovirus. Breathing improved and she felt much better. She was weaned off oxygen. She remained stable and was discharged home on 07/16/2022. She is to follow up with her PCP and general surgery within 1-2 weeks. Patient seen and examined prior to discharge. Her was by her bedside. She had no active complaints and had an uneventful night. Review of systems otherwise negative. Labs and vitals reviewed. Home medication reviewed and reconciled. Physical Exam Const alert, oriented x3 and no apparent distress General Appearance: cooperative, comfortable and well kempt HEENT normocephalic, head/scalp atraumatic, hearing grossly normal bilaterally and moist oral mucous membranes Mouth: oral and palatal mucosa normal Eyes PERRL and EOMs intact bilaterally Neck no lymphadenopathy and supple Lymph Lymphatic: no lymphadenopathy noted Resp Resp Narrative: moderately diminished breath sounds bibasally, no wheezes or crackles. on room air. Cardio regular rate, regular rhythm, S1 normal heart sound, S2 normal heart sound and no murmurs GI normal to inspection, nondistended, normoactive bowel sounds, soft to palpation and non-tender Extremity normal to inspection, full ROM, normal capillary refill, no clubbing, cyanosis or edema and no calf tenderness General Extremity: edema Skin no rashes or lesions noted and no wounds General Skin Exam: no breakdown, turgor normal and dry skin Neuro oriented x3, CN's II-XII intact bilaterally, moves all extremities, no focal motor deficits, no sensory deficits noted and deep tendon reflexes 2+ bilaterally Sensorium / Orientation: awake and alert Motor Exam: strength 5/5 throughout Psych thought process normal, cooperative and affect normal Appearance: appropriate Weight / BMI Weight Weight: 180 lb 5.41 oz Body Mass Index (BMI) 34.0 ABG / Lab / Microbiology Data Result Diagrams: 07/15/22 04:07 07/15/22 04:07 Microbiology: Microbiology 07/12/22 18:15 Wound Abcess - Axilla, Left Gram Stain - Final 07/12/22 18:15 Wound Abcess - Axilla, Left Wound Culture - Final Staphylococcus epidermidis 07/12/22 18:15 Wound Abcess - Axilla, Left Anaerobic Culture - Final Anaerobic cocci 07/15/22 12:50 Mucosa - Nasopharyngeal Respiratory Panel (PCR) - Final Rhinovirus 07/12/22 16:40 Blood Culture (Wb) - Anticubital Right Blood Culture - Preliminary No growth in 48 hours. 07/12/22 15:55 Blood Culture (Wb) - Anticubital Left Blood Culture - Preliminary No growth in 48 hours. 07/15/22 11:45 Nasal Secretion SARS-CoV-2 Antigen (Rapid) - Final 07/12/22 17:25 Urine, Clean Catch Urine Culture - Final Escherichia coli D/C Instructions Discharge Diet: Low fat / Low cholesterol Discharge Activity: Return to Normal Activity Weight Bearing Status: Weight bearing as tolerated Call your doctor if your incision/area has: Continuous Slow Oozing, Sudden Increased Bleeding, Increased Pain/ Swelling, Increased Redness, Foul Smelling Discharge and Swelling at the incision site Call your doctor if you observe: Fever of 101 or Higher, Shortness of breath and Swelling in the ankles Meaningful Use Info Meaningful Use Diagnoses (Choose all that apply): None applicable Discharge Plan Admission Admit Date/Time: 07/12/22 18:52 Primary Reason for Your Visit: UTI, left axillary abscess Attending Provider: Shelly Maguire Primary Care Provider: Ranulfo Howell Consulting Providers: Silver Lucero ; Mikel Townsend ; Guanakito Pimentel Instructions Patient Instructions: Urinary Tract Infections in Women Discharge Orders/Prescriptions Prescriptions: New cephalexin 500 mg capsule 500 mg PO Q6H Qty: 20 0RF furosemide 40 mg tablet 40 mg PO DAILY Qty: 30 1RF potassium chloride 10 mEq capsule, extended release 10 meq PO DAILY Qty: 30 1RF Continued lisinopril-hydrochlorothiazide 1 TABLET tablet 0.5 tab PO DAILY Qty: 0 0RF Label Comments: blood pressure medication Rx Instructions: Hold until you follow-up with PCP to monitor your blood pressure Discontinued sulfamethoxazole-trimethoprim [Bactrim DS] 800-160 mg tablet 1 tab PO Q12H Qty: 14 0RF Referrals / Follow Up: Ranulfo Howell MD [Primary Care Provider] - 07/17/22 9:00 am (Appointment is with Natalie Boyd N.P.) Mikel Townsend MD [Med Staff - Active Staff] - Within 2 Weeks Disposition Disposition (needs filled in before D/C Order can be placed): Home, Self Care Charges/Coding Visit Charges Inpatient E&M: 18649 Disch Hosp >30min
[2022-07-16 13:54] VITALS: BP 125/60; PULSE 80; RESP 16; TEMP 36.2; O2SAT 93
--- NOTE | 2022-07-16 14:24 | CASEMGMT ---
AMY BOCANEGRA in to discuss needs at discharge with patient, at bedside. RN CM reviewed progress with therapy and no therpay recommended at discharge. Patient denies needs at discharge. AMY BOCANEGRA discussed wound care with patient and . thinks he will be able to complete wound care. AMY BOCANEGRA requested nursing to complete wound care teaching with patient and . Patient and had no further questions at this time.
--- NOTE | 2022-07-16 16:05 | CT_ITS ---
STUDY: CTA CHEST REASON FOR EXAM: Female, 86 years old. Shortness of breath. RADIATION DOSAGE (If Supplied By Facility): CTDIvol = ( 10.97 ) mGy, DLP = ( 494.32 ) mGycm TECHNIQUE: The examination was performed with the intravenous administration of IV 100mL Isovue-370. Post-processing of the angiographic images was performed, with multiplanar reformation and 3D reconstruction. Individualized dose optimization techniques were used for this CT. COMPARISON: Comparison is made with prior CT scan of thorax dated December 20, 2019. FINDINGS: Prominence of the central pulmonary arteries. Component of pulmonary hypertension should be ruled out. No evidence of pulmonary embolism. Normal thoracic aorta and visualized great vessels. There is no demonstrated aortic dissection. There are calcifications of the coronary arteries. Prior aortic valve replacement. Normal mediastinum. Normal hilar regions. Normal visualized trachea and bronchi. The lungs are well expanded. Small bilateral pleural effusions with bibasilar atelectasis more prominent at the lung bases. An element of CHF should be ruled out. Normal chest wall structures. There are degenerative changes of thoracic spine. The patient is status post cholecystectomy. CT/CTA Chest W/WO Contrast IMPRESSION: No evidence of pulmonary embolism. Small bilateral pleural effusions with bibasilar atelectasis. Prominence of the central pulmonary arteries. Pulmonary hypertension should be ruled out. Electronically Signed: Alexsander Garcia MD at 15:27 EDT ,
--- NOTE | 2022-07-16 16:51 | PHA.DC.MC ---
Pharmacy Service has performed discharge medication reconciliation and counseling for this patient. 1. CEPHALEXIN 500MG PO Q6H X 5 DAYS 2. FUROSEMIDE 40MG PO DAILY 3. POTASSIUM CHLORIDE 10MEQ PO DAILY The patient's discharge medication list was reviewed for discrepancies and discrepancies were resolved. Home Medications lisinopril 20 mg-hydrochlorothiazide 25 mg tablet 0.5 tab PO DAILY ##0 12/30/19 cephalexin 500 mg capsule 500 mg PO Q6H #20 caps 07/16/22 furosemide 40 mg tablet 40 mg PO DAILY #30 tabs 07/16/22 potassium chloride 10 mEq capsule,extended release 10 meq PO DAILY #30 caps 07/16/22 The patient was counseled on the following discharge medications and changes in medications for homegoing were reviewed. The Reason for Use, instructions for use, and potential side effects were reviewed for all new medications. The patient's questions regarding all of their medications were answered. The patient was able to verbally demonstrate an understanding of their discharge medications.
--- NOTE | 2022-07-16 17:07 | DCINST_ITS ---
Discharge Instructions Diet Discharge Diet: Low fat / Low cholesterol Activity Discharge Activity: Return to Normal Activity Weight Bearing Status: Weight bearing as tolerated Dressing / Incision Call your doctor if your incision/area has: Continuous Slow Oozing, Sudden Increased Bleeding, Increased Pain/ Swelling, Increased Redness, Foul Smelling Discharge and Swelling at the incision site Call your doctor if you observe: Fever of 101 or Higher, Shortness of breath and Swelling in the ankles Follow Up Care Test Results: Test results from this visit will be discussed in further detail at your follow- up appointment, if applicable. Discharge Plan Admission Admit Date/Time: 07/12/22 18:52 Primary Reason for Your Visit: UTI, left axillary abscess Attending Provider: Shelly Maguire Primary Care Provider: Ranulfo Howell Consulting Providers: Silver Lucero ; Mikel Townsend ; Guanakito Pimentel Instructions Patient Instructions: Urinary Tract Infections in Women Discharge Orders/Prescriptions Prescriptions: New cephalexin 500 mg capsule 500 mg PO Q6H Qty: 20 0RF furosemide 40 mg tablet 40 mg PO DAILY Qty: 30 1RF potassium chloride 10 mEq capsule, extended release 10 meq PO DAILY Qty: 30 1RF Continued lisinopril-hydrochlorothiazide 1 TABLET tablet 0.5 tab PO DAILY Qty: 0 0RF Label Comments: blood pressure medication Rx Instructions: Hold until you follow-up with PCP to monitor your blood pressure Discontinued sulfamethoxazole-trimethoprim [Bactrim DS] 800-160 mg tablet 1 tab PO Q12H Qty: 14 0RF Referrals / Follow Up: Ranulfo Howell MD [Primary Care Provider] - 07/17/22 9:00 am (Appointment is with Natalie Boyd N.P.) Mikel Townsend MD [Med Staff - Active Staff] - Within 2 Weeks Disposition Disposition (needs filled in before D/C Order can be placed): Home, Self Care
--- NOTE | 2022-07-16 17:45 | NURSING ---
Thoroughly educated patient and patient's spouse on wound care instructions based on Dr. Townsend note.
== END 2022-07-16 17:46 | disposition home or self-care (01) | DRG 603 ==
LOC: ED 18:19 → PCU 20:37
PROVIDERS: Internal Medicine; Surgery; Admitting Provider Family Medicine; Emergency Provider Emergency Medicine; PCP Family Medicine; Visit Provider Student in an Organized Health Care Education/Training Program
DX: L02.412 Cutaneous abscess of left axilla (principal); E87.21 Acute metabolic acidosis; N17.9 Acute kidney failure, unspecified; N39.0 Urinary tract infection, site not specified; I95.2 Hypotension due to drugs; N18.32 Chronic kidney disease, stage 3b; I12.9 Hypertensive chronic kidney disease with stage 1 through stage 4 chronic kidney disease, or unspecified chronic kidney disease; I25.10 Atherosclerotic heart disease of native coronary artery without angina pectoris; E78.5 Hyperlipidemia, unspecified; I35.0 Nonrheumatic aortic (valve) stenosis; R09.02 Hypoxemia; B96.20 Unspecified Escherichia coli [E. coli] as the cause of diseases classified elsewhere; B95.7 Other staphylococcus as the cause of diseases classified elsewhere; Z95.2 Presence of prosthetic heart valve; Z79.899 Other long term (current) drug therapy; Z86.16 Personal history of COVID-19
CPT/HCPCS: 36415; 71045; 71275; 80048; 80053; 81001; 83605; 83880; 85025; 85610; 85730; 87040; 87070; 87075; 87077; 87086; 87088; 87186; 87205; 87426; 87633; 87640; 93005; 93306; 94640; 97162; 97166; 99285; J7030; Q9967; A4216; J1940

== ENCOUNTER → 2022-09-25 | Outpatient (CLI) | payer MEDICARE, SELFPAY ==
[2022-09-25 15:25] LABS: Absolute Lymphocyte Count 1.17 X10^3/uL (0.83-4.51); Absolute Neutrophil Count 5.3 X10^3/uL (2.0-7.7); Basophil# 0.06 X10^3/uL; Basophil% 0.8 % (0-1); Eosinophil# 0.14 X10^3/uL; Eosinophils% 1.9 % (0-5); Hematocrit 37.9 % (37-47); Hemoglobin 11.9 g/dL (12.0-15.0); Lymphocyte # 1.17 X10^3/ul (0.83-4.51); Lymphocyte % 15.9 % (19-41); Mean Corp Hgb Conc 31.4 g/dL (32-36); Mean Corpuscular Hgb 29.6 pg (27.0-32.0); Mean Corpuscular Volume 94.3 fL (81-99); Mean Platelet Vol. 12.4 fl (6.2-12.0); Monocyte% 8.2 % (0-10); NRBC Flagged by Analyzer 0 % (0-5); Neutrophil # 5.32 X10^3/uL (2.7-7.7); Neutrophil % 72.5 % (47-70); Platelet Count 174 K/mm3 (150-450); RBC Distribution Width CV 13.2 % (11.6-14.6); RBC Distribution Width SD 45.7 fl (35.1-43.9); Red Blood Count 4.02 M/mm3 (4.2-5.4); White Blood Count 7.3 K/mm3 (4.4-11.0)
[2022-09-25 15:50] LABS: Anion Gap 7 (5-15); BUN 11 mg/dL (7-18); BUN/Creat Ratio 14.1 RATIO (10-20); Calcium,Total 8.9 mg/dL (8.5-10.1); Chloride 108 mmol/L (98-107); Cholesterol 170 mg/dL (200); Creatinine, Serum 0.78 mg/dL (0.55-1.02); EST Glomerular Filtration Rate 74 mL/min (>60); Est Glom Filt Rate - Afr Amer 90 mL/min (>60); Glucose 93 mg/dL (74-106); High Density Lipoprotein 36 mg/dL; Potassium 3.6 mmol/L (3.5-5.1); Sodium Level 140 mmol/L (136-145); Triglycerides 312 mg/dL; Uric Acid 7.6 mg/dL (2.6-6.0); Very Low Density Lipoprotein 62 mg/dL (5-40)
[2022-09-25 21:43] LABS: Vitamin D,25 Hydroxy 45.5 ng/mL
== END | disposition home or self-care (01) ==
LOC: MTLAB 13:10
PROVIDERS: Internal Medicine Cardiovascular Disease; PCP Family Medicine; Visit Provider Family Medicine
DX: I25.10 Atherosclerotic heart disease of native coronary artery without angina pectoris (principal); I35.0 Nonrheumatic aortic (valve) stenosis; I45.10 Unspecified right bundle-branch block; I10 Essential (primary) hypertension; M10.9 Gout, unspecified; E55.9 Vitamin D deficiency, unspecified; Z95.2 Presence of prosthetic heart valve
CPT/HCPCS: 36415; 80048; 80061; 82306; 84550; 85025

== ENCOUNTER → 2022-11-03 | Outpatient (CLI) | payer MEDICARE, SELFPAY ==
--- NOTE | 2022-11-03 14:00 | RAD_ITS ---
EXAM: XR RIGHT KNEE COMPLETE, 4 OR MORE VIEWS CLINICAL INDICATION: fall TECHNIQUE: Four or more views of the right knee. COMPARISON: No relevant prior studies available. FINDINGS: BONES/JOINTS: Unremarkable. No acute fracture. No subluxation. Normal alignment. Preservation of the joint space. No sclerotic or destructive changes observed. SOFT TISSUES: Unremarkable. No soft tissue swelling or gas. No radiopaque foreign body. RAD/Knee 4 or More Views IMPRESSION: Negative right knee x-rays. Electronically Signed: Mikel Casas MD at 0:07 EDT ,
[2022-11-03 17:49] LABS: Hematocrit 39.8 % (37-47); Hemoglobin 12.7 g/dL (12.0-15.0); Mean Corp Hgb Conc 31.9 g/dL (32-36); Mean Corpuscular Hgb 29.7 pg (27.0-32.0); Mean Platelet Vol. 11.3 fl (6.2-12.0); Platelet Count 260 K/mm3 (150-450); RBC Distribution Width CV 13.2 % (11.6-14.6); RBC Distribution Width SD 44.9 fl (35.1-43.9); Red Blood Count 4.28 M/mm3 (4.2-5.4); White Blood Count 9.4 K/mm3 (4.4-11.0)
[2022-11-03 18:17] LABS: AST(SGOT) 19 U/L (15-37); Alanine Aminotransfer ALT/SGPT 20 U/L (13-56); Albumin, Serum 3.5 g/dL (3.2-5.0); Alkaline Phosphatase 123 U/L (45-117); Anion Gap 6 (5-15); BUN 20 mg/dL (7-18); BUN/Creat Ratio 17.5 RATIO (10-20); Bilirubin, Direct 0.22 mg/dL (0.00-0.30); Calcium,Total 9.4 mg/dL (8.5-10.1); Chloride 104 mmol/L (98-107); Creatinine, Serum 1.14 mg/dL (0.55-1.02); EST Glomerular Filtration Rate 48 mL/min (>60); Est Glom Filt Rate - Afr Amer 58 mL/min (>60); Globulin 4.2 g/dL (2.2-4.2); Glucose 118 mg/dL (74-106); Potassium 3.2 mmol/L (3.5-5.1); Prealbumin 16.3 mg/dL (20.0-40.0); Protein, Total 7.7 g/dL (6.4-8.2); Sodium Level 142 mmol/L (136-145); Thyroid Stim Hormone (TSH) 0.89 uIU/mL (0.358-3.74)
== END | disposition home or self-care (01) ==
PROVIDERS: PCP Family Medicine; Referring Provider Family Medicine; Visit Provider Family Medicine
DX: S80.01XA Contusion of right knee, initial encounter (principal); R60.9 Edema, unspecified
CPT/HCPCS: 36415; 73564; 80048; 80076; 84134; 84443; 85027

== ENCOUNTER 2022-11-04 08:44 | Emergency (ER) | payer MEDICARE, SELFPAY ==
[2022-11-04 08:45] VITALS: BP 113/84; PULSE 98; RESP 20; TEMP 36.1; O2SAT 95; BMI 32.1
--- NOTE | 2022-11-04 08:58 | EX.ED.DYSGE1 ---
HPI History of Present Illness Chief Complaint: Dizziness Narrative Narrative: 86-year-old female presents with her because of lightheadedness/dizziness that she has had since this morning. She and her relate history that she has been taking a water pill for bilateral leg swelling. They state that she saw her primary care provider, Dr. Howell yesterday and had lab work performed, they received a phone call this morning stating that there might be something wrong with her kidneys. When she got up today, she felt lightheaded and off-balance, as if she were going to pass out. She has had diarrhea all evening, at least once an hour. She states all night. She denies any blood in her stool. No nausea or vomiting. No chest pain, shortness of breath, or abdominal pain. They were concerned because she felt lightheaded and off-balance this morning. [facility] Medical History Contusion of right knee Cutaneous abscess of left axilla Diverticulitis large intestine Edema of both feet Essential hypertension Gout History of 2019 novel coronavirus disease (COVID-19) (12/16/19) History of transcatheter aortic valve replacement (TAVR) (07/15/21) Hyperlipidemia Left adrenal mass Nonobstructive atherosclerosis of coronary artery Nonrheumatic aortic (valve) stenosis Right bundle branch block (RBBB) Transient complete heart block Home Medications furosemide 40 mg tablet 40 mg PO DAILY #30 tabs 08/13/22 [Rx Last Taken Unknown] lisinopril 20 mg-hydrochlorothiazide 25 mg tablet 0.5 tab PO DAILY #30 tabs 08/13/22 [Rx Last Taken Unknown] potassium chloride 10 mEq capsule,extended release 10 meq PO DAILY #30 caps 08/13/22 [Rx Last Taken Unknown] Allergy/AdvReac Type Severity Reaction Status Date / Time No Known Allergies Allergy Verified 11/01/22 08:14 Family History Sister Multiple myeloma Surgical History History of cataract surgery History of cholecystectomy History of colectomy History of left heart catheterization (06/10/21) History of total abdominal hysterectomy Social History household members: spouse number of children: 2 current occupational status: employed current occupation: self employed Smoking Status: Never smoker alcohol intake: never substance use type: does not use ROS ROS ED ROS Narrative Constitutional: No fever, no chills. HEENT: No sore throat. No neck pain. No loss of vision. No rhinorrhea. Cardiovascular: No chest pain. No palpitations. Bilateral pedal edema. Respiratory: No cough, no shortness of breath. Abdominal: No abdominal pain. No nausea. No vomiting. Positive diarrhea, nonbloody/loose stool. Genitourinary: No dysuria. No hematuria. Musculoskeletal: No myalgias. No arthralgias. Neurologic: No headaches. No dizziness. Positive lightheadedness. Skin: No rash. No change in color. Psychiatric: No depression. No anxiety. EXAM Physical Exam Narrative Exam Narrative: Afebrile. Vital signs noted. HEENT: Normocephalic. Atraumatic. PERRL, EOMI. Neck soft and supple. No point tenderness or step off. Cardiovascular: Regular rate and rhythm. No murmurs, rubs, or gallops appreciated. Respiratory: No tachypnea. Lungs clear to auscultation bilaterally. Gastrointestinal: Abdomen soft, nontender, with normoactive bowel sounds. No rebound or guarding. Neurological: Awake. Alert. Nonfocal, nonlateralizing. Skin: No rash. Normal color. No pallor. Musculoskeletal: No pedal edema. Full range of motion extremities. Const Vital Signs: 11/04/22 08:45 11/04/22 10:34 11/04/22 10:35 Temperature 96.9 F L Temperature Source Temporal Pulse Rate 98 93 Pulse Rate [Lying] Pulse Rate [Sitting (for 1 minute prior to obtaining)] Pulse Rate [Standing (for 1 minute prior to obtaining)] Respiratory Rate 20 H 12 Respiratory Effort Normal Non-Labored Respiratory Pattern Normal Blood Pressure 113/84 H Blood Pressure [Lying] Blood Pressure [Sitting (for 1 minute prior to obtaining)] Blood Pressure [Standing (for 1 minute prior to obtaining)] Blood Pressure Mean 93 Blood Pressure Mean [Lying] Blood Pressure Mean [Sitting (for 1 minute prior to obtaining)] Blood Pressure Mean [Standing (for 1 minute prior to obtaining)] Pulse Ox 95 94 Oxygen Delivery Method Room Air Room Air 11/04/22 10:38 Temperature Temperature Source Pulse Rate Pulse Rate [Lying] 92 Pulse Rate [Sitting (for 1 minute prior to obtaining)] 93 Pulse Rate [Standing (for 1 minute prior to obtaining)] 97 Respiratory Rate Respiratory Effort Respiratory Pattern Blood Pressure Blood Pressure [Lying] 115/81 H Blood Pressure [Sitting (for 1 minute prior to obtaining)] 125/71 H Blood Pressure [Standing (for 1 minute prior to obtaining)] 133/67 H Blood Pressure Mean Blood Pressure Mean [Lying] 92 Blood Pressure Mean [Sitting (for 1 minute prior to obtaining)] 89 Blood Pressure Mean [Standing (for 1 minute prior to obtaining)] 89 Pulse Ox Oxygen Delivery Method MDM MDM MDM Narrative Medical decision making narrative: Comprehensive work-up was pursued. Concern is for intravascular volume depletion versus dehydration because of her diarrhea. I think that her lightheadedness is nonvertiginous. I do not feel CT of the brain is indicated. Additionally, I do not feel chest x-ray is indicated as she is not showing any signs of an upper respiratory infection. Given her history that she had lab work performed, and she may have an acute kidney injury or dehydration from her Lasix, including hypokalemia. I reviewed her laboratory work, and she has slightly elevated white count of 14,000 which I think is nonspecific, hemoglobin normal at 13.5, hematocrit 42.0, platelet count normal at 258. Review of her CMP shows BUN elevated 29 with a creatinine of 1.23. She was bolused normal saline 1 L intravenously. Although she has had a slight increase in her creatinine, I do not feel that she requires observation or admission for this. Glucose is appropriately elevated at 150 with a normal anion gap of 7. Sodium normal at 140, potassium normal at 3.6. High-sensitivity troponin is normal at 6. EKG obtained and interpreted by myself independently as normal sinus rhythm at 93 bpm without ectopy or acute ST changes. No STEMI. While there is a right bundle branch block, this is listed as a chronic problem and has been present previously. I reviewed her urinalysis and there are 25-50 WBCs but negative nitrites, negative ketones. She was given her first dose of Keflex here in the emergency department and prescription written for the next 7 days. At this point in time, I feel she can be discharged safely home with follow-up as she was able to ambulate to the bathroom without difficulty. I do not feel she requires observation or admission. She will follow-up with her primary care provider given her slight increase in creatinine to 1.2 over her baseline and for follow-up for her cystitis. Return instructions to the emergency department were reviewed. Disposition is discharged home in stable condition. History & Record Review Discussion w/independent historian: Patient Additional record(s) reviewed:: Prior ED visit and Prior labs Lab Data Attestation: I reviewed the patient's lab results. Labs: Laboratory Results - last 24 hr 11/04/22 11/04/22 09:19 10:27 WBC 14.0 H RBC 4.54 Hgb 13.5 Hct 42.0 MCV 92.5 MCH 29.7 MCHC 32.1 RDW Std Deviation 45.2 H RDW Coeff of Lukasz 13.2 Plt Count 258 MPV 11.2 Immature Gran % (Auto) 0.500 Neut % (Auto) 89.6 H Lymph % (Auto) 4.[address] [place] % (Auto) 4.2 Eos % (Auto) 0.6 Baso % (Auto) 0.4 Absolute Neuts (auto) 12.5 H Absolute Lymphs (auto) 0.65 L Nucleated RBC % 0 Sodium 140 Potassium 3.6 Chloride 105 Carbon Dioxide 28.0 Anion Gap 7 BUN 29 H Creatinine 1.23 H Estim Creat Clear Calc 24.77 Est GFR (MDRD) Af Amer 53 L Est GFR (MDRD) Non-Af 44 L BUN/Creatinine Ratio 23.6 H Glucose 150 H Calcium 9.3 Total Bilirubin 0.90 AST 15 ALT 17 Alkaline Phosphatase 113 Troponin I High Sens 6 Total Protein 7.1 Albumin 3.3 Globulin 3.8 Albumin/Globulin Ratio 0.9 Urine Color Yellow Urine Clarity Sl. Cloudy Urine pH 5.0 Ur Specific [place] 1.020 Urine Protein 15 H Urine Glucose (UA) Normal Urine Ketones Negative Urine Occult Blood 25 H Urine Nitrite Negative Urine Bilirubin 1 H Urine Urobilinogen 1 H Ur Leukocyte Esterase 500 H Urine RBC 0-5 SEEN Urine WBC 25-50 SEEN Ur Squamous Epith Cells 0-5 SEEN Ur Transition Epith Cell 0-5 SEEN Urine Bacteria 1+ Urine Mucus 0 SEEN Discharge Plan Triage Chief Complaint: Dizziness ED Provider: Darron Carvalho Dx/Rx/DC Orders Clinical Impression: UTI (urinary tract infection), Near syncope Instructions: ED Near-Fainting, Uncertain Cause, ED Cystitis Female Adult Prescriptions: No Action furosemide 40 mg tablet 40 mg PO DAILY Qty: 30 11RF lisinopril-hydrochlorothiazide 20-25 mg tablet 0.5 tab PO DAILY Qty: 30 11RF Patient Comments: blood pressure medication Rx Instructions: Hold until you follow-up with PCP to monitor your blood pressure potassium chloride 10 mEq capsule, extended release 10 meq PO DAILY Qty: 30 11RF Primary Care Provider: Ranulfo Howell Referrals: Ranulfo Howell MD [Primary Care Provider] - 3-5 Days Disposition Disposition: Home, Self Care
[2022-11-04 09:29] LABS: Absolute Lymphocyte Count 0.65 X10^3/uL (0.83-4.51); Absolute Neutrophil Count 12.5 X10^3/uL (2.0-7.7); Basophil# 0.06 X10^3/uL; Basophil% 0.4 % (0-1); Eosinophil# 0.08 X10^3/uL; Eosinophils% 0.6 % (0-5); Hemoglobin 13.5 g/dL (12.0-15.0); Lymphocyte # 0.65 X10^3/ul (0.83-4.51); Lymphocyte % 4.7 % (19-41); Mean Corp Hgb Conc 32.1 g/dL (32-36); Mean Corpuscular Hgb 29.7 pg (27.0-32.0); Mean Corpuscular Volume 92.5 fL (81-99); Mean Platelet Vol. 11.2 fl (6.2-12.0); Monocyte# 0.59 X10^3/uL; Monocyte% 4.2 % (0-10); NRBC Flagged by Analyzer 0 % (0-5); Neutrophil # 12.52 X10^3/uL (2.7-7.7); Neutrophil % 89.6 % (47-70); Platelet Count 258 K/mm3 (150-450); RBC Distribution Width CV 13.2 % (11.6-14.6); RBC Distribution Width SD 45.2 fl (35.1-43.9); Red Blood Count 4.54 M/mm3 (4.2-5.4)
[2022-11-04] MEDS: 0.9% Normal Saline (1000mL) 1,000 ML 1000 ML IV (09:30)
[2022-11-04 09:50] LABS: ALB/GLOB Ratio 0.9 RATIO (0.9-2.4); AST(SGOT) 15 U/L (15-37); Alanine Aminotransfer ALT/SGPT 17 U/L (13-56); Albumin, Serum 3.3 g/dL (3.2-5.0); Alkaline Phosphatase 113 U/L (45-117); Anion Gap 7 (5-15); BUN 29 mg/dL (7-18); BUN/Creat Ratio 23.6 RATIO (10-20); Calcium,Total 9.3 mg/dL (8.5-10.1); Chloride 105 mmol/L (98-107); Creatinine, Serum 1.23 mg/dL (0.55-1.02); EST Glomerular Filtration Rate 44 mL/min (>60); Est Glom Filt Rate - Afr Amer 53 mL/min (>60); Estimated Creatinine Clearance 24.77 ml/min; Globulin 3.8 g/dL (2.2-4.2); Glucose 150 mg/dL (74-106); Potassium 3.6 mmol/L (3.5-5.1); Protein, Total 7.1 g/dL (6.4-8.2); Sodium Level 140 mmol/L (136-145); Troponin-I HS 6 pg/mL (3.0-54.0)
[2022-11-04 10:33] LABS: Mucous, Urine 0 SEEN /hpf (<or=2+)
[2022-11-04 10:34] VITALS: PULSE 93; RESP 12; O2SAT 94
[2022-11-04 10:38] VITALS: BP 115/81; BP 125/71; BP 133/67; PULSE 92; PULSE 93; PULSE 97
[2022-11-04 10:42] LABS: Color, Urine Yellow (Yellow); Glucose, Dipstick Normal (Normal); Ketone-Dipstick Negative (Negative); Leukocyte Esterase-Dipstick 500 /ul (Negative); Nitrite-Dipstick Negative (Negative); Occult Blood-Urine 25 /ul (Negative); Protein-Dipstick 15 mg/dl (Negative); Urine Clarity Sl. Cloudy (Clear); Urine Urobilinogen 1 mg/dl (Normal)
[2022-11-04 10:43] LABS: Urine Bilirubin Dipstick 1 mg/dL (Negative)
[2022-11-04 10:51] LABS: Red Blood Cells-Urine 0-5 SEEN /hpf (0-5); White Blood Cells 25-50 SEEN /hpf (0-5)
[2022-11-04 10:52] LABS: Bacteria 1+ /hpf (None Seen); Squamous Epithelial Cells - UA 0-5 SEEN /hpf (5-10); Transitional Epithelial - Ur 0-5 SEEN /hpf (0-5)
[2022-11-04 11:57] VITALS: BP 118/65; PULSE 95; RESP 17; O2SAT 97
[2022-11-04] MEDS: Cephalexin 250 MG Capsule 500 MG PO (11:57)
== END 2022-11-04 12:10 | disposition home or self-care (01) ==
PROVIDERS: Emergency Provider Emergency Medicine; PCP Family Medicine; Visit Provider Emergency Medicine
DX: N39.0 Urinary tract infection, site not specified (principal); R55 Syncope and collapse; I25.10 Atherosclerotic heart disease of native coronary artery without angina pectoris; Z86.16 Personal history of COVID-19
CPT/HCPCS: 80053; 81001; 84484; 85025; 93005; 99285; A4216

== ENCOUNTER → 2022-11-10 | Outpatient (CLI) | payer MEDICARE, SELFPAY ==
[2022-11-10 17:33] LABS: Hematocrit 36.3 % (37-47); Hemoglobin 11.5 g/dL (12.0-15.0); Mean Corp Hgb Conc 31.7 g/dL (32-36); Mean Corpuscular Hgb 29.6 pg (27.0-32.0); Mean Corpuscular Volume 93.6 fL (81-99); Mean Platelet Vol. 11.8 fl (6.2-12.0); Platelet Count 179 K/mm3 (150-450); RBC Distribution Width CV 13.3 % (11.6-14.6); Red Blood Count 3.88 M/mm3 (4.2-5.4); White Blood Count 8.9 K/mm3 (4.4-11.0)
[2022-11-10 18:27] LABS: Anion Gap 6 (5-15); BUN 9 mg/dL (7-18); BUN/Creat Ratio 12.1 RATIO (10-20); Calcium,Total 8.8 mg/dL (8.5-10.1); Chloride 109 mmol/L (98-107); Creatinine, Serum 0.75 mg/dL (0.55-1.02); EST Glomerular Filtration Rate 78 mL/min (>60); Est Glom Filt Rate - Afr Amer 95 mL/min (>60); Glucose 107 mg/dL (74-106); Potassium 3.3 mmol/L (3.5-5.1); Sodium Level 143 mmol/L (136-145)
== END | disposition home or self-care (01) ==
LOC: MFPLAB 15:20
PROVIDERS: PCP Family Medicine; Visit Provider Family Medicine
DX: I10 Essential (primary) hypertension (principal); I35.0 Nonrheumatic aortic (valve) stenosis
CPT/HCPCS: 36415; 80048; 83880; 85027

== ENCOUNTER → 2022-11-25 | Outpatient (CLI) | payer MEDICARE, SELFPAY ==
[2022-11-25 13:02] LABS: Anion Gap 4 (5-15); BUN 15 mg/dL (7-18); BUN/Creat Ratio 17.9 RATIO (10-20); Calcium,Total 9.5 mg/dL (8.5-10.1); Chloride 109 mmol/L (98-107); Creatinine, Serum 0.84 mg/dL (0.55-1.02); EST Glomerular Filtration Rate 69 mL/min (>60); Est Glom Filt Rate - Afr Amer 83 mL/min (>60); Glucose 109 mg/dL (74-106); Potassium 4.1 mmol/L (3.5-5.1); Sodium Level 145 mmol/L (136-145)
== END | disposition home or self-care (01) ==
LOC: MTLAB 10:14
PROVIDERS: PCP Family Medicine; Referring Provider Family Medicine; Visit Provider Family Medicine
DX: E87.6 Hypokalemia (principal)
CPT/HCPCS: 36415; 80048

== ENCOUNTER → 2022-12-15 | Outpatient (CLI) | payer MEDICARE, SELFPAY ==
--- NOTE | 2022-12-15 14:08 | CT_ITS ---
HISTORY: left adrenal mass. TECHNIQUE: Helically acquired images were obtained of the abdomen after the intravenous administration of 100 mL Isovue-370. 390 images. COMPARISON: 06/01/2013. FINDINGS: LOWER CHEST: Small calcified left lower lobe granuloma. Mild dependent atelectasis in the lungs. Aortic valve replacement noted. BOWEL: Bowel including appendix nondilated. Colonic diverticulosis without pericolonic inflammation in the visualized portion of the colon. Incompletely imaged perisigmoid surgical clips. PERITONEUM: No significant free fluid. Stable small right upper quadrant lymph nodes. LIVER: No enhancing mass. Chronic mild fatty infiltration. GALLBLADDER/BILIARY TREE: Cholecystectomy. SPLEEN/PANCREAS: Homogeneous and nonenlarged. KIDNEYS: Stable 1 cm right upper pole cyst. 7 mm right lateral cortical cyst now seen. No hydronephrosis. Mild left renal cortical scarring. ADRENAL GLANDS: 2 x 2.5 cm left adrenal nodule again seen. Unremarkable right adrenal. VESSELS: No abdominal aortic aneurysm. Atherosclerosis of the abdominal aorta and its major branches. ABDOMINAL WALL: Tiny fat-containing ventral hernia. Lower anterior scarring. OSSEOUS STRUCTURES: Degenerative change. CT/Abdomen WITH IV Contrast IMPRESSION: No significant interval change in size of left adrenal nodule. Other chronic findings as above. Electronically Signed: Keily Brown MD at 11:33 EST ,
== END | disposition home or self-care (01) ==
PROVIDERS: PCP Family Medicine; Referring Provider Family Medicine; Visit Provider Family Medicine
DX: E27.8 Other specified disorders of adrenal gland (principal)
CPT/HCPCS: 74160; Q9967

== ENCOUNTER 2022-12-28 11:33 | Observation (INO) | payer MEDICARE, SELFPAY ==
[2022-12-28] VITALS (8 sets, daily range): BP systolic 95–134; BP diastolic 50–72; PULSE 72–100; RESP 16–22; TEMP 36.3–37; O2SAT 2–100; BMI 33.0; BMI 31.1
[2022-12-28] MEDS: 0.9% Normal Saline (1000mL) 1,000 ML 1000 ML IV (11:56)
[2022-12-28 12:01] LABS: Absolute Lymphocyte Count 1.92 X10^3/uL (0.83-4.51); Absolute Neutrophil Count 9.6 X10^3/uL (2.0-7.7); Basophil% 0.8 % (0-1); Eosinophil# 0.26 X10^3/uL; Hematocrit 44.2 % (37-47); Hemoglobin 13.9 g/dL (12.0-15.0); Lymphocyte # 1.92 X10^3/ul (0.83-4.51); Lymphocyte % 14.6 % (19-41); Mean Corp Hgb Conc 31.4 g/dL (32-36); Mean Corpuscular Hgb 28.5 pg (27.0-32.0); Mean Corpuscular Volume 90.8 fL (81-99); Mean Platelet Vol. 11.5 fl (6.2-12.0); Monocyte% 9.1 % (0-10); NRBC Flagged by Analyzer 0 % (0-5); Neutrophil # 9.56 X10^3/uL (2.7-7.7); Neutrophil % 72.7 % (47-70); Platelet Count 313 K/mm3 (150-450); RBC Distribution Width CV 13.9 % (11.6-14.6); RBC Distribution Width SD 46.3 fl (35.1-43.9); Red Blood Count 4.87 M/mm3 (4.2-5.4); White Blood Count 13.1 K/mm3 (4.4-11.0)
--- NOTE | 2022-12-28 12:03 | EX.ED.DYSGE1 ---
HPI History of Present Illness Chief Complaint: Syncope Detail of Chief Complaint: Syncopal episode today at [facility]. Informant: patient, spouse/S.O. and family Onset/Context/Timing Onset: Today Context: Sudden Onset Timing: Intermittent Current Severity: Mild Maximum Severity: Moderate Narrative Narrative: 87-year-old female history of hypertension currently off meds other than Lasix due to leg swelling. Prior TAVR procedure for cardiac valve and coronary artery disease. This is her fifth syncopal episode in the last 2 years or so. 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 She felt lightheaded while they were singing. She sat down. While seated she had a syncopal episode. Denies any presyncope complaints other than lightheadedness. No headache. No chest pain. No shortness of breath. Recently has had a UTI and is finished her antibiotics. Prior similar symptoms: Yes Recent Illness/Hospitalization: No PFSH PFS Medical History Contusion of right knee Cutaneous abscess of left axilla Diverticulitis large intestine Edema of both feet Essential hypertension Gout History of 2019 novel coronavirus disease (COVID-19) (12/16/19) History of transcatheter aortic valve replacement (TAVR) (07/15/21) Hyperlipidemia Left adrenal mass Nonobstructive atherosclerosis of coronary artery Nonrheumatic aortic (valve) stenosis Right bundle branch block (RBBB) Transient complete heart block Home Medications furosemide 40 mg tablet 40 mg PO DAILY #30 tabs 08/13/22 [Rx Last Taken Unknown] potassium chloride 10 mEq capsule,extended release 10 meq PO DAILY #30 caps 08/13/22 [Rx Last Taken Unknown] Allergy/AdvReac Type Severity Reaction Status Date / Time No Known Allergies Allergy Verified 11/01/22 08:14 Family History Sister Multiple myeloma Surgical History History of cataract surgery History of cholecystectomy History of colectomy History of left heart catheterization (06/10/21) History of total abdominal hysterectomy Social History household members: spouse number of children: 2 current occupational status: employed current occupation: self employed Smoking Status: Never smoker alcohol intake: never substance use type: does not use ROS ROS ED ROS Narrative Syncope with nausea and vomiting x1 after the syncopal event. Review of Systems ROS Unobtainable: Denies due to encephalopathy Constitutional Constitutional ED: Denies chills or fever(s) Eyes Eyes: Denies blurry vision ENT ENT ED: Denies ear pain Cardiovascular Cardiovascular: Denies chest pain Respiratory/Chest Respiratory/Chest: Denies cough or dyspnea Gastrointestinal Gastrointestinal: Reports nausea and vomiting; Denies abdominal pain Genitourinary Genitourinary ED: Denies dysuria or hematuria Musculoskeletal Musculoskeletal: Denies arthralgias Integumentary Denies abscess Neurologic Neurologic: Denies headache(s) Psychiatric Psychiatric: Denies anxiety Endocrine Endocrinology: Denies cold intolerance Hematologic/Lymphatic Hematologic/Lymphatic: Reports none Allergic/Immunologic Allergic/Immunologic ED: Denies mouth swelling, tongue swelling or urticaria EXAM Physical Exam Narrative Exam Narrative: 87-year-old female sitting upright in bed. Blood pressure while I am in the room is 95/65. Pulse ox 93% on room air 95% on 2 L. No hypoxia. She does not look septic or toxic. H EENT exam unremarkable atraumatic. Pupils round reactive light. Normal speech no facial droop. No trauma. Neck nontender. No JVD. Lungs clear to auscultation bilaterally. Heart regular rate and rhythm rate about 80 no murmur. Chest wall nontender. Abdomen soft nontender. Moving all 4 extremities. Normal assembler steam and gas turbine strength. Normal dorsi plantarflexion. No edema. Nontender. She is awake and alert. Answering questions and following commands. Family present in room. Const Vital Signs: 12/28/22 11:34 12/28/22 11:34 12/28/22 11:44 Temperature 97.3 F L Temperature Source Temporal Pulse Rate 72 84 Respiratory Rate 16 18 Respiratory Pattern Normal Blood Pressure 95/56 L Blood Pressure Mean 69 Pulse Ox 93 Oxygen Delivery Method Room Air Oxygen Flow Rate (L/min) 12/28/22 11:57 12/28/22 11:57 12/28/22 11:45 Temperature Temperature Source Pulse Rate 80 Respiratory Rate 22 H Respiratory Pattern Blood Pressure 100/50 L Blood Pressure Mean 66 Pulse Ox 96 2 89 Oxygen Delivery Method Nasal Cannula Nasal Cannula Room Air Oxygen Flow Rate (L/min) 2 12/28/22 12:04 Temperature Temperature Source Pulse Rate Respiratory Rate Respiratory Pattern Blood Pressure Blood Pressure Mean Pulse Ox 93 Oxygen Delivery Method Nasal Cannula Oxygen Flow Rate (L/min) 2 Positive well nourished and well developed; Negative for cachectic, contractures or unkempt General Appearance ED: well developed and NAD; Negative for unkempt, cachectic, contractures, cyanotic, diaphoretic or pallor Nutritional Appearance: Negative for cachectic HEENT Reports moist mucous membranes Negative for trauma or tenderness Eyes PERRL and EOMs intact bilaterally General Eye ED: Negative for pale conjunctiva or scleral icterus Neck no lymphadenopathy, supple and no JVD General: Negative for tenderness Lymph Lymphatic: Negative for other Chest Wall inspection of chest normal and palpation of chest normal Chest: Negative for other Resp normal respiratory effort and clear to auscultation bilaterally Effort and Inspection: Negative for retractions Auscultation: Negative for rales, rhonchi or wheezes Cardio regular rate, regular rhythm, S1 normal heart sound, S2 normal heart sound and no murmurs Rate: Negative for bradycardia or tachycardic GI normal to inspection, nondistended, normoactive bowel sounds, non-tender, non-distended and no masses Inspection: Negative for abdominal distention Auscultation: normoactive bowel sounds Palpation: soft; Negative for tender or guarding Bladder / Kidney Exam: No other Back/Spine no CVA tenderness General Back: Negative for CVA tenderness Cervical Spine: Negative for cervical spine tenderness Thoracic Spine / Upper Back: Negative for thoracic spinal tenderness Lumbar Spine / Lower Back: Negative for lumbar spinal tenderness Extremity normal to inspection General Extremety ED: Negative for edema or tenderness General Extremity: Negative for edema Neuro oriented x3 and CN's II-XII intact bilaterally Sensorium / Orientation: alert; Negative for orientation impaired, lethargic or stuporous Motor Exam: strength 5/5 throughout Psych mental status grossly normal Appearance: Negative for unkempt Attitude: No agitated Mood & Affect: Negative for depressed, anxious or tearful Skin no rashes or lesions noted, no wounds and skin turgor normal General Skin Exam: elasticity normal; Negative for jaundice or pallor Lesions: No lesion noted Rashes: No rashes noted Trauma: Negative for abrasion Wounds: Negative for wounds noted MDM MDM MDM Narrative Medical decision making narrative: 87-year-old female syncopal episode at [facility]. Fifth episode last 2 years. Patient cardiac hypotension at this time. Treated with IV fluids. Cardiac work-up. Differential would include surgery dysrhythmia, hypotension syncope, dehydration, anemia, cardiac dysrhythmia etc. Exam patient lying well at 12:40 PM. Symptom-free. Blood pressure currently is 120 over 70s. I discussed the test results with patient family. We are still awaiting urinalysis. I will speak to the hospitalist about admitting her overnight for syncope. History & Record Review Discussion w/independent historian: Patient and Family Additional record(s) reviewed:: Prior inpatient record, Prior outpatient record, Prior ED visit and Prior labs Lab Data Attestation: I reviewed the patient's lab results. Lab results narrative: CBC shows a white count 13.1. H&H 13.9 and 44. Platelets 313. Chemistries show potassium 3.3 gap of 7 BUN and creatinine 19 and 1. Glucose 133. Troponin 7. Chest x-ray chronic change no acute process. Labs: Laboratory Results - last 24 hr 12/28/22 11:19 WBC 13.1 H RBC 4.87 Hgb 13.9 Hct 44.2 MCV 90.8 MCH 28.5 MCHC 31.4 L RDW Std Deviation 46.3 H RDW Coeff of Lukasz 13.9 Plt Count 313 MPV 11.5 Immature Gran % (Auto) 0.800 Neut % (Auto) 72.7 H Lymph % (Auto) 14.6 L [place] % (Auto) 9.1 Eos % (Auto) 2.0 Baso % (Auto) 0.8 Absolute Neuts (auto) 9.6 H Absolute Lymphs (auto) 1.92 Nucleated RBC % 0 Sodium 142 Potassium 3.3 L Chloride 106 Carbon Dioxide 29.0 Anion Gap 7 BUN 19 H Creatinine 1.09 H Estim Creat Clear Calc 28.76 Est GFR (MDRD) Af Amer 61 Est GFR (MDRD) Non-Af 51 L BUN/Creatinine Ratio 17.4 Glucose 133 H Calcium 9.3 Troponin I High Sens 7 Radiography Chest X-Ray - ED: 1 View, Read by ED Physician, Heart, Lungs, Mediastinum, Bony Structures, No Acute Disease and Chronic Changes Diagnostic Testing: Chest x-ray, portable, single view shows no acute abnormality. Normal cardiac silhouette. Normal mediastinum. Normal lung gates. Chronic changes. Interpreted by myself. Rhythm Strip Rhythm Strip: Sinus Rhythm Rate: 81 Ectopy: None EKG Initial EKG: Attestation: I personally reviewed and interpreted this EKG as follows: Interpretation: Sinus Rhythm, No Acute Injury Pattern and RBBB Comments: Normal sinus rhythm rate 81. Right bundle branch block. Compared to EKG from October no change. Prior EKG tracings: available for review Prior: Unchanged Discharge Plan Triage Chief Complaint: Syncope ED Provider: Erick Hester Dx/Rx/DC Orders Clinical Impression: Transient hypotension, Syncope Prescriptions: No Action furosemide 40 mg tablet 40 mg PO DAILY Qty: 30 11RF potassium chloride 10 mEq capsule, extended release 10 meq PO DAILY Qty: 30 11RF Primary Care Provider: Ranulfo Howell Referrals: Ranulfo Howell MD [Primary Care Provider] -
[2022-12-28] MEDS: Ondansetron 4 MG/2 ML Vial IV (12:22)
--- NOTE | 2022-12-28 12:25 | RAD_ITS ---
EXAM: XR CHEST, 1 VIEW CLINICAL INDICATION: chest pain TECHNIQUE: Frontal view of the chest. COMPARISON: XR Chest dated 07/12/2022 FINDINGS: LUNGS AND PLEURAL SPACES: No consolidation or edema. No pneumothorax. No effusion. HEART: Normal heart size. MEDIASTINUM: No mediastinal or hilar mass. BONES/JOINTS: No acute abnormality. TUBES, LINES AND DEVICES: Transcatheter aortic valve replacement (TAVR) noted. UPPER ABDOMEN: Elevation of the right hemidiaphragm again noted. RAD/Chest 1 View (Portable) IMPRESSION: No acute cardiopulmonary abnormality. No interval change. Electronically Signed: Nicola Huber MD at 12:59 EST ,
[2022-12-28 12:27] LABS: Bacteria 0 SEEN /hpf (None Seen); Red Blood Cells-Urine 0 SEEN /hpf (0-5)
[2022-12-28 12:28] LABS: Anion Gap 7 (5-15); BUN 19 mg/dL (7-18); BUN/Creat Ratio 17.4 RATIO (10-20); Calcium,Total 9.3 mg/dL (8.5-10.1); Chloride 106 mmol/L (98-107); Creatinine, Serum 1.09 mg/dL (0.55-1.02); EST Glomerular Filtration Rate 51 mL/min (>60); Est Glom Filt Rate - Afr Amer 61 mL/min (>60); Estimated Creatinine Clearance 28.76 ml/min; Glucose 133 mg/dL (74-106); Potassium 3.3 mmol/L (3.5-5.1); Sodium Level 142 mmol/L (136-145); Troponin-I HS 7 pg/mL (3.0-54.0)
[2022-12-28 12:40] LABS: Glucose, Dipstick Normal (Normal); Ketone-Dipstick 5 mg/dl (Negative); Leukocyte Esterase-Dipstick 25 /ul (Negative); Nitrite-Dipstick Negative (Negative); Occult Blood-Urine 10 /ul (Negative); Protein-Dipstick 30 mg/dl (Negative); Urine Urobilinogen 1 mg/dl (Normal)
[2022-12-28 12:44] LABS: Color, Urine Yellow (Yellow); Urine Bilirubin Dipstick 3 mg/dL (Negative); Urine Clarity Clear (Clear)
[2022-12-28 12:51] LABS: Hyaline Cast 5-10 SEEN /lpf (0-5); Mucous, Urine 1+ /hpf (<or=2+); Squamous Epithelial Cells - UA 0-5 SEEN /hpf (5-10); White Blood Cells 0-5 SEEN /hpf (0-5)
--- NOTE | 2022-12-28 14:00 | PCM.HP.STD ---
HPI - General General Date of Admission: 12/28/22 Date of Service: 12/28/22 Chief Complaint: syncope HPI Narrative HARIKA BRASHER, is a 87 F who presents with syncopal episode. Patient was at [employer] today and standing in the pew when she started feeling lightheaded sat down and then passed out. Patient came to after several minutes. Fan brought the patient to the emergency room to be evaluated. Patient's blood pressure was transiently low and had a pulse ox around 89% but since then, patient did receive IV fluids. Patient is chronic on Lasix there is been no change with that, she states that she has been eating and drinking well with no issues. No fever or chills. After the event, patient did have [facility] Medical History Contusion of right knee Cutaneous abscess of left axilla Diverticulitis large intestine Edema of both feet Essential hypertension Gout History of 2019 novel coronavirus disease (COVID-19) (12/16/19) History of transcatheter aortic valve replacement (TAVR) (07/15/21) Hyperlipidemia Left adrenal mass Nonobstructive atherosclerosis of coronary artery Nonrheumatic aortic (valve) stenosis Right bundle branch block (RBBB) Transient complete heart block Home Medications furosemide 40 mg tablet 40 mg PO DAILY #30 tabs 08/13/22 [Rx Last Taken Unknown] potassium chloride 10 mEq capsule,extended release 10 meq PO DAILY #30 caps 08/13/22 [Rx Last Taken Unknown] Allergy/AdvReac Type Severity Reaction Status Date / Time No Known Allergies Allergy Verified 11/01/22 08:14 Family History Sister Multiple myeloma Surgical History History of cataract surgery History of cholecystectomy History of colectomy History of left heart catheterization (06/10/21) History of total abdominal hysterectomy Social History household members: spouse number of children: 2 current occupational status: employed current occupation: self employed Smoking Status: Never smoker alcohol intake: never substance use type: does not use ROS ROS Narrative All review of systems were negative except as mentioned above in the history of present illness and the other review of systems. Vital Signs Vital Signs Vital Signs: 12/28/22 11:34 12/28/22 11:34 12/28/22 11:44 Temperature 36.3 C L Temperature Source Temporal Pulse Rate 72 84 Respiratory Rate 16 18 Respiratory Pattern Normal Blood Pressure 95/56 L Blood Pressure Mean 69 Pulse Ox 93 Oxygen Delivery Method Room Air Oxygen Flow Rate (L/min) 12/28/22 11:57 12/28/22 11:57 12/28/22 11:45 Temperature Temperature Source Pulse Rate 80 Respiratory Rate 22 H Respiratory Pattern Blood Pressure 100/50 L Blood Pressure Mean 66 Pulse Ox 96 2 89 Oxygen Delivery Method Nasal Cannula Nasal Cannula Room Air Oxygen Flow Rate (L/min) 2 12/28/22 12:04 Temperature Temperature Source Pulse Rate Respiratory Rate Respiratory Pattern Blood Pressure Blood Pressure Mean Pulse Ox 93 Oxygen Delivery Method Nasal Cannula Oxygen Flow Rate (L/min) 2 Weight Weight: 82 kg Body Mass Index (BMI) 33.0 Physical Exam Const alert, oriented x3 and no apparent distress HEENT normocephalic and head/scalp atraumatic Resp normal respiratory effort, no retractions, no use of accessory muscles and clear to auscultation bilaterally Cardio regular rate, regular rhythm, S1 normal heart sound and S2 normal heart sound GI normal to inspection, nondistended, normoactive bowel sounds, soft to palpation, non-tender and non-distended Extremity normal to inspection and full ROM Neuro moves all extremities Sensorium / Orientation: awake and alert Speech: speech normal Psych affect normal Results Lab / Micro Data Attestation: I reviewed the patient's lab results. 12/28/22 11:19 12/28/22 11:19 Labs: Laboratory Results - last 24 hr 12/28/22 11:19: WBC 13.1 H, RBC 4.87, Hgb 13.9, Hct 44.2, MCV 90.8, MCH 28.5, MCHC 31.4 L, RDW Std Deviation 46.3 H, RDW Coeff of Lukasz 13.9, Plt Count 313, MPV 11.5, Immature Gran % (Auto) 0.800, Neut % (Auto) 72.7 H, Lymph % (Auto) 14.6 L, [place] % (Auto) 9.1, Eos % (Auto) 2.0, Baso % (Auto) 0.8, Absolute Neuts (auto) 9.6 H, Absolute Lymphs (auto) 1.92, Nucleated RBC % 0, Sodium 142, Potassium 3.3 L, Chloride 106, Carbon Dioxide 29.0, Anion Gap 7, BUN 19 H, Creatinine 1.09 H, Estim Creat Clear Calc 28.76, Est GFR (MDRD) Af Amer 61, Est GFR (MDRD) Non-Af 51 L, BUN/Creatinine Ratio 17.4, Glucose 133 H, Calcium 9.3, Troponin I High Sens 7 12/28/22 12:25: Urine Color Yellow, Urine Clarity Clear, Urine pH 5.0, Ur Specific [place] 1.020, Urine Protein 30 H, Urine Glucose (UA) Normal, Urine Ketones 5 H, Urine Occult Blood 10 H, Urine Nitrite Negative, Urine Bilirubin 3 H, Urine Urobilinogen 1 H, Ur Leukocyte Esterase 25 H, Urine RBC 0 SEEN, Urine WBC 0-5 SEEN, Ur Squamous Epith Cells 0-5 SEEN, Urine Bacteria 0 SEEN, Hyaline Casts 5-10 SEEN, Urine Mucus 1+ Rhythm Strip Rhythm Strip: Sinus Rhythm Rate: 81 Ectopy: None EKG Initial EKG: Attestation: I personally reviewed and interpreted this EKG as follows: Prior EKG tracings: available for review EKG Rhythm Intrepretation: Sinus Rhythm (RBBB) Imagaing Radiology Impression Chest X-Ray 12/28/22 12:25 IMPRESSION: No acute cardiopulmonary abnormality. No interval change. Electronically Signed: Nicola Huber MD at 12:59 EST , Assessment & Plan Assessment/Plan (1) Syncope: QUALIFIERS: Syncope type: vasovagal syncope Qualified Code(s): R55 - Syncope and collapse PLAN: Patient with syncopal episode while at [employer]. No clear source of what may have caused the event. Patient felt unwell and then sat down and then passed out. This seems more in line with a vasovagal episode. Discussed with the patient's family members that I doubt that this is a cardiac arrhythmia as those typically would be warranted with complete loss of consciousness and inability to protect themselves. Doubtful this is a seizure as well. We will hold her furosemide, check orthostatic vital signs and monitor her. If no further events the patient is otherwise doing well and feel the patient can be discharged home. Patient did have an echocardiogram back in July of this year. That echo showed an EF of 60% with mild pulmonary artery dilation. Given the recency of this, I do not feel that she requires another echocardiogram at this time. PLAN: Plan VTE prophylaxis not indicated as low risk given anticipated short observation stay CODE STATUS: Addressed with patient. Patient wished to be full code. Charges/Coding Visit Charges Inpatient E&M: 67055 Init Hosp L2
--- NOTE | 2022-12-28 18:57 | ECHOL_ITS ---
Reason For Study: SYNCOPE Procedure This was a limited 2D transthoracic echocardiogram. Exam performed portable in patient room. Left Ventricle Mild concentric left ventricular hypertrophy. Normal LV size. Hyperdynamic left ventricle with intraventricular gradient. LVEF > 75%. Right Ventricle Normal right ventricle. Atria The left atrium is severely enlarged. Normal right atrium. Mitral Valve Mitral valve ring versus mitral annular calcification. Tricuspid Valve The tricuspid valve is not well visualized. Aortic Valve Bioprosthetic aortic valve. Pulmonic Valve The pulmonic valve is not well visualized. Great Vessels The aortic root is not well visualized. Pericardium/Pleural No pericardial effusion. MMode/2D Measurements & Calculations LVIDd: 3.4 cm IVSd: 1.3 cm LAV(MOD-sp2): 77.7 ml LVIDs: 2.4 cm LVPWd: 1.8 cm FS: 30.4 % LVAd ap4: 20.3 cm2 SV(MOD-sp4): 33.5 ml SV(sp4-el): 35.5 ml LVLd ap4: 7.4 cm EDV(MOD-sp4): 47.4 ml EDV(sp4-el): 47.4 ml LVAs ap4: 8.9 cm2 LVLs ap4: 5.6 cm ESV(MOD-sp4): 13.9 ml ESV(sp4-el): 11.9 ml EF(MOD-sp4): 70.8 % EF(sp4-el): 74.9 % ECHO/Echo, Limited Study Interpretation Summary Mild concentric left ventricular hypertrophy. Hyperdynamic left ventricle with intraventricular gradient. LVEF > 75% The left atrium is severely enlarged. Ordering Physician: Valentine Dempsey Referring Physician: Jeremy Howell MD Performed By: Trish Cox RCS
[2022-12-28] MEDS: Potassium Chloride Oral Soln 20 MEQ/15 ML UDC 40 MEQ PO (21:00)
[2022-12-28 21:29] LABS: Procalcitonin 0.12 ng/mL (0.00-0.09)
[2022-12-28 22:30] LABS: Magnesium 2.3 mg/dL (1.6-2.6)
[2022-12-29 03:04] VITALS: BP 144/75; PULSE 83; RESP 15; TEMP 36.8; O2SAT 95
[2022-12-29 06:08] LABS: Absolute Lymphocyte Count 1.36 X10^3/uL (0.83-4.51); Absolute Neutrophil Count 6.6 X10^3/uL (2.0-7.7); Basophil# 0.06 X10^3/uL; Basophil% 0.7 % (0-1); Eosinophil# 0.16 X10^3/uL; Eosinophils% 1.8 % (0-5); Hematocrit 40.1 % (37-47); Hemoglobin 12.3 g/dL (12.0-15.0); Lymphocyte # 1.36 X10^3/ul (0.83-4.51); Lymphocyte % 15.2 % (19-41); Mean Corp Hgb Conc 30.7 g/dL (32-36); Mean Corpuscular Hgb 28.6 pg (27.0-32.0); Mean Corpuscular Volume 93.3 fL (81-99); Mean Platelet Vol. 11.6 fl (6.2-12.0); Monocyte# 0.76 X10^3/uL; Monocyte% 8.5 % (0-10); NRBC Flagged by Analyzer 0 % (0-5); Neutrophil # 6.57 X10^3/uL (2.7-7.7); Neutrophil % 73.2 % (47-70); Platelet Count 220 K/mm3 (150-450); RBC Distribution Width CV 14.1 % (11.6-14.6)
[2022-12-29 07:00] LABS: Anion Gap 5 (5-15); BUN 20 mg/dL (7-18); BUN/Creat Ratio 21.3 RATIO (10-20); Calcium,Total 8.8 mg/dL (8.5-10.1); Chloride 110 mmol/L (98-107); Creatinine, Serum 0.94 mg/dL (0.55-1.02); EST Glomerular Filtration Rate 60 mL/min (>60); Est Glom Filt Rate - Afr Amer 73 mL/min (>60); Estimated Creatinine Clearance 33.35 ml/min; Glucose 95 mg/dL (74-106); Potassium 4.2 mmol/L (3.5-5.1); Sodium Level 144 mmol/L (136-145)
--- NOTE | 2022-12-29 08:04 | DCINST_ITS ---
Discharge Instructions Diet Discharge Diet: No restrictions Activity Discharge Activity: Return to Normal Activity Weight Bearing Status: Weight bearing as tolerated Dressing / Incision Call your doctor if you observe: Fever of 101 or Higher, Coldness, Increased Pain, Numbness or Tingling, Change in Color, Inability to urinate, Inability to have a bowel movement, Using more than 1 pad per hour, Shortness of breath, Dizziness, Fainting spells, Swelling in the ankles, Chest pain, Prolonged hiccupping, Increased palpitations (irregular heartbeat) and Calf discomfort Follow Up Care When: IN 2 WEEKS Test Results: Test results from this visit will be discussed in further detail at your follow- up appointment, if applicable. Discharge Plan Admission Admit Date/Time: 12/28/22 13:52 Primary Reason for Your Visit: Suspected vasovagal syncope. Attending Provider: Guanakito Pimentel Primary Care Provider: Ranulfo Howell Consulting Providers: Zander Lares Discharge Orders/Prescriptions Prescriptions: Continued potassium chloride 10 mEq capsule, extended release 10 meq PO DAILY Qty: 30 11RF Held furosemide 40 mg tablet 40 mg PO DAILY Qty: 30 11RF Hold Instructions: Hold for SBP less than 110 mmHg Referrals / Follow Up: Ranulfo Howell MD [Primary Care Provider] - Within 2 Weeks Disposition Disposition (needs filled in before D/C Order can be placed): Home, Self Care
[2022-12-29 09:04] VITALS: BP 124/53; PULSE 87; RESP 16; TEMP 36.6; O2SAT 94
--- NOTE | 2022-12-29 13:42 | PCM.DC.SUM ---
Providers Date of Admission: 12/28/22 Date of Discharge: 12/29/22 Primary Care Physician: Dr. Ranulfo Howell MD Reason For Visit: SYNCOPE Diagnosis Discharge Diagnosis (1) Syncope: Status: Acute Code(s): R55 - Syncope and collapse Qualifiers: Syncope type: vasovagal syncope Qualified Code(s): R55 - Syncope and collapse Plan Patient with syncopal episode while at [employer] and was admitted in PCU. History and physical exam does not reveal any clear source. Blood pressure normal range. Most likely due to vasovagal episode. On color television console monitor patient is sinus rhythm. Recently she had 2D echo in July 2022 which showed EF 60% with mild pulmonary artery dilatation. Patient had TAVR about a year ago. Patient is on furosemide 40 mg daily and advised to check blood pressure before taking it and hold it if systolic blood pressure less than 110 mmHg. Limited echo was done and reported severely enlarged left atrium. Bioprosthetic aortic valve. EF 75% with hyperdynamic LV. Discharge medication reconciliation done. Discharge follow-up instructions completed. Discharge process discussed with the patient and all questions were answered to patient's satisfaction. Follow with PCP in 1 to 2 weeks Total time spent, exact 35 minutes on discharge meds reconciliation, examination, coordination of care with nurses and ancillary staff, review of imaging and blood test and discussion with the patient on follow-up instructions. Medications at Discharge Home Medications furosemide 40 mg tablet 40 mg PO DAILY #30 tabs 08/13/22 potassium chloride 10 mEq capsule,extended release 10 meq PO DAILY #30 caps 08/13/22 Physical Exam Narrative Seen and examined. Discussed with the patient as well as review of the right side. Patient feels good and denies any dizziness lightheadedness diplopia or vertigo. She states she does not know exactly what happened but if she felt dizzy while she was in the [employer] [place]terday and then does not remember. Patient had bioprosthetic TAVR done about a year ago. Physical exam General: Alert, Oriented x3, Cooperative HEENT: Atraumatic, PERRLA, EOMI, Normocephalic Oral: No Gingival or Mucosal Lesions/ Ulcerations Neck: Supple, No JVD, Negative Carotid Bruits Lungs: Air entry diminished in bilateral lung bases. No crepitation/rhonchi Cardiovascular: Regular rate, Regular Rhythm, Normal S1, Normal S2, No murmurs Abdomen: Bowel Sounds Present, Soft, Non Tender, Non-Distended : No renal angle tenderness. No suprapubic tenderness. Extremities: No edema, Capillary Refill Less than 3 Seconds Skin: No rashes, No breakdown Musculoskeletal: No Tenderness to Palpation of Joints or Extremities. ROM full. Bilateral knee and hip joints arthritis. Neurological: Cranial nerves II-XII grossly intact, DTR 2+/4. No acute focal neurological deficit. Psych/Mental Status: Normal Affect, Appropriate. Weight / BMI Weight Weight: 172 lb 6.424 oz Body Mass Index (BMI) 31.1 ABG / Lab / Microbiology Data 12/29/22 05:29 12/29/22 05:29 Laboratory: Laboratory Results - last 24 hr 12/28/22 11:19: Magnesium 2.3 12/28/22 20:49: Procalcitonin 0.12 H 12/29/22 05:29: WBC 9.0, RBC 4.30, Hgb 12.3, Hct 40.1, MCV 93.3, MCH 28.6, MCHC 30.7 L, RDW Std Deviation 48.0 H, RDW Coeff of Lukasz 14.1, Plt Count 220, MPV 11.6, Immature Gran % (Auto) 0.600, Neut % (Auto) 73.2 H, Lymph % (Auto) 15.2 L, [place] % (Auto) 8.5, Eos % (Auto) 1.8, Baso % (Auto) 0.7, Absolute Neuts (auto) 6.6, Absolute Lymphs (auto) 1.36, Nucleated RBC % 0, Sodium 144, Potassium 4.2, Chloride 110 H, Carbon Dioxide 29.0, Anion Gap 5, BUN 20 H, Creatinine 0.94, Estim Creat Clear Calc 33.35, Est GFR (MDRD) Af Amer 73, Est GFR (MDRD) Non-Af 60, BUN/Creatinine Ratio 21.3 H, Glucose 95, Calcium 8.8 Microbiology: Microbiology 12/28/22 15:47 Nasal Secretion SARS-CoV-2 Antigen (Rapid) - Final D/C Instructions Discharge Diet: No restrictions Weight Bearing Status: Weight bearing as tolerated Call your doctor if you observe: Fever of 101 or Higher, Coldness, Increased Pain, Numbness or Tingling, Change in Color, Inability to urinate, Inability to have a bowel movement, Using more than 1 pad per hour, Shortness of breath, Dizziness, Fainting spells, Swelling in the ankles, Chest pain, Prolonged hiccupping, Increased palpitations (irregular heartbeat) and Calf discomfort When: IN 2 WEEKS Meaningful Use Info Meaningful Use Diagnoses (Choose all that apply): None applicable Discharge Plan Admission Admit Date/Time: 12/28/22 13:52 Primary Reason for Your Visit: Suspected vasovagal syncope. Attending Provider: Guanakito Pimentel Primary Care Provider: Ranulfo Howell Consulting Providers: Zander Lares Discharge Orders/Prescriptions Prescriptions: Continued potassium chloride 10 mEq capsule, extended release 10 meq PO DAILY Qty: 30 11RF Held furosemide 40 mg tablet 40 mg PO DAILY Qty: 30 11RF Hold Instructions: Hold for SBP less than 110 mmHg Referrals / Follow Up: Ranulfo Howell MD [Primary Care Provider] - Within 2 Weeks Disposition Disposition (needs filled in before D/C Order can be placed): Home, Self Care Charges/Coding Visit Charges Inpatient E&M: 69253 Disch Hosp >30min
--- NOTE | 2022-12-29 13:49 | PHA.DC.MR.R ---
Pharmacy [facility] Med Reconciliation Pharmacy Service has performed discharge medication reconciliation for this patient. The patient's discharge medication list was reviewed for discrepancies and discrepancies were resolved. Medications at Discharge Home Medications furosemide 40 mg tablet 40 mg PO DAILY #30 tabs 08/13/22 potassium chloride 10 mEq capsule,extended release 10 meq PO DAILY #30 caps 08/13/22
[2022-12-29 13:53] VITALS: BP 94/50; PULSE 81; RESP 16; TEMP 36.1; O2SAT 92
--- NOTE | 2022-12-29 13:59 | CASEMGMT ---
Patient has order for discharge. RN CM in to discuss needs at discharge. Patient is independent, patient denies needs at discharge. Patient had no further questions or concerns.
== END 2022-12-29 14:59 | disposition home or self-care (01) ==
LOC: ED 12:34 → PCU 14:02
PROVIDERS: Family Medicine; Emergency Provider Emergency Medicine; PCP Family Medicine; Visit Provider Internal Medicine
DX: R55 Syncope and collapse (principal); Z86.16 Personal history of COVID-19; E78.5 Hyperlipidemia, unspecified; I10 Essential (primary) hypertension; I25.10 Atherosclerotic heart disease of native coronary artery without angina pectoris; R03.1 Nonspecific low blood-pressure reading; Z79.899 Other long term (current) drug therapy; Z95.3 Presence of xenogenic heart valve
CPT/HCPCS: 36415; 71045; 80048; 81001; 83735; 84145; 84484; 85025; 87811; 90471; 93005; 93308; 96361; 96374; 99221; 99285; P9612; G0378; J2405

== ENCOUNTER → 2023-08-10 | Outpatient (CLI) | payer MEDICARE, SELFPAY ==
[2023-08-10 09:58] LABS: Vitamin D,25 Hydroxy 39.4 ng/mL
[2023-08-10 10:08] LABS: Anion Gap 6 (5-15); BUN 17 mg/dL (7-18); BUN/Creat Ratio 17.6 RATIO (10-20); Calcium,Total 9.3 mg/dL (8.5-10.1); Chloride 110 mmol/L (98-107); Cholesterol 181 mg/dL (200); Creatinine, Serum 0.97 mg/dL (0.55-1.02); EST Glomerular Filtration Rate 58 mL/min (>60); Est Glom Filt Rate - Afr Amer 70 mL/min (>60); Glucose 112 mg/dL (74-106); High Density Lipoprotein 42 mg/dL; Potassium 4.1 mmol/L (3.5-5.1); Sodium Level 144 mmol/L (136-145); Triglycerides 159 mg/dL; Uric Acid 8.3 mg/dL (2.6-6.0); Very Low Density Lipoprotein 32 mg/dL (5-40)
== END | disposition home or self-care (01) ==
LOC: LAB 08:21
PROVIDERS: PCP Family Medicine; Referring Provider Family Medicine; Visit Provider Family Medicine
DX: I10 Essential (primary) hypertension (principal); R73.01 Impaired fasting glucose; M10.9 Gout, unspecified; E55.9 Vitamin D deficiency, unspecified
CPT/HCPCS: 36415; 80048; 80061; 82306; 84550

== ENCOUNTER 2023-10-15 07:20 | Emergency (ER) | payer MEDICARE, SELFPAY ==
[2023-10-15 07:20] VITALS: BP 203/88; BP 205/93; PULSE 74; PULSE 79; RESP 16; TEMP 36.1; O2SAT 93; BMI 33.5
--- NOTE | 2023-10-15 08:01 | RAD_ITS ---
STUDY: X-RAY CHEST REASON FOR EXAM: Female, 87 years old. Htn TECHNIQUE: Single AP portable view of the chest. COMPARISON: Comparison is made with prior study dated December 28, 2022. FINDINGS: EKG electrodes are seen. Elevation of the right hemidiaphragm. There is evidence of vascular congestion and CHF. There is no demonstrated pleural abnormality. There is borderline cardiomegaly. Prior mitral valve replacement. Normal mediastinum and aubrie. Normal visualized pulmonary arteries. There is atherosclerotic calcification of the aortic arch with tortuosity. There are diffuse degenerative changes of the visualized thoracic spine. There is degenerative osteoarthritis of the bilateral shoulders. There is no demonstrated abnormality of the visualized soft tissue structures of the upper abdomen. RAD/Chest 1 View (Portable) IMPRESSION: Findings suggestive of a vascular congestion and CHF. Electronically Signed: Alexsander Garcia MD at 9:32 EDT ,
--- NOTE | 2023-10-15 08:25 | EX.ED.DYSGE1 ---
HPI History of Present Illness Chief Complaint: Hypertension Narrative Narrative: Patient is a 87-year-old female with a past medical history of TAVR, CAD, hyperlipidemia, hypertension who presented to the emerged part with a chief complaint of hypertension. According to the patient's at bedside he noted that when he got home yesterday she was not feeling well and he checked her blood pressure and noted that it was to be elevated. This morning when they woke up they checked her blood pressure again which was noted to be elevated as well to the 190s prompting them to bring her here for further evaluation management. Patient states that outside of her blood pressure being elevated she feels fine and has no complaints. She states that she normally takes her blood pressure medication in the morning after she eats. She does not recall the exact name of this medication. 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) Nonobstructive atherosclerosis of coronary artery Right bundle branch block (RBBB) Nonrheumatic aortic (valve) stenosis Hyperlipidemia Essential hypertension History of 2019 novel coronavirus disease (COVID-19) (12/16/19) Diverticulitis large intestine Home Medications ?Medication ?Instructions ?Recorded ?Last Taken ?Type amoxicillin 500 mg tablet 2,000 mg (4 x 500 mg) PO .COMPLEX 08/04/23 Unknown Rx #4 tabs furosemide 20 mg tablet 20 mg PO DAILY 08/04/23 Unknown History multivitamin 1 tab PO DAILY 08/04/23 Unknown History potassium chloride 10 mEq 10 meq PO DAILY #30 caps 08/04/23 Unknown Rx capsule,extended release cephalexin 500 mg capsule 500 mg PO BID 5 days #10 caps 10/15/23 Unknown Rx Allergy/AdvReac Type Severity Reaction Status Date / Time No Known Allergies Allergy Verified 08/04/23 10:00 Family History Sister Multiple myeloma Surgical History History of left heart catheterization (06/10/21) History of cataract surgery History of cholecystectomy History of total abdominal hysterectomy History of colectomy Social History household members: spouse number of children: 2 current occupational status: employed current occupation: self employed Smoking Status: Never smoker alcohol intake: never substance use type: does not use ROS ROS ED ROS Narrative Constitutional: Denies any fevers, chills, headaches, lightheadedness, dizziness Eyes: Denies change in vision double vision blurry vision Cardiovascular: Denies chest pain or palpitations Respiratory: Denies coughing wheezing shortness of breath Abdomen: Denies abdominal pain nausea vomiting diarrhea : Denies any urinary symptoms Neurological: Denies numbness, weakness, tingling Musculoskeletal: Denies back pain Skin: Denies rashes or lesions EXAM Physical Exam Narrative Exam Narrative: General: Patient lying in bed rest comfortably did not appear to be in acute distress Head: Atraumatic, normocephalic Eyes: PERRL bilaterally, EOMI bilateral, no conjunctival injection noted Neck: Soft, supple, trachea midline Cardiovascular: Regular rate and rhythm no murmurs gallops rubs noted Respiratory: Clear to auscultation bilaterally no rales rhonchi or wheeze noted Abdomen: Soft, nondistended, no tenderness palpation, bowel sounds present x 4 Extremities: +4/5 strength noted in the bilateral upper and lower extremities, no pedal edema noted exam, radial pulses +2/4 in the bilateral upper extremities, no pedal edema on exam Neurological: Patient following commands knew that she was at [facility] years 2023. NIH of 0 GCS 15 Skin: Warm, dry, intact Const Vital Signs: 10/15/23 07:20 10/15/23 07:20 10/15/23 07:55 Temperature 97 F L Temperature Source Temporal Pulse Rate 79 74 Respiratory Rate 16 16 Respiratory Effort Normal Respiratory Pattern Normal Blood Pressure 203/88 H 205/93 H Blood Pressure Mean 126 130 Pulse Ox 93 93 Oxygen Delivery Method Room Air Room Air 10/15/23 09:19 10/15/23 11:00 10/15/23 13:00 Temperature Temperature Source Pulse Rate 61 60 62 Respiratory Rate 16 17 19 H Respiratory Effort Respiratory Pattern Blood Pressure 143/69 H 131/69 H 138/68 H Blood Pressure Mean 93 89 85 Pulse Ox 92 94 94 Oxygen Delivery Method Room Air Room Air MDM MDM MDM Narrative Medical decision making narrative: Patient is a 87-year-old female who presented to the emergency department chief complaint of hypertension. Patient will be workup performed here on the differential diagnose includes but not limited to essential hypertension, UTI, ACS, heart failure. Once workup is obtained reviewed she will be reevaluated. Patient be given 0.2 mg of clonidine orally and recheck her blood pressure. Patient's CBC reviewed showed no evidence of leukocytosis white blood cell normal at 6.8, hemoglobin stable 12.4, plate count was noted to be 144. Patient sodium normal at 142, potassium normal 3.9, creatinine normal at 0.82. Patient's AST and ALT were normal at 23 and 19 respectively. Patient troponin normal at 8 with a delta troponin normal at 9 patient's EKG was reviewed as well which showed sinus bradycardia with a rate of 57 bpm. Patient's proBNP was normal at 70.7, urinalysis was significant for 500 leukocyte esterase positive nitrites 25-50 white blood cells with 2+ bacteria. This was sent for culture she will be placed on Keflex . Patient's blood pressure improved with antihypertensive here. She ambulated around the emergency department to and from the bathroom a few times without any difficulty. Patient's chest x-ray was reviewed and showed concern for congestion and CHF she she was asymptomatic once again during ambulation no hypoxia no peripheral edema noted on exam. Did discuss results with the patient she would like to go home at this point time. She was encouraged to continue to take her antihypertensive as prescribed. She is encouraged to keep blood pressure log and take this to her primary care physician for their review. She was encouraged return with worsening symptoms or other concerns. Her and her at bedside agreeable this plan all question concerns answered she discharged home in stable condition. Lab Data Labs: Laboratory Results - last 24 hr 10/15/23 10/15/23 10/15/23 08:46 08:49 11:17 WBC 6.8 RBC 4.14 L Hgb 12.4 Hct 37.6 MCV 90.8 MCH 30.0 MCHC 33.0 RDW Std Deviation 44.4 H RDW Coeff of Lukasz 13.5 Plt Count 144 L MPV 11.5 Immature Gran % (Auto) 0.600 Neut % (Auto) 71.7 H Lymph % (Auto) 15.3 L [place] % (Auto) 9.1 Eos % (Auto) 2.4 Baso % (Auto) 0.9 Absolute Neuts (auto) 4.9 Absolute Lymphs (auto) 1.04 Nucleated RBC % 0 Sodium 142 Potassium 3.9 Chloride 109 H Carbon Dioxide 29.0 Anion Gap 4 L BUN 13 Creatinine 0.82 Estim Creat Clear Calc 48.30 Est GFR (MDRD) Af Amer 84 Est GFR (MDRD) Non-Af 70 BUN/Creatinine Ratio 15.8 Glucose 97 Calcium 9.0 Total Bilirubin 1.00 AST 23 ALT 19 Alkaline Phosphatase 114 Troponin I High Sens 8 9 B-Natriuretic Peptide 70.7 Total Protein 6.9 Albumin 3.2 Globulin 3.7 Albumin/Globulin Ratio 0.9 Urine Color Yellow Urine Clarity Sl. Cloudy Urine pH 7.0 Ur Specific [place] 1.010 Urine Protein 30 H Urine Glucose (UA) Normal Urine Ketones Negative Urine Occult Blood 25 H Urine Nitrite Positive H Urine Bilirubin Negative Urine Urobilinogen 1 H Ur Leukocyte Esterase 500 H Urine RBC 0-5 SEEN Urine WBC 25-50 SEEN Ur Squamous Epith Cells 0-5 SEEN Urine Bacteria 2+ Urine Mucus 0 SEEN Radiography Diagnostic Testing: Clinical Impression(s) from Imaging Studies Chest X-Ray 10/15/23 08:01 IMPRESSION: Findings suggestive of a vascular congestion and CHF. Electronically Signed: Alexsander Garcia MD at 9:32 EDT , Discharge Plan Triage Chief Complaint: Hypertension ED Provider: Jamey Holland Dx/Rx/DC Orders Clinical Impression: Urinary tract infection, Essential hypertension Prescriptions: New cephalexin 500 mg capsule 500 mg PO BID 5 Days Qty: 10 0RF No Action furosemide 20 mg tablet 20 mg PO DAILY multivitamin Tablet 1 tab PO DAILY amoxicillin 500 mg tablet 2,000 mg PO .COMPLEX Qty: 4 1RF Rx Instructions: 2,000 mg orally one hour prior to dental procedure/cleaning potassium chloride 10 mEq capsule, extended release 10 meq PO DAILY Qty: 30 11RF Primary Care Provider: Jeremy Howell Referrals: Jeremy Howell MD [Primary Care Provider] - Activity Restrictions/Additional Instructions: Take antibiotics as prescribed. Follow-up on urine culture with your primary care physician. Keep a blood pressure log and take it to your family physician for their review as we discussed here. Return with worsening symptoms or other concerns. Take your blood pressure medication as prescribed. Print Language: Libyan Disposition Disposition: Home, Self Care
[2023-10-15] MEDS: cloNIDine HCl 0.2 MG Tablet PO (08:37)
[2023-10-15 08:53] LABS: Absolute Lymphocyte Count 1.04 X10^3/uL (0.83-4.51); Absolute Neutrophil Count 4.9 X10^3/uL (2.0-7.7); Basophil# 0.06 X10^3/uL; Basophil% 0.9 % (0-1); Eosinophil# 0.16 X10^3/uL; Eosinophils% 2.4 % (0-5); Hematocrit 37.6 % (37-47); Hemoglobin 12.4 g/dL (12.0-15.0); Lymphocyte # 1.04 X10^3/ul (0.83-4.51); Lymphocyte % 15.3 % (19-41); Mean Corpuscular Volume 90.8 fL (81-99); Mean Platelet Vol. 11.5 fl (6.2-12.0); Monocyte# 0.62 X10^3/uL; Monocyte% 9.1 % (0-10); NRBC Flagged by Analyzer 0 % (0-5); Neutrophil # 4.88 X10^3/uL (2.7-7.7); Neutrophil % 71.7 % (47-70); Platelet Count 144 K/mm3 (150-450); RBC Distribution Width CV 13.5 % (11.6-14.6); RBC Distribution Width SD 44.4 fl (35.1-43.9); Red Blood Count 4.14 M/mm3 (4.2-5.4); White Blood Count 6.8 K/mm3 (4.4-11.0)
[2023-10-15 09:01] LABS: Mucous, Urine 0 SEEN /hpf (<or=2+)
[2023-10-15 09:04] LABS: Color, Urine Yellow (Yellow); Glucose, Dipstick Normal (Normal); Ketone-Dipstick Negative (Negative); Leukocyte Esterase-Dipstick 500 /ul (Negative); Nitrite-Dipstick Positive (Negative); Occult Blood-Urine 25 /ul (Negative); Protein-Dipstick 30 mg/dl (Negative); Urine Bilirubin Dipstick Negative (Negative); Urine Clarity Sl. Cloudy (Clear); Urine Urobilinogen 1 mg/dl (Normal)
[2023-10-15 09:10] LABS: Bacteria 2+ /hpf (None Seen); White Blood Cells 25-50 SEEN /hpf (0-5)
[2023-10-15 09:11] LABS: Red Blood Cells-Urine 0-5 SEEN /hpf (0-5); Squamous Epithelial Cells - UA 0-5 SEEN /hpf (5-10)
[2023-10-15 09:14] LABS: BNP,B-Type NATRIURETIC PEPTIDE 70.7 pg/mL (0-100)
[2023-10-15 09:18] LABS: ALB/GLOB Ratio 0.9 RATIO (0.9-2.4); AST(SGOT) 23 U/L (15-37); Alanine Aminotransfer ALT/SGPT 19 U/L (13-56); Albumin, Serum 3.2 g/dL (3.2-5.0); Alkaline Phosphatase 114 U/L (45-117); Anion Gap 4 (5-15); BUN 13 mg/dL (7-18); BUN/Creat Ratio 15.8 RATIO (10-20); Chloride 109 mmol/L (98-107); Creatinine, Serum 0.82 mg/dL (0.55-1.02); EST Glomerular Filtration Rate 70 mL/min (>60); Est Glom Filt Rate - Afr Amer 84 mL/min (>60); Globulin 3.7 g/dL (2.2-4.2); Glucose 97 mg/dL (74-106); Potassium 3.9 mmol/L (3.5-5.1); Protein, Total 6.9 g/dL (6.4-8.2); Sodium Level 142 mmol/L (136-145); Troponin-I HS 8 pg/mL (3.0-54.0)
[2023-10-15 09:19] VITALS: BP 143/69; PULSE 61; RESP 16; O2SAT 92
[2023-10-15 11:00] VITALS: BP 131/69; PULSE 60; RESP 17; O2SAT 94
--- NOTE | 2023-10-15 11:02 | EKG12_ITS ---
Test Reason : HYPERTENSION Blood Pressure : / mmHG Vent. Rate : 057 BPM Atrial Rate : 057 BPM P-R Int : 158 ms QRS Dur : 132 ms QT Int : 516 ms P-R-T Axes : 043 154 017 degrees QTc Int : 502 ms Poor data quality, interpretation may be adversely affected Sinus bradycardia Right bundle branch block Abnormal ECG Confirmed by KARIN OLIVA, LISS ([id number]), news videotape editor LUÍS HILLIARD ([id number]) on 10/19/2023 6:54:17 AM Referred By: Confirmed By:LISS FRAZIER MD
[2023-10-15 11:44] LABS: Troponin-I HS 9 pg/mL (3.0-54.0)
[2023-10-15 13:00] VITALS: BP 138/68; PULSE 62; RESP 19; O2SAT 94
[2023-10-15 13:32] VITALS: BP 134/71; PULSE 60; RESP 14; TEMP 36.4; O2SAT 93
== END 2023-10-15 13:33 | disposition home or self-care (01) ==
PROVIDERS: Emergency Provider Emergency Medicine; PCP Family Medicine; Visit Provider Emergency Medicine
DX: I10 Essential (primary) hypertension (principal); N39.0 Urinary tract infection, site not specified; Z79.899 Other long term (current) drug therapy; Z86.16 Personal history of COVID-19
CPT/HCPCS: 71045; 80053; 81001; 83880; 84484; 85025; 87077; 87086; 87088; 87186; 93005; 99283

== ENCOUNTER → 2023-12-29 | Outpatient (CLI) | payer MEDICARE, SELFPAY ==
[2023-12-29 15:18] LABS: Vitamin B12 450 pg/mL (211-911); Vitamin D,25 Hydroxy 38.9 ng/mL
[2023-12-29 15:21] LABS: Erythrocyte Sedimentation Rate 15 mm/hr (0-30)
[2023-12-29 15:26] LABS: Absolute Lymphocyte Count 1.22 X10^3/uL (0.83-4.51); Absolute Neutrophil Count 8.2 X10^3/uL (2.0-7.7); Basophil# 0.06 X10^3/uL; Basophil% 0.6 % (0-1); Eosinophil# 0.12 X10^3/uL; Eosinophils% 1.1 % (0-5); Hematocrit 42.5 % (37-47); Hemoglobin 13.8 g/dL (12.0-15.0); Lymphocyte # 1.22 X10^3/ul (0.83-4.51); Lymphocyte % 11.6 % (19-41); Mean Corp Hgb Conc 32.5 g/dL (32-36); Mean Corpuscular Hgb 30.6 pg (27.0-32.0); Mean Corpuscular Volume 94.2 fL (81-99); Mean Platelet Vol. 12.1 fl (6.2-12.0); Monocyte# 0.85 X10^3/uL; Monocyte% 8.1 % (0-10); NRBC Flagged by Analyzer 0 % (0-5); Neutrophil % 77.9 % (47-70); Platelet Count 187 K/mm3 (150-450); RBC Distribution Width CV 13.5 % (11.6-14.6); RBC Distribution Width SD 46.5 fl (35.1-43.9); Red Blood Count 4.51 M/mm3 (4.2-5.4); White Blood Count 10.5 K/mm3 (4.4-11.0)
[2023-12-29 16:02] LABS: AST(SGOT) 18 U/L (15-37); Alanine Aminotransfer ALT/SGPT 20 U/L (13-56); Albumin, Serum 3.5 g/dL (3.2-5.0); Alkaline Phosphatase 110 U/L (45-117); Anion Gap 6 (5-15); BUN 13 mg/dL (7-18); BUN/Creat Ratio 15.2 RATIO (10-20); Calcium,Total 9.5 mg/dL (8.5-10.1); Chloride 110 mmol/L (98-107); Creatinine, Serum 0.86 mg/dL (0.55-1.02); EST Glomerular Filtration Rate 66 mL/min (>60); Est Glom Filt Rate - Afr Amer 80 mL/min (>60); Globulin 3.6 g/dL (2.2-4.2); Glucose 108 mg/dL (74-106); Potassium 4.2 mmol/L (3.5-5.1); Protein, Total 7.1 g/dL (6.4-8.2); Sodium Level 141 mmol/L (136-145)
== END | disposition home or self-care (01) ==
LOC: MFPLAB 11:47
PROVIDERS: PCP Family Medicine; Visit Provider Family Medicine
DX: R41.3 Other amnesia (principal)
CPT/HCPCS: 36415; 80053; 82306; 82607; 84443; 85025; 85652

== ENCOUNTER → 2024-01-18 | Outpatient (CLI) | payer MEDICARE, SELFPAY ==
--- NOTE | 2024-01-18 12:56 | ECHOCS_ITS ---
Reason For Study: Valve Replacement Procedure This was a 2D Doppler, Color Flow transthoracic echocardiogram. The study was technically difficult. Contrast injection was performed. Exam performed in department. Left Ventricle Normal LV size. Left ventricular systolic function is normal. The left ventricular ejection fraction is 65 %. No regional wall motion abnormalities noted. Right Ventricle Normal RV size. Normal systolic function. Atria Normal left atrium. Normal right atrium. Mitral Valve Bileaflet diffuse mitral valve thickening. Aortic Valve Peak aortic valve gradient 35 mmHg. Mean aortic valve gradient 18 mmHg. Normal prosthetic aortic valve. Pulmonic Valve The pulmonic valve is not well visualized. Great Vessels Normal aortic root. Pericardium/Pleural No pericardial effusion. Medication 22 gauge I.V. with prn adaptor inserted into left arm. Diluted definity 2ml given slow IV push to enhance endocardial definition. MMode/2D Measurements & Calculations LVIDd: 3.9 cm IVSd: 1.1 cm LVOT diam: 1.8 cm LVIDs: 2.9 cm LVPWd: 0.92 cm LVOT area: 2.6 cm2 FS: 25.3 % Ao root diam: 3.0 cm LAV(MOD-bp): 68.6 ml LVAd ap4: 26.5 cm2 LAV(MOD-bp) Indexed: 38.0 ml/m2 LVLd ap4: 7.2 cm LAV(MOD-sp2): 57.4 ml EDV(MOD-sp4): 78.3 ml LAV(MOD-sp4): 73.3 ml EDV(sp4-el): 83.4 ml LVAs ap4: 13.6 cm2 LVLs ap4: 5.9 cm ESV(MOD-sp4): 27.1 ml ESV(sp4-el): 27.0 ml EF(MOD-sp4): 65.4 % EF(sp4-el): 67.7 % SV(MOD-sp4): 51.2 ml SV(sp4-el): 56.5 ml LA A4 area: 24.1 cm2 SI(MOD-sp4): 28.3 ml/m2 LA dimension(2D): 3.9 cm Doppler Measurements & Calculations MV E max duglas: 141.6 cm/sec Lat Peak E' Duglas: 6.3 cm/sec Med Peak E' Duglas: 5.9 cm/sec E/E' lat: 22.6 E/E' med: 24.1 MV V2 max: 235.7 cm/sec MV P1/2t max duglas: 151.5 cm/sec Ao V2 max: 296.4 cm/sec MV max P.2 mmHg MV P1/2t: 123.9 msec Ao max P.1 mmHg MV V2 mean: 125.3 cm/sec MV dec slope: 358.1 cm/sec2 Ao V2 mean: 197.2 cm/sec MV mean P.5 mmHg Ao mean P.9 mmHg MV V2 VTI: 49.3 cm MVA(P1/2t): 1.8 cm2 Ao V2 VTI: 51.4 cm MVA(VTI): 1.6 cm2 AV (velocity ratio): 0.59 EDWIN(I,D): 1.5 cm2 EDWIN(V,D): 1.4 cm2 LV V1 max: 164.4 cm/sec SV(LVOT): 78.0 ml PA V2 max: 98.8 cm/sec LV V1 max P.8 mmHg LV V1 mean P.4 mmHg LV V1 mean: 106.0 cm/sec LV V1 VTI: 30.1 cm ECHO/Echo Complete W/ Contrast Interpretation Summary Normal LV size. Left ventricular systolic function is normal. The left ventricular ejection fraction is 65 %. Normal prosthetic aortic valve. Mean aortic valve gradient 18 mmHg. Contrast injection was performed. Ordering Physician: Daisha López Referring Physician: Daisha López Performed By: Fox Lima RCS
== END | disposition home or self-care (01) ==
PROVIDERS: PCP Family Medicine; Referring Provider Nurse Practitioner Gerontology; Visit Provider Nurse Practitioner Gerontology
DX: Z95.2 Presence of prosthetic heart valve (principal)
CPT/HCPCS: 93306; Q9957; A4216; C8929